=== PATIENT | male | born 1945 | race Caucasian/White ===

== ENCOUNTER 2018-02-17 02:41 | Outpatient (RCR) | payer MEDICARE, SELFPAY ==
[2018-02-17] MEDS: Normal Saline Flush 10 ML SYR IVP (12:57)
[2018-02-18] MEDS: Normal Saline Flush 10 ML SYR IVP (12:37)
[2018-02-18 13:07] LABS: INR 3.5 (1.0-3.5); Prothrombin Time 32.8 sec (9.3-10.8)
[2018-02-19] MEDS: Normal Saline Flush 10 ML SYR IVP (12:54)
[2018-02-20] MEDS: Normal Saline Flush 10 ML SYR IVP (13:05)
[2018-02-21] MEDS: Normal Saline Flush 10 ML SYR IVP (13:00)
[2018-02-21 13:10] LABS: Abs Immature Grans 0.07 k/cumm (0.0-0.09); Absolute Basophil Count 0.08 k/cumm (0.0-0.2); Absolute Eosinophil Count 0.96 k/cumm (0.0-0.7); Absolute Monocyte Count 0.81 k/cumm (0.11-0.7); Basophils % 0.6; Eosinophils % 7.1; HCT 36.9 % (40.0-50.0); Immature Grans % 0.5; Mean Corp. HGB Concentration 32.5 g/dL (32.0-36.0); Mean Corpuscular Hemoglobin 30.8 pg (27.0-33.0); Mean Corpuscular Volume 94.9 fL (80-95); Mean Platelet Volume 9.2 fL (8.0-11.0); Neutrophils % 54.8; Platelet Count 410 x1000/uL (130-400); RBC 3.89 m/cumm (4.50-6.00); RBC Distribution Width 15.6 % (11.8-14.1); White Blood Cell Count 13.56 k/cumm (4.4-10.8)
[2018-02-21 13:13] LABS: Absolute Neutrophil Count 7.43 k/cumm (1.2-6.7)
[2018-02-21 13:20] LABS: AST 26 U/L (15-37); BUN 18 mg/dL (7-18); Chloride 101 mmol/L (98-107); Potassium 3.8 mmol/L (3.5-5.1); Sodium 138 mmol/L (136-145)
[2018-02-21 13:37] LABS: ALT 43 U/L (12-78); Alkaline Phosphatase 120 U/L (46-116); Anion Gap 6.1 mmol/L (3-11); Bilirubin, Total 0.4 mg/dL (0.2-1.0); CO2 30.9 mmol/L (21.0-32.0); CREATININE 0.93 mg/dL (0.70-1.30); Calcium 8.2 mg/dL (8.5-10.1); Glucose 122 mg/dL (70-100); Total Protein 7.6 g/dL (6.4-8.2)
[2018-02-22] MEDS: Normal Saline Flush 10 ML SYR IVP (13:28)
[2018-02-22 13:44] VITALS: BP 123/72; PULSE 57; RESP 20; TEMP 36.7; O2SAT 94
[2018-02-22 13:48] LABS: INR 2.6 (1.0-3.5); Prothrombin Time 24.8 sec (9.3-10.8)
[2018-02-23] MEDS: Normal Saline Flush 10 ML SYR IVP (12:44)
[2018-02-24] MEDS: Normal Saline Flush 10 ML SYR IVP (12:43)
[2018-02-25] MEDS: Normal Saline Flush 10 ML SYR IVP (13:26)
[2018-02-26] MEDS: Normal Saline Flush 10 ML SYR IVP (12:50)
[2018-02-27] MEDS: Normal Saline Flush 10 ML SYR IVP (13:06)
[2018-02-28] MEDS: Normal Saline Flush 10 ML SYR IVP (12:45)
[2018-02-28 13:10] LABS: ALT 35 U/L (12-78); AST 22 U/L (15-37); Albumin 3.1 g/dL (3.4-5.0); Alkaline Phosphatase 132 U/L (46-116); BUN 26 mg/dL (7-18); Bilirubin, Total 0.3 mg/dL (0.2-1.0); CREATININE 1.02 mg/dL (0.70-1.30); Calcium 8.4 mg/dL (8.5-10.1); Chloride 99 mmol/L (98-107); Glucose 268 mg/dL (70-100); Potassium 3.9 mmol/L (3.5-5.1); Sodium 134 mmol/L (136-145)
[2018-02-28 13:15] LABS: Abs Immature Grans 0.03 k/cumm (0.0-0.09); Absolute Basophil Count 0.04 k/cumm (0.0-0.2); Absolute Eosinophil Count 0.05 k/cumm (0.0-0.7); Absolute Lymphocyte Count 1.62 k/cumm (1.2-3.4); Basophils % 0.3; Eosinophils % 0.4; HCT 39.4 % (40.0-50.0); HGB 12.6 g/dL (13.5-17.5); Immature Grans % 0.3; Lymphocytes % 13.7; Mean Corpuscular Hemoglobin 30.4 pg (27.0-33.0); Mean Corpuscular Volume 95.2 fL (80-95); Mean Platelet Volume 9.6 fL (8.0-11.0); Monocytes % 2.5; Neutrophils % 82.8; Platelet Count 359 x1000/uL (130-400); RBC 4.14 m/cumm (4.50-6.00); RBC Distribution Width 16.3 % (11.8-14.1); White Blood Cell Count 11.83 k/cumm (4.4-10.8)
== END 2018-03-04 ==
LOC: INF 02-18 03:40
PROVIDERS: Internal Medicine Infectious Disease; Nurse Practitioner Family; PCP Student in an Organized Health Care Education/Training Program; Visit Provider Student in an Organized Health Care Education/Training Program
DX: R78.81 Bacteremia (principal); B95.5 Unspecified streptococcus as the cause of diseases classified elsewhere; Z79.01 Long term (current) use of anticoagulants; Z45.2 Encounter for adjustment and management of vascular access device
CPT/HCPCS: 36592 ×4; 96365 ×11; 80053; 99211; 85025; 85610

== ENCOUNTER 2018-03-18 00:37 | Outpatient (RCR) | payer MEDICARE, SELFPAY ==
[2018-03-18 07:09] VITALS: BP 124/69; PULSE 75; RESP 16; TEMP 36.6; O2SAT 95
[2018-03-18] MEDS: Acetaminophen 325 MG TAB 650 MG PO (07:24)
[2018-03-18] MEDS: diphenhydrAMINE 25 MG CAP PO (07:24)
[2018-03-18] MEDS: Normal Saline Flush 10 ML SYR IVP (07:45)
[2018-03-18 07:50] VITALS: BP 121/69; PULSE 59; RESP 18; TEMP 36.6
[2018-03-18 08:05] VITALS: BP 131/71; PULSE 58; RESP 18; TEMP 36.6
[2018-03-18 08:20] VITALS: BP 130/70; PULSE 60; RESP 18; TEMP 36.5
[2018-03-18 09:54] VITALS: BP 125/80; PULSE 60; RESP 18; TEMP 36.6; O2SAT 97
== END 2018-04-03 23:59 | disposition home or self-care (01) ==
LOC: INF 00:37
PROVIDERS: PCP Student in an Organized Health Care Education/Training Program; Visit Provider Student in an Organized Health Care Education/Training Program
DX: M06.9 Rheumatoid arthritis, unspecified (principal)
CPT/HCPCS: 96365; 96366; J1745

== ENCOUNTER 2018-04-12 01:33 | Outpatient (RCR) | payer MEDICARE, SELFPAY ==
[2018-04-12] MEDS: Acetaminophen 325 MG TAB 650 MG PO (07:06)
[2018-04-12] MEDS: diphenhydrAMINE 25 MG CAP PO (07:08)
[2018-04-12 07:22] VITALS: BP 117/65; PULSE 81; RESP 18; TEMP 36.6; O2SAT 98
[2018-04-12 08:00] VITALS: BP 131/69; PULSE 76; RESP 18; TEMP 36.6; O2SAT 97
[2018-04-12 08:15] VITALS: BP 122/48; PULSE 54; RESP 17; TEMP 36.6; O2SAT 96
[2018-04-12 08:30] VITALS: BP 127/63; PULSE 66; RESP 17; TEMP 36.6; O2SAT 95
[2018-04-12 08:45] VITALS: BP 118/72; PULSE 71; RESP 18; TEMP 36.5; O2SAT 96
[2018-04-12 09:21] VITALS: BP 121/78; PULSE 74; RESP 17; TEMP 36.6; O2SAT 96
== END 2018-05-04 23:59 | disposition home or self-care (01) ==
LOC: INF 01:33
PROVIDERS: PCP Student in an Organized Health Care Education/Training Program; Visit Provider Nurse Practitioner Family
DX: M06.9 Rheumatoid arthritis, unspecified (principal)
CPT/HCPCS: 96365; 96366; J1745

== ENCOUNTER 2018-05-10 01:46 | Outpatient (RCR) | payer MEDICARE, SELFPAY ==
[2018-05-10] MEDS: diphenhydrAMINE 25 MG CAP PO (07:24)
[2018-05-10] MEDS: Acetaminophen 325 MG TAB 650 MG PO (07:25)
[2018-05-10] MEDS: Normal Saline Flush 10 ML SYR IVP (07:30)
[2018-05-10 07:45] VITALS: BP 126/64; PULSE 73; RESP 18; TEMP 36.6; O2SAT 94
[2018-05-10 08:00] VITALS: BP 124/64; PULSE 78; RESP 18; TEMP 36.6; O2SAT 98
[2018-05-10 08:15] VITALS: BP 125/65; PULSE 68; RESP 18; TEMP 36.8; O2SAT 98
[2018-05-10 08:30] VITALS: BP 110/65; PULSE 70; RESP 18; TEMP 36.5; O2SAT 97
[2018-05-10 08:45] VITALS: BP 109/57; PULSE 66; RESP 18; TEMP 36.5; O2SAT 97
== END 2018-06-03 23:59 | disposition home or self-care (01) ==
LOC: INF 01:46
PROVIDERS: PCP Student in an Organized Health Care Education/Training Program; Visit Provider Student in an Organized Health Care Education/Training Program
DX: M06.9 Rheumatoid arthritis, unspecified (principal)
CPT/HCPCS: 96365; 96366; J1745

== ENCOUNTER 2018-06-07 00:58 | Outpatient (RCR) | payer MEDICARE, SELFPAY ==
[2018-06-07] MEDS: Normal Saline Flush 10 ML SYR IVP (07:21)
[2018-06-07] MEDS: diphenhydrAMINE 25 MG CAP PO (07:21)
[2018-06-07 07:47] VITALS: BP 119/68; PULSE 75; RESP 18; TEMP 36.8; O2SAT 95
[2018-06-07 07:55] VITALS: BP 111/66; PULSE 68; RESP 18; TEMP 36.6; O2SAT 93
[2018-06-07 08:10] VITALS: BP 117/71; PULSE 72; RESP 18; TEMP 36.7; O2SAT 93
[2018-06-07 08:25] VITALS: BP 119/58; PULSE 70; RESP 18; TEMP 36.6; O2SAT 100
[2018-06-07 08:40] VITALS: BP 119/55; PULSE 75; RESP 18; TEMP 36.5; O2SAT 100
[2018-06-07 09:10] VITALS: BP 114/64; PULSE 67; RESP 18; TEMP 36.5; O2SAT 98
== END 2018-07-04 23:59 | disposition home or self-care (01) ==
LOC: INF 00:58
PROVIDERS: PCP Student in an Organized Health Care Education/Training Program; Visit Provider Student in an Organized Health Care Education/Training Program
DX: M05.9 Rheumatoid arthritis with rheumatoid factor, unspecified (principal)
CPT/HCPCS: 96365; 96366; J1745

== ENCOUNTER 2018-07-15 00:32 | Outpatient (RCR) | payer MEDICARE, SELFPAY ==
[2018-07-15] MEDS: diphenhydrAMINE 25 MG CAP PO (07:32)
[2018-07-15 07:34] VITALS: BP 110/87; PULSE 62; RESP 18; TEMP 36.2; O2SAT 93
[2018-07-15 08:05] VITALS: BP 105/53; PULSE 69; RESP 18; TEMP 36.4; O2SAT 95
[2018-07-15 08:20] VITALS: BP 119/62; PULSE 61; RESP 18; TEMP 36.3; O2SAT 98
[2018-07-15 08:35] VITALS: BP 93/72; PULSE 72; RESP 18; TEMP 36.5; O2SAT 98
[2018-07-15 09:10] VITALS: BP 115/55; PULSE 67; RESP 18; TEMP 36.3; O2SAT 98
== END 2018-08-04 23:59 | disposition home or self-care (01) ==
LOC: INF 00:32
PROVIDERS: PCP Student in an Organized Health Care Education/Training Program; Visit Provider Student in an Organized Health Care Education/Training Program
DX: M05.9 Rheumatoid arthritis with rheumatoid factor, unspecified (principal)
CPT/HCPCS: 96365; 96366; J1745

== ENCOUNTER 2018-07-27 09:18 | Outpatient (CLI) | payer MEDICARE, SELFPAY ==
--- NOTE | 2018-07-27 09:15 | DI.RAD_ITS ---
SYMPTOM/DIAGNOSIS: SOB, COUGH, ? PNEUMONIA PA AND LATERAL CHEST: There are patchy regions of bibasilar infiltration, the findings most pronounced in the left lower lobe. There is no pleural effusion. The heart is not enlarged. The hilar structures, mediastinum and tracheal air column are well maintained. Incidental note is made of severe bilateral shoulder DJD. IMPRESSION: Findings consistent with an acute pneumonitis.
== END 2018-07-27 09:38 ==
PROVIDERS: PCP Student in an Organized Health Care Education/Training Program; Visit Provider Student in an Organized Health Care Education/Training Program
DX: R06.02 Shortness of breath (principal); R05 Cough; J18.9 Pneumonia, unspecified organism
CPT/HCPCS: 71046

== ENCOUNTER 2018-08-10 01:49 | Outpatient (RCR) | payer MEDICARE, SELFPAY ==
[2018-08-10] MEDS: Acetaminophen 325 MG TAB 650 MG PO (07:00)
[2018-08-10] MEDS: diphenhydrAMINE 25 MG CAP PO (07:00)
[2018-08-10 07:28] VITALS: BP 117/65; PULSE 83; RESP 18; TEMP 36.7; O2SAT 96
[2018-08-10 08:15] VITALS: BP 154/67; PULSE 63; RESP 18; TEMP 36.3; O2SAT 97
[2018-08-10 08:40] VITALS: BP 136/65; PULSE 77; RESP 18; TEMP 36.5; O2SAT 95
[2018-08-10 08:53] VITALS: BP 135/60; PULSE 77; RESP 18; TEMP 36.6; O2SAT 98
[2018-08-10 09:15] VITALS: BP 130/73; PULSE 70; RESP 18; TEMP 36.6; O2SAT 95
[2018-08-10 09:29] VITALS: BP 131/74; PULSE 80; RESP 18; TEMP 36.3; O2SAT 95
== END 2018-09-01 23:59 | disposition home or self-care (01) ==
LOC: INF 01:49
PROVIDERS: PCP Student in an Organized Health Care Education/Training Program; Visit Provider Student in an Organized Health Care Education/Training Program
DX: M05.9 Rheumatoid arthritis with rheumatoid factor, unspecified (principal)
CPT/HCPCS: 96365; 96366; J1745

== ENCOUNTER 2018-09-07 02:05 | Outpatient (RCR) | payer MEDICARE, SELFPAY ==
[2018-09-07] VITALS (7 sets, daily range): BP systolic 98–133; BP diastolic 45–65; PULSE 63–70; RESP 18; TEMP 36.2–36.5; O2SAT 93–98
[2018-09-07] MEDS: diphenhydrAMINE 25 MG CAP PO (07:04)
[2018-09-07] MEDS: Acetaminophen 325 MG TAB 650 MG PO (07:05)
== END 2018-10-02 23:59 | disposition home or self-care (01) ==
LOC: INF 02:05
PROVIDERS: PCP Student in an Organized Health Care Education/Training Program; Visit Provider Student in an Organized Health Care Education/Training Program
DX: M05.9 Rheumatoid arthritis with rheumatoid factor, unspecified (principal)
CPT/HCPCS: 96365; 96366; J1745

== ENCOUNTER 2018-09-15 13:30 | Outpatient (CLI) | payer MEDICARE, SELFPAY ==
[2018-09-15 14:19] LABS: HCT 41.9 % (40.0-50.0); HGB 14.1 g/dL (13.5-17.5); Mean Corp. HGB Concentration 33.7 g/dL (32.0-36.0); Mean Corpuscular Hemoglobin 31.9 pg (27.0-33.0); Mean Corpuscular Volume 94.8 fL (80-95); Mean Platelet Volume 9.4 fL (8.0-11.0); Platelet Count 248 x1000/uL (130-400); RBC 4.42 m/cumm (4.50-6.00); RBC Distribution Width 15.6 % (11.8-14.1)
[2018-09-15 14:55] LABS: Magnesium 1.6 mg/dL (1.8-2.4)
[2018-09-15 15:00] LABS: ALT 46 U/L (12-78); AST 31 U/L (15-37); Albumin 3.5 g/dL (3.4-5.0); Alkaline Phosphatase 99 U/L (46-116); Anion Gap 13.1 mmol/L (3-11); BUN 16 mg/dL (7-18); Bilirubin, Total 0.6 mg/dL (0.2-1.0); CO2 23.9 mmol/L (21.0-32.0); CREATININE 1.14 mg/dL (0.70-1.30); Calcium 8.5 mg/dL (8.5-10.1); Chloride 97 mmol/L (98-107); Glucose 194 mg/dL (70-100); Potassium 3.9 mmol/L (3.5-5.1); Sodium 134 mmol/L (136-145); Total Protein 7.6 g/dL (6.4-8.2)
== END 2018-09-15 13:50 ==
PROVIDERS: PCP Student in an Organized Health Care Education/Training Program; Visit Provider Student in an Organized Health Care Education/Training Program
DX: E11.65 Type 2 diabetes mellitus with hyperglycemia (principal); I10 Essential (primary) hypertension; I27.20 Pulmonary hypertension, unspecified; R60.9 Edema, unspecified; R25.2 Cramp and spasm; I48.91 Unspecified atrial fibrillation; Z79.01 Long term (current) use of anticoagulants; Z86.2 Personal history of diseases of the blood and blood-forming organs and certain disorders involving the immune mechanism
CPT/HCPCS: 36415; 80053; 85027; 83735

== ENCOUNTER 2018-10-07 02:49 | Outpatient (RCR) | payer MEDICARE, SELFPAY ==
[2018-10-07 11:31] VITALS: BP 129/66; PULSE 74; RESP 18; TEMP 36.5; O2SAT 95
[2018-10-07] MEDS: Acetaminophen 325 MG TAB 650 MG PO (11:35)
[2018-10-07] MEDS: diphenhydrAMINE 25 MG CAP PO (11:35)
[2018-10-07 12:12] VITALS: BP 126/67; PULSE 71; RESP 18; TEMP 36.7; O2SAT 95
[2018-10-07 12:35] VITALS: BP 118/61; PULSE 74; RESP 18; TEMP 36.5; O2SAT 95
[2018-10-07 12:50] VITALS: BP 130/65; PULSE 68; RESP 18; TEMP 36.5; O2SAT 97
[2018-10-07 14:13] VITALS: BP 113/57; PULSE 79; RESP 20; TEMP 37.1; O2SAT 95
[2018-10-07] MEDS: Normal Saline Flush 10 ML SYR IVP (14:18)
== END 2018-11-01 23:59 | disposition home or self-care (01) ==
LOC: INF 02:49
PROVIDERS: PCP Student in an Organized Health Care Education/Training Program; Visit Provider Internal Medicine
DX: M05.9 Rheumatoid arthritis with rheumatoid factor, unspecified (principal)
CPT/HCPCS: 96365; 96366; J1745

== ENCOUNTER 2018-10-09 16:23 | Emergency (ER) | payer MEDICARE, SELFPAY ==
[2018-10-09 16:25] VITALS: BP 115/98; PULSE 70; RESP 16; TEMP 35.9; O2SAT 98
--- NOTE | 2018-10-09 16:45 | W.ED.GENAD ---
Discharge Plan Disposition Patient Disposition: HOME Condition: Improving Discharge Details Chief Complaint: Vascular Clinical Impression: Leg wound, left Primary Care Provider: Ana Alatorre ED Provider: Dima Mitchell Home Meds and New Rx's Prescriptions: Continued furosemide [Lasix] 40 mg tablet 40 mg PO BID Qty: 180 RF: 3 levalbuterol tartrate [Xopenex HFA] 45 mcg/actuation HFA aerosol inhaler 2 puff Inhalation Q4H PRN Qty: 1 RF: 6 warfarin 2 mg tablet 2 mg PO DIRECTED RF: 0 prednisone 10 mg tablet 10 mg PO DAILY Qty: 100 RF: 0 oxycodone-acetaminophen 5-325 mg tablet 1 tab PO Q4H MDD 5 PRN (Reason: pain) Qty: 140 RF: 0 oxycodone-acetaminophen 5-325 mg tablet 1 tab PO Q6H MDD 6 PRN (Reason: pain) Qty: 140 RF: 0 oxycodone-acetaminophen 5-325 mg tablet 1 tab PO Q4H MDD 6 PRN (Reason: pain) Qty: 140 RF: 0 morphine 15 mg tablet extended release 15 mg PO Q12H MDD 2 Qty: 56 RF: 0 Remicade 100 MG recon soln 800 mg IV q5w RF: 0 Narcan 4 MG spray,non-aerosol 4 mg NS PRN PRNQty: 1 RF: 0 Oxygen EACH RF: 0 lisinopril 10 MG tablet 10 mg PO DAILY Qty: 90 RF: 3 atorvastatin 80 MG tablet 80 mg PO DAILY Qty: 90 RF: 3 nitroglycerin [Nitrostat] 0.4 mg tablet, sublingual 0.4 mg Sublingual PRN Qty: 25 RF: 6 metoprolol succinate 100 mg tablet extended release 24 hr 100 mg PO DAILY Qty: 90 RF: 3 methylprednisolone [Medrol] 4 mg tablet 4 mg PO DAILY Qty: 90 RF: 1 metformin 500 mg tablet 500 mg PO BID Qty: 180 RF: 3 pramipexole 0.125 mg tablet 0.125 mg PO HS Qty: 30 RF: 3 omeprazole 20 mg capsule,delayed release(DR/EC) 20 mg PO DAILY Qty: 30 RF: 3 aspirin [Aspir-81] 81 mg tablet,delayed release (DR/EC) 81 mg PO DAILY Qty: 100 RF: 3 Discharge Instructions Additional Instructions: Continue all your regular medications. I will order home health for a wound check in our care management team will contact you this week. Leave the Mepilex border in place for a minimum of 5 days/until seen by wound check nurse. Return if you develop a fever or any other acute concerns. Medical Decision Making 73-year-old male with multiple chronic medical comorbidities, anticoagulated, with a history of pulmonary hypertension and persistent chronic lower extremity edema. He walked into a toolbox and abraded his left anterior smart yesterday. He was worried that this could be a blood clot and therefore presented to the emergency department today. He has no posterior leg pain, no leg pain whatsoever today. He does have chronic lower extremity edema that is unchanged. Patient also has a small healing ulceration of the right lower extremity. The left lower extremity wound was cleansed and dressed with Mepilex. Mepilex was also placed to the right lower extremity. With patient's diabetes and chronic lower extremity edema he will have poor wound healing. He has required in-home health in the past for wound healing. I therefore will ask care management to arrange for home health visits for wound check. HPI General Mode of arrival: ambulatory. Date/Time Provider Initiated Documentation: 10/09/18 16:29. Limitations to Documentation: no limitations. Information obtained by: patient and family. History of Present Illness 73 year old M presents to the emergency department with the chief complaint of Left anterior tibia wound yesterday, described as moderate, Quality is described as dull, and is localized to the left and lower extremity. Patient reports no radiation. and it has been now resolved. No relieving factors improve symptom(s), No exacerbating factors reported . Patient notes no other symptoms.. Patient did receive the following treatments prior to arrival, other (Topical antibiotic treatment and wound dressed) Related Data Home Medications Medication Instructions Recorded Confirmed Remicade 800 mg IV q5w vial 09/07/16 08/15/18 Narcan 4 mg NS PRN PRN #1 unit 12/17/16 09/14/18 Oxygen 09/23/17 10/07/18 lisinopril 10 mg PO DAILY #90 tab-cap 10/22/17 09/14/18 atorvastatin 80 mg PO DAILY #90 tab-cap 01/12/18 09/14/18 warfarin 2 mg tablet 2 mg PO DIRECTED tab 03/07/18 10/07/18 nitroglycerin 0.4 mg sublingual 0.4 mg SUBLINGUAL PRN #25 tab 03/23/18 09/14/18 tablet metoprolol succinate ER 100 mg 100 mg PO DAILY #90 tab 05/13/18 09/14/18 tablet,extended release 24 hr metformin 500 mg tablet 500 mg PO BID #180 tab-cap 07/18/18 09/14/18 methylprednisolone 4 mg tablet 4 mg PO DAILY #90 tab 07/18/18 09/14/18 furosemide 40 mg tablet 40 mg PO BID #180 tab 07/25/18 09/14/18 pramipexole 0.125 mg tablet 0.125 mg PO HS #30 tab-cap 08/17/18 10/07/18 aspirin 81 mg tablet,delayed 81 mg PO DAILY #100 tab 09/12/18 09/14/18 release omeprazole 20 mg capsule,delayed 20 mg PO DAILY #30 tab-cap 09/12/18 10/07/18 release morphine ER 15 mg tablet,extended 15 mg PO Q12H #56 tab MDD 2 09/14/18 09/14/18 release oxycodone-acetaminophen 5 mg-325 1 tab PO Q4H PRN #140 tab MDD 5 09/14/18 10/07/18 mg tablet oxycodone-acetaminophen 5 mg-325 1 tab PO Q4H PRN #140 tab MDD 6 09/14/18 10/07/18 mg tablet oxycodone-acetaminophen 5 mg-325 1 tab PO Q6H PRN #140 tab MDD 6 09/14/18 10/07/18 mg tablet prednisone 10 mg tablet 10 mg PO DAILY #100 tab 09/14/18 10/07/18 levalbuterol HFA 45 mcg/actuation 2 puff INHALATION Q4H PRN #1 10/07/18 10/07/18 aerosol inhaler inhaler Previous Rx's Medication Instructions Recorded lisinopril 10 mg PO DAILY #90 tab-cap 10/22/17 atorvastatin 80 mg PO DAILY #90 tab-cap 01/12/18 nitroglycerin 0.4 mg sublingual 0.4 mg SUBLINGUAL PRN #25 tab 03/23/18 tablet metoprolol succinate ER 100 mg 100 mg PO DAILY #90 tab 05/13/18 tablet,extended release 24 hr metformin 500 mg tablet 500 mg PO BID #180 tab-cap 07/18/18 methylprednisolone 4 mg tablet 4 mg PO DAILY #90 tab 07/18/18 furosemide 40 mg tablet 40 mg PO BID #180 tab 07/25/18 pramipexole 0.125 mg tablet 0.125 mg PO HS #30 tab-cap 08/17/18 aspirin 81 mg tablet,delayed 81 mg PO DAILY #100 tab 09/12/18 release omeprazole 20 mg capsule,delayed 20 mg PO DAILY #30 tab-cap 09/12/18 release morphine ER 15 mg tablet,extended 15 mg PO Q12H #56 tab MDD 2 09/14/18 release oxycodone-acetaminophen 5 mg-325 1 tab PO Q4H PRN #140 tab MDD 5 09/14/18 mg tablet oxycodone-acetaminophen 5 mg-325 1 tab PO Q4H PRN #140 tab MDD 6 09/14/18 mg tablet oxycodone-acetaminophen 5 mg-325 1 tab PO Q6H PRN #140 tab MDD 6 09/14/18 mg tablet prednisone 10 mg tablet 10 mg PO DAILY #100 tab 09/14/18 levalbuterol HFA 45 mcg/actuation 2 puff INHALATION Q4H PRN #1 10/07/18 aerosol inhaler inhaler Allergies Allergy/AdvReac Type Severity Reaction Status Date / Time adalimumab Allergy Severe unknown Verified 10/09/18 16:36 Penicillins Allergy Severe Anaphylaxsi Verified 10/09/18 16:36 s General Stated Complaint: Vascular LINDSEY: 3 Review of Systems Review of Systems No fever, no pain, no swelling that is new, no shortness of breath. 6 systems reviewed and otherwise negative [facility] Surgical History Bronchoscopy (11/20/10) Extraction of cataract (08/21/10) Internal fixation (08/03/10) PFT'S: SEPTEMBER 2017 PTCA (01/27/94) echo right heart catheterization,oximetry (01/07/18) Family History Mother Personal history of malignant neoplasm Father Heart disease Brother Heart disease Lung cancer Social History Smoking/Tobacco Use Status: Former Tobacco Use Tobacco: How many years used: 30 Alcohol Intake: former Details: quit ETOH 1993 Drug use: Never Substance use type: does not use Household members: friend(s) Number of Children: 3 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 Pleasant, well groomed, interactive. HEAD: Normocephalic, atraumatic ENT: Mucous membranes moist, oropharynx unremarkable, External ear exam unremarkable EYES: PERRL, EOMI EXT: Full ROM, no edema, no rash. Left mid anterior tibia with 2 cm area of blood blister/skin avulsion. Right anterior distal tibia with healing 1 x 2 cm wound with granulation tissue Neuro: Grossly normal neurologic exam, conversant, interactive. Psych: Speech fluent, thoughts congruent, affect normal Course Vital Signs Temperature 35.9 C L 10/09/18 16:25 Pulse 70 10/09/18 16:25 Respiratory Rate 16 10/09/18 16:25 Blood Pressure 115/98 H 10/09/18 16:25 Pulse Oximetry 98 10/09/18 16:25 Temperature 35.9 C L 10/09/18 16:25 Temperature Source Skin 10/09/18 16:25 Pulse 70 10/09/18 16:25 Respiratory Rate 16 10/09/18 16:25 Blood Pressure 115/98 H 10/09/18 16:25 Blood Pressure Position Supine 10/09/18 16:25 Pulse Oximetry 98 10/09/18 16:25 Oxygen Delivery Method Nasal Cannula 10/09/18 16:25 Oxygen Flow Rate 2 10/09/18 16:25 Pain Level 0 10/09/18 16:25
--- NOTE | 2018-10-10 10:39 | PDOC.ERCMPRO ---
Care Management Progress Note 10/10-Dr. Mitchell requested assistance with a Home Health Referral for wound care lower extremities. Referral faxed to Home Health this am. This CM also called home health and spoke with
== END 2018-10-09 17:12 | disposition home or self-care (01) ==
LOC: ER 17:02
PROVIDERS: Emergency Provider Emergency Medicine; PCP Student in an Organized Health Care Education/Training Program
DX: S81.802A Unspecified open wound, left lower leg, initial encounter (principal); E11.9 Type 2 diabetes mellitus without complications; I10 Essential (primary) hypertension; R60.9 Edema, unspecified; I48.91 Unspecified atrial fibrillation; Z79.01 Long term (current) use of anticoagulants
CPT/HCPCS: 99282

== ENCOUNTER 2018-11-30 01:47 | Outpatient (RCR) | payer MEDICARE, SELFPAY ==
[2018-11-02] MEDS: diphenhydrAMINE 25 MG CAP PO (07:06)
[2018-11-02] MEDS: Normal Saline Flush 10 ML SYR IVP (07:07)
[2018-11-02 07:48] VITALS: BP 121/79; PULSE 72; RESP 20; TEMP 36.4; O2SAT 94
[2018-11-02 08:05] VITALS: BP 119/71; PULSE 71; RESP 22; TEMP 36.6; O2SAT 96
[2018-11-02 08:35] VITALS: BP 105/66; PULSE 70; RESP 20; TEMP 36.5; O2SAT 95
[2018-11-02 09:00] VITALS: BP 110/76; PULSE 75; RESP 20; TEMP 36.5; O2SAT 95
[2018-11-02 09:25] VITALS: BP 120/60; PULSE 62; TEMP 36.4; O2SAT 95
[2018-11-30] MEDS: diphenhydrAMINE 25 MG CAP PO (07:05)
[2018-11-30] MEDS: Acetaminophen 325 MG TAB 650 MG PO (07:05)
[2018-11-30 07:36] VITALS: BP 116/65; PULSE 66; RESP 20; TEMP 36.1; O2SAT 94
[2018-11-30 07:47] VITALS: BP 104/67; PULSE 76; TEMP 35.7; O2SAT 95
[2018-11-30 08:04] VITALS: BP 120/64; PULSE 61; TEMP 35.9; O2SAT 97
[2018-11-30 08:26] VITALS: BP 120/69; PULSE 71; O2SAT 94
[2018-11-30 08:59] VITALS: BP 103/69; PULSE 53; O2SAT 97
== END 2018-12-02 23:59 | disposition home or self-care (01) ==
LOC: INF 01:47
PROVIDERS: PCP Student in an Organized Health Care Education/Training Program; Visit Provider Internal Medicine
DX: M05.9 Rheumatoid arthritis with rheumatoid factor, unspecified (principal)
CPT/HCPCS: 96365; 96366; J1745

== ENCOUNTER 2018-12-20 08:14 | Outpatient (CLI) | payer MEDICARE, SELFPAY ==
[2018-12-20 10:16] LABS: Anion Gap 15.9 mmol/L (3-11); BUN 17 mg/dL (7-18); CO2 23.1 mmol/L (21.0-32.0); CREATININE 1.08 mg/dL (0.70-1.30); Calcium 8.9 mg/dL (8.5-10.1); Chloride 101 mmol/L (98-107); Glucose 195 mg/dL (70-100); Magnesium 1.7 mg/dL (1.8-2.4); Potassium 3.8 mmol/L (3.5-5.1); Sodium 140 mmol/L (136-145)
== END 2018-12-20 08:34 ==
PROVIDERS: PCP Student in an Organized Health Care Education/Training Program; Visit Provider Student in an Organized Health Care Education/Training Program
DX: R60.9 Edema, unspecified (principal); Z86.39 Personal history of other endocrine, nutritional and metabolic disease
CPT/HCPCS: 36415; 80048; 83735

== ENCOUNTER 2018-12-28 01:14 | Outpatient (RCR) | payer MEDICARE, SELFPAY ==
[2018-12-28] MEDS: diphenhydrAMINE 25 MG CAP PO (08:07)
[2018-12-28] MEDS: Acetaminophen 325 MG TAB 650 MG PO (08:07)
[2018-12-28] MEDS: Normal Saline Flush 10 ML SYR IVP (08:07)
[2018-12-28 08:12] VITALS: BP 122/78; PULSE 62; RESP 18; TEMP 36.3; O2SAT 93
[2018-12-28 09:15] VITALS: BP 113/68; PULSE 56; RESP 18; TEMP 36.7; O2SAT 97
[2018-12-28 09:33] VITALS: BP 126/80; PULSE 64; RESP 18; TEMP 36.6; O2SAT 99
[2018-12-28 09:54] VITALS: BP 120/75; PULSE 82; RESP 18; TEMP 36.5; O2SAT 99
[2018-12-28 10:11] VITALS: BP 123/75; PULSE 62; RESP 18; TEMP 36.5; O2SAT 99
[2018-12-28 10:30] VITALS: BP 109/75; PULSE 74; RESP 18; TEMP 36.5; O2SAT 98
== END 2019-01-01 23:59 | disposition home or self-care (01) ==
LOC: INF 01:14
PROVIDERS: PCP Student in an Organized Health Care Education/Training Program; Visit Provider Internal Medicine
DX: M05.9 Rheumatoid arthritis with rheumatoid factor, unspecified (principal)
CPT/HCPCS: 96365; 96366; J1745

== ENCOUNTER 2019-01-24 01:33 | Outpatient (RCR) | payer MEDICARE, SELFPAY ==
[2019-01-24 07:33] VITALS: BP 119/84; PULSE 53; RESP 18; TEMP 36.6; O2SAT 98
[2019-01-24] MEDS: Acetaminophen 325 MG TAB 650 MG PO (07:33)
[2019-01-24] MEDS: diphenhydrAMINE 25 MG CAP PO (07:33)
[2019-01-24] MEDS: Normal Saline Flush 10 ML SYR IVP (07:34)
[2019-01-24 08:07] VITALS: BP 122/60; PULSE 70; RESP 18; TEMP 36.6; O2SAT 98
[2019-01-24 08:20] VITALS: BP 117/79; PULSE 77; RESP 18; TEMP 36.6; O2SAT 98
[2019-01-24 08:39] VITALS: BP 116/65; PULSE 75; RESP 18; TEMP 36; O2SAT 98
[2019-01-24 09:00] VITALS: BP 117/79; PULSE 67; RESP 18; TEMP 36.3; O2SAT 98
[2019-01-24 10:49] LABS: INR 2.9 (0.9-1.1); Prothrombin Time 29.1 sec (9.3-11.0)
== END 2019-02-01 23:59 | disposition home or self-care (01) ==
LOC: INF 01:33
PROVIDERS: PCP Student in an Organized Health Care Education/Training Program; Visit Provider Internal Medicine
DX: M05.9 Rheumatoid arthritis with rheumatoid factor, unspecified (principal); Z79.01 Long term (current) use of anticoagulants
CPT/HCPCS: 36415; 96365; 96366; 85610; J1745

== ENCOUNTER 2019-02-21 01:57 | Outpatient (RCR) | payer MEDICARE, SELFPAY ==
[2019-02-21 07:01] VITALS: BP 108/64; PULSE 78; RESP 18; TEMP 36.3; O2SAT 98
[2019-02-21] MEDS: diphenhydrAMINE 25 MG CAP PO (07:34)
[2019-02-21] MEDS: Acetaminophen 325 MG TAB 650 MG PO (07:34)
[2019-02-21] MEDS: Normal Saline Flush 10 ML SYR IVP (08:11)
[2019-02-21 08:23] VITALS: BP 148/81; PULSE 68; RESP 18; TEMP 36.5; O2SAT 96
[2019-02-21 08:41] VITALS: BP 96/46; PULSE 68; RESP 18; TEMP 36.3; O2SAT 98
[2019-02-21 09:05] VITALS: BP 110/68; PULSE 69; RESP 18; TEMP 36.5; O2SAT 98
[2019-02-21 09:20] VITALS: BP 112/60; PULSE 65; RESP 18; TEMP 36.6; O2SAT 98
[2019-02-21 11:11] LABS: INR 2.9 (0.9-1.1); Prothrombin Time 29.3 sec (9.3-11.0)
== END 2019-03-04 23:59 | disposition home or self-care (01) ==
LOC: INF 01:57
PROVIDERS: PCP Student in an Organized Health Care Education/Training Program; Visit Provider Internal Medicine
DX: M05.9 Rheumatoid arthritis with rheumatoid factor, unspecified (principal); I48.91 Unspecified atrial fibrillation; Z79.01 Long term (current) use of anticoagulants
CPT/HCPCS: 36415; 96365; 96366; 85610; J1745

== ENCOUNTER 2019-03-02 19:02 | Outpatient (REF) | payer MEDICARE, SELFPAY ==
[2019-03-06 11:56] LABS: Amphetamine Negative ng/mL (Cutoff: 25); Amphetamines Interpretation Negative.; MDA (Ecstasy Metabolite) Negative ng/mL (Cutoff: 25); MDMA (Ecstasy) Negative ng/mL (Cutoff: 25); Methamphetamine Negative ng/mL (Cutoff: 25); Phentermine Negative ng/mL (Cutoff: 25); Pseudoephedrine/Ephedrine Negative ng/mL (Cutoff: 25)
[2019-03-08 10:57] LABS: Codeine Negative ng/mL (Cutoff: 25); Dihydrocodeine Negative ng/mL (Cutoff: 25); Hydrocodone Negative ng/mL (Cutoff: 25); Hydromorphone 176 ng/mL (Cutoff: 25); Naloxone Negative ng/mL (Cutoff: 25); Norhydrocodone Negative ng/mL (Cutoff: 25); Noroxycodone 2370 ng/mL (Cutoff: 25); Noroxymorphone 293 ng/mL (Cutoff: 25); Opiates Interpretation Positive.
== END 2019-03-02 19:22 ==
LOC: LBN 19:02
PROVIDERS: PCP Student in an Organized Health Care Education/Training Program; Visit Provider Student in an Organized Health Care Education/Training Program
DX: G89.29 Other chronic pain (principal)
CPT/HCPCS: 80324; 80361

== ENCOUNTER 2019-03-24 07:00 | Outpatient (RCR) | payer MEDICARE, SELFPAY ==
[2019-03-24] VITALS (8 sets, daily range): BP systolic 108–133; BP diastolic 57–76; PULSE 60–82; RESP 18–19; TEMP 36.4–36.7; O2SAT 98–99
[2019-03-24] MEDS: Acetaminophen 325 MG TAB 650 MG PO (08:36)
[2019-03-24] MEDS: diphenhydrAMINE 25 MG CAP PO (08:36)
[2019-03-24] MEDS: Normal Saline Flush 10 ML SYR IVP (09:10)
[2019-03-24 11:31] LABS: Prothrombin Time 19.4 sec (9.3-11.0)
== END 2019-04-03 23:59 | disposition home or self-care (01) ==
LOC: INF 07:00
PROVIDERS: PCP Student in an Organized Health Care Education/Training Program; Visit Provider Nurse Practitioner Family
DX: M05.9 Rheumatoid arthritis with rheumatoid factor, unspecified (principal)
CPT/HCPCS: 36415; 96365; 96366; 85610; J1745

== ENCOUNTER 2019-05-11 03:24 | Outpatient (RCR) | payer MEDICARE, SELFPAY ==
[2019-05-11] VITALS (7 sets, daily range): BP systolic 126–154; BP diastolic 61–101; PULSE 58–75; RESP 18–20; TEMP 36.7–37.1; O2SAT 96–100
[2019-05-11] MEDS: Acetaminophen 325 MG TAB 650 MG PO (08:00)
[2019-05-11] MEDS: diphenhydrAMINE 25 MG CAP PO (08:00)
[2019-05-11 08:48] LABS: INR 3.1 (0.9-1.1); Prothrombin Time 30.3 sec (9.3-11.0)
== END 2019-06-03 23:59 | disposition home or self-care (01) ==
LOC: INF 03:24
PROVIDERS: PCP Student in an Organized Health Care Education/Training Program; Visit Provider Internal Medicine
DX: M05.9 Rheumatoid arthritis with rheumatoid factor, unspecified (principal); I48.91 Unspecified atrial fibrillation; Z79.01 Long term (current) use of anticoagulants
CPT/HCPCS: 36415; 96365; 96366; 85610; J1745

== ENCOUNTER 2019-06-19 06:54 | Outpatient (RCR) | payer MEDICARE, SELFPAY ==
[2019-06-19] VITALS (7 sets, daily range): BP systolic 101–147; BP diastolic 62–85; PULSE 66–81; RESP 18–20; TEMP 36–36.6; O2SAT 96–98
[2019-06-19] MEDS: Acetaminophen 325 MG TAB 650 MG PO (08:27)
[2019-06-19] MEDS: Normal Saline Flush 10 ML SYR IVP ×2 (08:27→09:18)
[2019-06-19 08:48] LABS: INR 2.6 (0.9-1.1); Prothrombin Time 25.7 sec (9.3-11.0)
== END 2019-07-04 23:59 | disposition home or self-care (01) ==
LOC: INF 06:54
PROVIDERS: Nurse Practitioner; PCP Student in an Organized Health Care Education/Training Program; Visit Provider Internal Medicine
DX: M05.9 Rheumatoid arthritis with rheumatoid factor, unspecified (principal)
CPT/HCPCS: 36415; 96365; 96366; 85610; J1745

== ENCOUNTER 2019-08-30 01:56 | Outpatient (RCR) | payer MEDICARE, SELFPAY ==
[2019-07-26] VITALS (8 sets, daily range): BP systolic 128–160; BP diastolic 46–73; PULSE 57–78; RESP 18–20; TEMP 36–36.8; O2SAT 97–100
[2019-07-26] MEDS: diphenhydrAMINE 25 MG CAP PO (07:44)
[2019-07-26] MEDS: Acetaminophen 325 MG TAB 650 MG PO (07:44)
[2019-07-26] MEDS: Normal Saline Flush 10 ML SYR IVP (11:16)
[2019-07-26 11:53] LABS: Prothrombin Time 19.5 sec (9.3-11.0)
[2019-08-30 08:39] VITALS: BP 165/77; PULSE 79; RESP 19; TEMP 36.3; O2SAT 96
== END 2019-08-30 23:59 | disposition home or self-care (01) ==
LOC: INF 01:56
PROVIDERS: PCP Student in an Organized Health Care Education/Training Program; Visit Provider Internal Medicine
DX: M05.9 Rheumatoid arthritis with rheumatoid factor, unspecified (principal); I48.91 Unspecified atrial fibrillation; Z79.01 Long term (current) use of anticoagulants
CPT/HCPCS: 36415; 96365; 96366; 96413; 96415; 85610; J1745

== ENCOUNTER 2019-08-30 07:15 | Outpatient (RCR) | payer MEDICARE, SELFPAY ==
[2019-08-30] VITALS (7 sets, daily range): BP systolic 133–165; BP diastolic 71–84; PULSE 63–91; RESP 18–20; TEMP 36.3–36.7; O2SAT 96–100
[2019-08-30] MEDS: Acetaminophen 325 MG TAB 650 MG PO (08:53)
[2019-08-30] MEDS: diphenhydrAMINE 25 MG CAP PO (08:53)
[2019-08-30] MEDS: Normal Saline Flush 10 ML SYR 20 ML IVP (09:32)
== END 2019-09-02 23:59 | disposition home or self-care (01) ==
LOC: INF 07:15
PROVIDERS: PCP Student in an Organized Health Care Education/Training Program; Visit Provider Internal Medicine
DX: M05.9 Rheumatoid arthritis with rheumatoid factor, unspecified (principal)
CPT/HCPCS: 96365; 96366; 96413; 96415; J1745

== ENCOUNTER 2019-09-27 01:52 | Outpatient (RCR) | payer MEDICARE, SELFPAY ==
[2019-09-27] VITALS (8 sets, daily range): BP systolic 126–155; BP diastolic 70–84; PULSE 67–85; RESP 19–20; TEMP 36.4–36.9; O2SAT 93–100
[2019-09-27] MEDS: Acetaminophen 325 MG TAB 650 MG PO (09:00)
[2019-09-27] MEDS: diphenhydrAMINE 25 MG CAP PO (09:00)
[2019-09-27] MEDS: Normal Saline Flush 10 ML SYR IVP ×2 (09:01→09:41)
[2019-09-27 12:21] LABS: Abs Immature Grans 0.02 k/cumm (0.0-0.09); Absolute Basophil Count 0.03 k/cumm (0.0-0.2); Absolute Eosinophil Count 0.31 k/cumm (0.0-0.7); Absolute Lymphocyte Count 1.61 k/cumm (1.2-3.4); Basophils % 0.3; Eosinophils % 2.9; HGB 11.8 g/dL (13.5-17.5); Immature Grans % 0.2 %; Lymphocytes % 14.9; Mean Corp. HGB Concentration 32.8 g/dL (32.0-36.0); Mean Corpuscular Hemoglobin 31.7 pg (27.0-33.0); Mean Corpuscular Volume 96.8 fL (80-95); Mean Platelet Volume 9.9 fL (8.0-11.0); Monocytes % 4.2; Neutrophils % 77.5; Platelet Count 203 x1000/uL (130-400); RBC 3.72 m/cumm (4.50-6.00); RBC Distribution Width 15.1 % (11.8-14.1); White Blood Cell Count 10.83 k/cumm (4.4-10.8)
[2019-09-27 12:22] LABS: Absolute Monocyte Count 0.45 k/cumm (0.11-0.7); Absolute Neutrophil Count 8.39 k/cumm (1.2-6.7)
[2019-09-27 12:46] LABS: INR 2.7 (0.9-1.1); Prothrombin Time 26.9 sec (9.3-11.0)
[2019-09-27 12:57] LABS: ALT 37 U/L (16-63); AST 25 U/L (15-37); Alkaline Phosphatase 73 U/L (46-116); Anion Gap 7.5 mmol/L (3-11); BUN 18 mg/dL (7-18); Bilirubin, Total 0.6 mg/dL (0.2-1.0); CO2 27.5 mmol/L (21.0-32.0); CREATININE 1.15 mg/dL (0.70-1.30); Calcium 8.3 mg/dL (8.5-10.1); Chloride 101 mmol/L (98-107); Glucose 236 mg/dL (74-106); NT-proBNP 678 pg/mL (<300); Sodium 136 mmol/L (136-145); Total Protein 6.9 g/dL (6.4-8.2)
== END 2019-10-03 23:59 | disposition home or self-care (01) ==
LOC: INF 01:52
PROVIDERS: Internal Medicine Interventional Cardiology; PCP Student in an Organized Health Care Education/Training Program; Visit Provider Internal Medicine
DX: M05.9 Rheumatoid arthritis with rheumatoid factor, unspecified (principal); I48.91 Unspecified atrial fibrillation; Z79.01 Long term (current) use of anticoagulants; Z51.81 Encounter for therapeutic drug level monitoring
CPT/HCPCS: 36415; 80053; 96365; 96366; 96413; 96415; 83880; 85025; 85610; J1745

== ENCOUNTER 2019-10-25 01:17 | Outpatient (RCR) | payer MEDICARE, SELFPAY | END 2019-11-02 23:59 | disposition home or self-care (01) | LOC: INF 01:17 | PROVIDERS: PCP Student in an Organized Health Care Education/Training Program; Visit Provider Internal Medicine | DX: R69 Illness, unspecified (principal) ==

== ENCOUNTER 2019-10-29 23:47 | Inpatient (IN) | payer MEDICARE, SELFPAY ==
--- NOTE | 2019-10-29 23:45 | DI.CT_ITS ---
EXAM: CT CHEST PE ABD PELVIS W CLINICAL HISTORY: shortness of breath TECHNIQUE: COMPARISON: CHEST WITHOUT CONTRAST from 11/19/2014 CHEST WITHOUT CONTRAST from 11/19/2014 FINDINGS: CT examination of the chest, abdomen, and pelvis was performed with bolus infusion of 100 cc of Omnip aque 350. There is significant motion artifact. There is no gross pulmonary embolic disease. Aorti c valve replacement noted. No aortic dissection or aneurysm. No pericardial effusion. Mild promine nce of mediastinal lymph nodes noted, right paratracheal node measures about 20 millimeters in diamet er. No pleural effusion seen. There are patchy and streaky areas of increased radiodensity, the most pro minent in the left lower lobe likely to represent pneumonia. Findings are consistent with multifocal pneumonia. No gross CHF. No free intraperitoneal air or free intraperitoneal fluid. Liver and spleen are grossly unremarkable , motion artifact limits evaluation. No gross pancreatic abnormality. No biliary dilatation. Gallb ladder poorly seen. No abdominal or pelvic adenopathy. Unremarkable appearance of adrenals and kidn eys, no evidence of urinary tract calcification or obstruction. Normal diameter of abdominal aorta. Atheromatous calcification noted at renal artery origins bilater ally, significant stenosis right renal artery not excluded but this is suboptimally visualized. Appendix appears normal, no evidence of diverticulitis or bowel obstruction. Fat containing umbilical hernia and inguinal hernias noted.. IMPRESSION: Probable multifocal pneumonia, most prominent involving left lower lobe. No evidence CHF or pulmonar y embolic disease. No evidence of acute intra-abdominal process.
--- NOTE | 2019-10-29 23:45 | W.ED.GENAD ---
Discharge Plan Disposition Patient Disposition: [facility] INPATIENT Condition: Stable Discharge Details Chief Complaint: SOB Clinical Impression: Pneumonia, Shortness of breath, Abdominal pain Primary Care Provider: Ana Alatorre ED Provider: Geovany Garcia Home Meds and New Rx's Prescriptions: No Action (DME) POrtable Oxygen Compressor Qty: 1 RF: 0 morphine 15 mg tablet extended release 15 mg PO Q12H MDD 2 Qty: 56 RF: 0 omeprazole 20 mg capsule,delayed release(DR/EC) 20 mg PO BID Qty: 60 RF: 3 warfarin 2 mg tablet 2 mg PO DIRECTED Qty: 90 RF: 2 clonazepam 1 mg tablet 0.5 mg PO QHS MDD 1 Qty: 14 RF: 2 oxycodone-acetaminophen 5-325 mg tablet 1 tab PO Q4H MDD 6 PRN (Reason: pain) Qty: 140 RF: 0 oxycodone-acetaminophen 5-325 mg tablet 1 tab PO Q6H MDD 6 PRN (Reason: pain) Qty: 140 RF: 0 oxycodone-acetaminophen 5-325 mg tablet 1 tab PO Q4H MDD 5 PRN (Reason: pain) Qty: 140 RF: 0 morphine 15 mg tablet extended release 15 mg PO Q12H MDD 30 mg Qty: 56 RF: 0 fluticasone propion-salmeterol [Advair Diskus] 250-50 mcg/dose blister with device 1 inh IH BID RF: 0 ProAir RespiClick 90 mcg/actuation aerosol powdr breath activated 2 inh IH Q6H PRN (Reason: shortness of breath or wheezing) Qty: 1 RF: 1 prednisone 5 mg tablet 5 mg PO DAILY MDD 10 Qty: 90 RF: 1 metformin 500 mg tablet 1,000 mg PO BID Qty: 270 RF: 3 Oxygen EACH RF: 0 atorvastatin 80 mg tablet 80 mg PO DAILY Qty: 90 RF: 3 lisinopril 10 mg tablet 10 mg PO DAILY Qty: 90 RF: 3 Remicade 100 mg recon soln 800 mg IV q5w RF: 0 metoprolol succinate 100 mg tablet extended release 24 hr 100 mg PO DAILY Qty: 90 RF: 3 Narcan 4 mg/actuation spray,non-aerosol 4 mg NS PRN PRN (Reason: opioid overdose) Qty: 1 RF: 0 nitroglycerin [Nitrostat] 0.4 mg tablet, sublingual 0.4 mg Sublingual PRN Qty: 25 RF: 6 Spiriva Respimat 1.25 mcg/actuation mist 2 puff IH DAILY RF: 0 Incruse Ellipta 62.5 mcg/actuation blister with device 1 inh IH DAILY RF: 0 pramipexole 0.125 mg tablet 0.125 mg PO HS Qty: 90 RF: 3 aspirin [Aspir-81] 81 mg tablet,delayed release (DR/EC) 81 mg PO DAILY Qty: 100 RF: 3 Daily Vitamin Formula-Iron 18-400 mg-mcg tablet 1 tab PO DAILY Qty: 90 RF: 0 furosemide 20 mg tablet 20 mg PO BID Qty: 180 RF: 3 Medical Decision Making 72-year-old gentleman with type 2 diabetes mellitus,hypertension, afib, copd on home o2 comes in with cc of worsening shortness of breath over the past 2 months. Denies any chest pain or pressure, has had a cough the last few days and earlier had some generalized abdominal discomfort and has mild left sided abdominal tenderness withotu guarding or rebound. He called ems who noted on his home o2 he was in the mid 80's gave him a duoneb and on arrival is only able to speak in 4-5 word sentences. He had a temp of 100.0 with EMS and he is unsure if he had a fever at home. He has wheezing in apices bilaterally with diminished breath sounsd at the bases. Will tx as copd exacerbation with steroids and beta agonists. Will obtain CTA to eval for PE vs pna and will also evaluate for covid19 and influenza. labs show wbc of 17, lactate of 2.0, CTA shows multilobar pna. He is feeling improved still with some mild tachypnea. Given his age and multiple comorbities will admit Medical Records Medical records reviewed: Yes I reviewed the patient's medical records. Imaging Data Radiologic Study: Attestation: I personally reviewed and interpreted this imaging study as follows: Imaging: CT Scan My impression: pneumonia Radiologist's impression: vrad report reviewed Lab Data Lab results reviewed: Yes I reviewed the patient's lab results. ECG Data Attestation: I personally reviewed and interpreted this ECG (s) as follows: Prior ECG tracings: not available for review Interpretation: afib, rate of 116, qtc 461, left bundle branch block HPI General Mode of arrival: EMS. Date/Time Provider Initiated Documentation: 10/29/19 23:48. Limitations to Documentation: no limitations. Information obtained by: patient. History of Present Illness 74 year old M presents to the emergency department with the chief complaint of shortness of breath, described as moderate, Patient started experiencing this month(s) (2) No relieving factors improve symptom(s), No exacerbating factors reported . Patient did receive the following treatments prior to arrival, none Related Data Home Medications Medication Instructions Recorded Confirmed Oxygen 09/23/17 10/26/19 POrtable Oxygen Compressor #1 ea 12/02/18 10/26/19 atorvastatin 80 mg tablet 80 mg PO DAILY #90 tab-cap 01/09/19 10/30/19 lisinopril 10 mg tablet 10 mg PO DAILY #90 tab-cap 01/09/19 10/30/19 morphine 15 mg tablet,extended 15 mg PO Q12H #56 tab MDD 2 03/02/19 10/30/19 release omeprazole 20 mg capsule,delayed 20 mg PO BID #60 tab-cap 03/05/19 10/30/19 release infliximab 100 mg intravenous 800 mg IV q5w vial 04/05/19 10/30/19 solution albuterol sulfate 90 mcg/actuation 2 inh IH Q6H PRN #1 each 04/06/19 10/30/19 breath activated powder inhaler prednisone 5 mg tablet 5 mg PO DAILY #90 tab MDD 10 04/06/19 10/30/19 fluticasone 250 mcg-salmeterol 50 1 inh IH BID 05/10/19 10/30/19 mcg/dose blistr powdr for inhalation metoprolol succinate 100 mg 100 mg PO DAILY #90 tab 05/16/19 10/30/19 tablet,extended release 24 hr naloxone 4 mg/actuation nasal spray 4 mg NS PRN PRN #1 unit 05/23/19 10/30/19 nitroglycerin 0.4 mg sublingual 0.4 mg SUBLINGUAL PRN #25 tab 07/10/19 10/30/19 tablet tiotropium bromide 1.25 2 puff IH DAILY 07/14/19 10/30/19 mcg/actuation mist for inhalation pramipexole 0.125 mg tablet 0.125 mg PO HS #90 tab-cap 08/02/19 10/30/19 umeclidinium 62.5 mcg/actuation 1 inh IH DAILY 08/02/19 10/30/19 blister powder for inhalation warfarin 2 mg tablet 2 mg PO DIRECTED #90 tab 08/16/19 10/30/19 aspirin 81 mg tablet,delayed 81 mg PO DAILY #100 tab 09/18/19 10/30/19 release clonazepam 1 mg tablet 0.5 mg PO QHS #14 tab MDD 1 10/11/19 10/30/19 morphine 15 mg tablet,extended 15 mg PO Q12H #56 tab MDD 30 mg 10/11/19 10/30/19 release oxycodone-acetaminophen 5 mg-325 1 tab PO Q4H PRN #140 tab MDD 5 10/11/19 10/30/19 mg tablet oxycodone-acetaminophen 5 mg-325 1 tab PO Q4H PRN #140 tab MDD 6 10/11/19 10/30/19 mg tablet oxycodone-acetaminophen 5 mg-325 1 tab PO Q6H PRN #140 tab MDD 6 10/11/19 10/30/19 mg tablet furosemide 20 mg tablet 20 mg PO BID #180 tab 10/17/19 10/30/19 multivitamin-ferrous 1 tab PO DAILY #90 tab 10/17/19 10/30/19 fumarate-folic acid 18 mg-400 mcg tablet metformin 500 mg tablet 1,000 mg PO BID #270 tab-cap 10/25/19 10/30/19 Previous Rx's Medication Instructions Recorded POrtable Oxygen Compressor #1 ea 12/02/18 atorvastatin 80 mg tablet 80 mg PO DAILY #90 tab-cap 01/09/19 lisinopril 10 mg tablet 10 mg PO DAILY #90 tab-cap 01/09/19 morphine 15 mg tablet,extended 15 mg PO Q12H #56 tab MDD 2 03/02/19 release omeprazole 20 mg capsule,delayed 20 mg PO BID #60 tab-cap 03/05/19 release albuterol sulfate 90 mcg/actuation 2 inh IH Q6H PRN #1 each 04/06/19 breath activated powder inhaler prednisone 5 mg tablet 5 mg PO DAILY #90 tab MDD 10 04/06/19 metoprolol succinate 100 mg 100 mg PO DAILY #90 tab 05/16/19 tablet,extended release 24 hr naloxone 4 mg/actuation nasal spray 4 mg NS PRN PRN #1 unit 05/23/19 nitroglycerin 0.4 mg sublingual 0.4 mg SUBLINGUAL PRN #25 tab 07/10/19 tablet pramipexole 0.125 mg tablet 0.125 mg PO HS #90 tab-cap 08/02/19 warfarin 2 mg tablet 2 mg PO DIRECTED #90 tab 08/16/19 aspirin 81 mg tablet,delayed 81 mg PO DAILY #100 tab 09/18/19 release clonazepam 1 mg tablet 0.5 mg PO QHS #14 tab MDD 1 10/11/19 morphine 15 mg tablet,extended 15 mg PO Q12H #56 tab MDD 30 mg 10/11/19 release oxycodone-acetaminophen 5 mg-325 1 tab PO Q4H PRN #140 tab MDD 5 10/11/19 mg tablet oxycodone-acetaminophen 5 mg-325 1 tab PO Q4H PRN #140 tab MDD 6 10/11/19 mg tablet oxycodone-acetaminophen 5 mg-325 1 tab PO Q6H PRN #140 tab MDD 6 10/11/19 mg tablet furosemide 20 mg tablet 20 mg PO BID #180 tab 10/17/19 multivitamin-ferrous 1 tab PO DAILY #90 tab 10/17/19 fumarate-folic acid 18 mg-400 mcg tablet metformin 500 mg tablet 1,000 mg PO BID #270 tab-cap 10/25/19 Allergies Allergy/AdvReac Type Severity Reaction Status Date / Time adalimumab Allergy Severe unknown Verified 10/30/19 01:21 Penicillins Allergy Severe Anaphylaxsi Verified 10/30/19 01:21 s General LINDSEY: 3 Review of Systems All systems reviewed & are unremarkable except as noted in HPI and below Constitutional Constitutional: Denies chills, Denies fever(s) and Denies weakness Cardiovascular Cardiovascular: Denies chest pain Gastrointestinal Gastrointestinal: Denies abdominal pain, Denies nausea and Denies vomiting Musculoskeletal Musculoskeletal: Denies joint swelling Neurologic Neurologic: Denies weakness Psychiatric Psychiatric: Denies depression [facility] Social History Smoking/Tobacco Use Status: Former Tobacco Use Tobacco: How many years used: 30 Alcohol Intake: former Details: quit ETOH 1993 Drug use: Never Substance use type: does not use Household members: friend(s) Number of Children: 3 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,[employer]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[employer] What is your relationship status?: Panel score (0-1 are the most socially isolated patients): 0 What type of physical activity do you participate in: walking Seatbelt use: always Working smoke detector in home: Yes Fire extinguisher in home: Yes Do you feel safe at home: Yes Do you feel safe in your relationship?: Yes Victim of physical abuse: No Victim of emotional abuse: No Victim of sexual abuse: No Exam Const General: no acute distress Orientation: alert HENMT Head: normal to inspection Ears: external ears normal General nose exam: external nose normal Mouth: moist mucous membranes Eyes General: appearance normal, both eyes and all related structures Neck Neck: normal visual inspection Resp Effort & Inspection: audible wheezes and tachypneic Cardio Rate: regular rate Skin General skin exam: no rashes or lesions noted Neuro General: patient alert and patient oriented x3 Extrem General: normal to inspection Psych Mental Status: mental status grossly normal
[2019-10-29 23:55] VITALS: BP 142/72; PULSE 120; RESP 32; TEMP 37.4; O2SAT 100
[2019-10-30] VITALS (12 sets, daily range): BP systolic 108–135; BP diastolic 61–77; PULSE 80–106; RESP 17–32; TEMP 35.8–37.4; O2SAT 94–100
[2019-10-30 00:27] LABS: BE (Venous) 3.5 mmol/L (-3-3); HCO3 (Venous) 28 mmol/L (22-28); O2 Sat (Venous) 84 % (70-80); TCO2 (Venous) 26 mmol/L (22-29); pCO2 (Venous) 44 mm/Hg (34-47); pH (Venous) 7.41 (7.35-7.45); pO2 (Venous) 51 mm/Hg (28-44)
[2019-10-30 00:29] LABS: Abs Immature Grans 0.05 k/cumm (0.0-0.09); Absolute Basophil Count 0.02 k/cumm (0.0-0.2); Absolute Eosinophil Count 0.07 k/cumm (0.0-0.7); Absolute Monocyte Count 1.11 k/cumm (0.11-0.7); Basophils % 0.1; Eosinophils % 0.4; HCT 37.3 % (40.0-50.0); HGB 12.3 g/dL (13.5-17.5); Immature Grans % 0.3 %; Lymphocytes % 6.2; Mean Corpuscular Hemoglobin 31.7 pg (27.0-33.0); Mean Corpuscular Volume 96.1 fL (80-95); Mean Platelet Volume 9.8 fL (8.0-11.0); Monocytes % 6.5; Neutrophils % 86.5; Platelet Count 209 x1000/uL (130-400); RBC 3.88 m/cumm (4.50-6.00); RBC Distribution Width 15.1 % (11.8-14.1); White Blood Cell Count 17.01 k/cumm (4.4-10.8)
[2019-10-30 00:30] LABS: Absolute Lymphocyte Count 1.05 k/cumm (1.2-3.4); Absolute Neutrophil Count 14.71 k/cumm (1.2-6.7)
[2019-10-30 00:44] LABS: INR 2.7 (0.9-1.1); PTT Activated 26.3 sec (21.0-31.4); Prothrombin Time 26.9 sec (9.3-11.0)
[2019-10-30 00:45] LABS: ALT 40 U/L (16-63); AST 23 U/L (15-37); Albumin 3.3 g/dL (3.4-5.0); Alkaline Phosphatase 91 U/L (46-116); Anion Gap 8.5 mmol/L (3-11); BUN 18 mg/dL (7-18); Bilirubin, Total 0.8 mg/dL (0.2-1.0); CO2 27.5 mmol/L (21.0-32.0); CREATININE 1.12 mg/dL (0.70-1.30); Calcium 8.7 mg/dL (8.5-10.1); Chloride 97 mmol/L (98-107); Glucose 322 mg/dL (74-106); Magnesium 1.7 mg/dL (1.8-2.4); Potassium 4.8 mmol/L (3.5-5.1); Sodium 133 mmol/L (136-145); Total Protein 7.7 g/dL (6.4-8.2); Troponin I < 0.05 ng/Ml (<0.06)
[2019-10-30] MEDS: methylPREDNISolone SUCC 125 MG VIAL IVP (01:25)
[2019-10-30] MEDS: levoFLOXacin 750 MG/150 ML BAG 100 MG IVPB (01:37)
--- NOTE | 2019-10-30 01:49 | DI.VRAD_ITS ---
PROCEDURE INFORMATION: Exam: CT Angiography Chest With Contrast Exam date and time: 10/29/2019 12:37 AM Age: 74 years old Clinical indication: Shortness of breath; Prior surgery; Surgery date: 6+ months; Surgery type: Cardiac cath, aortic valve replacment; Patient HX: SOB and abdominal pain TECHNIQUE: Imaging protocol: Computed tomographic angiography of the chest with intravenous contrast. Radiation optimization: All CT scans at this facility use at least one of these dose optimization techniques: automated exposure control; mA and/or kV adjustment per patient size (includes targeted exams where dose is matched to clinical indication); or iterative reconstruction. Contrast material: OMNIPAQUE 350; Contrast volume: 100 ml; Contrast route: IV; COMPARISON: CT CHEST ABD PELVIS WITH CONTRAST 10/01/2013 2:54 PM FINDINGS: Pulmonary arteries: There is no evidence of pulmonary embolus in the large central and medium-sized pulmonary arteries. The smaller peripheral branches are suboptimally visualized due to motion artifact and the presence of consolidation. Aorta: There is no thoracic aortic aneurysm or dissection. A transcatheter aortic valve replacement is seen in expected position. There are mild scattered atherosclerotic plaques throughout the thoracic aorta. Lungs: The lung parenchyma shows multiple diffuse areas of consolidation in the lower lobes and upper lobes. Pleural space: There is no pleural effusion or pneumothorax. Heart: The heart is borderline enlarged. There is no pericardial effusion. Lymph nodes: There are no enlarged mediastinal lymph nodes or masses. There are prominent ronn that may be secondary to lymphadenopathy or prominent vessels. Bones/joints: The spine demonstrates mild degenerative changes at multiple levels. Soft tissues: Unremarkable. IMPRESSION: 1. Multilobar pneumonia. The differential diagnosis is pulmonary edema and ARDS. 2. Probable bilateral lymphadenopathy, reactive versus neoplastic. Clinical and radiographic follow-up is recommended. 3. The examination is suboptimal for evaluation of pulmonary emboli but no large central pulmonary emboli are identified. 4. Status post transcatheter aortic valve replacement. PROCEDURE INFORMATION: Exam: CT Abdomen And Pelvis With Contrast Exam date and time: 10/29/2019 12:37 AM Age: 74 years old Clinical indication: Shortness of breath; Prior surgery; Surgery date: 6+ months; Surgery type: Cardiac cath, aortic valve replacment; Patient HX: SOB and abdominal pain TECHNIQUE: Imaging protocol: Computed tomography of the abdomen and pelvis with intravenous contrast. Radiation optimization: All CT scans at this facility use at least one of these dose optimization techniques: automated exposure control; mA and/or kV adjustment per patient size (includes targeted exams where dose is matched to clinical indication); or iterative reconstruction. Contrast material: OMNIPAQUE 350; Contrast volume: 100 ml; Contrast route: IV; COMPARISON: CT CHEST ABD PELVIS WITH CONTRAST 10/01/2013 2:54 PM FINDINGS: Liver: Normal. No mass. Gallbladder and bile ducts: Normal. No calcified stones. No ductal dilation. Pancreas: See Stomach and bowel finding. Spleen: Normal. No splenomegaly. Adrenals: Normal. No mass. Kidneys and ureters: Unremarkable. No hydronephrosis, no renal calculi. Stomach and bowel: There is mild fecal stasis throughout the colon and fecal impaction in the rectosigmoid. There is fatty degeneration of the pancreas. There is no evidence of small bowel or colonic obstruction. Appendix: No evidence of appendicitis. Intraperitoneal space: Unremarkable. No free air. No significant fluid collection. Vasculature: There is mild atherosclerotic calcification of the abdominal aorta without aneurysm. Lymph nodes: Unremarkable. No enlarged lymph nodes. Bladder: Unremarkable as visualized. Reproductive: The prostate measures 3 cm in transverse dimension. Bones/joints: The spine demonstrates severe degenerative changes at multiple levels. There is multilevel degenerative disc disease and spondylosis of the lumbar spine. Soft tissues: There are small bilateral nonobstructing inguinal hernias. There is a small to moderate fat-containing umbilical hernia. IMPRESSION: 1. Mild atherosclerotic calcification of the abdominal aorta without aneurysm. 2. Mild colonic fecal stasis with fecal impaction in the rectosigmoid. 3. Multilevel severe degenerative disc disease and spondylosis of the lumbar spine. 4. Other incidental findings as above. Dictated and Authenticated by: Kwesi Adan MD. Ordering:TANA Armenta MD
[2019-10-30 01:54] LABS: LDH 354 U/L (85-227)
[2019-10-30 02:11] LABS: Procalcitonin 0.1 ng/mL
[2019-10-30 02:25] LABS: Ferritin 182 ng/mL (26-388)
--- NOTE | 2019-10-30 02:36 | HPE_ITS ---
Date of service: 10/30/19 Time of Service: 02:37 Assessment and Plan Assessment and plan (1) Pneumonia: Start date: 10/29/19 Status: Acute Assessment and plan: This is a 72-year-old gentleman with a history of chronic respiratory symptoms for 2 months worsening over the last several days with an episode of hemoptysis and worsening dyspnea with this cough. He is sweaty but having no chills or fever. He has no exposure to COVID-19 or risk of exposure by his behavior. He does have rheumatoid arthritis and rheumatoid lung with fibrosis by history. He is currently on inhalers. He was treated recently with amoxicillin for weeks and after evaluation in the ED with CT scan showing bilateral multi lobar pneumonia, he was started on Levaquin IV. Because he is chronically on prednisone he was also put on stress steroids with intravenous hydrocortisone 100 mg 3 times a day. We will continue his handheld respiratory treatments. He also is on CPAP at this will be continued. He has a DNR/DNI. His cardiovascular status appears to be stable status post TAVR for aortic stenosis and having chronic atrial fibrillation on Coumadin which is therapeutic. He will continue his Lasix orally 40 mg twice a day with recently increased. This is for his chronic CHF. Qualifiers: Laterality: bilateral Lung location: unspecified part of lung Pneumonia type: due to unspecified organism Qualified Code(s): J18.9 - Pneumonia, unspecified organism (2) Rheumatoid lung: Status: Chronic Assessment and plan: This problem may be making it difficult to interpret his imaging with chronic changes. Acute. He is already on diuretics for CHF and the CT differential was CHF versus ARDS with the patient not appearing to be in that severe of distress and these imaging changes most likely chronic. Consider follow-up echocardiogram and will follow-up chest imaging as indicated. (3) Type 2 diabetes mellitus with hyperglycemia: Status: Chronic Assessment and plan: Patient will be placed on short acting insulin coverage for his meals and bedtime. This may be exacerbated by being on steroids. Qualifiers: Diabetes mellitus continuous churn buttermaker insulin use: with halfway use Qualified Code(s): E11.65 - Type 2 diabetes mellitus with hyperglycemia; Z79.4 - intermediate designer (current) use of insulin (4) Rheumatoid arthritis: Status: Chronic Assessment and plan: Patient usually is on Remicade this can be held while he is ill. Steroids are being given IV. Qualifiers: Rheumatoid arthritis location: multiple sites Rheumatoid factor presence: with rheumatoid factor Qualified Code(s): M05.79 - Rheumatoid arthritis with rheumatoid factor of multiple sites without organ or systems involvement (5) Atrial fibrillation with controlled ventricular response: Status: Chronic Assessment and plan: Chronic atrial fibrillation with controlled rate presently not exacerbated with first troponin negative and no need to trend troponins presently. He is a DNR/DNI. (6) COPD (chronic obstructive pulmonary disease): Status: Chronic Assessment and plan: Continue O2 supplementation as needed, CPAP at night for his sleep apnea and steroid treatment for stress steroids with rheumatoid arthritis should cover any bronchospasm acutely. He is on Levaquin for his pneumonia which will also treat bronchitis. He will continue his usual handheld inhalers. Qualifiers: COPD type: COPD with acute lower respiratory infection Qualified Code(s): J44.0 - Chronic obstructive pulmonary disease with (acute) lower respi ratory infection History of Present Illness History of Present Illness Chief Complaint: Cough with dyspnea and abdominal pa in Narrative: This is a 74-year-old gentleman who has had a 2-month history of increasing shortness of breath but over the last several days has had a cough with some hemoptysis once and with generalized abdominal discomfort and left abdominal discomfort by exam in the ED though the patient denies abdominal pain as a problem to me during my interview and exam. He did respond to treatment for respiratory symptoms and after evaluation was found to have bilateral lobar pneumonia but also has a history of pulmonary fibrosis associated with rheumatoid disease. He is on chronic inhaler therapy. He screened negative for flu A/B and COVID-19 screen is pending. He had no evidence of PE. The CT report of the chest did state question of CHF or ARDS but the patient was oxygenating well and appears more comfortable. He does have a history of right- sided CHF with PA pressures being near 60 in the past and is status post TAVR for severe aortic stenosis with preserved left ventricular ejection fraction with concentric hypertrophy by last echocardiogram report. The patient's initial troponin was negative and he does receive Lasix twice a day as an outpat ient. He also has a history of chronic atrial fibrillation chronically on Coumadin with a therapeutic INR. Patient is a DNR/DNI and appears comfortable with treatment rendered therefore will be admitted to [facility] [place] on telemetry. Review of Systems Narrative: 13 point review of systems otherwise unrevealing or stable. The patient chronically has peripheral edema with skin changes over his ankles which are tender. His cough with hemoptysis was new and has not persisted. He has had sweats but no fever or chills. He has had no exposure to COVID-19 staying in his apartment except for going out in his car with a mask and not going inside buildings. 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 FORMERLY [facility], 1928–1983 Medical History Anemia (Chronic) Hx low Hgb, but today's lab review was unexpected. Probable anemia of chronic disease .. Non-meat diet, [ ] iron suppl (concern for constipation)? [ ] stool guaic Aortic stenosis, moderate (Inactive 07/03/16) [facility] ECHO EF 65%; Mod , valve area 1.33 (grad 23/mean14) (06/2016) [facility] eval 09/2017 shows worsening disease .. may need cardiac surgery. Depressive disorder (Chronic 07/14/11) Surgical History Bronchoscopy (11/20/10) with BAL echo ([facility] pulmonolgy note 09/21/17.) Compared to the study from 06/18/16 the severity of aortic stenosis has increased and there is pulmonary hy pertension. seeing cardio again in 2 wks. Extraction of cataract (08/21/10) R eye,with IOL, Dr Gary History of cardiac cath (Chronic) 03/21/19 [facility] Right heart cath-mild Pulm HTN mean PA pressure 25 and PA systolic pressure 50 normal wedge pressure 6. Right dominant circulation with mild disease in all vessels, focal anyeursm RCA 5mm Internal fixation (08/03/10) R distal femoral fx, Dr Banda, [facility] PFT'S: SEPTEMBER 2017 [facility] pulm note 09/21/17. O2 sat on RA 97% After 250 ft on RA 88% needing 2l O2. PTCA (01/27/94) rescue PTCA RCA for persistent CP with Inf NE; [facility] right heart catheterization,oximetry [place]07/18[place] [facility] [place] findings: Severe pulmonary hypertension mildly elevated pulmonary capillary wedge pressure Status post transcatheter aortic valve replacement (Acute) [facility] 03/29/19 Family History Mother , Lung Cancer at age 74. Personal history of malignant neoplasm at 74 of lung CA Father , CHF at age 86. 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[employer] What is your relationship status?: Panel score (0-1 are the most socially isolated patients): 0 What type of physical activity do you participate in: walking Seatbelt use: always Working smoke detector in home: Yes Fire extinguisher in home: Yes Do you feel safe at home: Yes Do you feel safe in your relationship?: Yes Victim of physical abuse: No Victim of emotional abuse: No Victim of sexual abuse: No Meds Home Medications and Allergies Home Medications Medication Instructions Recorded Confirmed Type Oxygen 09/23/17 10/26/19 History POrtable Oxygen Compressor #1 ea 12/02/18 10/26/19 Rx atorvastatin 80 mg tablet 80 mg PO DAILY #90 tab-cap 01/09/19 10/30/19 Rx lisinopril 10 mg tablet 10 mg PO DAILY #90 tab-cap 01/09/19 10/30/19 Rx morphine 15 mg tablet,extended 15 mg PO Q12H #56 tab MDD 2 03/02/19 10/30/19 Rx release omeprazole 20 mg capsule,delayed 20 mg PO BID #60 tab-cap 03/05/19 10/30/19 Rx release infliximab 100 mg intravenous 800 mg IV q5w vial 04/05/19 10/30/19 History solution albuterol sulfate 90 mcg/actuation 2 inh IH Q6H PRN #1 each 04/06/19 10/30/19 Rx breath activated powder inhaler prednisone 5 mg tablet 5 mg PO DAILY #90 tab MDD 10 04/06/19 10/30/19 Rx fluticasone 250 mcg-salmeterol 50 1 inh IH BID 05/10/19 10/30/19 History mcg/dose blistr powdr for inhalation metoprolol succinate 100 mg 100 mg PO DAILY #90 tab 05/16/19 10/30/19 Rx tablet,extended release 24 hr naloxone 4 mg/actuation nasal spray 4 mg NS PRN PRN #1 unit 05/23/19 10/30/19 Rx nitroglycerin 0.4 mg sublingual 0.4 mg SUBLINGUAL PRN #25 tab 07/10/19 10/30/19 Rx tablet tiotropium bromide 1.25 2 puff IH DAILY 07/14/19 10/30/19 History mcg/actuation mist for inhalation pramipexole 0.125 mg tablet 0.125 mg PO HS #90 tab-cap 08/02/19 10/30/19 Rx umeclidinium 62.5 mcg/actuation 1 inh IH DAILY 08/02/19 10/30/19 History blister powder for inhalation warfarin 2 mg tablet 2 mg PO DIRECTED #90 tab 08/16/19 10/30/19 Rx aspirin 81 mg tablet,delayed 81 mg PO DAILY #100 tab 09/18/19 10/30/19 Rx release clonazepam 1 mg tablet 0.5 mg PO QHS #14 tab MDD 1 10/11/19 10/30/19 Rx morphine 15 mg tablet,extended 15 mg PO Q12H #56 tab MDD 30 mg 10/11/19 10/30/19 Rx release oxycodone-acetaminophen 5 mg-325 1 tab PO Q4H PRN #140 tab MDD 5 10/11/19 10/30/19 Rx mg tablet oxycodone-acetaminophen 5 mg-325 1 tab PO Q4H PRN #140 tab MDD 6 10/11/19 10/30/19 Rx mg tablet oxycodone-acetaminophen 5 mg-325 1 tab PO Q6H PRN #140 tab MDD 6 10/11/19 10/30/19 Rx mg tablet furosemide 20 mg tablet 20 mg PO BID #180 tab 10/17/19 10/30/19 Rx multivitamin-ferrous 1 tab PO DAILY #90 tab 10/17/19 10/30/19 Rx fumarate-folic acid 18 mg-400 mcg tablet metformin 500 mg tablet 1,000 mg PO BID #270 tab-cap 10/25/19 10/30/19 Rx Allergies Allergy/AdvReac Type Severity Reaction Status Date / Time adalimumab Allergy Severe unknown Verified 10/30/19 01:21 Penicillins Allergy Severe Anaphylaxsi Verified 10/30/19 01:21 s Exam Narrative Exam Narrative: General: Patient appears appropriate for age, morbidly obese specially over the trunk and appears deconditioned. He is alert and oriented x3. He is in moderate distress from his respiratory symptoms. He has pressured speech and a flattened affect. HEENT: Normocephalic with eyes revealing pupils equal and reactive to light symmetrically, extraocular movement intact and sclera anicteric. Oropharynx with dry oral mucosa and no erythema. His forehead is sweaty. Neck: Supple without JVD. Lungs: Bronchovesicular breath sounds diffusely with sparse diffuse inspiratory crackles without focalizing and slight increased expiratory phase with slight expiratory wheeze. Fair aeration. Decreased aeration at the bases but no dullness to percussion. Back: Stooped posture with no CVA tenderness. Heart: Irregular regular rhythm with normal rate and no appreciable murmur. He is status post TAVR for aortic stenosis. Abdomen: Obese, soft and no focalizing tenderness or guarding. No rebound. No palpable hepatosplenomegaly. Bowel sounds positive in all quadrants. Genitalia/rectal: Exam deferred. Extremities: 3+ pitting edema lower extremities and 4+ pitting edema over the feet with hyperpigmentation and shiny atrophic skin with loss of hair over both legs circumferentially. The legs are tender to palpation. Peripheral pulses are palpated though decreased and capillary refill is fair. There are no open ulcers over the legs. There is no cyanosis or clubbing. Joints have decreased range of motion but no effusions. Skin: Skin changes over the legs as mentioned otherwise warm and moist with patient sweating over his forehead as mentioned. Neuro: Cranial nerves II through XII grossly intact, no focalizing motor deficit s. Psych: Depressed mood, anxious with pressured speech. Remote and recent memory intact. Results Imaging Imaging Studies: Exam: CT Angiography Chest With Contrast Exam date and time: 10/29/2019 12:37 AM Age: 74 years old Clinical indication: Shortness of breath; Prior surgery; Surgery date: 6+ months; Surgery type: Cardiac cath, aortic valve replacment; Patient HX: SOB and abdominal pain TECHNIQUE: Imaging protocol: Computed tomographic angiography of the chest with intravenous contrast. Radiation optimization: All CT scans at this facility use at least one of these dose optimization techniques: automated exposure control; mA and/or kV adjustment per patient size (includes targeted exams where dose is matched to clinical indication); or iterative reconstruction. Contrast material: OMNIPAQUE 350; Contrast volume: 100 ml; Contrast route: IV; COMPARISON: CT CHEST ABD PELVIS WITH CONTRAST 10/01/2013 2:54 PM FINDINGS: Pulmonary arteries: There is no evidence of pulmonary embolus in the large central and medium-sized pulmonary arteries. The smaller peripheral branches are suboptimally visualized due to motion artifact and the presence of consolidation. Aorta: There is no thoracic aortic aneurysm or dissection. A transcatheter aortic valve replacement is seen in expected position. There are mild scattered atherosclerotic plaques throughout the thoracic aorta. Lungs: The lung parenchyma shows multiple diffuse areas of consolidation in the lower lobes and upper lobes. Pleural space: There is no pleural effusion or pneumothorax. Heart: The heart is borderline enlarged. There is no pericardial effusion. Lymph nodes: There are no enlarged mediastinal lymph nodes or masses. There are prominent ronn that may be secondary to lymphadenopathy or prominent vessels. Bones/joints: The spine demonstrates mild degenerative changes at multiple levels. Soft tissues: Unremarkable. IMPRESSION: 1. Multilobar pneumonia. The differential diagnosis is pulmonary edema and ARDS. 2. Probable bilateral lymphadenopathy, reactive versus neoplastic. Clinical and radiographic follow-up is recommended. 3. The examination is suboptimal for evaluation of pulmonary emboli but no large central pulmonary emboli are identified. 4. Status post transcatheter aortic valve replacement. PROCEDURE INFORMATION: Exam: CT Abdomen And Pelvis With Contrast Exam date and time: 10/29/2019 12:37 AM Age: 74 years old Clinical indication: Shortness of breath; Prior surgery; Surgery date: 6+ months; Surgery type: Cardiac cath, aortic valve replacment; Patient HX: SOB and abdominal pain TECHNIQUE: Imaging protocol: Computed tomography of the abdomen and pelvis with intravenous contrast. Radiation optimization: All CT scans at this facility use at least one of these dose optimization techniques: automated exposure control; mA and/or kV adjustment per patient size (includes targeted exams where dose is matched to clinical indication); or iterative reconstruction. Contrast material: OMNIPAQUE 350; Contrast volume: 100 ml; Contrast route: IV; COMPARISON: CT CHEST ABD PELVIS WITH CONTRAST 10/01/2013 2:54 PM FINDINGS: Liver: Normal. No mass. Gallbladder and bile ducts: Normal. No calcified stones. No ductal dilation. Pancreas: See Stomach and bowel finding. Spleen: Normal. No splenomegaly. Adrenals: Normal. No mass. Kidneys and ureters: Unremarkable. No hydronephrosis, no renal calculi. Stomach and bowel: There is mild fecal stasis throughout the colon and fecal impaction in the rectosigmoid. There is fatty degeneration of the pancreas. There is no evidence of small bowel or colonic obstruction. Appendix: No evidence of appendicitis. Intraperitoneal space: Unremarkable. No free air. No significant fluid collection. Vasculature: There is mild atherosclerotic calcification of the abdominal aorta without aneurysm. Lymph nodes: Unremarkable. No enlarged lymph nodes. Bladder: Unremarkable as visualized. Reproductive: The prostate measures 3 cm in transverse dimension. Bones/joints: The spine demonstrates severe degenerative changes at multiple levels. There is multilevel degenerative disc disease and spondylosis of the lumbar spine. Soft tissues: There are small bilateral nonobstructing inguinal hernias. There is a small to moderate fat-containing umbilical hernia. IMPRESSION: 1. Mild atherosclerotic calcification of the abdominal aorta without aneurysm. 2. Mild colonic fecal stasis with fecal impaction in the rectosigmoid. 3. Multilevel severe degenerative disc disease and spondylosis of the lumbar spine. 4. Other incidental findings as above. Dictated and Authenticated by: Kwesi Adan MD. Labs Result diagrams: 10/30/19 00:20 10/30/19 00:20 Labs: Laboratory Results - last 24 hr 10/30/19 10/30/19 10/30/19 00:20 00:20 00:20 WBC 17.01 H RBC 3.88 L Hgb 12.3 L Hct 37.3 L MCV 96.1 H MCH 31.7 MCHC 33.0 RDW 15.1 H Plt Count 209 MPV 9.8 Immature Gran % 0.3 Neutrophils % 86.5 Lymphocytes % 6.2 Monocytes % 6.5 Eosinophils % 0.4 Basophils % 0.1 Absolute Neutrophils 14.71 H Absolute Lymphocytes 1.05 L Absolute Monocytes 1.11 H Absolute Eosinophils 0.07 Absolute Basophils 0.02 PT 26.9 H INR 2.7 H APTT 26.3 VBG pH VBG pCO2 VBG pO2 VBG HCO3 VBG Total CO2 VBG O2 Saturation VBG Base Excess Sodium 133 L Potassium 4.8 Chloride 97 L Carbon Dioxide 27.5 Anion Gap 8.5 BUN 18 Creatinine 1.12 Estimated GFR/1.73 m2 >= 60.00 Glucose 322 H Lactate Calcium 8.7 Magnesium 1.7 L Ferritin Total Bilirubin 0.8 AST 23 ALT 40 Alkaline Phosphatase 91 Lactate Dehydrogenase Troponin I < 0.05 C-Reactive Protein Total Protein 7.7 Albumin 3.3 L Procalcitonin 10/30/19 10/30/19 10/30/19 00:20 01:30 01:30 WBC RBC Hgb Hct MCV MCH MCHC RDW Plt Count MPV Immature Gran % Neutrophils % Lymphocytes % Monocytes % Eosinophils % Basophils % Absolute Neutrophils Absolute Lymphocytes Absolute Monocytes Absolute Eosinophils Absolute Basophils PT INR APTT VBG pH 7.41 VBG pCO2 44 VBG pO2 51 H VBG HCO3 28 VBG Total CO2 26 VBG O2 Saturation 84 H VBG Base Excess 3.5 H Sodium Potassium Chloride Carbon Dioxide Anion Gap BUN Creatinine Estimated GFR/1.73 m2 Glucose Lactate 2.0 H Calcium Magnesium Ferritin 182 Total Bilirubin AST ALT Alkaline Phosphatase Lactate Dehydrogenase 354 H Troponin I C-Reactive Protein 2.40 H Total Protein Albumin Procalcitonin 0.1 Last Vital Signs Temp 37.4 C 10/29/19 23:55 Pulse 106 H 10/30/19 00:15 Resp 32 H 10/30/19 01:22 BP 135/68 10/30/19 00:15 Pulse Ox 100 10/30/19 00:15 COVID-19 Screening Traveled to [place] from one of the affected countries or regions?: NO Recent travel in the [place] within the last 14 days?: No Recent out of the country travel within the last 14 days?: No Exposure or possible exposure to illness during travel?: No Had IN PERSON contact w/suspected or confirmed C-19 person: No Have you had the following symptoms in the past few days?: No Symptoms noted since travel?: Lower Respiratory
[2019-10-30] MEDS: clonazePAM 0.5 MG TAB PO (03:11)
[2019-10-30 04:45] LABS: Troponin I 0.05 ng/Ml (<0.06)
[2019-10-30 06:52] LABS: HCT 36.1 % (40.0-50.0); HGB 11.7 g/dL (13.5-17.5); Mean Corp. HGB Concentration 32.4 g/dL (32.0-36.0); Mean Corpuscular Volume 95.8 fL (80-95); Platelet Count 193 x1000/uL (130-400); RBC 3.77 m/cumm (4.50-6.00); RBC Distribution Width 15.3 % (11.8-14.1); White Blood Cell Count 16.67 k/cumm (4.4-10.8)
[2019-10-30 07:07] LABS: ALT 36 U/L (16-63); AST 19 U/L (15-37); Albumin 3.1 g/dL (3.4-5.0); Alkaline Phosphatase 76 U/L (46-116); Anion Gap 9.2 mmol/L (3-11); BUN 17 mg/dL (7-18); Bilirubin, Total 0.8 mg/dL (0.2-1.0); CO2 25.8 mmol/L (21.0-32.0); CREATININE 1.13 mg/dL (0.70-1.30); Calcium 8.8 mg/dL (8.5-10.1); Chloride 98 mmol/L (98-107); Glucose 350 mg/dL (74-106); Prothrombin Time 29.5 sec (9.3-11.0); Sodium 133 mmol/L (136-145); Total Protein 7.4 g/dL (6.4-8.2)
[2019-10-30 07:16] LABS: TSH (W/Ref FT4) 0.45 uIU/mL (0.36-3.74)
[2019-10-30] MEDS: Lisinopril 10 MG TAB PO (08:15)
[2019-10-30] MEDS: Insulin Aspart 300 UNITS/3 ML PEN SC ×4 (08:15→22:18)
[2019-10-30] MEDS: Multivitamin w/Minerals TAB 1 TAB PO (08:15)
[2019-10-30] MEDS: Aspirin E.C. 81 MG TABEC PO (08:15)
[2019-10-30] MEDS: Metoprolol CR 100 MG TABCR PO (08:15)
[2019-10-30] MEDS: Omeprazole 20 MG CAPCR PO ×2 (08:15→20:12)
[2019-10-30] MEDS: Furosemide 20 MG TAB 40 MG PO ×2 (08:15→16:06)
[2019-10-30] MEDS: MAGNESIUM SULFATE 2 GM/50 ML BAG IVPB (08:37)
--- NOTE | 2019-10-30 08:38 | INITIAL_ITS ---
- If Service Date Differs Date of service: 10/30/19 Time of Service: 08:38 Care Management Initial Assess REASON FOR HOSPITALIZATION:: Pneumonia PAST MEDICAL HISTORY/PAST SURGICAL HISTORY:: Medical History: Anemia (Chronic). Hx low Hgb, but today's lab review was unexpected. Probable anemia of chronic disease .. Non-meat diet, [ ] iron suppl (concern for constipation)? [ ] stool guaic. Aortic stenosis, moderate (Inactive 07/03/16). [facility] ECHO EF 65%; Mod , valve area 1.33 (grad 23/mean14) (06/2016). [facility] eval 09/2017 shows worsening disease .. may need cardiac surgery. Depressive disorder (Chronic 07/14/11). Surgical History : Bronchoscopy (11/20/10). with BAL. echo. ([facility] pulmonolgy note 09/21/17.) Compared to the study from 06/18/16 the severity of aortic stenosis has increased and there is pulmonary hypertension. seeing cardio again in 2 wks. Extraction of cataract (08/21/10). R eye,with IOL, Dr Gary. History of cardiac cath (Chronic). 03/21/19 [facility] [place] Right heart cath-mild Pulm HTN mean PA pressure 25 and PA systolic pressure 50 normal wedge pressure 6. Right dominant circulation with mild disease in all vessels, focal anyeursm RCA 5mm. Internal fixation (08/03/10). R distal femoral fx, Dr Banda, [facility]. PFT'S: SEPTEMBER 2017. [facility] pulm note 09/21/17. O2 sat on RA 97%. After 250 ft on RA 88% needing 2l O2. PTCA (01/27/94). rescue PTCA RCA for persistent CP with Inf VT; [facility]. right heart catheterization,oximetry (01/07/18). [facility] [place].Corey Griffin MD. findings: Severe pulmonary hypertension. mildly elevated pulmonary capillary wedge pressure. Status post transcatheter aortic valve replacement (Acute). [facility] 03/29/19 PREVIOUS FUNCTIONAL STATUS/SOCIAL/FAMILY SUPPORTS:: Elio lives with his girlfriend Trevor in an apartment in [place]. 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 Elio is fairly indeppendent at baseline however he does use oxygen at 4L. He receives nursing at this time. CURRENT FUNCTIONAL STATUS:: Unable to interview Elio in person at this time as he is a PUI. CM did call him on his phone and was able to obtain additional information regarding home situation and services. Elio has been seeing his PCP Ana Alatorre weekly via telehealth for increasing respiratory issues and weight gain secondary to an increase in prednisone. Elio maintains that he has been isolating himself at home and has not seen anyone except his girlfriend Trevor who lives with him and his home health nurse. ADVANCE DIRECTIVES:: None on file Has patient been provided with information about the portal?: No Did the patient sign up for the portal?: No (no computer) CODE STATUS:: DNR/DNI INSURANCE COVERAGE / FINANCIAL ISSUES:: Medicare. Financial Assist 100 CURRENT HOME/COMMUNITY SERVICES/EQUIPMENT:: Home health nursing. Home oxygen PRIMARY CARE PHYSICIAN:: Ana Alatorre POTENTIAL DISCHARGE NEEDS:: Follow up with PCP and discharge plan of care PATIENT/FAMILY EDUCATION NEEDS:: Discharge plan, limitations, follow up plan, Ask Me Three TRANSPORTATION:: via private vehicle with family PLAN:: Elio will likely be discharged home with a resumption of home health services. 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 CM will continue to support Elio, his family and discharge planning needs.
[2019-10-30] MEDS: Hydrocortisone SOD SUC. 100 MG VIAL IVP ×2 (10:35→16:07)
[2019-10-30] MEDS: oxyCODONE 5 mg/Acetaminophen 325 mg TAB 1 TAB PO ×3 (10:45→22:13)
[2019-10-30] MEDS: Budesonide/Formoterol 160/4.5 6 GM 60 PUFF INH IH ×2 (10:46→22:13)
[2019-10-30] MEDS: Normal Saline Flush 10 ML SYR IVP (16:09)
--- NOTE | 2019-10-30 16:23 | W.PALLCONSUL ---
Date of service: 10/30/19 Time of Service: 12:23 History of Present Illness Narrative: History of Present Illness History of Present Illness Chief Complaint: Cough with dyspnea and abdominal pain Narrative: This is a 74-year-old gentleman who has had a 2-month history of increasing shortness of breath but over the last several days has had a cough with some hemoptysis once and with generalized abdominal discomfort and left abdominal discomfort by exam in the ED though the patient denies abdominal pain as a problem to me during my interview and exam. He did respond to treatment for respiratory symptoms and after evaluation was found to have bilateral lobar pneumonia but also has a history of pulmonary fibrosis associated with rheumatoid disease. He is on chronic inhaler therapy. He screened negative for flu A/B and COVID-19 screen is pending. He had no evidence of PE. The CT report of the chest did state question of CHF or ARDS but the patient was oxygenating well and appears more comfortable. He does have a history of right-sided CHF with PA pressures being near 60 in the past and is status post TAVR for severe aortic stenosis with preserved left ventricular ejection fraction with concentric hypertrophy by last echocardiogram report. The patient's initial troponin was negative and he does receive Lasix twice a day as an outpatient. He also has a history of chronic atrial fibrillation chronically on Coumadin with a therapeutic INR. Patient is a DNR/DNI and appears comfortable with treatment rendered therefore will be admitted to [facility] on telemetry. I was asked to see Elio who is a 74-year-old man with rheumatoid lung and pulmonary fibrosis. On top of this is his pneumonia as well as recent hemoptysis. When I saw him he stated that he was doing much better. He then talked nonstop about his life. 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 He was also seen is the joker at the race [place]. He gave candy out to the kids. He talked about how these kids years later came up to him and thanked him. He is living with a girlfriend who is from another country. He states that she takes very good care of him. He has 2 sons one who he remains in contact with and another that he has not seen in 3 years. Consults Consult date: 10/30/19 Requesting physician: Estella Portillo Assessment and Plan Assessment and plan (1) Pneumonia: Status: Acute Qualifiers: Laterality: bilateral Lung location: unspecified part of lung Pneumonia type: due to unspecified organism Qualified Code(s): J18.9 - Pneumonia, unspecified organism (2) Depressive disorder: Status: Chronic (3) Rheumatoid lung: Status: Chronic (4) Pulmonary HTN: Status: Acute (5) Diabetes mellitus: Status: Acute (6) Palliative care patient: Status: Acute Assessment and plan: Today Elio and I chatted for quite some time. He is quite the effervescent man. He sounds like he has had an exciting life and is very colorful. We did get some paperwork done including CO LST for which he says he does not want CPR or a feeding tube but he is fine with other care. He also completed a DPOAE form citing Francis as his primary person should he not be able to answer for himself. I do think that he is a good candidate for palliative care and would benefit from an ongoing relationship talking about quality of life and end-of-life issues. He agrees to see me again in the future. I will see him either when he is still in the hospital or after he has left. I have spent more than 50% of time in counseling with this patient. I reviewed the present COVID 19 protocol with the patient. This document was created by [employer] software. Content was screened for misspellings, grammatical mistakes, etc. I apologize for any problems, but please contact me for further clarification if needed. (7) DNR no code (do not resuscitate): Status: Acute (8) Acute exacerbation of idiopathic pulmonary fibrosis: Status: Acute (9) Discharge planning issues: Status: Acute Review of Systems Narrative: He states that he is feeling much better. His breathing is easier. He has not had a fever. He is short of breath at baseline but feels better today. He is not having any abdominal pain. He is not having any additional complaints [facility] Medical History Anemia (Chronic) Hx low Hgb, but today's lab review was unexpected. Probable anemia of chronic disease .. Non-meat diet, [ ] iron suppl (concern for constipation)? [ ] stool guaic Aortic stenosis, moderate (Inactive 07/03/16) [facility] ECHO EF 65%; Mod , valve area 1.33 (grad 23/mean14) (06/2016) [facility] eval 09/2017 shows worsening disease .. may need cardiac surgery. Depressive disorder (Chronic 07/14/11) Surgical History Bronchoscopy (11/20/10) with BAL echo ([facility] pulmonolgy note 09/21/17.) Compared to the study from 06/18/16 the severity of aortic stenosis has increased and there is pulmonary hypertension. seeing cardio again in 2 wks. Extraction of cataract (08/21/10) R eye,with IOL, Dr Gary History of cardiac cath (Chronic) 03/21/[place] [facility] [place] cath-mild Pulm HTN mean PA pressure 25 and PA systolic pressure 50 normal wedge pressure 6. Right dominant circulation with mild disease in all vessels, focal anyeursm RCA 5mm Internal fixation (08/03/10) R distal femoral fx, Dr Banda, [facility] PFT'S: SEPTEMBER 2017 [facility] pulm note 09/21/17. O2 sat on RA 97% After 250 ft on RA 88% needing 2l O2. PTCA (01/27/94) rescue PTCA RCA for persistent CP with Inf MO; [facility] right heart catheterization,oximetry (01/07/18) [facility] [place].Corey Griffin MD findings: Severe pulmonary hypertension mildly elevated pulmonary capillary wedge pressure Status post transcatheter aortic valve replacement (Acute) [facility] 03/29/19 Family History Mother , Lung Cancer at age 74. Personal history of malignant neoplasm at 74 of lung CA Father , CHF at age 86. 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 There is food and his gown. Although I asked him to turn off the TV he would only muted. He spent much of his time looking at the TV during our conversation. He was able to talk in complete sentences and in fact he could talk in complete paragraphs between breaths. His heart was regular. Aeration throughout his lungs. There were crackles. Abdomen is obese nontender. He does not appear depressed and in fact he enjoys talking with people and telling them his life story Results Last Vital Signs Temp 97.0 F L 10/30/19 10:30 Pulse 84 10/30/19 10:30 Resp 20 10/30/19 10:30 BP 108/62 10/30/19 10:30 Pulse Ox 95 10/30/19 10:56 Labs Result diagrams: 11/01/19 06:34 11/01/19 06:34 Labs: Laboratory Results - last 24 hr 10/30/19 10/30/19 10/30/19 00:20 00:20 00:20 WBC 17.01 H RBC 3.88 L Hgb 12.3 L Hct 37.3 L MCV 96.1 H MCH 31.7 MCHC 33.0 RDW 15.1 H Plt Count 209 MPV 9.8 Immature Gran % 0.3 Neutrophils % 86.5 Lymphocytes % 6.2 Monocytes % 6.5 Eosinophils % 0.4 Basophils % 0.1 Absolute Neutrophils 14.71 H Absolute Lymphocytes 1.05 L Absolute Monocytes 1.11 H Absolute Eosinophils 0.07 Absolute Basophils 0.02 PT 26.9 H INR 2.7 H APTT 26.3 VBG pH VBG pCO2 VBG pO2 VBG HCO3 VBG Total CO2 VBG O2 Saturation VBG Base Excess Sodium 133 L Potassium 4.8 Chloride 97 L Carbon Dioxide 27.5 Anion Gap 8.5 BUN 18 Creatinine 1.12 Estimated GFR/1.73 m2 >= 60.00 Glucose 322 H Lactate Calcium 8.7 Magnesium 1.7 L Ferritin Total Bilirubin 0.8 AST 23 ALT 40 Alkaline Phosphatase 91 Lactate Dehydrogenase Troponin I < 0.05 C-Reactive Protein Total Protein 7.7 Albumin 3.3 L Procalcitonin TSH 10/30/19 10/30/19 10/30/19 00:20 01:30 01:30 WBC RBC Hgb Hct MCV MCH MCHC RDW Plt Count MPV Immature Gran % Neutrophils % Lymphocytes % Monocytes % Eosinophils % Basophils % Absolute Neutrophils Absolute Lymphocytes Absolute Monocytes Absolute Eosinophils Absolute Basophils PT INR APTT VBG pH 7.41 VBG pCO2 44 VBG pO2 51 H VBG HCO3 28 VBG Total CO2 26 VBG O2 Saturation 84 H VBG Base Excess 3.5 H Sodium Potassium Chloride Carbon Dioxide Anion Gap BUN Creatinine Estimated GFR/1.73 m2 Glucose Lactate 2.0 H Calcium Magnesium Ferritin 182 Total Bilirubin AST ALT Alkaline Phosphatase Lactate Dehydrogenase 354 H Troponin I C-Reactive Protein 2.40 H Total Protein Albumin Procalcitonin 0.1 TSH 10/30/19 10/30/19 10/30/19 04:27 06:21 06:21 WBC RBC Hgb Hct MCV MCH MCHC RDW Plt Count MPV Immature Gran % Neutrophils % Lymphocytes % Monocytes % Eosinophils % Basophils % Absolute Neutrophils Absolute Lymphocytes Absolute Monocytes Absolute Eosinophils Absolute Basophils PT INR APTT VBG pH VBG pCO2 VBG pO2 VBG HCO3 VBG Total CO2 VBG O2 Saturation VBG Base Excess Sodium 133 L Potassium 5.0 Chloride 98 Carbon Dioxide 25.8 Anion Gap 9.2 BUN 17 Creatinine 1.13 Estimated GFR/1.73 m2 >= 60.00 Glucose 350 H Lactate Calcium 8.8 Magnesium Ferritin Total Bilirubin 0.8 AST 19 ALT 36 Alkaline Phosphatase 76 Lactate Dehydrogenase Troponin I 0.05 C-Reactive Protein Total Protein 7.4 Albumin 3.1 L Procalcitonin TSH 0.45 10/30/19 10/30/19 06:21 06:21 WBC 16.67 H RBC 3.77 L Hgb 11.7 L Hct 36.1 L MCV 95.8 H MCH 31.0 MCHC 32.4 RDW 15.3 H Plt Count 193 MPV 10.0 Immature Gran % Neutrophils % Lymphocytes % Monocytes % Eosinophils % Basophils % Absolute Neutrophils Absolute Lymphocytes Absolute Monocytes Absolute Eosinophils Absolute Basophils PT 29.5 H INR 3.0 H APTT VBG pH VBG pCO2 VBG pO2 VBG HCO3 VBG Total CO2 VBG O2 Saturation VBG Base Excess Sodium Potassium Chloride Carbon Dioxide Anion Gap BUN Creatinine Estimated GFR/1.73 m2 Glucose Lactate Calcium Magnesium Ferritin Total Bilirubin AST ALT Alkaline Phosphatase Lactate Dehydrogenase Troponin I C-Reactive Protein Total Protein Albumin Procalcitonin TSH
--- NOTE | 2019-10-30 17:39 | RESPIRATORY ---
Pt reports he normally wears 4L of oxygen all the time but currently he's using 5-6L of O2. Pt stated to climb upstairs to third floor of house, he uses 5L O2. Pt states he walks very little, from bedroom to kitchen and he uses 4L O2. He reports that the DME for oxygen is [facility] and he has a O2 concentrator that he bought himself.
--- NOTE | 2019-10-30 17:56 | W.PM.PROGNOT ---
Date of Service Date of service: 10/30/19 Time of Service: 17:56 Subjective Subjective Interval history since last seen: Patient reports scant hemoptysis today, but it has been going on for a while and he notices it more after exertion, such as walking up his 30 stairs. He states that he now has been using 4L of O2 at home. He is on 5L currently. States he is feeling better. States his LLE got much more swollen about a month ago. He had not had a venous doppler yet; one is ordered. Last INR 3.0. There is a palliative care consult ordered to discuss goals of care. The patient states he is not sure what his prognosis is. He does not remember if [facility] [place] [place] pulmonology told him. I will touch base with his in home nanny at [facility] [place] [place] tomorrow. His COVID-19 testing is still pending. Objective Objective Clinical Data: Abnormal lab results 10/30/19 10/30/19 10/30/19 Range/Units 00:20 00:20 00:20 WBC 17.01 H (4.4-10.8) k/cumm RBC 3.88 L (4.50-6.00) m/cumm Hgb 12.3 L (13.5-17.5) g/dL Hct 37.3 L (40.0-50.0) % MCV 96.1 H (80-95) fL RDW 15.1 H (11.8-14.1) % Absolute Neutrophils 14.71 H (1.2-6.7) k/cumm Absolute Lymphocytes 1.05 L (1.2-3.4) k/cumm Absolute Monocytes 1.11 H (0.11-0.7) k/cumm PT 26.9 H (9.3-11.0) sec INR 2.7 H (0.9-1.1) VBG pO2 (28-44) mm/Hg VBG O2 Saturation (70-80) % VBG Base Excess (-3-3) mmol/L Sodium 133 L (136-145) mmol/L Chloride 97 L (98-107) mmol/L Glucose 322 H (74-106) mg/dL Lactate (0.6-1.4) mmol/L Magnesium 1.7 L (1.8-2.4) mg/dL Lactate Dehydrogenase (85-227) U/L C-Reactive Protein (0.0-0.3) mg/dL Albumin 3.3 L (3.4-5.0) g/dL 10/30/19 10/30/19 10/30/19 Range/Units 00:20 01:30 01:30 WBC (4.4-10.8) k/cumm RBC (4.50-6.00) m/cumm Hgb (13.5-17.5) g/dL Hct (40.0-50.0) % MCV (80-95) fL RDW (11.8-14.1) % Absolute Neutrophils (1.2-6.7) k/cumm Absolute Lymphocytes (1.2-3.4) k/cumm Absolute Monocytes (0.11-0.7) k/cumm PT (9.3-11.0) sec INR (0.9-1.1) VBG pO2 51 H (28-44) mm/Hg VBG O2 Saturation 84 H (70-80) % VBG Base Excess 3.5 H (-3-3) mmol/L Sodium (136-145) mmol/L Chloride (98-107) mmol/L Glucose (74-106) mg/dL Lactate 2.0 H (0.6-1.4) mmol/L Magnesium (1.8-2.4) mg/dL Lactate Dehydrogenase 354 H (85-227) U/L C-Reactive Protein 2.40 H (0.0-0.3) mg/dL Albumin (3.4-5.0) g/dL 10/30/19 10/30/19 10/30/19 Range/Units 06:21 06:21 06:21 WBC 16.67 H (4.4-10.8) k/cumm RBC 3.77 L (4.50-6.00) m/cumm Hgb 11.7 L (13.5-17.5) g/dL Hct 36.1 L (40.0-50.0) % MCV 95.8 H (80-95) fL RDW 15.3 H (11.8-14.1) % Absolute Neutrophils (1.2-6.7) k/cumm Absolute Lymphocytes (1.2-3.4) k/cumm Absolute Monocytes (0.11-0.7) k/cumm PT 29.5 H (9.3-11.0) sec INR 3.0 H (0.9-1.1) VBG pO2 (28-44) mm/Hg VBG O2 Saturation (70-80) % VBG Base Excess (-3-3) mmol/L Sodium 133 L (136-145) mmol/L Chloride (98-107) mmol/L Glucose 350 H (74-106) mg/dL Lactate (0.6-1.4) mmol/L Magnesium (1.8-2.4) mg/dL Lactate Dehydrogenase (85-227) U/L C-Reactive Protein (0.0-0.3) mg/dL Albumin 3.1 L (3.4-5.0) g/dL Vital Signs Temperature 36.1 C L 10/30/19 10:30 Temperature Source Temporal Artery Scan 10/30/19 10:30 Pulse 84 10/30/19 10:30 Pulse Rhythm Regular 10/30/19 03:49 Respiratory Rate 10/30/19 10:30 Respiratory Effort 10/30/19 17:48 Respiratory Depth Normal 10/30/19 17:48 Respiratory Pattern Normal 10/30/19 17:48 Blood Pressure 108/62 10/30/19 10:30 Blood Pressure Position Sitting 10/29/19 23:55 Pulse Oximetry 95 10/30/19 17:25 Oxygen Delivery Method Nasal Cannula 10/30/19 17:25 Oxygen Flow Rate 5 10/30/19 17:35 Pain Level 7 10/30/19 16:32 Comment 10/30/19 10:30 Intake & Output 10/29/19 10/30/19 10/30/19 23:59 11:59 23:59 Intake Total 440 / 980 540 / 980 Output Total 425 / 1175 750 / 1175 Balance 15 195 -210 / -195 Weight 119.748 kg 120.5 kg Intake: Oral 440 / 980 540 / 980 Output: Urine 425 / 1175 750 / 1175 Other: Urine Color Yellow Yellow Urine Appearance Clear Clear Urine Odor None None Voiding Methods Urinal Laboratory Results WBC 16.67 k/cumm (4.4-10.8) H 10/30/19 06:21 RBC 3.77 m/cumm (4.50-6.00) L 10/30/19 06:21 Hgb 11.7 g/dL (13.5-17.5) L 10/30/19 06:21 Hct 36.1 % (40.0-50.0) L 10/30/19 06:21 MCV 95.8 fL (80-95) H 10/30/19 06:21 MCH 31.0 pg (27.0-33.0) 10/30/19 06: MCHC 32.4 g/dL (32.0-36.0) 10/30/19 06:21 RDW 15.3 % (11.8-14.1) H 10/30/19 06:21 Plt Count 193 x1000/uL (130-400) 10/30/19 06:21 MPV 10.0 fL (8.0-11.0) 10/30/19 06:21 Immature Gran % 0.3 % 10/30/19 00:20 Neutrophils % 86.5 10/30/19 00:20 Lymphocytes % 6.2 10/30/19 00:20 Monocytes % 6.5 10/30/19 00:20 Eosinophils % 0.4 10/30/19 00:20 Basophils % 0.1 10/30/19 00:20 Absolute Neutrophils 14.71 k/cumm (1.2-6.7) H 10/30/19 00:20 Absolute Lymphocytes 1.05 k/cumm (1.2-3.4) L 10/30/19 00:20 Absolute Monocytes 1.11 k/cumm (0.11-0.7) H 10/30/19 00:20 Absolute Eosinophils 0.07 k/cumm (0.0-0.7) 10/30/19 00:20 Absolute Basophils 0.02 k/cumm (0.0-0.2) 10/30/19 00:20 PT 29.5 sec (9.3-11.0) H 10/30/19 06:21 INR 3.0 (0.9-1.1) H 10/30/19 06:21 APTT 26.3 sec (21.0-31.4) 10/30/19 00:20 VBG pH 7.41 (7.35-7.45) 10/30/19 00:20 VBG pCO2 44 mm/Hg (34-47) 10/30/19 00:20 VBG pO2 51 mm/Hg (28-44) H 10/30/19 00:20 VBG HCO3 28 mmol/L (22-28) 10/30/19 00:20 VBG Total CO2 26 mmol/L (22-29) 10/30/19 00:20 VBG O2 Saturation 84 % (70-80) H 10/30/19 00:20 VBG Base Excess 3.5 mmol/L (-3-3) H 10/30/19 00:20 Sodium 133 mmol/L (136-145) L 10/30/19 06:21 Potassium 5.0 mmol/L (3.5-5.1) 10/30/19 06:21 Chloride 98 mmol/L (98-107) 10/30/19 06:21 Carbon Dioxide 25.8 mmol/L (21.0-32.0) 10/30/19 06:21 Anion Gap 9.2 mmol/L (3-11) 10/30/19 06:21 BUN 17 mg/dL (7-18) 10/30/19 06:21 Creatinine 1.13 mg/dL (0.70-1.30) 10/30/19 06:21 Estimated GFR/1.73 m2 >= 60.00 (mL/min/1.73m2) 10/30/19 06:21 Glucose 350 mg/dL (74-106) H 10/30/19 06:21 Lactate 2.0 mmol/L (0.6-1.4) H 10/30/19 01:30 Calcium 8.8 mg/dL (8.5-10.1) 10/30/19 06:21 Magnesium 1.7 mg/dL (1.8-2.4) L 10/30/19 00:20 Ferritin 182 ng/mL (26-388) 10/30/19 01:30 Total Bilirubin 0.8 mg/dL (0.2-1.0) 10/30/19 06:21 AST 19 U/L (15-37) 10/30/19 06:21 ALT 36 U/L (16-63) 10/30/19 06:21 Alkaline Phosphatase 76 U/L (46-116) 10/30/19 06:21 Lactate Dehydrogenase 354 U/L (85-227) H 10/30/19 01:30 Troponin I 0.05 ng/Ml (<0.06) 10/30/19 04: C-Reactive Protein 2.40 mg/dL (0.0-0.3) H 10/30/19 01:30 Total Protein 7.4 g/dL (6.4-8.2) 10/30/19 06:21 Albumin 3.1 g/dL (3.4-5.0) L 10/30/19 06:21 Procalcitonin 0.1 ng/mL 10/30/19 01:30 TSH 0.45 uIU/mL (0.36-3.74) 10/30/19 06:21
[2019-10-30] MEDS: Atorvastatin 40 MG TAB 80 MG PO (20:12)
[2019-10-30] MEDS: Albuterol HFA 8 GM 60 PUFF INH IH (20:13)
[2019-10-30] MEDS: clonazePAM 1 MG TAB 0.5 MG PO (22:12)
[2019-10-30] MEDS: Pramipexole 0.25 MG TAB 0.125 MG PO (22:13)
[2019-10-31] VITALS (13 sets, daily range): BP systolic 120–154; BP diastolic 64–82; PULSE 72–91; RESP 2–24; TEMP 35.8–36.8; O2SAT 91–100
--- NOTE | 2019-10-31 | DI.US_ITS ---
EXAM: US EXTREMITY VENOUS BI CLINICAL HISTORY: Edema BLE's, suspected DVT TECHNIQUE: Ultrasound performed using standard protocol. COMPARISON: No exams were available for comparison FINDINGS: Duplex venous ultrasound was performed according to the usual protocol. The deep veins are freely com pressible throughout and there is normal flow augmentation with manual calf compression. 2D and Doppl er evaluation are unremarkable. IMPRESSION: No evidence of deep venous thrombosis of the right or left lower extremity
[2019-10-31] MEDS: levoFLOXacin 750 MG/150 ML BAG 100 MG IVPB (00:49)
[2019-10-31] MEDS: Hydrocortisone SOD SUC. 100 MG VIAL IVP (00:49)
[2019-10-31] MEDS: oxyCODONE 5 mg/Acetaminophen 325 mg TAB 1 TAB PO ×2 (07:17→21:32)
[2019-10-31 07:28] LABS: Lactate 3.3 mmol/L (0.6-1.4)
[2019-10-31 07:29] LABS: Eosinophils % 0.1; HCT 36.1 % (40.0-50.0); HGB 11.9 g/dL (13.5-17.5); Immature Grans % 0.3 %; Mean Corpuscular Hemoglobin 31.6 pg (27.0-33.0); Mean Platelet Volume 9.9 fL (8.0-11.0); Monocytes % 4.1; Neutrophils % 88.5; Platelet Count 198 x1000/uL (130-400); RBC 3.76 m/cumm (4.50-6.00); RBC Distribution Width 15.3 % (11.8-14.1); White Blood Cell Count 16.14 k/cumm (4.4-10.8)
[2019-10-31 07:30] LABS: Abs Immature Grans 0.05 k/cumm (0.0-0.09); Absolute Lymphocyte Count 1.13 k/cumm (1.2-3.4); Absolute Monocyte Count 0.66 k/cumm (0.11-0.7)
[2019-10-31 07:32] LABS: Absolute Eosinophil Count 0.02 k/cumm (0.0-0.7); Absolute Neutrophil Count 14.28 k/cumm (1.2-6.7)
[2019-10-31 07:41] LABS: BUN 23 mg/dL (7-18); CREATININE 1.21 mg/dL (0.70-1.30); Calcium 8.4 mg/dL (8.5-10.1); Chloride 99 mmol/L (98-107); Estimated GFR 58.62 (mL/min/1.73m2); Glucose 302 mg/dL (74-106); Magnesium 2.1 mg/dL (1.8-2.4); Potassium 4.1 mmol/L (3.5-5.1); Sodium 136 mmol/L (136-145)
[2019-10-31 07:49] LABS: INR 2.1 (0.9-1.1); Prothrombin Time 20.7 sec (9.3-11.0)
[2019-10-31] MEDS: Metoprolol CR 100 MG TABCR PO (09:06)
[2019-10-31] MEDS: Aspirin E.C. 81 MG TABEC PO (09:06)
[2019-10-31] MEDS: Multivitamin w/Minerals TAB 1 TAB PO (09:06)
[2019-10-31] MEDS: Furosemide 20 MG TAB 40 MG PO ×2 (09:07→16:04)
[2019-10-31] MEDS: Omeprazole 20 MG CAPCR PO ×2 (09:07→21:06)
[2019-10-31] MEDS: Lisinopril 10 MG TAB PO (09:07)
[2019-10-31] MEDS: Insulin Aspart 300 UNITS/3 ML PEN SC ×4 (09:08→21:08)
[2019-10-31] MEDS: Insulin Glargine 300 UNITS/3 ML PEN 10 UNITS SC (09:20)
[2019-10-31] MEDS: Hydrocortisone SOD SUC. 100 MG VIAL 50 MG IVP ×2 (09:21→16:05)
[2019-10-31] MEDS: Budesonide/Formoterol 160/4.5 6 GM 60 PUFF INH IH ×2 (09:23→21:13)
[2019-10-31] MEDS: Normal Saline Flush 10 ML SYR IVP ×3 (09:24→21:33)
[2019-10-31 09:32] LABS: COVID-19 RT-PCR UVMMC Result Negative (Negative)
--- NOTE | 2019-10-31 09:47 | PDOC.CMPRO ---
- If Service Date Differs Date of service: 10/31/19 Time of Service: 09:47 Care Management Progress Note S/O:Elio was sitting up in a chair when CM met with him. He was open and friendly and quite willing to converse. 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 He describes her as a beautiful woman who is well educated and speaks 4 languages. He shared that she is the best woman for him as she is a nurse and that she feels the same about him. Kristina is disabled because she is bipolar, so is unable to work at this time. Elio stated that they have been self-isolating, only leaving the house to go grocery shopping while wearing a mask. He shared that they live on the 3rd floor and no one comes to visit except his nurse. At this time Elio does not feel that he will need any additional services at discharge. A: Elio is a 74 year old man admitted on 10/30/19 with pneumonia P:Elio will likely be discharged home with a resumption of home health services. 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 CM will continue to support Elio, his family and discharge planning needs.
[2019-10-31] MEDS: Albuterol HFA 8 GM 60 PUFF INH IH (11:03)
[2019-10-31 12:25] LABS: Lactate 2.6 mmol/L (0.6-1.4)
[2019-10-31 12:36] LABS: Glucose 404 mg/dL (74-106)
--- NOTE | 2019-10-31 14:30 | PHA.REVIEW ---
Pharmacy Admission Review - Admission Clinical Review (Last Reviewed 10/30/19 @ 03:07 by Jarrett Foster) DNR no code (do not resuscitate) (Acute) Palliative care patient (Acute) Pneumonia (Acute) Shortness of breath (Acute) Pulmonary HTN (Acute) Diabetes mellitus (Acute 07/05/00) adalimumab Allergy (Severe, Verified 10/30/19 01:21) unknown Penicillins Allergy (Severe, Verified 10/30/19 01:21) Anaphylaxsis Height 5 ft 4 in Weight 120.5 kg - Renal Dosing Renal Dosing: BUN 23 mg/dL (7-18) H 10/31/19 07:15 Creatinine 1.21 mg/dL (0.70-1.30) 10/31/19 07:15 Medications needing adjustments: Reviewed (CRCL ~44ML/MIN) - Anticoagulation Anticoagulation: Hgb 11.9 g/dL (13.5-17.5) L 10/31/19 07:15 Hct 36.1 % (40.0-50.0) L 10/31/19 07:15 Plt Count 198 x1000/uL (130-400) 10/31/19 07:15 INR 2.1 (0.9-1.1) H D 10/31/19 07:15 Creatinine 1.21 mg/dL (0.70-1.30) 10/31/19 07:15 DVT Prohphylaxis: Reviewed Medications: Warfarin Therapeutic Anticoagulation: Reviewed Medications: Warfarin (INR 2.1) - Opiate Usage Evaluate Pain Scale/Pains Meds: Reviewed Scheduled Bowel Reg ordered if on Opiates?: No (PRN) - Relevant Labs Sodium 136 mmol/L (136-145) 10/31/19 07:15 Potassium 4.1 mmol/L (3.5-5.1) 10/31/19 07:15 Chloride 99 mmol/L (98-107) 10/31/19 07:15 Magnesium 2.1 mg/dL (1.8-2.4) 10/31/19 07:15 C-Reactive Protein 2.40 mg/dL (0.0-0.3) H 10/30/19 01:30 Electrolytes, C-Reactive P, ESR: Reviewed - DM Control DM Control: Glucose 404 mg/dL (74-106) H D 10/31/19 12:14 Finger Stick Blood Glucose 404 Finger Stick Blood Glucose 426 Finger Stick Blood Glucose 302 Finger Stick Blood Glucose 302 Finger Stick Blood Glucose 302 Insulin Dosing: Reviewed (insulin aspart SS and glargine ordered) - Heart Failure/SD Heart Failure/SD: Troponin I 0.05 ng/Ml (<0.06) 10/30/19 04:27 - BP Control BP Control: Blood Pressure 140/77 Blood Pressure 126/67 If elevated: N/A - Qtc Review If Elevated: Reviewed (461) - IV to PO Switch IV Medications: Reviewed (Iv steroids, IV levofloxacin) - Home Meds Relevent Home Meds Not ordered & why?: metformin(insulin as inpt)
--- NOTE | 2019-10-31 14:34 | HOME_ITS ---
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
--- NOTE | 2019-10-31 14:39 | W.INDIABCONS ---
Date of service: 10/31/19 Time of Service: 14:39 Diabetes Inpatient Consult DESCRIPTION/ASSESSMENT: 74 year old male admitted with PNA, SOB, Rheumatoid Lung and morbid obesity (BMI 45). Following Diabetic Diet with adequate intake since admission (>50%). Met with Elio today to discuss optimal diet for diabetes and weight management. Recent labs indicate elevated A1C (09/13/2019 9.2%) indicating poorly controlled diabetes in last 90 days, elevated serum blood sugars noted since admission often >300 mg/dl. Meds include insulin along with IV prednisone that are driving up the blood sugars. Elio reports his blood sugars at home tend to run below 200 mg/dl, unless on steriods due to lung disorder. He reports checking blood sugars 3 times daily. He reports doing most of his cooking at home and tends to avoid large amounts of simple sugars. Reviewed consistent carbohydrate counting and provided him with educational material from the Nutrition Care Manual. Reviewed how to adjust diet/insulin with hypo/hyper glycemia. Provided my contact information and encouraged him to follow up with outpatient diabetes counseling with [facility]. Not at risk for nutritional decline at this time, expect quick recovery and return home shortly. INTERVENTION: Diabetic Diet Diabetes Education PLAN: follow up pa th PCP after discharge to adjust insulin for optimal control follow up with outpatient CDE for diabetes counseling/fine tuning Time Spent in Nutritional Counseling and Treatment: 15 min spent face to face
--- NOTE | 2019-10-31 17:37 | W.PM.PROGNOT ---
Date of Service Date of service: 10/31/19 Time of Service: 17:37 Assessment and Plan Assessment and plan (1) Acute and chronic respiratory failure with hypoxia: Status: Acute Assessment and plan: Improving with treatment of pneumonia and CHF. Obtain echo. Continue abx, diuresis, nebs, steroids, weaning O2 as tolerated. Palliative care consulted. May benefit from trilogy - will discuss with patient. (2) Acute exacerbation of idiopathic pulmonary fibrosis: Status: Acute Assessment and plan: Due to PNA. As bellow (3) Pneumonia: Status: Acute Assessment and plan: present on admission. Improving clinically on levofloxacin. Continue abx, nebs, stress dose steroids. Qualifiers: Pneumonia type: due to unspecified organism Laterality: bilateral Lung location: unspecified part of lung Qualified Code(s): J18.9 - Pneumonia, unspecified organism (4) Aortic stenosis, severe: Status: Acute Assessment and plan: Obtain echo. 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 marine oil terminal insulin use: with superintendent marine oil terminal use Qualified Code(s): E11.65 - Type 2 diabetes mellitus with hyperglycemia; Z79.4 - medical terminologist (current) use of insulin (7) Obstructive sleep apnea syndrome: Status: Acute Assessment and plan: Continue CPAP at night (8) DVT prophylaxis: Status: Acute Assessment and plan: ON therapeutic coumadin (9) Discharge planning issues: Status: Acute Assessment and plan: DNR/DNI Palliative care on board - COLST form signed Subjective Subjective Interval history since last seen: Mr Delgadillo states his hemoptysis has stopped today and that his primary complaint is feeling anxious, for which he normally takes clonazepam at home prn. He denies dizziness, chest pain, but endorses chest tightness, denies n/v. Exam Narrative Exam Narrative: General: pleasant obese male, sitting in a recliner, talking on the phone in complete sentences when I came to see him, anxious, A&Ox3 HEENT: EOMI, MMM Heart: irregularly irregular rhythm, no m/r/g Lungs: Crackles at B bases Abdomen: soft, nontender, nondistended Extremities: BLE edema, chronic venous stasis Objective Objective Clinical Data: Abnormal lab results 10/31/19 10/31/19 10/31/19 Range/Units 07:15 07:15 07:15 WBC 16.14 H (4.4-10.8) k/cumm RBC 3.76 L (4.50-6.00) m/cumm Hgb 11.9 L (13.5-17.5) g/dL Hct 36.1 L (40.0-50.0) % MCV 96.0 H (80-95) fL RDW 15.3 H (11.8-14.1) % Absolute Neutrophils 14.28 H (1.2-6.7) k/cumm Absolute Lymphocytes 1.13 L (1.2-3.4) k/cumm PT (9.3-11.0) sec INR (0.9-1.1) BUN 23 H (7-18) mg/dL Glucose 302 H (74-106) mg/dL Lactate 3.3 H* (0.6-1.4) mmol/L Calcium 8.4 L (8.5-10.1) mg/dL 10/31/19 10/31/19 10/31/19 Range/Units 07:15 12:14 12:14 WBC (4.4-10.8) k/cumm RBC (4.50-6.00) m/cumm Hgb (13.5-17.5) g/dL Hct (40.0-50.0) % MCV (80-95) fL RDW (11.8-14.1) % Absolute Neutrophils (1.2-6.7) k/cumm Absolute Lymphocytes (1.2-3.4) k/cumm PT 20.7 H D (9.3-11.0) sec INR 2.1 H D (0.9-1.1) BUN (7-18) mg/dL Glucose 404 H D (74-106) mg/dL Lactate 2.6 H* (0.6-1.4) mmol/L Calcium (8.5-10.1) mg/dL Vital Signs Temperature 36.8 C 10/31/19 15:57 Temperature Source Tympanic 10/31/19 15:57 Pulse 74 10/31/19 15:57 Pulse Rhythm Irregular 10/31/19 16:34 Respiratory Rate 22 10/31/19 15:57 Respiratory Effort 10/31/19 16:34 Respiratory Depth Normal 10/31/19 16:34 Respiratory Pattern Normal 10/31/19 16:34 Blood Pressure 132/68 10/31/19 15:57 Blood Pressure Position Sitting 10/29/19 23:55 Pulse Oximetry 97 10/31/19 15:57 Oxygen Delivery Method Nasal Cannula 10/31/19 15:57 Oxygen Flow Rate 4 10/31/19 15:57 Pain Level 7 10/31/19 09:15 Comment 10/30/19 10:30 Intake & Output 10/30/19 10/31/19 10/31/19 23:59 11:59 23:59 Intake Total 540 / 980 270 / 270 Output Total 950 / 1375 800 / 1450 650 / 1450 Balance -410 / -395 -530 / -1180 -650 / -1180 Weight 120.5 kg Intake: IV 150 / 150 Oral 540 / 980 120 / 120 Output: Urine 950 / 1375 800 / 1450 650 / 1450 Other: Urine Color Yellow Straw Yellow Urine Appearance Clear Clear Clear Urine Odor None None Normal Voiding Methods Urinal Urinal Laboratory Results WBC 16.14 k/cumm (4.4-10.8) H 10/31/19 07:15 RBC 3.76 m/cumm (4.50-6.00) L 10/31/19 07:15 Hgb 11.9 g/dL (13.5-17.5) L 10/31/19 07:15 Hct 36.1 % (40.0-50.0) L 10/31/19 07:15 MCV 96.0 fL (80-95) H 10/31/19 07:15 MCH 31.6 pg (27.0-33.0) 10/31/19 07:15 MCHC 33.0 g/dL (32.0-36.0) 10/31/19 07:15 RDW 15.3 % (11.8-14.1) H 10/31/19 07:15 Plt Count 198 x1000/uL (130-400) 10/31/19 07:15 MPV 9.9 fL (8.0-11.0) 10/31/19 07:15 Immature Gran % 0.3 % 10/31/19 07:15 Neutrophils % 88.5 10/31/19 07:15 Lymphocytes % 7.0 10/31/19 07:15 Monocytes % 4.1 10/31/19 07:15 Eosinophils % 0.1 10/31/19 07:15 Basophils % 0.0 10/31/19 07:15 Absolute Neutrophils 14.28 k/cumm (1.2-6.7) H 10/31/19 07:15 Absolute Lymphocytes 1.13 k/cumm (1.2-3.4) L 10/31/19 07:15 Absolute Monocytes 0.66 k/cumm (0.11-0.7) 10/31/19 07:15 Absolute Eosinophils 0.02 k/cumm (0.0-0.7) 10/31/19 07:15 Absolute Basophils 0.00 k/cumm (0.0-0.2) 10/31/19 07:15 PT 20.7 sec (9.3-11.0) H D 10/31/19 07:15 INR 2.1 (0.9-1.1) H D 10/31/19 07:15 APTT 26.3 sec (21.0-31.4) 10/30/19 00:20 VBG pH 7.41 (7.35-7.45) 10/30/19 00:20 VBG pCO2 44 mm/Hg (34-47) 10/30/19 00:20 VBG pO2 51 mm/Hg (28-44) H 10/30/19 00:20 VBG HCO3 28 mmol/L (22-28) 10/30/19 00:20 VBG Total CO2 26 mmol/L (22-29) 10/30/19 00:20 VBG O2 Saturation 84 % (70-80) H 10/30/19 00:20 VBG Base Excess 3.5 mmol/L (-3-3) H 10/30/19 00:20 Sodium 136 mmol/L (136-145) 10/31/19 07:15 Potassium 4.1 mmol/L (3.5-5.1) 10/31/19 07:15 Chloride 99 mmol/L (98-107) 10/31/19 07:15 Carbon Dioxide 28.0 mmol/L (21.0-32.0) 10/31/19 07:15 Anion Gap 9.0 mmol/L (3-11) 10/31/19 07:15 BUN 23 mg/dL (7-18) H 10/31/19 07:15 Creatinine 1.21 mg/dL (0.70-1.30) 10/31/19 07:15 Estimated GFR/1.73 m2 58.62 (mL/min/1.73m2) 10/31/19 07:15 Glucose 404 mg/dL (74-106) H D 10/31/19 12:14 Lactate 2.6 mmol/L (0.6-1.4) H* 10/31/19 12:14 Calcium 8.4 mg/dL (8.5-10.1) L 10/31/19 07:15 Magnesium 2.1 mg/dL (1.8-2.4) 10/31/19 07:15 Ferritin 182 ng/mL (26-388) 10/30/19 01:30 Total Bilirubin 0.8 mg/dL (0.2-1.0) 10/30/19 06:21 AST 19 U/L (15-37) 10/30/19 06:21 ALT 36 U/L (16-63) 10/30/19 06:21 Alkaline Phosphatase 76 U/L (46-116) 10/30/19 06:21 Lactate Dehydrogenase 354 U/L (85-227) H 10/30/19 01:30 Troponin I 0.05 ng/Ml (<0.06) 10/30/19 04:27 C-Reactive Protein 2.40 mg/dL (0.0-0.3) H 10/30/19 01:30 Total Protein 7.4 g/dL (6.4-8.2) 10/30/19 06:21 Albumin 3.1 g/dL (3.4-5.0) L 10/30/19 06:21 Procalcitonin 0.1 ng/mL 10/30/19 01:30 TSH 0.45 uIU/mL (0.36-3.74) 10/30/19 06:21 COVID-19 PCR Negative (Negative) 10/30/19 02:00 Nasopharyn COVID-19 PCR Not Applicable 10/30/19 02:00 Ref Test Perform Site [facility] hospital lab 04/27/20 02:00 Venous doppler BLE's: No evidence of deep venous thrombosis of the right or left lower extremity
[2019-10-31] MEDS: clonazePAM 0.5 MG TAB PO (17:38)
[2019-10-31] MEDS: Albuterol/Ipratropium 3 ML UPD VIAL UPD (18:33)
[2019-10-31] MEDS: Pramipexole 0.25 MG TAB 0.125 MG PO (21:03)
[2019-10-31] MEDS: Atorvastatin 40 MG TAB 80 MG PO (21:04)
[2019-10-31] MEDS: clonazePAM 1 MG TAB 0.5 MG PO (21:04)
[2019-10-31] MEDS: guaiFENesin 600 MG TABCR PO (21:05)
[2019-11-01] VITALS (13 sets, daily range): BP systolic 118–168; BP diastolic 65–76; PULSE 85–96; RESP 1–22; TEMP 35.8–37; O2SAT 93–100
--- NOTE | 2019-11-01 | DI.RAD_ITS ---
EXAM: XR PORTABLE CHEST AP CLINICAL HISTORY: PNA with worsening inflammatory markers TECHNIQUE: COMPARISON: XR CHEST 2V PA LATERAL from 07/27/2018 CT CHEST PE ABD PELVIS W from 10/30/2019 FINDINGS: Portable AP chest at 10:30. Heart is enlarged. Aortic valve prosthesis again noted. There appear t o be increasing patchy radiodensities of the left lung particularly in the mid to lower lung field. Yesterday's CT did show findings consistent with multifocal pneumonia. IMPRESSION: Left-sided pneumonia, probably worsening since yesterday's CT examination.
--- NOTE | 2019-11-01 | DI.US_ITS ---
APPROVED REPORT EXAM: Comprehensive 2D, Doppler, and color-flow Echocardiogram Patient Location: In-Patient Room/Bed: [facility] [place] Flap Trimmer: Argelia Stiles RDCS (AE) Indications: CHF, Pulmonary HTN, AVR Other Information Study Quality: Fair. Technically limited study due to body habitus. Conclusion Left Ventricle : The left ventricle is normal size. Left ventricular systolic function is borderline. There is normal left ventricular wall thickness. Regional wall motion is grossly normal. Transmitral Doppler flow pattern suggests impaired LV relaxation. LVEF is 45%. Right Ventricle : Right ventricle is not well visualized. Right ventricular systolic function could n ot be assessed. The RVSP is 50-55 mmHg. Atria : Left atrium is mildly dilated. Right atrium is borderline dilated. Aortic Valve : Bioprosthetic aortic valve is present. No hemodynamically significant valvular aortic stenosis (mean gradient is 5.7 mmHg). No aortic regurgitation is present. Mitral Valve : There is mitral annular calcification. No evidence of mitral valve stenosis. Mild mitr al regurgitation. Tricuspid Valve : The tricuspid valve is normal in structure. There is no tricuspid valve stenosis. M ild to moderate tricuspid regurgitation. Great Vessels : IVC is normal in size and collapses >50% with inspiration. Otto at [facility] dated 05/01/2019: There is been a slight decrease in ejection fraction from 60% to 45%. Estimated pulmonary arterial pressures remain elevated but unchanged. Wall motion Left Ventricle The left ventricle is normal size. Left ventricular systolic function is borderline. There is normal left ventricular wall thickness. Regional wall motion is grossly normal. Transmitral Doppler flow pat tern suggests impaired LV relaxation. There is no ventricular septal defect visualized. LVEF is 45%. Right Ventricle Right ventricle is not well visualized. Right ventricular systolic function could not be assessed. Th e RVSP is 50-55 mmHg. Atria Left atrium is mildly dilated. Right atrium is borderline dilated. The interatrial septum is intact w ith no evidence for an atrial septal defect. Aortic Valve Bioprosthetic aortic valve is present. No hemodynamically significant valvular aortic stenosis (mean gradient is 5.7 mmHg). No aortic regurgitation is present. Mitral Valve There is mitral annular calcification. No evidence of mitral valve stenosis. Mild mitral regurgitatio n. Tricuspid Valve The tricuspid valve is normal in structure. There is no tricuspid valve stenosis. Mild to moderate tr icuspid regurgitation. Pulmonic Valve The pulmonary valve is normal in structure. There is no pulmonic valvular stenosis. There is no pulmo trace valvular regurgitation. Great Vessels The aortic root is normal in size. The ascending aorta is normal in size. Ascending aorta is not well visualized. IVC is normal in size and collapses >50% with inspiration. Pericardium There is no pericardial effusion. There is no pleural effusion. 2D Dimensions IVSD d PLAX 1.05 cm M: 0.6-1.2 LV Vol A2C d MOD 91.5 mL LVPW d PLAX 1.06 cm M: 0.6 - 1.2 LV Vol A4C d MOD 97.9 mL LVID d PLAX 4.35 cm M: 4.2 - 5.8 LA vol/ BSA A2C s A-L 45.5 mL/m2 LVDs 3.65 cm M: 2.5 - 4.0 LA vol/ BSA A4C s A-L 42.1 mL/m2 Ao Root d 2.47 cm M: 3.1 - 3.7 LA Vol/ BSA Biplane s A-L 46.3 mL/m2 Ao Asc Diam d 3.51 cm M: 2.6 - 3.4 LA Area A4C s MOD 26.86 cm2 LV EF Teichholz 33.0 % LA Area A2C s MOD 29.51 cm2 LVEF (Lyons's) 43.22 % M: 52 - 72 LV EF A4C MOD 45.2 % LV Volume 71.22 mL M: 62 - 150 LV EF A2C MOD 45.2 % LV Volume Index 32.37 mL/m2 M: 34 - 74 LV EF Biplane MOD 43.2 % LV Vol Biplane MOD 98.0 mL FS 15.50 % M-Mode TAPSE 1.89 cm (M/F) >1.7 LV Diastology MV E' lateral 0.055 (>0.1 m/s) MV E Vmax 1.37 (0.4-1.3 m/s) LV E/e LAT 24.95 (<14) MV E/E' lateral 24.98 Aortic Valve LVOT Area 2.81 cm2 AoV Area Vmax 1.29 cm2 LVOT Vmax 0.88 m/s AoV Area/ BSA (Vmax) 0.59 cm2/m2 LVOT Mean Stoney. 0.58 m/s ALETHA Mean Stoney. 1.56 cm2 LVOT Peak Grad 3.1 mmHg ALETHA Mean Stoney. Index 0.71 cm2/m2 LVOT Mean Grad 1.6 mmHg LVOT VTI 0.165 m LVOT Diam s 1.85 cm (M/F) 1.5-2.5 AoV Vmax 1.92 (0.5-1.3 m/s) Velocity Ratio 0.45 AoV Mean Stoney. 1.05 m/s AoV Peak Grad 14.8 mmHg LVOT SV 46.46 mL AoV Mean Grad 5.7 (<5 mmHg) AoV VTI 0.395 (0.18-0.25 m) AoV Area VTI 1.18 (2.5-4.5 cm2) AoV Area/ BSA (VTI) 0.53 cm/m2 Mitral Valve MV DT 166 (160-240 msec) MV PHT 48 msec MV Area PHT 4.58 cm2 Pulmonary Valve PV Vmax 1.20 (0.5-1.5 m/s) RVOT Peak Gr. 3.26 mmHg PV Peak Grad 5.7 mmHg RVOT Mean Gr. 1.45 mmHg PV Mean Grad 2.6 mmHg RVOT VTI 0.169 m PV VTI 0.171 m RVOT Vmax 0.90 m/s Tricuspid Valve TR Peak Grad 48.8 mmHg TR Vmax 3.50 m/s RA Pressure 3.00 mmHg RVSP (TR) 51.9 mmHg
[2019-11-01] MEDS: Hydrocortisone SOD SUC. 100 MG VIAL 50 MG IVP ×4 (00:08→23:54)
[2019-11-01] MEDS: Normal Saline Flush 10 ML SYR IVP ×4 (00:08→23:55)
[2019-11-01] MEDS: levoFLOXacin 750 MG/150 ML BAG 100 MG IVPB (00:10)
[2019-11-01] MEDS: Albuterol/Ipratropium 3 ML UPD VIAL UPD ×5 (00:22→23:55)
[2019-11-01 06:51] LABS: Abs Immature Grans 0.04 k/cumm (0.0-0.09); Absolute Eosinophil Count 0.03 k/cumm (0.0-0.7); Absolute Lymphocyte Count 1.48 k/cumm (1.2-3.4); Eosinophils % 0.2; HCT 35.9 % (40.0-50.0); HGB 11.9 g/dL (13.5-17.5); Immature Grans % 0.3 %; Lactate 3.4 mmol/L (0.6-1.4); Lymphocytes % 11.4; Mean Corp. HGB Concentration 33.1 g/dL (32.0-36.0); Mean Corpuscular Hemoglobin 31.6 pg (27.0-33.0); Mean Corpuscular Volume 95.5 fL (80-95); Mean Platelet Volume 9.5 fL (8.0-11.0); Monocytes % 4.6; Neutrophils % 83.5; Platelet Count 211 x1000/uL (130-400); RBC 3.76 m/cumm (4.50-6.00); RBC Distribution Width 15.1 % (11.8-14.1); White Blood Cell Count 12.97 k/cumm (4.4-10.8)
[2019-11-01 06:57] LABS: Absolute Neutrophil Count 10.83 k/cumm (1.2-6.7)
[2019-11-01 07:12] LABS: INR 1.6 (0.9-1.1); Prothrombin Time 16.1 sec (9.3-11.0)
[2019-11-01 07:13] LABS: Anion Gap 9.1 mmol/L (3-11); BUN 27 mg/dL (7-18); C-Reactive Protein 3.09 mg/dL (0.0-0.3); CO2 26.9 mmol/L (21.0-32.0); CREATININE 1.18 mg/dL (0.70-1.30); Calcium 8.4 mg/dL (8.5-10.1); Chloride 98 mmol/L (98-107); Glucose 300 mg/dL (74-106); Magnesium 2.2 mg/dL (1.8-2.4); Potassium 3.9 mmol/L (3.5-5.1); Sodium 134 mmol/L (136-145)
[2019-11-01] MEDS: Insulin Aspart 300 UNITS/3 ML PEN SC ×4 (08:02→21:51)
[2019-11-01] MEDS: Budesonide/Formoterol 160/4.5 6 GM 60 PUFF INH IH ×2 (08:40→21:56)
[2019-11-01 09:24] LABS: Procalcitonin 0.3 ng/mL
[2019-11-01] MEDS: Insulin Glargine 300 UNITS/3 ML PEN 10 UNITS SC ×2 (09:38→21:55)
[2019-11-01] MEDS: Aspirin E.C. 81 MG TABEC PO (09:40)
[2019-11-01] MEDS: Lisinopril 10 MG TAB PO (09:40)
[2019-11-01] MEDS: Omeprazole 20 MG CAPCR PO ×2 (09:40→21:51)
[2019-11-01] MEDS: guaiFENesin 600 MG TABCR PO ×2 (09:40→21:50)
[2019-11-01] MEDS: Metoprolol CR 100 MG TABCR PO (09:40)
[2019-11-01] MEDS: Multivitamin w/Minerals TAB 1 TAB PO (09:40)
[2019-11-01] MEDS: Furosemide 20 MG TAB 40 MG PO ×2 (09:40→15:32)
[2019-11-01] MEDS: oxyCODONE 5 mg/Acetaminophen 325 mg TAB 1 TAB PO (10:02)
[2019-11-01 10:45] LABS: Lactate 3.5 mmol/L (0.6-1.4)
[2019-11-01] MEDS: clonazePAM 0.5 MG TAB PO (13:52)
--- NOTE | 2019-11-01 14:05 | W.PM.PROGNOT ---
Date of Service Date of service: 11/01/19 Time of Service: 14:06 Assessment and Plan Assessment and plan (1) Acute and chronic respiratory failure with hypoxia: Status: Acute Assessment and plan: Appears to be near baseline, but PNA is worse. Abx are being changed to vancomycin and cefepime. Continue diuresis, nebs, steroids, weaning O2 as tolerated. Palliative care consulted. May benefit from trilogy on discharge. (2) Acute exacerbation of idiopathic pulmonary fibrosis: Status: Acute Assessment and plan: Due to PNA. As bellow (3) Pneumonia: Status: Acute Assessment and plan: present on admission. Worse by imaging, inflammatory markers, per patient report. Change abx to vanco/cefepime. Continue stress dose steroids at current dose. Qualifiers: Pneumonia type: due to unspecified organism Laterality: bilateral Lung location: unspecified part of lung Qualified Code(s): J18.9 - Pneumonia, unspecified organism (4) Aortic stenosis, severe: Status: Acute Assessment and plan: s/p bioprosthetic valve. Await echo. Cautious diuresis (5) Pulmonary HTN: Status: Acute Assessment and plan: As above (6) Type 2 diabetes mellitus with hyperglycemia: Status: Chronic Assessment and plan: Increase long acting insulin Qualifiers: Diabetes mellitus continuous churn buttermaker insulin use: with detention use Qualified Code(s): E11.65 - Type 2 diabetes mellitus with hyperglycemia; Z79.4 - terminal gauger supervisor (current) use of insulin (7) Obstructive sleep apnea syndrome: Status: Acute Assessment and plan: Continue CPAP at night (8) DVT prophylaxis: Status: Acute Assessment and plan: On therapeutic coumadin (9) Discharge planning issues: Status: Acute Assessment and plan: DNR/DNI Palliative care on board - COLST form signed Subjective Subjective Interval history since last seen: Patient seen in the hallway as he was being wheeled away to his echo. He did report feeling worse and coughed while I was in his presence. He stated his cough stopped being productive and he knew that robitussin would make him feel better. Exam was hard to accomplish as he was being taken away in a wheelchair right away. Exam Narrative Exam Narrative: General: pleasant obese male, A&Ox3, does look worse in the brief time that I got a chance to see him, slightly tachypneic HEENT: EOMI, MMM Heart: not auscultated today Lungs: not auscultated today, tachypenic Abdomen: soft, nontender, nondistended Extremities: BLE edema, chronic venous stasis Objective Objective Clinical Data: Abnormal lab results 11/01/19 11/01/19 11/01/19 Range/Units 06:34 06:34 06:34 WBC (4.4-10.8) k/cumm RBC (4.50-6.00) m/cumm Hgb (13.5-17.5) g/dL Hct (40.0-50.0) % MCV (80-95) fL RDW (11.8-14.1) % Absolute Neutrophils (1.2-6.7) k/cumm PT 16.1 H (9.3-11.0) sec INR 1.6 H (0.9-1.1) Sodium 134 L (136-145) mmol/L BUN 27 H (7-18) mg/dL Glucose 300 H D (74-106) mg/dL Lactate 3.4 H* (0.6-1.4) mmol/L Calcium 8.4 L (8.5-10.1) mg/dL C-Reactive Protein 3.09 H (0.0-0.3) mg/dL 11/01/19 11/01/19 Range/Units 06:34 10:35 WBC 12.97 H (4.4-10.8) k/cumm RBC 3.76 L (4.50-6.00) m/cumm Hgb 11.9 L (13.5-17.5) g/dL Hct 35.9 L (40.0-50.0) % MCV 95.5 H (80-95) fL RDW 15.1 H (11.8-14.1) % Absolute Neutrophils 10.83 H (1.2-6.7) k/cumm PT (9.3-11.0) sec INR (0.9-1.1) Sodium (136-145) mmol/L BUN (7-18) mg/dL Glucose (74-106) mg/dL Lactate 3.5 H* (0.6-1.4) mmol/L Calcium (8.5-10.1) mg/dL C-Reactive Protein (0.0-0.3) mg/dL Vital Signs Temperature 37.0 C 11/01/19 11:39 Temperature Source Temporal Artery Scan 11/01/19 11:39 Pulse 85 11/01/19 12:26 Pulse Rhythm Regular 11/01/19 11:26 Respiratory Rate 20 11/01/19 12:26 Respiratory Effort 11/01/19 11:26 Respiratory Depth Shallow 11/01/19 11:26 Respiratory Pattern Normal 11/01/19 11:26 Blood Pressure 145/75 H 11/01/19 11:39 Blood Pressure Position Sitting 10/29/19 23:55 Pulse Oximetry 97 11/01/19 12:26 Oxygen Delivery Method Nasal Cannula 11/01/19 12:17 Oxygen Flow Rate 5 11/01/19 12:17 Pain Level 0 11/01/19 11:39 Comment 10/30/19 10:30 Intake & Output 10/31/19 11/01/19 11/01/19 23:59 11:59 23:59 Intake Total 660 / 930 440 / 440 Output Total 1350 / 2150 785 / 945 160 / 945 Balance -690 / -1220 -345 / -505 -160 / -505 Weight 120.5 kg 117.7 kg Intake: Oral 660 / 780 440 / 440 Output: Urine 1350 / 2150 785 / 945 160 / 945 Other: Urine Color Yellow Dark Gaby Light Gaby Urine Appearance Clear Clear Clear Urine Odor Normal None Voiding Methods Urinal Urinal Urinal Laboratory Results WBC 12.97 k/cumm (4.4-10.8) H 11/01/19 06:34 RBC 3.76 m/cumm (4.50-6.00) L 11/01/19 06:34 Hgb 11.9 g/dL (13.5-17.5) L 11/01/19 06:34 Hct 35.9 % (40.0-50.0) L 11/01/19 06:34 MCV 95.5 fL (80-95) H 11/01/19 06:34 MCH 31.6 pg (27.0-33.0) 11/01/19 06:34 MCHC 33.1 g/dL (32.0-36.0) 11/01/19 06:34 RDW 15.1 % (11.8-14.1) H 11/01/19 06:34 Plt Count 211 x1000/uL (130-400) 11/01/19 06:34 MPV 9.5 fL (8.0-11.0) 11/01/19 06:34 Immature Gran % 0.3 % 11/01/19 06:34 Neutrophils % 83.5 11/01/19 06:34 Lymphocytes % 11.4 11/01/19 06:34 Monocytes % 4.6 11/01/19 06:34 Eosinophils % 0.2 11/01/19 06:34 Basophils % 0.0 11/01/19 06:34 Absolute Neutrophils 10.83 k/cumm (1.2-6.7) H 11/01/19 06:34 Absolute Lymphocytes 1.48 k/cumm (1.2-3.4) 11/01/19 06:34 Absolute Monocytes 0.60 k/cumm (0.11-0.7) 11/01/19 06:34 Absolute Eosinophils 0.03 k/cumm (0.0-0.7) 11/01/19 06:34 Absolute Basophils 0.00 k/cumm (0.0-0.2) 11/01/19 06:34 PT 16.1 sec (9.3-11.0) H 11/01/19 06:34 INR 1.6 (0.9-1.1) H 11/01/19 06:34 APTT 26.3 sec (21.0-31.4) 10/30/19 00:20 VBG pH 7.41 (7.35-7.45) 10/30/19 00:20 VBG pCO2 44 mm/Hg (34-47) 10/30/19 00:20 VBG pO2 51 mm/Hg (28-44) H 10/30/19 00:20 VBG HCO3 28 mmol/L (22-28) 10/30/19 00:20 VBG Total CO2 26 mmol/L (22-29) 10/30/19 00:20 VBG O2 Saturation 84 % (70-80) H 10/30/19 00:20 VBG Base Excess 3.5 mmol/L (-3-3) H 10/30/19 00:20 Sodium 134 mmol/L (136-145) L 11/01/19 06:34 Potassium 3.9 mmol/L (3.5-5.1) 11/01/19 06:34 Chloride 98 mmol/L (98-107) 11/01/19 06:34 Carbon Dioxide 26.9 mmol/L (21.0-32.0) 11/01/19 06:34 Anion Gap 9.1 mmol/L (3-11) 11/01/19 06:34 BUN 27 mg/dL (7-18) H 11/01/19 06:34 Creatinine 1.18 mg/dL (0.70-1.30) 11/01/19 06:34 Estimated GFR/1.73 m2 >= 60.00 (mL/min/1.73m2) 11/01/19 06:34 Glucose 300 mg/dL (74-106) H D 11/01/19 06:34 Lactate 3.5 mmol/L (0.6-1.4) H* 11/01/19 10:35 Calcium 8.4 mg/dL (8.5-10.1) L 11/01/19 06:34 Magnesium 2.2 mg/dL (1.8-2.4) 11/01/19 06:34 Ferritin 182 ng/mL (26-388) 10/30/19 01:30 Total Bilirubin 0.8 mg/dL (0.2-1.0) 10/30/19 06:21 AST 19 U/L (15-37) 10/30/19 06:21 ALT 36 U/L (16-63) 10/30/19 06:21 Alkaline Phosphatase 76 U/L (46-116) 10/30/19 06:21 Lactate Dehydrogenase 354 U/L (85-227) H 10/30/19 01:30 Troponin I 0.05 ng/Ml (<0.06) 10/30/19 04:27 C-Reactive Protein 3.09 mg/dL (0.0-0.3) H 11/01/19 06:34 Total Protein 7.4 g/dL (6.4-8.2) 10/30/19 06:21 Albumin 3.1 g/dL (3.4-5.0) L 10/30/19 06:21 Procalcitonin 0.3 ng/mL 11/01/19 06:34 TSH 0.45 uIU/mL (0.36-3.74) 10/30/19 06:21 COVID-19 PCR Negative (Negative) 10/30/19 02:00 Nasopharyn COVID-19 PCR Not Applicable 10/30/19 02:00 Ref Test Perform Site [facility] lab 10/30/19 02:00
[2019-11-01] MEDS: guaiFENesin 200 MG/10 ML CUP PO (15:33)
--- NOTE | 2019-11-01 17:14 | PDOC.CMPRO ---
- If Service Date Differs Date of service: 11/01/19 Time of Service: 17:14 Care Management Progress Note S/O: Elio was sitting up in his chair when CM met with him. Elio discussed his previous employment and hobbies, explaining his need to keep busy. 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 Elio stated that he lives on the third floor, which is difficult for him. He reported that he has HH RN currently. CM stated that we will refer him for HH PT, per provider, but their availability for PT services is very limited. CM discussed his potential need for Trilogy with Lola from RT, who reported that he would benefit from it, but would first require a bedside PFT. RT stated that they would update the provider. Elio stated that once he is discharged home, he plans to stay in as much as possible. CM will continue to follow. A: Elio is a 74 year old man admitted on 10/30/19 with pneumonia P:Elio will likely be discharged home with a resumption of home health services. CM will coordinate referral to HH for PT. He will need a new certification for HH services. Elio may also require a Trilogy machine prior to discharge, coordinated by RT. 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 CM will continue to support Elio, his family and discharge planning needs.
[2019-11-01] MEDS: Hyaluronidase 150 UNITS VIAL IJ (17:40)
[2019-11-01 18:36] LABS: NT-proBNP 1366 pg/mL (<300)
[2019-11-01] MEDS: Pramipexole 0.25 MG TAB 0.125 MG PO (21:49)
[2019-11-01] MEDS: clonazePAM 1 MG TAB 0.5 MG PO (21:49)
[2019-11-01] MEDS: Atorvastatin 40 MG TAB 80 MG PO (21:50)
[2019-11-01] MEDS: CEFEPIME 2 GM in Normal Saline 100 ML IVPB (22:22)
[2019-11-02] VITALS (12 sets, daily range): BP systolic 105–162; BP diastolic 65–84; PULSE 69–114; RESP 2–22; TEMP 35.8–36.9; O2SAT 95–99
[2019-11-02] MEDS: Normal Saline Flush 10 ML SYR IVP ×3 (05:11→20:35)
[2019-11-02] MEDS: CEFEPIME 2 GM in Normal Saline 100 ML IVPB ×3 (05:11→22:40)
[2019-11-02] MEDS: oxyCODONE 5 mg/Acetaminophen 325 mg TAB 1 TAB PO ×2 (06:11→20:56)
[2019-11-02] MEDS: guaiFENesin 200 MG/10 ML CUP PO ×4 (06:12→23:36)
[2019-11-02] MEDS: Albuterol/Ipratropium 3 ML UPD VIAL UPD ×4 (06:23→23:25)
[2019-11-02 06:48] LABS: Lactate 1.6 mmol/L (0.6-1.4)
[2019-11-02 06:53] LABS: Abs Immature Grans 0.06 k/cumm (0.0-0.09); Absolute Eosinophil Count 0.03 k/cumm (0.0-0.7); Absolute Lymphocyte Count 1.31 k/cumm (1.2-3.4); Absolute Monocyte Count 0.52 k/cumm (0.11-0.7); Absolute Neutrophil Count 8.42 k/cumm (1.2-6.7); Eosinophils % 0.3; HCT 35.8 % (40.0-50.0); HGB 11.9 g/dL (13.5-17.5); Immature Grans % 0.6 %; Lymphocytes % 12.7; Mean Corp. HGB Concentration 33.2 g/dL (32.0-36.0); Mean Corpuscular Hemoglobin 31.5 pg (27.0-33.0); Mean Corpuscular Volume 94.7 fL (80-95); Mean Platelet Volume 9.6 fL (8.0-11.0); Neutrophils % 81.4; Platelet Count 223 x1000/uL (130-400); RBC 3.78 m/cumm (4.50-6.00); RBC Distribution Width 15.2 % (11.8-14.1); White Blood Cell Count 10.34 k/cumm (4.4-10.8)
[2019-11-02 07:04] LABS: INR 1.5 (0.9-1.1); Prothrombin Time 14.9 sec (9.3-11.0)
[2019-11-02 07:07] LABS: BUN 26 mg/dL (7-18); C-Reactive Protein 1.85 mg/dL (0.0-0.3); CREATININE 1.07 mg/dL (0.70-1.30); Calcium 8.6 mg/dL (8.5-10.1); Chloride 100 mmol/L (98-107); Glucose 323 mg/dL (74-106); Magnesium 2.5 mg/dL (1.8-2.4); Potassium 4.1 mmol/L (3.5-5.1); Sodium 135 mmol/L (136-145)
[2019-11-02] MEDS: Budesonide/Formoterol 160/4.5 6 GM 60 PUFF INH IH ×2 (07:49→20:31)
[2019-11-02] MEDS: guaiFENesin 600 MG TABCR PO ×2 (07:59→20:35)
[2019-11-02] MEDS: Omeprazole 20 MG CAPCR PO ×2 (07:59→20:33)
[2019-11-02] MEDS: Multivitamin w/Minerals TAB 1 TAB PO (07:59)
[2019-11-02] MEDS: Lisinopril 10 MG TAB PO (07:59)
[2019-11-02] MEDS: Aspirin E.C. 81 MG TABEC PO (07:59)
[2019-11-02] MEDS: Hydrocortisone SOD SUC. 100 MG VIAL 50 MG IVP (07:59)
[2019-11-02] MEDS: Furosemide 20 MG TAB 40 MG PO ×2 (07:59→15:19)
[2019-11-02] MEDS: Metoprolol CR 100 MG TABCR PO (07:59)
[2019-11-02] MEDS: Insulin Aspart 300 UNITS/3 ML PEN SC ×4 (08:00→21:41)
[2019-11-02] MEDS: Insulin Glargine 300 UNITS/3 ML PEN 10 UNITS SC (08:01)
[2019-11-02] MEDS: Insulin Glargine 300 UNITS/3 ML PEN SC (10:54)
[2019-11-02] MEDS: Insulin Aspart 300 UNITS/3 ML PEN 10 UNITS SC ×2 (12:03→17:35)
[2019-11-02] MEDS: Hydrocortisone SOD SUC. 100 MG VIAL 25 MG IVP ×2 (13:35→21:40)
--- NOTE | 2019-11-02 14:50 | W.PM.PROGNOT ---
Date of Service Date of service: 11/02/19 Time of Service: 15:01 Assessment and Plan Assessment and plan (1) Acute and chronic respiratory failure with hypoxia: Status: Acute Assessment and plan: At baseline. Continue vancomycin and cefepime. Continue diuresis, nebs, steroids, weaning O2 as tolerated. May benefit from trilogy on discharge. (2) Pneumonia: Status: Acute Assessment and plan: present on admission. Seems to be improving since abx were changed to vanco/cefepime. Taper stress dose steroids. Qualifiers: Pneumonia type: due to unspecified organism Laterality: bilateral Lung location: unspecified part of lung Qualified Code(s): J18.9 - Pneumonia, unspecified organism (3) Acute exacerbation of idiopathic pulmonary fibrosis: Status: Acute Assessment and plan: Due to PNA. As below (4) Aortic stenosis, severe: Status: Acute Assessment and plan: s/p bioprosthetic valve. Functioning well on echo Cautious diuresis (5) Pulmonary HTN: Status: Acute Assessment and plan: As above (6) Type 2 diabetes mellitus with hyperglycemia: Status: Chronic Assessment and plan: Decreasing stress dose steroids today Qualifiers: Diabetes mellitus direct chill casting operator insulin use: with direct chill casting operator use Qualified Code(s): E11.65 - Type 2 diabetes mellitus with hyperglycemia; Z79.4 - loss prevention consultant (current) use of insulin (7) Acute on chronic combined systolic and diastolic CHF (congestive heart failure): Status: Acute Assessment and plan: Diuresing well with PO lasix. Continue, monitoring I/O's and daily weights (8) Obstructive sleep apnea syndrome: Status: Acute Assessment and plan: Continue CPAP at night - would benefit from switching to trilogy, if interested (9) DVT prophylaxis: Status: Acute Assessment and plan: On therapeutic coumadin (10) Discharge planning issues: Status: Acute Assessment and plan: DNR/DNI Palliative care on board - COLST form signed Subjective Subjective Interval history since last seen: Feels better. Denies dizziness, chest pain, n/v. Breathing is better. Requests sudafed - takes 2 pills at home daily. Exam Narrative Exam Narrative: General: pleasant obese male, A&Ox3, looks much better today HEENT: EOMI, MMM Heart: irregularly irregular rhythm Lungs: crackles at B bases Abdomen: soft, nontender, nondistended Extremities: BLE edema - asymmetric, L>R, improved, chronic venous stasis Objective Objective Clinical Data: Abnormal lab results 11/01/19 11/02/19 11/02/19 Range/Units 06:34 06:35 06:35 RBC (4.50-6.00) m/cumm Hgb (13.5-17.5) g/dL Hct (40.0-50.0) % RDW (11.8-14.1) % Absolute Neutrophils (1.2-6.7) k/cumm PT (9.3-11.0) sec INR (0.9-1.1) Sodium 135 L (136-145) mmol/L BUN 26 H (7-18) mg/dL Glucose 323 H (74-106) mg/dL Lactate 1.6 H (0.6-1.4) mmol/L Magnesium 2.5 H (1.8-2.4) mg/dL C-Reactive Protein 1.85 H (0.0-0.3) mg/dL NT-Pro-B Natriuret Pep 1366 H (<300) pg/mL 11/02/19 11/02/19 Range/Units 06:35 06:35 RBC 3.78 L (4.50-6.00) m/cumm Hgb 11.9 L (13.5-17.5) g/dL Hct 35.8 L (40.0-50.0) % RDW 15.2 H (11.8-14.1) % Absolute Neutrophils 8.42 H (1.2-6.7) k/cumm PT 14.9 H (9.3-11.0) sec INR 1.5 H (0.9-1.1) Sodium (136-145) mmol/L BUN (7-18) mg/dL Glucose (74-106) mg/dL Lactate (0.6-1.4) mmol/L Magnesium (1.8-2.4) mg/dL C-Reactive Protein (0.0-0.3) mg/dL NT-Pro-B Natriuret Pep (<300) pg/mL Vital Signs Temperature 36.9 C 11/02/19 12:53 Temperature Source Tympanic 11/02/19 12:53 Pulse 90 11/02/19 12:53 Pulse Rhythm Regular 11/01/19 21:50 Respiratory Rate 19 11/02/19 12:53 Respiratory Effort 11/01/19 21:50 Respiratory Depth Normal 11/01/19 21:50 Respiratory Pattern Normal 11/01/19 21:50 Blood Pressure 145/65 H 11/02/19 12:53 Blood Pressure Position Sitting 10/29/19 23:55 Pulse Oximetry 99 11/02/19 12:53 Oxygen Delivery Method Room Air 11/02/19 12:53 Oxygen Flow Rate 0 11/02/19 12:53 Pain Level 10 11/02/19 12:53 Comment 10/30/19 10:30 Intake & Output 11/01/19 11/02/19 11/02/19 23:59 11:59 23:59 Intake Total 590 / 1030 370 / 610 240 / 610 Output Total 700 / 1485 650 / 650 Balance -110 / -455 -280 / -40 240 / -40 Weight 116.8 kg Intake: IV 350 / 350 130 / 130 Oral 240 / 680 240 / 480 240 / 480 Output: Urine 700 / 1485 650 / 650 Other: Urine Color Yellow Yellow Urine Appearance Clear Clear Urine Odor None Normal Voiding Methods Urinal Urinal Laboratory Results WBC 10.34 k/cumm (4.4-10.8) 11/02/19 06:35 RBC 3.78 m/cumm (4.50-6.00) L 11/02/19 06:35 Hgb 11.9 g/dL (13.5-17.5) L 11/02/19 06:35 Hct 35.8 % (40.0-50.0) L 11/02/19 06:35 MCV 94.7 fL (80-95) 11/02/19 06:35 MCH 31.5 pg (27.0-33.0) 11/02/19 06:35 MCHC 33.2 g/dL (32.0-36.0) 11/02/19 06:35 RDW 15.2 % (11.8-14.1) H 11/02/19 06:35 Plt Count 223 x1000/uL (130-400) 11/02/19 06:35 MPV 9.6 fL (8.0-11.0) 11/02/19 06:35 Immature Gran % 0.6 % 11/02/19 06:35 Neutrophils % 81.4 11/02/19 06:35 Lymphocytes % 12.7 11/02/19 06:35 Monocytes % 5.0 11/02/19 06:35 Eosinophils % 0.3 11/02/19 06:35 Basophils % 0.0 11/02/19 06:35 Absolute Neutrophils 8.42 k/cumm (1.2-6.7) H 11/02/19 06:35 Absolute Lymphocytes 1.31 k/cumm (1.2-3.4) 11/02/19 06:35 Absolute Monocytes 0.52 k/cumm (0.11-0.7) 11/02/19 06:35 Absolute Eosinophils 0.03 k/cumm (0.0-0.7) 11/02/19 06:35 Absolute Basophils 0.00 k/cumm (0.0-0.2) 11/02/19 06:35 PT 14.9 sec (9.3-11.0) H 11/02/19 06:35 INR 1.5 (0.9-1.1) H 11/02/19 06:35 APTT 26.3 sec (21.0-31.4) 10/30/19 00:20 VBG pH 7.41 (7.35-7.45) 10/30/19 00:20 VBG pCO2 44 mm/Hg (34-47) 10/30/19 00:20 VBG pO2 51 mm/Hg (28-44) H 10/30/19 00:20 VBG HCO3 28 mmol/L (22-28) 10/30/19 00:20 VBG Total CO2 26 mmol/L (22-29) 10/30/19 00:20 VBG O2 Saturation 84 % (70-80) H 10/30/19 00:20 VBG Base Excess 3.5 mmol/L (-3-3) H 10/30/19 00:20 Sodium 135 mmol/L (136-145) L 11/02/19 06:35 Potassium 4.1 mmol/L (3.5-5.1) 11/02/19 06:35 Chloride 100 mmol/L (98-107) 11/02/19 06:35 Carbon Dioxide 29.0 mmol/L (21.0-32.0) 11/02/19 06:35 Anion Gap 6.0 mmol/L (3-11) 11/02/19 06:35 BUN 26 mg/dL (7-18) H 11/02/19 06:35 Creatinine 1.07 mg/dL (0.70-1.30) 11/02/19 06:35 Estimated GFR/1.73 m2 >= 60.00 (mL/min/1.73m2) 11/02/19 06:35 Glucose 323 mg/dL (74-106) H 11/02/19 06:35 Lactate 1.6 mmol/L (0.6-1.4) H 11/02/19 06:35 Calcium 8.6 mg/dL (8.5-10.1) 11/02/19 06:35 Magnesium 2.5 mg/dL (1.8-2.4) H 11/02/19 06:35 Ferritin 182 ng/mL (26-388) 10/30/19 01:30 Total Bilirubin 0.8 mg/dL (0.2-1.0) 10/30/19 06:21 AST 19 U/L (15-37) 10/30/19 06:21 ALT 36 U/L (16-63) 10/30/19 06:21 Alkaline Phosphatase 76 U/L (46-116) 10/30/19 06:21 Lactate Dehydrogenase 354 U/L (85-227) H 10/30/19 01:30 Troponin I 0.05 ng/Ml (<0.06) 10/30/19 04:27 C-Reactive Protein 1.85 mg/dL (0.0-0.3) H 11/02/19 06:35 NT-Pro-B Natriuret Pep 1366 pg/mL (<300) H 11/01/19 06:34 Total Protein 7.4 g/dL (6.4-8.2) 10/30/19 06:21 Albumin 3.1 g/dL (3.4-5.0) L 10/30/19 06:21 Procalcitonin 0.3 ng/mL 11/01/19 06:34 TSH 0.45 uIU/mL (0.36-3.74) 10/30/19 06:21 COVID-19 PCR Negative (Negative) 10/30/19 02:00 Nasopharyn COVID-19 PCR Not Applicable 10/30/19 02:00 Ref Test Perform Site [facility] lab 10/30/19 02:00
--- NOTE | 2019-11-02 17:25 | CMPROGNOTE_ITS ---
- If Service Date Differs Date of service: 11/02/19 Time of Service: 17:25 Care Management Progress Note S/O: Elio was sitting up in his chair when CM met with him. He stated that he was still not feeling well today, and that he was not feeling ready for discharge today. Per provider, Elio's breathing is near baseline, although he may qualify for Trilogy upon discharge. Per report, his pneumonia is improving since his abx were changed. Elio stated that his sugar was better controlled today as well. CM will continue to follow. A: Elio is a 74 year old man admitted on 10/30/19 with pneumonia P:Elio will likely be discharged home with a resumption of home health services. CM will coordinate referral to for PT. He will need a new certification for services. Elio may also require a Trilogy machine prior to discharge, coordinated by RT. 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 CM will continue to support Elio, his family and discharge planning needs.
[2019-11-02] MEDS: Warfarin 5 MG TAB PO (20:34)
[2019-11-02] MEDS: Atorvastatin 40 MG TAB 80 MG PO (20:34)
[2019-11-02] MEDS: Insulin Glargine 300 UNITS/3 ML PEN 15 UNITS SC (20:37)
[2019-11-02] MEDS: Pramipexole 0.25 MG TAB 0.125 MG PO (21:39)
[2019-11-02] MEDS: Melatonin 3 MG TAB PO (21:39)
[2019-11-02] MEDS: clonazePAM 1 MG TAB 0.5 MG PO (21:40)
[2019-11-03] VITALS (10 sets, daily range): BP systolic 131–159; BP diastolic 75–95; PULSE 86–104; RESP 2–20; TEMP 36.3–36.6; O2SAT 93–100
[2019-11-03] MEDS: Hydrocortisone SOD SUC. 100 MG VIAL 25 MG IVP ×2 (06:47→17:46)
[2019-11-03] MEDS: Albuterol/Ipratropium 3 ML UPD VIAL UPD ×3 (06:47→17:21)
[2019-11-03] MEDS: CEFEPIME 2 GM in Normal Saline 100 ML IVPB ×3 (06:48→21:57)
[2019-11-03 06:53] LABS: Absolute Eosinophil Count 0.19 k/cumm (0.0-0.7); Absolute Lymphocyte Count 1.87 k/cumm (1.2-3.4); Absolute Monocyte Count 0.61 k/cumm (0.11-0.7); Absolute Neutrophil Count 7.15 k/cumm (1.2-6.7); Eosinophils % 1.9; HCT 34.9 % (40.0-50.0); HGB 11.6 g/dL (13.5-17.5); Lymphocytes % 18.9; Mean Corp. HGB Concentration 33.2 g/dL (32.0-36.0); Mean Corpuscular Hemoglobin 31.6 pg (27.0-33.0); Mean Corpuscular Volume 95.1 fL (80-95); Mean Platelet Volume 9.3 fL (8.0-11.0); Monocytes % 6.1; Neutrophils % 72.1; Platelet Count 206 x1000/uL (130-400); RBC 3.67 m/cumm (4.50-6.00); RBC Distribution Width 15.1 % (11.8-14.1); White Blood Cell Count 9.92 k/cumm (4.4-10.8)
[2019-11-03 07:04] LABS: Anion Gap 6.3 mmol/L (3-11); BUN 24 mg/dL (7-18); C-Reactive Protein 0.97 mg/dL (0.0-0.3); CO2 28.7 mmol/L (21.0-32.0); CREATININE 1.02 mg/dL (0.70-1.30); Calcium 8.4 mg/dL (8.5-10.1); Chloride 101 mmol/L (98-107); Glucose 293 mg/dL (74-106); Magnesium 2.3 mg/dL (1.8-2.4); Potassium 3.7 mmol/L (3.5-5.1); Sodium 136 mmol/L (136-145)
[2019-11-03 07:36] LABS: Prothrombin Time 21.2 sec (9.3-11.0)
[2019-11-03 07:38] LABS: INR 2.1 (0.9-1.1)
[2019-11-03] MEDS: Budesonide/Formoterol 160/4.5 6 GM 60 PUFF INH IH ×2 (08:06→20:20)
[2019-11-03] MEDS: guaiFENesin 600 MG TABCR PO ×2 (08:36→20:20)
[2019-11-03] MEDS: Lisinopril 10 MG TAB PO (08:36)
[2019-11-03] MEDS: Aspirin E.C. 81 MG TABEC PO (08:37)
[2019-11-03] MEDS: Furosemide 20 MG TAB 40 MG PO ×2 (08:37→15:26)
[2019-11-03] MEDS: Metoprolol CR 100 MG TABCR PO (08:37)
[2019-11-03] MEDS: Multivitamin w/Minerals TAB 1 TAB PO (08:37)
[2019-11-03] MEDS: Insulin Aspart 300 UNITS/3 ML PEN SC ×3 (08:38→17:15)
[2019-11-03] MEDS: Insulin Aspart 300 UNITS/3 ML PEN 15 UNITS SC ×3 (08:40→17:15)
[2019-11-03] MEDS: Insulin Glargine 300 UNITS/3 ML PEN 20 UNITS SC ×2 (08:41→20:21)
[2019-11-03] MEDS: Normal Saline Flush 10 ML SYR IVP ×2 (08:42→17:46)
[2019-11-03] MEDS: Omeprazole 20 MG CAPCR PO ×2 (08:45→20:20)
--- NOTE | 2019-11-03 09:01 | IN_ITS ---
Date of service: 11/03/19 Time of Service: 09:01 PT Notes Visit Reasons: MULTILOBAR PNEUMONIA, RT CHF, GENERALIZED ABD PAIN Physical Therapy Inpatient Initial Evaluation Date: 11/03/2019 Referring Doctor: Estella Portillo MD PT Orders: PT CONSULT: Limited ability Precautions: Fall. Standard. Activity as tolerated. On 4 L of oxygen per minute at rest, 5 L with ambulation via NC per RT. Patient Profile/Admitting Diagnosis: Patient is a 74-year-old male with past medical history significant for atrial fibrillation with controlled ventricular response, chronic obstructive pulmonary disease, type 2 diabetes mellitus, rheumatoid lung, and rheumatoid arthritis who presented to the ED via EMS on 10/29/2019 with chief complaints of worsening shortness of breath for the past 2 months, cough for the last few days, and mild left-sided abdominal tenderness. Patient tested negative for COVID19 as of 10/30/2019. patient is diagnosed with pneumonia with referral to skilled physical therapy in order to facilitate safe discharge planning and return to baseline mobility level. PMHX: Medical History Anemia (Chronic) Hx low Hgb, but today's lab review was unexpected. Probable anemia of chronic disease .. Non-meat diet, [ ] iron suppl (concern for constipation)? [ ] stool guaic Aortic stenosis, moderate (Inactive 07/03/16) [facility] ECHO EF 65%; Mod , valve area 1.33 (grad 23/mean14) (06/2016) [facility] eval 09/2017 shows worsening disease .. may need cardiac surgery. Depressive disorder (Chronic 07/14/11) Surgical History Bronchoscopy (11/20/10) with BAL echo ([facility] pulmonolgy note 09/21/17.) Compared to the study from 06/18/16 the severity of aortic stenosis has increased and there is pulmonary hypertension. seeing cardio again in 2 wks. Extraction of cataract (08/21/10) R eye,with IOL, Dr Gary History of cardiac cath (Chronic) 03/21/19 [facility] [place] heart cath-mild Pulm HTN mean PA pressure 25 and PA systolic pressure 50 normal wedge pressure 6. Right dominant circulation with mild disease in all vessels, focal anyeursm RCA 5mm Internal fixation (08/03/10) R distal femoral fx, Dr Banda, [facility] PFT'S: SEPTEMBER 2017 [facility] pulm note 09/21/17. O2 sat on RA 97% After 250 ft on RA 88% needing 2l O2. PTCA (01/27/94) rescue PTCA RCA for persistent CP with Inf SD; [facility] right heart catheterization,oximetry (01/07/18) [facility] [place].Corey Griffin MD findings: Severe pulmonary hypertension mildly elevated pulmonary capillary wedge pressure Status post transcatheter aortic valve replacement (Acute) [facility] 03/29/19 Social History/Home Situation: Patient lives with significant other on the third floor of an apartment building with 30 steps to enter and a rail on the left side going up. Significant other has been a very good support for patient for the past couple of years. Patient is independent without an assistive device inside the apartment but requires the use of a cane to negotiate steps as his heavy concentrator affects his balance. Significant other takes care of meals, laundry, grocery shopping, and transportation. Equipment Owned/DME: Motorized wheelchairs. Regular wheelchair. 4 wheeled walkers. Front wheeled walkers. Single-point cane. Portable oxygen concentrator. Subjective: Patient is very much hopeful to be able to go home today. He emphasizes that he has a very good support person at home that provides for all that he needs. He highlights that this person is a nurse and is very much well versed with monitoring patients medical condition. He voices that he can continue to better recover at home with his significant other. Objective: General Observation: Oxygen supplementation at 4 L/min via NC. IV access in left UE. Mild to moderate shortness of breath after ambulation activity and stair negotiation activity. Mental Status: Alert and oriented x4 Pain: None reported Vital Signs: Oxygen saturation ranged from 87% through 96% on 5 L of oxygen per minute throughout session. Heart rate ranged from 71 through 168 bpm throughout session. ROM: Right Upper Extremity: Shoulder Flexion allows up to 80 degrees. Shoulder abduction allows up to 80 degrees. Elbow flexion WFL. Wrist flexion WFL. Opening and closing of hand WFL. Left Upper Extremity: Shoulder Flexion allows up to 80 degrees. Shoulder abduction allows up to 80 degrees. Elbow flexion WFL. Wrist flexion WFL. Opening and closing of hand WFL. Right Lower Extremity: Hip flexion allows up to 20 degrees beyond 90 while seated on edge of chair. Hip abduction WFL. Knee flexion WFL. Knee extension -30 degrees. Ankle dorsiflexion about 5 degrees from neutral. Ankle plantarflexion WFL. Left Lower Extremity: Hip flexion allows up to 20 degrees beyond 90 while seated on edge of chair. Hip abduction WFL. Knee flexion WFL. Knee extension -30 degrees. Ankle dorsiflexion Ankle dorsiflexion about 5 degrees from neutral. Ankle plantarflexion WFL. Strength: Right Upper Extremity: Shoulder flexors 3-/5. Shoulder abductors 3-/5. Elbow flexors 4/5. Elbow extensors 4/5. Mold Making Supervisor strong. Left Upper Extremity: Shoulder flexors 3-/5. Shoulder abductors 3-/5. Elbow flexors 4/5. Elbow extensors 4/5. Mold Making Supervisor strong. Right Lower Extremity: Hip flexors 3-/5. Hip abductors 4-/5. Knee flexors 4-/5. Knee extensors 5/5. Ankle dorsiflexors 2--/5. Ankle plantarflexors 3-/5. Left Lower Extremity:Hip flexors 3-/5. Hip abductors 4-/5. Knee flexors 4-/5. Knee extensors 5/5. Ankle dorsiflexors 2--/5. Ankle plantarflexors 3-/5. Sensation: Intact as to pain and pressure on bilateral lower extremities. Bed Mobility/Transfers: Sit to stand SBA Stand to sit SBA Bed to chair SBA Chair to bed SBA Gait: Patient is able to tolerate level surface ambulation of 50 feet + 70 feet + 60 feet with 3 seated rests using front wheeled walker with oxygen saturation ranging from 89% through 94% on 5 L of oxygen per minute via NC. RT present during ambulation activity and stair negotiation. Step to gait pattern. Decreased edouard. Mild SOB noted. Balance: Static Sitting: Normal Dynamic Sitting: Normal Static Standing: Fair Dynamic Standing: Fair staff for 1244 Special Tests: Mobility Limitations Standardized Measure [facility] AM-PAC 6 clicks Basic Mobility Inpatient Short Form: Raw Score: 19 CMS Score: 42% deficit Informed Consent/Education: Patient instructed in purpose of PT consult and plan of care. Assessment: Decreased activity tolerance. Need for assistive device for all level surface and stair negotiation activities. Impaired balance. Difficulty with walking. Patient is a 74-year-old male with past medical history significant for atrial fibrillation with controlled ventricular response, chronic obstructive pulmonary disease, type 2 diabetes mellitus, rheumatoid lung, and rheumatoid arthritis who presented to the ED via EMS on 10/29/2019 with chief complaints of worsening shortness of breath for the past 2 months, cough for the last few days, and mild left-sided abdominal tenderness. Patient tested negative for COVID19 as of 10/30/2019. patient is diagnosed with pneumonia with referral to skilled physical therapy in order to facilitate safe discharge planning and return to baseline mobility level. Patient presents with clinical signs and symptoms consistent with current/admitting diagnoses that have resulted to mobility limitations, gait instability, generalized weakness, and impairment of motor control as demonstrated by the following impairment level findings: 1. Decreased strength to B shoulder and LE major muscle groups 2. Impaired sitting/standing balance 3. Impaired activity tolerance 4. Limitation of joint range of motion in the shoulders (chronic) Impairments are contributing to the following functional limitations: 1. Dependent bed mobility skills 2. Increased dependence with transfers 3. Inability to safely ambulate without assistive device and physical assistance 4. Increase completion time for mobility ADL performance 5. Increased fall risk 6. Inability to negotiate steps alone safely Patient is assessed as a [id number] moderate complexity based on the following: History: 74-year-old male with impairment level findings, functional imitations, and past medical history as listed above Examination: Demonstrable impairment in strength, balance, and range of motion with underlying impairments and functional limitations as documented above Presentation: Stable Decision Makin moderate complexity Goals: Goals X1 week 1. Supine-Sit independent 2. Sit-Supine independent 3. Sit-Stand independent 4. Stand-Sit independent 5. Bed-Chair independent 6. Chair-Bed independent 7. Independent gait on level surface with use of least restrictive device for at least 300 feet without report of pain nor dyspnea 8. Independent stair negotiation while holding onto bilateral rails for at least 10 steps without report of pain nor dyspnea 9. Independent with home exercise program 10. Good static and dynamic standing balance/tolerance Plan of Care/Treatment Plan: 1-2x/day, 7 days/week x 1 week. Initiate Physical Therapy intervention for strengthening, bed mobility, transfers, gait, stairs, balance training, use of assistive device. DISCHARGE RECOMMENDATIONS: Patient will benefit from home health PT services in order to progress mobility level using least restrictive assistive ambulatory device, assess home safety, identify additional equipment needs, and establish a functional maintenance program that will increase ability of patient to remain at home. TREATMENT CODE/TIME: 88760 x 13 minutes, 47901 x38 minutes beginning at 9:01 AM. Thank you very much for this referral. Shayy Montoya PT, DPT, CLT [facility] [place], [place]
[2019-11-03 09:34] LABS: Vancomycin, Trough 15.6 ug/mL (10.0-20.0)
--- NOTE | 2019-11-03 09:57 | W.NUTRFU ---
Date of service: 11/03/19 Time of Service: 09:57 Nutritional Follow up NOTE: Elio continues on Diabetic Diet with excellent intake (100% most meals), despite current insulin regime, blood sugars remain significantly elevated and have ranged from 400-293 mg/dl in last couple of days. No longer taking steriods that contributed to elevated BS. WBC have normalized but CRP continues to be elevated which may also be contributing to continued blood sugar elevation. Met with Elio who is frustrated that the medications that help him breath, elevate his blood sugars. Reviewed meals/foods that will minimize elevated blood sugars, aware that higher protein meals/foods, and non starchy vegetables should be included at all meals once discharges. At risk for complications associated with uncontrolled diabetes and obesity. Time Spent in Nutritional Counseling and Treatment: 10 min spent face to face
--- NOTE | 2019-11-03 10:06 | PDOC.CMPRO ---
- If Service Date Differs Date of service: 11/03/19 Time of Service: 10:06 Care Management Progress Note S/O: Elio was sitting up in a chair when CM met with him. He was pleasant and engaged readily in conversation with CM. Elio stated that he will be going home soon. When speaking to CM it sounded like he believed that would be today but the provider has since explained to him that he cannot leave until Wednesday when he has completed 5 days of IV antibiotics. Elio stated that he was feeling better and had done really well with PT this morning. This was confirmed with PT. Elio was able to walk around the unit to the PT office and climb a set of stairs. A: Elio is a 74 year old man admitted on 10/30/19 with pneumonia P:Elio will likely be discharged home with a resumption of home health services for nursing. CM will also coordinate a referral to for PT. He will need a new certification for HH services. Elio may also require a Trilogy machine prior to discharge, coordinated by RT. He will follow up with his PCP , bottom steep tender and discharge plan of care. CM will continue to support Elio, his family and discharge planning needs.
--- NOTE | 2019-11-03 13:52 | PGE_ITS ---
Date of Service Date of service: 11/03/19 Time of Service: 13:52 Assessment and Plan Assessment and plan (1) Acute and chronic respiratory failure with hypoxia: Status: Acute Assessment and plan: At baseline. Continue vancomycin and cefepime (day 3/5). Convert steroid to PO. Continue diuresis, nebs. Discussed with outpatient sports apparel internship Dr Bryant - the patient would benefit from NIV with AVAPS (such as triology). Communicating this to respiratory therapy. Will obtain PFTs and ABG. (2) Pneumonia: Status: Acute Assessment and plan: present on admission. Better on vancomycin/cefepime (day 3). Previously failed levofloxacin. Continue steroid taper - transition to PO. Qualifiers: Pneumonia type: due to unspecified organism Laterality: bilateral Lung location: unspecified part of lung Qualified Code(s): J18.9 - Pneumonia, unspecified organism (3) Acute exacerbation of idiopathic pulmonary fibrosis: Status: Acute Assessment and plan: Due to PNA. As below (4) Aortic stenosis, severe: Status: Acute Assessment and plan: s/p bioprosthetic valve. Functioning well on echo Continue PO lasix at current dose. (5) Pulmonary HTN: Status: Chronic Assessment and plan: As above (6) Type 2 diabetes mellitus with hyperglycemia: Status: Chronic Assessment and plan: Titrate basal bolus insulin as steroids are getting tapered. 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 Continue, monitoring I/O's and daily weights (8) Obstructive sleep apnea syndrome: Status: Acute Assessment and plan: Continue CPAP at night - obtaining PFTs, ABG, overnight oximetry to see if the patient qualifies for NIV/AVAPS. (9) DVT prophylaxis: Status: Acute Assessment and plan: On therapeutic coumadin (10) Discharge planning issues: Status: Acute Assessment and plan: DNR/DNI Palliative care on board - [facility] form signed Plan for discharge home on 11/05/2019 when finished 5 days of vanco/cefepime. Attempting to qualify patient for NIV/AVAPS Subjective Subjective Interval history since last seen: Mr Delgadillo feels better today. Denies dizziness, chest pain, nausea, vomiting. No longer coughing up blood. He feels so much better that he feels almost ready to go home. We agreed that he would go home on Wednesday after finishing 5 days of vancomycin/cefepime. Exam Narrative Exam Narrative: General: pleasant obese male, A&Ox3, looks even better HEENT: EOMI, MMM Heart: irregularly irregular rhythm Lungs: crackles at B bases - improved Abdomen: soft, nontender, nondistended Extremities: BLE edema - asymmetric, L>R, improving, chronic venous stasis Objective Objective Clinical Data: Abnormal lab results 11/03/19 11/03/19 11/03/19 Range/Units 06:40 06:40 06:40 RBC 3.67 L (4.50-6.00) m/cumm Hgb 11.6 L (13.5-17.5) g/dL Hct 34.9 L (40.0-50.0) % MCV 95.1 H (80-95) fL RDW 15.1 H (11.8-14.1) % Absolute Neutrophils 7.15 H (1.2-6.7) k/cumm PT 21.2 H D (9.3-11.0) sec INR 2.1 H D (0.9-1.1) BUN 24 H (7-18) mg/dL Glucose 293 H (74-106) mg/dL Calcium 8.4 L (8.5-10.1) mg/dL C-Reactive Protein 0.97 H (0.0-0.3) mg/dL Vital Signs Temperature 36.4 C L 11/03/19 11:37 Temperature Source Temporal Artery Scan 11/03/19 11:37 Pulse 90 11/03/19 12:32 Pulse Rhythm Regular 11/03/19 08:37 Respiratory Rate 20 11/03/19 12:32 Respiratory Effort Non-Labored 11/03/19 08:37 Respiratory Depth Normal 11/03/19 08:37 Respiratory Pattern Normal 11/03/19 08:37 Blood Pressure 131/75 11/03/19 11:37 Blood Pressure Position Sitting 10/29/19 23:55 Pulse Oximetry 99 11/03/19 12:32 Oxygen Delivery Method Nasal Cannula 11/03/19 12:16 Oxygen Flow Rate 4 11/03/19 12:16 Pain Level 10 11/03/19 11:37 Comment 10/30/19 10:30 Intake & Output 11/02/19 11/03/19 11/03/19 23:59 11:59 23:59 Intake Total 830 / 1450 350 / 350 Output Total 1300 / 1950 406 / 406 Balance -470 / -500 -56 / -56 Weight 118.1 kg Intake: IV 590 / 970 100 / 100 Oral 240 / 480 250 / 250 Output: Urine 1300 / 1950 406 / 406 Other: Urine Color Yellow Yellow Urine Appearance Clear Clear Urine Odor Normal Strong Comment total of 2 voids Voiding Methods Urinal Urinal Laboratory Results WBC 9.92 k/cumm (4.4-10.8) 11/03/19 06:40 RBC 3.67 m/cumm (4.50-6.00) L 11/03/19 06:40 Hgb 11.6 g/dL (13.5-17.5) L 11/03/19 06:40 Hct 34.9 % (40.0-50.0) L 11/03/19 06:40 MCV 95.1 fL (80-95) H 11/03/19 06:40 MCH 31.6 pg (27.0-33.0) 11/03/19 06:40 MCHC 33.2 g/dL (32.0-36.0) 11/03/19 06:40 RDW 15.1 % (11.8-14.1) H 11/03/19 06:40 Plt Count 206 x1000/uL (130-400) 11/03/19 06:40 MPV 9.3 fL (8.0-11.0) 11/03/19 06:40 Immature Gran % 1.0 % 11/03/19 06:40 Neutrophils % 72.1 11/03/19 06:40 Lymphocytes % 18.9 11/03/19 06:40 Monocytes % 6.1 11/03/19 06:40 Eosinophils % 1.9 11/03/19 06:40 Basophils % 0.0 11/03/19 06:40 Absolute Neutrophils 7.15 k/cumm (1.2-6.7) H 11/03/19 06:40 Absolute Lymphocytes 1.87 k/cumm (1.2-3.4) 11/03/19 06:40 Absolute Monocytes 0.61 k/cumm (0.11-0.7) 11/03/19 06:40 Absolute Eosinophils 0.19 k/cumm (0.0-0.7) 11/03/19 06:40 Absolute Basophils 0.00 k/cumm (0.0-0.2) 11/03/19 06:40 PT 21.2 sec (9.3-11.0) H D 11/03/19 06:40 INR 2.1 (0.9-1.1) H D 11/03/19 06:40 APTT 26.3 sec (21.0-31.4) 10/30/19 00:20 VBG pH 7.41 (7.35-7.45) 10/30/19 00:20 VBG pCO2 44 mm/Hg (34-47) 10/30/19 00:20 VBG pO2 51 mm/Hg (28-44) H 10/30/19 00:20 VBG HCO3 28 mmol/L (22-28) 10/30/19 00:20 VBG Total CO2 26 mmol/L (22-29) 10/30/19 00:20 VBG O2 Saturation 84 % (70-80) H 10/30/19 00:20 VBG Base Excess 3.5 mmol/L (-3-3) H 10/30/19 00:20 Sodium 136 mmol/L (136-145) 11/03/19 06:40 Potassium 3.7 mmol/L (3.5-5.1) 11/03/19 06:40 Chloride 101 mmol/L (98-107) 11/03/19 06:40 Carbon Dioxide 28.7 mmol/L (21.0-32.0) 11/03/19 06:40 Anion Gap 6.3 mmol/L (3-11) 11/03/19 06:40 BUN 24 mg/dL (7-18) H 11/03/19 06:40 Creatinine 1.02 mg/dL (0.70-1.30) 11/03/19 06:40 Estimated GFR/1.73 m2 >= 60.00 (mL/min/1.73m2) 11/03/19 06:40 Glucose 293 mg/dL (74-106) H 11/03/19 06:40 Lactate 1.6 mmol/L (0.6-1.4) H 11/02/19 06:35 Calcium 8.4 mg/dL (8.5-10.1) L 11/03/19 06:40 Magnesium 2.3 mg/dL (1.8-2.4) 11/03/19 06:40 Ferritin 182 ng/mL (26-388) 10/30/19 01:30 Total Bilirubin 0.8 mg/dL (0.2-1.0) 10/30/19 06:21 AST 19 U/L (15-37) 10/30/19 06:21 ALT 36 U/L (16-63) 10/30/19 06:21 Alkaline Phosphatase 76 U/L (46-116) 10/30/19 06:21 Lactate Dehydrogenase 354 U/L (85-227) H 10/30/19 01:30 Troponin I 0.05 ng/Ml (<0.06) 10/30/19 04:27 C-Reactive Protein 0.97 mg/dL (0.0-0.3) H 11/03/19 06:40 NT-Pro-B Natriuret Pep 1366 pg/mL (<300) H 11/01/19 06:34 Total Protein 7.4 g/dL (6.4-8.2) 10/30/19 06:21 Albumin 3.1 g/dL (3.4-5.0) L 10/30/19 06:21 Procalcitonin 0.3 ng/mL 11/01/19 06:34 TSH 0.45 uIU/mL (0.36-3.74) 10/30/19 06:21 Vancomycin Trough 15.6 ug/mL (10.0-20.0) 11/03/19 08:55 COVID-19 PCR Negative (Negative) 10/30/19 02:00 Nasopharyn COVID-19 PCR Not Applicable 10/30/19 02:00 Ref Test Perform Site [facility] lab 10/30/19 02:00
--- NOTE | 2019-11-03 14:15 | PTTR_ITS ---
Date of service: 11/03/19 Time of Service: 14:15 PT Notes Visit Reasons: MULTILOBAR PNEUMONIA, RT CHF, GENERALIZED ABD PAIN Inpatient Physical Therapy Treatment Note [facility] Date: 11/03/2019 Subjective: Patient reports that he is so tired from this morning's activity and has not had enough time to rest since then due to non-stop visits from hospital staff. He did agree to doing low intensity seated and standing level exercises. Objective: General Observation: Oxygen supplementation at 4 L/min via NC. IV access in left UE. Mild to moderate shortness of breath after ambulation activity and stair negotiation activity. Mental Status: Alert and oriented x4 Pain: None reported Vital Signs: Oxygen saturation ranged from 87% through 92% on 5 L of oxygen per minute throughout session. Heart rate ranged from 97 through 136 bpm throughout session. Bed Mobility/Transfers: Sit to stand SBA Stand to sit SBA THERA EX: Patient tolerated ankle dorsiflexion x10, plantarflexion x10, long arc quads x10, and standing hip flexion x10 as well as knee flexion x10 with moderate breathlessness with oxygen saturation going down to 87% on 5 L of oxygen per minute and heart rate 121 bpm requiring about 2 to 3 minutes before re-stabilizing to above 90% and heart rate to 98 bpm. Balance: Static Sitting: Normal Dynamic Sitting: Normal Static Standing: Fair Dynamic Standing: Fair Assessment: Decreased activity tolerance. Need for assistive device for all level surface and stair negotiation activities. Impaired balance. Difficulty with walking. Patient is a 74-year-old male with past medical history s ignificant for atrial fibrillation with controlled ventricular response, chronic obstructive pulmonary disease, type 2 diabetes mellitus, rheumatoid lung, and rheumatoid arthritis who presented to the ED via EMS on 10/29/2019 with chief complaints of worsening shortness of breath for the past 2 months, cough for the last few days, and mild left-sided abdominal tenderness. Patient tested negative for COVID19 as of 10/30/2019. patient is diagnosed with pneumonia with referral to skilled physical therapy in order to facilitate safe discharge planning and return to baseline mobility level. Plan of Care/Treatment Plan: 1-2x/day, 7 days/week x 1 week. Continue with Physical Therapy intervention for strengthening, bed mobility, transfers, gait, stairs, balance training, use of assistive device. DISCHARGE RECOMMENDATIONS: Patient will benefit from home health PT services in order to progress mobility level using least restrictive assistive ambulatory device, assess home safety, identify additional equipment needs, and establish a functional maintenance program that will increase ability of patient to remain at home. TREATMENT CODE/TIME: 45424 x 31 minutes beginning at 14:15 PM. Thank you very much for this referral. Shayy Montoya PT, DPT, CLT [facility] [place], [place]
[2019-11-03 15:14] LABS: BE 2.9 mmol/L (-3-3); HCO3 27 mmol/L (22-28); pCO2 41 mmHg (34-47); pH 7.43 (7.35-7.45); pO2 95 mmHg (83-108); sO2 97 % (94-98); tCO2 25 mmol/L (22-29)
[2019-11-03 15:16] LABS: Site Left Radial
[2019-11-03 15:17] LABS: FIO2L 4 L
[2019-11-03] MEDS: Atorvastatin 40 MG TAB 80 MG PO (20:17)
[2019-11-03] MEDS: Warfarin 5 MG TAB PO (20:20)
[2019-11-03] MEDS: Melatonin 3 MG TAB PO (21:57)
[2019-11-03] MEDS: Pramipexole 0.25 MG TAB 0.125 MG PO (21:57)
[2019-11-03] MEDS: clonazePAM 1 MG TAB 0.5 MG PO (21:58)
[2019-11-04] VITALS (11 sets, daily range): BP systolic 115–146; BP diastolic 55–88; PULSE 66–98; RESP 2–22; TEMP 36–37; O2SAT 95–100
[2019-11-04] MEDS: Albuterol/Ipratropium 3 ML UPD VIAL UPD ×5 (00:15→23:48)
[2019-11-04] MEDS: Normal Saline Flush 10 ML SYR IVP ×4 (00:16→21:47)
[2019-11-04] MEDS: CEFEPIME 2 GM in Normal Saline 100 ML IVPB ×3 (05:52→21:50)
[2019-11-04 06:54] LABS: Abs Immature Grans 0.24 k/cumm (0.0-0.09); Absolute Monocyte Count 0.87 k/cumm (0.11-0.7); Absolute Neutrophil Count 9.67 k/cumm (1.2-6.7); Basophils % 0.1; Eosinophils % 3.7; HCT 38.2 % (40.0-50.0); HGB 12.8 g/dL (13.5-17.5); Immature Grans % 1.6 %; Lymphocytes % 23.1; Mean Corp. HGB Concentration 33.5 g/dL (32.0-36.0); Mean Corpuscular Hemoglobin 31.8 pg (27.0-33.0); Mean Corpuscular Volume 94.8 fL (80-95); Mean Platelet Volume 9.2 fL (8.0-11.0); Monocytes % 5.9; Neutrophils % 65.6; Platelet Count 248 x1000/uL (130-400); RBC 4.03 m/cumm (4.50-6.00); RBC Distribution Width 15.4 % (11.8-14.1); White Blood Cell Count 14.74 k/cumm (4.4-10.8)
[2019-11-04 06:57] LABS: Absolute Basophil Count 0.01 k/cumm (0.0-0.2); Absolute Eosinophil Count 0.55 k/cumm (0.0-0.7)
[2019-11-04 07:04] LABS: INR 2.9 (0.9-1.1); Prothrombin Time 28.2 sec (9.3-11.0)
[2019-11-04 07:07] LABS: Anion Gap 8.7 mmol/L (3-11); BUN 23 mg/dL (7-18); C-Reactive Protein 0.64 mg/dL (0.0-0.3); CO2 28.3 mmol/L (21.0-32.0); CREATININE 1.07 mg/dL (0.70-1.30); Calcium 8.4 mg/dL (8.5-10.1); Chloride 102 mmol/L (98-107); Glucose 144 mg/dL (74-106); Magnesium 2.2 mg/dL (1.8-2.4); Potassium 3.7 mmol/L (3.5-5.1); Sodium 139 mmol/L (136-145)
[2019-11-04 07:39] LABS: Procalcitonin 0.1 ng/mL
[2019-11-04] MEDS: Budesonide/Formoterol 160/4.5 6 GM 60 PUFF INH IH ×2 (07:53→19:45)
--- NOTE | 2019-11-04 08:15 | PDOC.CMPRO ---
- If Service Date Differs Date of service: 11/04/19 Time of Service: 08:15 Care Management Progress Note S/O: Elio was sitting up in a chair when CM met with him. He remains in good spirits and was very talkative with CM. Elio stated that he is 80-90% better than when he came to the hospital and knows he will be ready to go home tomorrow. He continues to do well with ambulation with PT and was able to recovery his oxygen levels rapidly with a brief rest. Elio talked again about his girlfriend Kristina and the life together. 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 Elio was given pill containers and a pill splitter by CM which he stated he needs at home. Anticipate discharge within the next 24-48 hours. A: Elio is a 74 year old man admitted on 10/30/19 with pneumonia P:Elio will likely be discharged home with a resumption of home health services for nursing. CM will also coordinate a referral to for PT. He will need a new certification for HH services. Elio may also require a Trilogy machine prior to discharge, coordinated by RT. He will follow up with his PCP , inventory and pricing associate and discharge plan of care. CM will continue to support Elio, his family and discharge planning needs.
[2019-11-04] MEDS: Furosemide 20 MG TAB 40 MG PO ×2 (08:18→15:35)
[2019-11-04] MEDS: Omeprazole 20 MG CAPCR PO ×2 (08:18→19:46)
[2019-11-04] MEDS: Multivitamin w/Minerals TAB 1 TAB PO (08:18)
[2019-11-04] MEDS: guaiFENesin 600 MG TABCR PO ×2 (08:18→19:46)
[2019-11-04] MEDS: predniSONE 20 MG TAB PO (08:19)
[2019-11-04] MEDS: Lisinopril 10 MG TAB PO (08:19)
[2019-11-04] MEDS: Insulin Glargine 300 UNITS/3 ML PEN 20 UNITS SC ×2 (08:19→19:47)
[2019-11-04] MEDS: Aspirin E.C. 81 MG TABEC PO (08:19)
[2019-11-04] MEDS: Metoprolol CR 100 MG TABCR PO (08:19)
[2019-11-04] MEDS: Insulin Aspart 300 UNITS/3 ML PEN SC ×4 (08:20→21:45)
[2019-11-04] MEDS: Insulin Aspart 300 UNITS/3 ML PEN 15 UNITS SC ×3 (08:20→16:45)
[2019-11-04] MEDS: oxyCODONE 5 mg/Acetaminophen 325 mg TAB 1 TAB PO ×2 (08:30→21:44)
[2019-11-04] MEDS: guaiFENesin 200 MG/10 ML CUP PO ×2 (08:31→13:18)
--- NOTE | 2019-11-04 09:23 | PGE_ITS ---
Date of Service Date of service: 11/04/19 Time of Service: 09:23 Assessment and Plan Assessment and plan (1) Pneumonia: Status: Acute Assessment and plan: CAP for which the patietn failed Levaquin. Multifocal w/ predominance in LLL per CT on admission. Follow up CXR on demonstrated worsening pneumonia in lef base. However since he was changed from Levaquin (10/29- 10/31) and started on Vancomycin and Cefepime (both begun on 10/31) he has clinically improved w/ no fever, normalization of his procalcitonin (0.3 down to 0.1) and reduction in his CRP (3.09 down to 0.64) and resolution of his leukocytosis. He should continue Vancomycin and Cefepime for total of 5 days which would conclude on Wednesday. I will repeat his CXR tomorrow to see if there is resolution of his pneumonia. Qualifiers: Pneumonia type: due to unspecified organism Laterality: bilateral Lung location: unspecified part of lung Qualified Code(s): J18.9 - Pneumonia, unspecified organism (2) Acute and chronic respiratory failure with hypoxia: Status: Acute Assessment and plan: At baseline. Continue vancomycin and cefepime (day 4/5). cont. oral steroids Continue diuresis, nebs. Per RT, he qualifies for Trilogy unit and this will be provided by [facility] on discharge. I have dc his PFT order (3) Aortic stenosis, severe: Status: Acute Assessment and plan: s/p bioprosthetic valve. Functioning well on echo Continue PO lasix at current dose. (4) Pulmonary HTN: Status: Chronic Assessment and plan: As above (5) Type 2 diabetes mellitus with hyperglycemia: Status: Chronic Assessment and plan: glucose down to 150 this a.m. and was 119 last night. He is currently on basal/bolus insulin w/ Lantus 20 units bid and Novolog 15 units ac along w/ moderated dose sliding scale Qualifiers: Diabetes mellitus manager intermediate insulin use: with manager intermediate use Qualified Code(s): E11.65 - Type 2 diabetes mellitus with hyperglycemia; Z79.4 - group home (current) use of insulin (6) Acute on chronic combined systolic and diastolic CHF (congestive heart failure): Status: Acute Assessment and plan: Diuresing well with PO lasix. Continue, monitoring I/O's and daily weights (7) Obstructive sleep apnea syndrome: Status: Acute Assessment and plan: cont. CPAP while inpatient and RT will set him up for Trilogy upon discharge (8) DVT prophylaxis: Status: Acute Assessment and plan: On therapeutic coumadin, INR a bit high therefore I have reduced his dose to 3 mg nightly. cont. to follow daily INR. dc his aPTT labs (9) Discharge planning issues: Status: Acute Assessment and plan: DNR/DNI Palliative care on board - [facility] form signed Plan for discharge home on 11/06/2019 when finished 5 days of vanco/cefepime. qualified for NIV/AVAPS Subjective Subjective Interval history since last seen: Overall the patient states he is feeling markedly better. He denies any dyspnea or fevers. Cough is now becoming productive of purulent sputum after using Robitussin and Sudafed. Today will be completion of day #3 of Cefepime and Vancomycin for HCAP. He is asking to go home tomorrow. I explained to him that we need to be sure that his pneumonia is clearing before he is discharged. He has remained afebrile and his procalcitonin level is down to 0.1. I will repeat his CXR to look for improvement in his pneumonia. As for his DM, his glucose is down to 150 mg/dL this a.m. He is on Novolog 15 units w/ each meal and Lantus 20 units BID along w/ moderate dose sliding scale Novolog for coverage of elevated glucose. His prednisone is now down to 20 mg daily. For his AF, his warfin dose was recently increased to 5 mg nightly but his INR is climbing to 2.9 from 2.1 yesterday but he had been subtherapeutic on admission. His home dose is 2 mg nightly. I have reduced his dose to 3 mg nightly. I will repeat his INR daily and adjust accordingly. Per Dr. Portillo's discussion w/ the patient's funeral planner, Dr. Bryant at [facility] [place], the patient would benefit from a Trilogy unit to replace his home CPAP. Per RT the patient has 33 hypoxic event overnight despite use of his home CPAP. Exam Narrative Exam Narrative: Obese male sitting up in the chair wearing a nasal cannula@ 5 LPM w/ SPO2 of 100%. He normally wears 4 LPM NC at home but also uses CPAP at night for his KYLE. Lungs w/ bibasilar rales; diffuse bilateral exp. wheezes Cor: irrregularly irregular but at controlled rate; no murmur Abdomen: obese, soft w/ active bowel sounds; periumbilical hernia Legs/feet: bilateral 2+ edema w/ chronic stasis dermatitis w/ purplish discoloration Objective Objective Clinical Data: Abnormal lab results 11/04/19 11/04/19 Range/Units 06:35 06:35 PT 28.2 H D (9.3-11.0) sec INR 2.9 H D (0.9-1.1) BUN 23 H (7-18) mg/dL Glucose 144 H D (74-106) mg/dL Calcium 8.4 L (8.5-10.1) mg/dL C-Reactive Protein 0.64 H (0.0-0.3) mg/dL Vital Signs Temperature 36.3 C L 11/04/19 07:25 Temperature Source Temporal Artery Scan 11/04/19 07:25 Pulse 69 11/04/19 07:25 Pulse Rhythm Regular 11/03/19 20:00 Respiratory Rate 18 11/04/19 07:25 Respiratory Effort Non-Labored 11/03/19 20:00 Respiratory Depth Normal 11/03/19 20:00 Respiratory Pattern Normal 11/03/19 20:00 Blood Pressure 133/88 11/04/19 07:25 Blood Pressure Position Sitting 10/29/19 23:55 Pulse Oximetry 100 11/04/19 07:57 Oxygen Delivery Method Nasal Cannula 11/04/19 07:57 Oxygen Flow Rate 5 11/04/19 08:36 Pain Level 10 11/04/19 08:30 Comment 10/30/19 10:30 Intake & Output 11/03/19 11/03/19 11/04/19 11:59 23:59 11:59 Intake Total 350 / 800 450 / 800 Output Total 406 / 1306 900 / 1306 700 / 700 Balance -56 / -506 -450 / -506 -700 / -700 Weight 118.1 kg 119.5 kg Intake: IV 100 / 550 450 / 550 Oral 250 / 250 Output: Urine 406 / 1306 900 / 1306 700 / 700 Other: Urine Color Yellow Yellow Yellow Urine Appearance Clear Clear Clear Urine Odor Strong Strong Voiding Methods Urinal Urinal Urinal Laboratory Results WBC 9.92 k/cumm (4.4-10.8) 11/03/19 06:40 RBC 3.67 m/cumm (4.50-6.00) L 11/03/19 06:40 Hgb 11.6 g/dL (13.5-17.5) L 11/03/19 06:40 Hct 34.9 % (40.0-50.0) L 11/03/19 06:40 MCV 95.1 fL (80-95) H 11/03/19 06:40 MCH 31.6 pg (27.0-33.0) 11/03/19 06:40 MCHC 33.2 g/dL (32.0-36.0) 11/03/19 06:40 RDW 15.1 % (11.8-14.1) H 11/03/19 06:40 Plt Count 206 x1000/uL (130-400) 11/03/19 06:40 MPV 9.3 fL (8.0-11.0) 11/03/19 06:40 Immature Gran % 1.0 % 11/03/19 06:40 Neutrophils % 72.1 11/03/19 06:40 Lymphocytes % 18.9 11/03/19 06:40 Monocytes % 6.1 11/03/19 06:40 Eosinophils % 1.9 11/03/19 06:40 Basophils % 0.0 11/03/19 06:40 Absolute Neutrophils 7.15 k/cumm (1.2-6.7) H 11/03/19 06:40 Absolute Lymphocytes 1.87 k/cumm (1.2-3.4) 11/03/19 06:40 Absolute Monocytes 0.61 k/cumm (0.11-0.7) 11/03/19 06:40 Absolute Eosinophils 0.19 k/cumm (0.0-0.7) 11/03/19 06:40 Absolute Basophils 0.00 k/cumm (0.0-0.2) 11/03/19 06:40 PT 28.2 sec (9.3-11.0) H D 11/04/19 06:35 INR 2.9 (0.9-1.1) H D 11/04/19 06:35 APTT 26.3 sec (21.0-31.4) 10/30/19 00:20 ABG Sample Site Left radial 11/03/19 15:05 ABG pH 7.43 (7.35-7.45) 11/03/19 15:05 ABG pCO2 41 mmHg (34-47) 11/03/19 15:05 ABG pO2 95 mmHg (83-108) 11/03/19 15:05 ABG HCO3 27 mmol/L (22-28) 11/03/19 15:05 ABG Total CO2 25 mmol/L (22-29) 11/03/19 15:05 ABG O2 Saturation 97 % (94-98) 11/03/19 15:05 ABG Base Excess 2.9 mmol/L (-3-3) 11/03/19 15:05 VBG pH 7.41 (7.35-7.45) 10/30/19 00:20 VBG pCO2 44 mm/Hg (34-47) 10/30/19 00:20 VBG pO2 51 mm/Hg (28-44) H 10/30/19 00:20 VBG HCO3 28 mmol/L (22-28) 10/30/19 00:20 VBG Total CO2 26 mmol/L (22-29) 10/30/19 00:20 VBG O2 Saturation 84 % (70-80) H 10/30/19 00:20 VBG Base Excess 3.5 mmol/L (-3-3) H 10/30/19 00:20 Oxygen Liter Flow 4 L 11/03/19 15:05 Sodium 139 mmol/L (136-145) 11/04/19 06:35 Potassium 3.7 mmol/L (3.5-5.1) 11/04/19 06:35 Chloride 102 mmol/L (98-107) 11/04/19 06:35 Carbon Dioxide 28.3 mmol/L (21.0-32.0) 11/04/19 06:35 Anion Gap 8.7 mmol/L (3-11) 11/04/19 06:35 BUN 23 mg/dL (7-18) H 11/04/19 06:35 Creatinine 1.07 mg/dL (0.70-1.30) 11/04/19 06:35 Estimated GFR/1.73 m2 >= 60.00 (mL/min/1.73m2) 11/04/19 06:35 Glucose 144 mg/dL (74-106) H D 11/04/19 06:35 Lactate 1.6 mmol/L (0.6-1.4) H 11/02/19 06:35 Calcium 8.4 mg/dL (8.5-10.1) L 11/04/19 06:35 Magnesium 2.2 mg/dL (1.8-2.4) 11/04/19 06:35 Ferritin 182 ng/mL (26-388) 10/30/19 01:30 Total Bilirubin 0.8 mg/dL (0.2-1.0) 10/30/19 06:21 AST 19 U/L (15-37) 10/30/19 06:21 ALT 36 U/L (16-63) 10/30/19 06:21 Alkaline Phosphatase 76 U/L (46-116) 10/30/19 06:21 Lactate Dehydrogenase 354 U/L (85-227) H 10/30/19 01:30 Troponin I 0.05 ng/Ml (<0.06) 10/30/19 04:27 C-Reactive Protein 0.64 mg/dL (0.0-0.3) H 11/04/19 06:35 NT-Pro-B Natriuret Pep 1366 pg/mL (<300) H 11/01/19 06:34 Total Protein 7.4 g/dL (6.4-8.2) 10/30/19 06:21 Albumin 3.1 g/dL (3.4-5.0) L 10/30/19 06:21 Procalcitonin 0.1 ng/mL 11/04/19 06:35 TSH 0.45 uIU/mL (0.36-3.74) 10/30/19 06:21 Vancomycin Trough 15.6 ug/mL (10.0-20.0) 11/03/19 08:55 COVID-19 PCR Negative (Negative) 10/30/19 02:00 Nasopharyn COVID-19 PCR Not Applicable 10/30/19 02:00 Ref Test Perform Site [facility] lab 10/30/19 02:00
--- NOTE | 2019-11-04 14:41 | PTTR_ITS ---
Date of service: 11/04/19 PT Notes Visit Reasons: MULTILOBAR PNEUMONIA, RT CHF, GENERALIZED ABD PAIN Inpatient Physical Therapy Treatment Note [facility] Date: 11/04/2019 Subjective: Elio started off by saying that he continues to feel tired. He voiced several issues about his sticky floor, about how he plans to go home tomorrow no matter what, and how he should have enough battery on his personal oxygen concentrator for his trip back home. Prefers doing functional activities rather than exercises as he states that he is already strong. In the afternoon, he again reports being tired at the outset but is willing to try out the stairs as planned earlier as he is hopes to go home tomorrow. He continues to emphasize that he has a very supportive significant other who will be helping him out as as much as possible when he returns home. Objective: General Observation: Oxygen supplementation at 4 L/min via NC. IV access in left UE. In the morning, patient appeared mildly irritated about ongoing issues he has but toned done significantly once a conversation about avocarrot races was brought up. Mental Status: Alert and oriented x4 Pain: None reported Vital Signs: in the morning, oxygen saturation ranged from 90% through 99% on 4 L of oxygen per minute throughout session. Heart rate ranged from 91 through 144 bpm throughout session. Bed Mobility/Transfers: Sit to stand from recliner chair with supervision with the use of BUE for support, minimal verbal cues needed for hand placement Stand to sit back onto recliner chair with supervision with the use of BUE for support, minimal verbal cues needed for hand placement GAIT: Session 1??Elio tolerated level surface ambulation of 75 feet x 4 with 4 seated rests using front wheeled walker and with full weight bearing on 4 L of oxygen per minute with SBA and wheelchair follow of this. Oxygen saturation ranged from 90 to 99% throughout PT session without complaints of chest pain, weakness, nor headache. Re increased. HR ranged from 91 bpm to 144 bpm. Session 2--Elio tolerated up and down twelve 4-inch steps and eight 6-inch steps while holding onto B rails with step-to gait pattern on 4 L of oxygen/min with lowest level at 87% after each trip and re-saturation back to 95-96% after 2-3 minutes. Balance: Static Sitting: Normal Dynamic Sitting: Normal Static Standing: Fair Dynamic Standing: Fair Assessment: Elio demonstrates improved activity tolerance in terms of level surface ambulation with less oxygen supplementation of 4 L/min (5 L yesterday). Restabilization to WNL for oxgen saturation and heart rate is much improved compared to yesterday. Minimal breathlessness observed toward each end of ambulation activity. Plan: Continue with PT POC as initially established. DISCHARGE RECOMMENDATIONS: Patient will benefit from home health PT services in order to progress mobility level using least restrictive assistive ambulatory device, assess home safety, identify additional equipment needs, and establish a functional maintenance program that will increase ability of patient to remain at home. TREATMENT CODE/TIME: Session 1??57995 x 55 minutes beginning at 10:37 AM. Session 2??[id number] x 53 minutes beginning at 14:41 PM. Thank you very much for this referral. Shayy Montoya PT, DPT, CLT [facility] [place], [place]
[2019-11-04] MEDS: Atorvastatin 40 MG TAB 80 MG PO (19:46)
[2019-11-04] MEDS: Melatonin 3 MG TAB PO (21:40)
[2019-11-04] MEDS: Pramipexole 0.25 MG TAB 0.125 MG PO (21:40)
[2019-11-04] MEDS: clonazePAM 1 MG TAB 0.5 MG PO (21:46)
[2019-11-05 00:18] VITALS: RESP 8
[2019-11-05] MEDS: Normal Saline Flush 10 ML SYR IVP (03:24)
[2019-11-05] MEDS: CEFEPIME 2 GM in Normal Saline 100 ML IVPB ×2 (05:10→14:02)
[2019-11-05] MEDS: Albuterol/Ipratropium 3 ML UPD VIAL UPD ×2 (05:11→11:20)
[2019-11-05 05:41] VITALS: RESP 2
[2019-11-05 07:10] VITALS: BP 160/99; PULSE 54; RESP 18; TEMP 36.5; O2SAT 99
[2019-11-05 07:17] LABS: INR 3.1 (0.9-1.1); Prothrombin Time 30.1 sec (9.3-11.0)
[2019-11-05 07:18] LABS: Anion Gap 6.2 mmol/L (3-11); BUN 25 mg/dL (7-18); C-Reactive Protein 0.71 mg/dL (0.0-0.3); CO2 28.8 mmol/L (21.0-32.0); CREATININE 0.91 mg/dL (0.70-1.30); Calcium 8.1 mg/dL (8.5-10.1); Chloride 102 mmol/L (98-107); Glucose 115 mg/dL (74-106); Potassium 3.3 mmol/L (3.5-5.1); Sodium 137 mmol/L (136-145)
--- NOTE | 2019-11-05 07:30 | DI.RAD_ITS ---
EXAM: XR CHEST 2V PA LATERAL CLINICAL HISTORY: follow up pneumonia TECHNIQUE: 2D digital imaging was performed. COMPARISON: XR CHEST 2V PA LATERAL from 07/27/2018 XR PORTABLE CHEST AP from 11/01/2019 FINDINGS: The exam is limited by poor penetration. The lungs are not well inflated. The cardiac silhouette is enlarged. Aortic prosthesis is noted. There are bilateral patchy infiltrates. No effusions are se en. IMPRESSION: Question of mild interval worsening bilateral infiltrates.
[2019-11-05] MEDS: Budesonide/Formoterol 160/4.5 6 GM 60 PUFF INH IH (07:38)
--- NOTE | 2019-11-05 07:39 | DI.VRAD_ITS ---
PROCEDURE INFORMATION: Exam: XR Chest, 2 Views Exam date and time: 11/05/2019 7:16 AM Age: 74 years old Clinical indication: Other: Follow up, pneumonia TECHNIQUE: Imaging protocol: XR of the chest Views: 2 views. COMPARISON: 1. CR XR PORTABLE CHEST AP 11/01/2019 10:26 AM 2. COMPARISON MORE: CT CHEST PE ABD PELVIS W 10/30/2019 12:37:58 AM FINDINGS: Lungs: Hypoinflation. Bilateral patchy hazy opacifications. Bronchovascular crowding. Parahilar and interstitial opacities. Persistent left lung opacification. Pleural space: No pleural effusion. No pneumothorax. Heart/Mediastinum: Aortic valve prosthesis. Obscured but likely unchanged enlarged cardiac silhouette. Vasculature: Calcified tortuous aorta. Bones/joints: Degenerative changes of the shoulders. IMPRESSION: Persistent left lower lung opacity in addition to bilateral patchy hazy opacities and interstitial prominence in combination with hypoventilatory changes. Dictated and Authenticated by: Arcadio Villatoro MD. Ordering[facility] Yas Nunez MD
[2019-11-05] MEDS: guaiFENesin 600 MG TABCR PO (07:41)
[2019-11-05] MEDS: Metoprolol CR 100 MG TABCR PO (07:41)
[2019-11-05] MEDS: Omeprazole 20 MG CAPCR PO (07:41)
[2019-11-05] MEDS: predniSONE 20 MG TAB PO (07:41)
[2019-11-05] MEDS: Aspirin E.C. 81 MG TABEC PO (07:41)
[2019-11-05] MEDS: Multivitamin w/Minerals TAB 1 TAB PO (07:41)
[2019-11-05] MEDS: Furosemide 20 MG TAB 40 MG PO (07:41)
[2019-11-05] MEDS: Lisinopril 10 MG TAB PO ×2 (07:41→10:45)
[2019-11-05] MEDS: Insulin Glargine 300 UNITS/3 ML PEN 20 UNITS SC (08:10)
[2019-11-05] MEDS: Insulin Aspart 300 UNITS/3 ML PEN 15 UNITS SC ×2 (08:10→11:59)
[2019-11-05] MEDS: Potassium Chloride 20 MEQ TABCR 40 MEQ PO (10:46)
[2019-11-05] MEDS: Magnesium Gluconate 500 MG TAB PO (10:46)
[2019-11-05] MEDS: oxyCODONE 5 mg/Acetaminophen 325 mg TAB 1 TAB PO (10:50)
[2019-11-05 11:20] VITALS: PULSE 90; RESP 1; O2SAT 93
[2019-11-05 11:22] VITALS: RESP 1
[2019-11-05] MEDS: Insulin Aspart 300 UNITS/3 ML PEN SC (12:02)
--- NOTE | 2019-11-05 12:22 | W.PM.PROGNOT ---
Date of Service Date of service: 11/05/19 Time of Service: 12:22 Assessment and Plan Assessment and plan (1) Pneumonia: Status: Acute Assessment and plan: Community-acquired pneumonia in a complicated respiratory patient has underlying mixed obstructive lung disease and interstitial lung disease from rheumatoid arthritis with significant diffusion defects along with chronic obstructive sleep apnea for which he wears a CPAP mask. Patient failed Levaquin therapy on admission and was switched to cefepime and vancomycin with progressive improvement in his oxygenation as well as improvement in his dyspnea and resolution of his inflammatory blood markers. Patient has completed 4 full days of cefepime and vancomycin. Patient will be discharged on 5 more days of doxycycline and cefuroxime with follow-up chest x-ray as an outpatient. Per respiratory therapy is ABG was not sufficient to qualify for trilogy unit. Patient can follow-up with his PCP or his cannery tender engineer as an outpatient to get follow-up PFTs in order to see if he will qualify for trilogy unit. Qualifiers: Laterality: bilateral Lung location: unspecified part of lung Pneumonia type: due to unspecified organism Qualified Code(s): J18.9 - Pneumonia, unspecified organism (2) Acute and chronic respiratory failure with hypoxia: Status: Acute Assessment and plan: Continue with 5 more days of oral antibiotics as noted above. Continue current dose of prednisone 20 mg daily which is his baseline dose. Continue home oxygen at 3 L/min per nasal cannula at rest and 4 L/min per nasal cannula with activity. Continue use of home CPAP with follow-up with his cannery tender engineer to arrange for qualification for trilogy unit. (3) Aortic stenosis, severe: Status: Chronic Assessment and plan: s/p bioprosthetic valve. Functioning well on echo Continue PO lasix at current dose. Continue rate control of his atrial fibrillation/atrial flutter with Toprol-XL. Continue Warfarin for anticoagulation However I will have him reduce the dose to 1 mg nightly for tonight and then have visiting nurse recheck his INR tomorrow. He says his usual dose of warfarin is 2 mg nightly. His INR was elevated today at 3.1. 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 Continue oral diuretics for combined heart failure with reduced ejection fraction along with diastolic heart failure and pulmonary hypertension. Recommend follow-up with pulmonary to be evaluated for noninvasive ventilation with an average volume assured pressure support device. (5) Type 2 diabetes mellitus with hyperglycemia: Status: Chronic Assessment and plan: Blood sugar control was markedly improved with use of insulin. However he has not been chronically on insulin but was taken metformin 500 mg p.o. twice daily. This will need to be addressed by his PCP upon discharge. Consideration should be given for GLP-1 receptor agonist. Qualifiers: Diabetes mellitus long-term insulin use: with long-term use Qualified Code(s): E11.65 - Type 2 diabetes mellitus with hyperglycemia; Z79.4 - terminal supervisor (current) use of insulin (6) Acute on chronic combined systolic and diastolic CHF (congestive heart failure): Status: Acute Assessment and plan: I do believe that he demonstrates some acute on chronic exacerbation of systolic and diastolic congestive heart failure as evidenced by an elevated proBNP of 1366 which is above his baseline level of around 600. He is done well with the oral Lasix. He previously was on 20 mg twice a day and the dose was increased to 40 mg twice a day here in the hospital. Does not appear that he was ever on IV Lasix. However he is suffering from hypokalemia and will need supplemental potassium upon discharge. An echocardiogram was performed during this hospitalization and showed some slight change in his LV systolic function compared to his echocardiogram performed at [facility] on January 20, 2019. LVEF was 60% in 2019 and now is down to 45%. However he had no RWMA. He has impaired LV relaxation pattern. RV systolic function could not be interpreted on his current echo. However he has moderately severe PHTN w/ RVSP of 55 mm. I will keep him on the higher dose of lasix and I also increased his lisinopril from 10 mg to 20 mg daily. (7) Obstructive sleep apnea syndrome: Status: Chronic Assessment and plan: Continue CPAP at home. Arrange outpatient PFT and follow-up with his cannery tender engineer and/or his PCP for certification for trilogy unit. (8) DVT prophylaxis: Status: Resolved Assessment and plan: Remains on warfarin with supratherapeutic doses. I will reduce his dose to 1 mg nightly for tonight with a repeat pro time tomorrow (9) Discharge planning issues: Status: Acute Assessment and plan: DNR/DNI Palliative care on board - COL form signed Plan for discharge home on 11/06/2019 when finished 5 days of vanco/cefepime. qualified for NIV/AVAPS Subjective Subjective Interval history since last seen: Patient is feeling markedly better today. He states he ambulated all around the nursing desk and down the hallway without getting dyspneic. He chronically requires home oxygen at 3 to 4 L/min per nasal cannula. He is currently on 3 L/min per nasal cannula at rest and his O2 saturation is running 93 to 100%. He remains afebrile and denies any pain. He would like to return home today even though he realizes he has not completed full course of IV antibiotics for his pneumonia. With this afternoon's dose of cefepime he is only completed 12 doses which is only 4 days worth of antibiotics. He has completed 7 doses of vancomycin 1.25 g which was being given every 14 hours. Again this is only about 4 days worth of antibiotics. Although he is never spiked a fever during this hospitalization he had a high CRP on admission of 3.0 which is settled down to mild elevation of 0.6-0.7. He had an elevated procalcitonin of 0.3 which is resolved to 0.1. As initial leukocytosis of 17,000 normalized to 9900 as of Wednesday although it maxi to 14,000 yesterday possibly due to steroids. I rechecked his chest x-ray this morning and by my impression compared to his prior chest x-ray dated November 01, 2019 I think there is been some improvement although he has persistent left lower lobe lung opacity as well as interstitial prominence and bilateral patchy hazy opacities. I think this is some residual pneumonia superimposed on his interstitial lung disease. I strongly recommended that he stay 1 more day for another day of antibiotics to complete a full 5-day course of vancomycin and cefepime. Unfortunately he was told by the prior hospitalist that he could go home on Wednesday and he is set his mind that he is leaving today regardless of what I say. He is very anxious to get home to his who has bipolar disorder. I going to continue the antibiotics for a few more days. He will be discharged home on cefuroxime 500 mg twice a day along with doxycycline 100 mg twice a day for 5 more days. I will order a follow-up chest x-ray in a week. Exam Narrative Exam Narrative: Morbidly obese male sitting up in his recliner chair. No respiratory distress. He is able to speak to me in full paragraphs without dyspnea. Lungs revealed market improvement in his aeration. Upper lee are entirely clear. Both bases have market improvement in aeration with just some faint wheezes at the left lung base and some fine cellophane rales. Heart is irregularly irregular but controlled rate. Abdomen is obese soft and nontender. Lower extremities with chronic venous stasis purplish skin changes of the pretibial surfaces and 2+ edema. Objective Objective Clinical Data: Abnormal lab results 11/05/19 11/05/19 Range/Units 06:20 06:20 PT 30.1 H (9.3-11.0) sec INR 3.1 H (0.9-1.1) Potassium 3.3 L (3.5-5.1) mmol/L BUN 25 H (7-18) mg/dL Glucose 115 H (74-106) mg/dL Calcium 8.1 L (8.5-10.1) mg/dL C-Reactive Protein 0.71 H (0.0-0.3) mg/dL Vital Signs Temperature 36.5 C 11/05/19 07:10 Temperature Source Temporal Artery Scan 11/05/19 07:10 Pulse 90 11/05/19 11:20 Pulse Rhythm Regular 11/05/19 08:55 Respiratory Rate 18 11/05/19 07:10 Respiratory Effort Non-Labored 11/05/19 08:55 Respiratory Depth Normal 11/05/19 08:55 Respiratory Pattern Normal 11/05/19 08:55 Blood Pressure 160/99 H 11/05/19 07:10 Blood Pressure Position Sitting 10/29/19 23:55 Pulse Oximetry 93 L 11/05/19 11:20 Oxygen Delivery Method Nasal Cannula 11/05/19 11:20 Oxygen Flow Rate 3 11/05/19 11:20 Pain Level 8 11/05/19 10:50 Comment 11/04/19 23:40 Intake & Output 11/04/19 11/05/19 11/05/19 23:59 11:59 23:59 Intake Total 1160 / 1760 910 / 910 Output Total 1600 / 2550 495 / 495 Balance -440 / -790 415 / 415 Intake: IV 470 / 820 360 / 360 Oral 690 / 940 550 / 550 Output: Urine 1600 / 2550 495 / 495 Other: Urine Color Yellow Yellow Urine Appearance Clear Clear Urine Odor None None Stool Size Moderate Stool Characteristics Soft Brown Voiding Methods Urinal Urinal Laboratory Results WBC 14.74 k/cumm (4.4-10.8) H D 11/04/19 06:35 RBC 4.03 m/cumm (4.50-6.00) L 11/04/19 06:35 Hgb 12.8 g/dL (13.5-17.5) L 11/04/19 06:35 Hct 38.2 % (40.0-50.0) L 11/04/19 06:35 MCV 94.8 fL (80-95) 11/04/19 06:35 MCH 31.8 pg (27.0-33.0) 11/04/19 06:35 MCHC 33.5 g/dL (32.0-36.0) 11/04/19 06:35 RDW 15.4 % (11.8-14.1) H 11/04/19 06:35 Plt Count 248 x1000/uL (130-400) 11/04/19 06:35 MPV 9.2 fL (8.0-11.0) 11/04/19 06:35 Immature Gran % 1.6 % 11/04/19 06:35 Neutrophils % 65.6 11/04/19 06:35 Lymphocytes % 23.1 11/04/19 06:35 Monocytes % 5.9 11/04/19 06:35 Eosinophils % 3.7 11/04/19 06:35 Basophils % 0.1 11/04/19 06:35 Absolute Neutrophils 9.67 k/cumm (1.2-6.7) H 11/04/19 06:35 Absolute Lymphocytes 3.40 k/cumm (1.2-3.4) 11/04/19 06:35 Absolute Monocytes 0.87 k/cumm (0.11-0.7) H 11/04/19 06:35 Absolute Eosinophils 0.55 k/cumm (0.0-0.7) 11/04/19 06:35 Absolute Basophils 0.01 k/cumm (0.0-0.2) 11/04/19 06:35 PT 30.1 sec (9.3-11.0) H 11/05/19 06:20 INR 3.1 (0.9-1.1) H 11/05/19 06:20 APTT 26.3 sec (21.0-31.4) 10/30/19 00:20 ABG Sample Site Left radial 11/03/19 15:05 ABG pH 7.43 (7.35-7.45) 11/03/19 15:05 ABG pCO2 41 mmHg (34-47) 11/03/19 15:05 ABG pO2 95 mmHg (83-108) 11/03/19 15:05 ABG HCO3 27 mmol/L (22-28) 11/03/19 15:05 ABG Total CO2 25 mmol/L (22-29) 11/03/19 15:05 ABG O2 Saturation 97 % (94-98) 11/03/19 15:05 ABG Base Excess 2.9 mmol/L (-3-3) 11/03/19 15:05 VBG pH 7.41 (7.35-7.45) 10/30/19 00:20 VBG pCO2 44 mm/Hg (34-47) 10/30/19 00:20 VBG pO2 51 mm/Hg (28-44) H 10/30/19 00:20 VBG HCO3 28 mmol/L (22-28) 10/30/19 00:20 VBG Total CO2 26 mmol/L (22-29) 10/30/19 00:20 VBG O2 Saturation 84 % (70-80) H 10/30/19 00:20 VBG Base Excess 3.5 mmol/L (-3-3) H 10/30/19 00:20 Oxygen Liter Flow 4 L 11/03/19 15:05 Sodium 137 mmol/L (136-145) 11/05/19 06:20 Potassium 3.3 mmol/L (3.5-5.1) L 11/05/19 06:20 Chloride 102 mmol/L (98-107) 11/05/19 06:20 Carbon Dioxide 28.8 mmol/L (21.0-32.0) 11/05/19 06:20 Anion Gap 6.2 mmol/L (3-11) 11/05/19 06:20 BUN 25 mg/dL (7-18) H 11/05/19 06:20 Creatinine 0.91 mg/dL (0.70-1.30) 11/05/19 06:20 Estimated GFR/1.73 m2 >= 60.00 (mL/min/1.73m2) 11/05/19 06:20 Glucose 115 mg/dL (74-106) H 11/05/19 06:20 Lactate 1.6 mmol/L (0.6-1.4) H 11/02/19 06:35 Calcium 8.1 mg/dL (8.5-10.1) L 11/05/19 06:20 Magnesium 2.2 mg/dL (1.8-2.4) 11/04/19 06:35 Ferritin 182 ng/mL (26-388) 10/30/19 01:30 Total Bilirubin 0.8 mg/dL (0.2-1.0) 10/30/19 06:21 AST 19 U/L (15-37) 10/30/19 06:21 ALT 36 U/L (16-63) 10/30/19 06:21 Alkaline Phosphatase 76 U/L (46-116) 10/30/19 06:21 Lactate Dehydrogenase 354 U/L (85-227) H 10/30/19 01:30 Troponin I 0.05 ng/Ml (<0.06) 10/30/19 04:27 C-Reactive Protein 0.71 mg/dL (0.0-0.3) H 11/05/19 06:20 NT-Pro-B Natriuret Pep 1366 pg/mL (<300) H 11/01/19 06:34 Total Protein 7.4 g/dL (6.4-8.2) 10/30/19 06:21 Albumin 3.1 g/dL (3.4-5.0) L 10/30/19 06:21 Procalcitonin 0.1 ng/mL 11/04/19 06:35 TSH 0.45 uIU/mL (0.36-3.74) 10/30/19 06:21 Vancomycin Trough 15.6 ug/mL (10.0-20.0) 11/03/19 08:55 COVID-19 PCR Negative (Negative) 10/30/19 02:00 Nasopharyn COVID-19 PCR Not Applicable 10/30/19 02:00 Ref Test Perform Site [facility] hospital lab 10/30/19 02:00
--- NOTE | 2019-11-05 14:38 | PDOC.CMDIS ---
- If Service Date Differs Date of service: 11/05/19 Time of Service: 14:38 LACE Index Scoring Tool - Questions: Length of Stay (in days): 4 - 6 Acuity (Admit via E.D.?): Yes E.D. Visits: 1 - Answers: Total Score: 8 Risk of Readmission: Low Risk Care Management Discharge Reason for Hospitalization: Pneumonia Discharge Plan: Elio will be discharged home with a resumption of Home Health nursing. PT has recommended physical therapy as well, but Elio ids refusing that service. He will follow up with his PCP and discharge plan of care and transport with friends/relatives via private vehicle. Patient/Family Education Needs: Discharge plan, limitations, follow up plan, Ask Me Three.
--- NOTE | 2019-11-05 15:08 | W.PM.DS.N ---
Date of service: 11/05/19 Time of Service: 15:08 DS: Diagnosis Discharge Diagnosis (1) Pneumonia: Status: Acute Asessment and Plan: Improving. Patient was initially treated with Levaquin 750 mg IV daily from October 29, 2019 through November 01, 2019. Because he was not initially improving he was placed on cefepime 2 g IV every 8 hours and vancomycin 1250 mg IV every 14 hours beginning November 01, 2019. Plan was for him to receive 5 days worth of antibiotics. He began to clinically improve within 24 hours after the change of antibiotics with improvement of his hypoxemia as well as improvement of his inflammatory markers and his dyspnea. Patient declined to remain in the hospital for 1 last day to complete his fifth day of IV antibiotics and therefore he was discharged home on cefuroxime 500 mg p.o. twice daily for 5 more days along with doxycycline 100 mg p.o. twice daily. He will have a follow-up chest x-ray in 1 week to ensure resolution of his pneumonia. At the time of discharge his pneumonia had not resolved by radiologic findings. He still had persistent left lower lobe opacity and some additional patchy hazy opacities along with interstitial prominence probably due to his underlying interstitial lung disease. Patient insisted on being discharged but was agreeable to complete 5 more days of oral antibiotics and to get a follow-up chest x-ray. 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 His chronic congestive heart failure is both a combined heart failure with reduced ejection fraction as well as diastolic dysfunction. He has acute respiratory failure improved with treatment of his pneumonia and increasing his diuretics. He remains on the increased dose of furosemide 40 mg twice a day along with the increased dose of lisinopril 20 mg daily. He will get a follow-up chest x-ray (3) Aortic stenosis, severe: Status: Chronic Asessment and Plan: His aortic stenosis was not a problem during this admission. He previously had a TAVR but an echocardiogram was performed on November 01, 2019 which demonstrated his bioprosthetic aortic valve showed no hemodynamically significant valvular stenosis. Mean gradient was 5.7 mm. No aortic regurgitation was seen. Left ventricular size was normal and left ventricular systolic function was borderline reduced with an ejection fraction 45% with no regional wall motion abnormalities. He remains on warfarin for his atrial fibrillation. INR will need to be checked this week. (4) Pulmonary HTN: Status: Chronic Asessment and Plan: Kuna to be a mixed type II and type III pulmonary hypertension. Recommend follow-up outpatient pulmonary function test to see if he qualifies for trilogy device to treat his sleep apnea (5) Type 2 diabetes mellitus with hyperglycemia: Status: Chronic Asessment and Plan: Poorly controlled diabetes mellitus which is been exacerbated by his steroid use. Patient has been on metformin at thousand milligrams twice a day at home. He required basal bolus insulin while in the hospital. For further outpatient management per his PCP. (6) Acute on chronic combined systolic and diastolic CHF (congestive heart failure): Status: Resolved Asessment and Plan: Acute congestive heart failure improved with increase of his Lasix. His lisinopril was also uptitrated to 20 mg daily in addition to the increase of his Lasix to 40 mg twice a day. His echocardiogram showed that there have been some reduction in his left ventricular ejection fraction since January 2019. LVEF had been 60% and is now down to 45%. Repeat BMP has been ordered to follow up his renal function/electrolytes w/ the changes in his lisinopril and lasix. (7) Obstructive sleep apnea syndrome: Status: Chronic Asessment and Plan: Outpatient PFT has been ordered to help determine his qualification for Trilogy device. (8) DVT prophylaxis: Status: Resolved (9) Discharge planning issues: Status: Resolved Discharge Plan Disposition Patient Disposition: HOME W/HOME HEALTH SERVICE Condition: Stable Discharge Details Chief Complaint: SOB Clinical Impression: Pneumonia, Shortness of breath, Abdominal pain Reason For Visit: MULTILOBAR PNEUMONIA, RT CHF, GENERALIZED ABD PAIN Admit Date/Time: 10/30/19 02:44 Admit Provider: Jarrett Foster Attending Provider: Jarrett Foster Primary Care Provider: Ana Alatorre ED Provider: Geovany Garcia Hospital Course Hospital Course: 74-year-old morbidly obese male with history of chronic lung disease including combined obstructive airway disease and restrictive lung disease secondary to interstitial lung disease from his rheumatoid arthritis who also has a history of remote DC and moderately severe aortic stenosis now status post TAVR, chronic atrial fibrillation on warfarin therapy as well as obstructive sleep apnea for which he wears a CPAP device, moderately severe pulmonary hypertension mixed class II/class III who presented to the hospital on October 29, 2019 with a 2-month history of progressive shortness of breath now with a cough productive of hemoptysis and found to be hypoxemic with oxygen saturation in the mid 80% and to be tachypneic only able to speak in 4-5 word sentences and reportedly with a low-grade fever of 100.0 per EMS. Upon admission through the emergency department work-up showed that he appear to be toxic probably septic with elevated blood lactate of 2.0 which later peaked at 3.5. And a leukocytosis of 17,000 which after a couple of days of antibiotics normalized it 9900. CTA of his chest on admission demonstrated multi lobar pneumonia but no PE. Patient had blood cultures obtained on admission and he was started on Levaquin 750 mg IV daily. He was on this until November 01, 2019. When he should failed to show improvement in his respiratory status he was switched to cefepime 2 g every 8 hours and vancomycin 1.25 g IV every 14 hours. Only after he been on the cefepime and vancomycin for couple of days did he show significant improvement in his hypoxemia and his degree of dyspnea however he showed a marked decrease in his white count after the change in his antibiotics. I assumed his care on November 04, 2019 with the understanding that he would receive 5 days of parenteral antibiotics including vancomycin and cefepime. However as the patient's condition improved he became more anxious to return home and despite my urging that he stay for 1 more day to complete the fifth day of parenteral antibiotics he insisted on returning home. As he remained afebrile and his inflammatory markers did show market improvement in that his procalcitonin level had normalized and his CRP had nearly normalized I felt it was safe to discharge him home although I recommend that he continue for 5 more days of oral antibiotics with a follow-up chest x-ray next week. During his hospitalization his acute on chronic combined systolic and diastolic heart failure required an increase of his Lasix from 20 mg twice a day to 40 mg twice a day. This caused some problems with hypokalemia requiring oral supplementation. ABG and PFTs were ordered. PFTs were not performed but his ABG did not qualify him for the use of a trilogy device to treat his sleep apnea. His atrial fibrillation rate remained well controlled on Toprol-XL but his warfarin dose had to be titrated. During his hospitalization the INR went from being therapeutic to non-therapeutic dropping down to as low as 1.5 necessitating increase in his warfarin dose. He was briefly on warfarin 5 mg nightly for a couple of nights and that brought his INR up to 2.9 at which point I decreased his warfarin dose to 3 mg nightly. However on the day of discharge his INR was 3.1 and I have advised him to drop his nightly dose of warfarin to 1 mg and to get a follow-up INR tomorrow. Patient is discharged home in markedly improved condition although his long-term prognosis is precarious. During his hospitalization we obtained a consultation with palliative care medicine from Dr. Harriet Bond please see her note from October 30, 2019 for details. In summary she worked with him on completing a C.O.L.S.T. form. Patient indicated that he does not want CPR or any feeding tubes but otherwise would like full medical management. He did appointed Francis to be his DURABLE POWER OF HEAD BANQUET WAITRESS. It is recommended he continue with palliative care as an outpatient. It is also recommended a follow-up with his oracle technical architect Dr. Norris at [facility] for further treatment of his underlying KYLE and ILD. Patient should have a follow-up chest x-ray in a week and he should be set up for outpatient pulmonary function test to see if he qualifies for trilogy device. During this hospitalization he had significant nocturnal hypoxic spells which is oxygen saturation despite use of his CPAP dropped his oxygen saturation below 87%. Home Meds and New Rx's Prescriptions: New prednisone 20 mg Tablet 20 mg PO DAILY 7 Days Qty: 7 RF: 0 potassium chloride [Klor-Con M20] 20 mEq Tablet,Er Particles/Crystals 20 meq PO BID Qty: 60 RF: 0 lisinopril 10 mg Tablet 20 mg PO DAILY Qty: 60 RF: 0 nitroglycerin [Nitrostat] 0.4 mg Tablet, Sublingual 0.4 mg sublingual Q5 MIN PRN X3 PRNQty: 90 RF: 0 furosemide 20 mg Tablet 40 mg PO BID DIURETIC Qty: 60 RF: 0 magnesium gluconate 27 mg magnesium (500 mg) Tablet 500 mg PO DAILY 30 Days Qty: 555.555 RF: 0 cefuroxime axetil 500 mg tablet 500 mg PO BID Qty: 14 RF: 0 doxycycline hyclate 100 mg capsule 100 mg PO BID Qty: 14 RF: 0 Continued morphine 15 mg tablet extended release 15 mg PO Q12H MDD 2 Qty: 56 RF: 0 omeprazole 20 mg capsule,delayed release(DR/EC) 20 mg PO BID Qty: 60 RF: 3 clonazepam 1 mg tablet 0.5 mg PO QHS MDD 1 Qty: 14 RF: 2 oxycodone-acetaminophen 5-325 mg tablet 1 tab PO Q4H MDD 6 PRN (Reason: pain) Qty: 140 RF: 0 oxycodone-acetaminophen 5-325 mg tablet 1 tab PO Q6H MDD 6 PRN (Reason: pain) Qty: 140 RF: 0 morphine 15 mg tablet extended release 15 mg PO Q12H MDD 30 mg Qty: 56 RF: 0 fluticasone propion-salmeterol [Advair Diskus] 250-50 mcg/dose blister with device 1 inh IH BID RF: 0 ProAir RespiClick 90 mcg/actuation aerosol powdr breath activated 2 inh IH Q6H PRN (Reason: shortness of breath or wheezing) Qty: 1 RF: 1 metformin 500 mg tablet 1,000 mg PO BID Qty: 270 RF: 3 Oxygen EACH RF: 0 atorvastatin 80 mg tablet 80 mg PO DAILY Qty: 90 RF: 3 Remicade 100 mg recon soln 800 mg IV q5w RF: 0 metoprolol succinate 100 mg tablet extended release 24 hr 100 mg PO DAILY Qty: 90 RF: 3 Narcan 4 mg/actuation spray,non-aerosol 4 mg NS PRN PRN (Reason: opioid overdose) Qty: 1 RF: 0 Spiriva Respimat 1.25 mcg/actuation mist 2 puff IH DAILY RF: 0 Incruse Ellipta 62.5 mcg/actuation blister with device 1 inh IH DAILY RF: 0 pramipexole 0.125 mg tablet 0.125 mg PO HS Qty: 90 RF: 3 aspirin [Aspir-81] 81 mg tablet,delayed release (DR/EC) 81 mg PO DAILY Qty: 100 RF: 3 Daily Vitamin Formula-Iron 18-400 mg-mcg tablet 1 tab PO DAILY Qty: 90 RF: 0 Changed warfarin 2 mg tablet 1 mg PO HS Qty: 90 RF: 2 Discontinued oxycodone-acetaminophen 5-325 mg tablet 1 tab PO Q4H MDD 5 PRN (Reason: pain) Qty: 140 RF: 0 prednisone 5 mg tablet 5 mg PO DAILY MDD 10 Qty: 90 RF: 1 lisinopril 10 mg tablet 10 mg PO DAILY Qty: 90 RF: 3 nitroglycerin [Nitrostat] 0.4 mg tablet, sublingual 0.4 mg Sublingual PRN Qty: 25 RF: 6 furosemide 20 mg tablet 20 mg PO BID Qty: 180 RF: 3 No Action (DME) POrtable Oxygen Compressor Qty: 1 RF: 0 Discharge Instructions Instructions: Heart Failure (DC), Bacterial Pneumonia (DC) Additional Instructions: get follow up protime/INR done by your visiting nurse tomorrow so Dr. Munroe can adjust your coumadin dose. Get follow up BMP labs done by visiting nurse next week to monitor kidney function and potassium levels as your lasix dose has been adjusted. Get follow up CXR in 1 weeks to follow up your pneumonia. Call Respiratory care at [facility] to follow up w/ a pulmonary function test next week to see if you will qualify for a Trilogy BIPAP machine for your sleep apnea. Stand Alone Forms: Nursing Discharge Form Referrals: Ana Alatorre DO [Primary Care Provider] - (Please call Wednesday to make a follow up appoint. ) Activity:: Activity as Tolerated Equipment/Supplies:: No Equipment Needed Diet:: Carb Counting Discharge Orders Discharge Orders: Discharge Order (Routine); Ordered 11/05/19 Ordered By: Enrique Sorenson Other Ambulatory Orders: Basic Metabolic Panel (Routine) Timeframe: 3 Days Facility: [facility] - Location: Laboratory Ordered By: Enrique Sorenson XR chest 2V PA & lateral (Routine) Timeframe: 1 Week Facility: [facility] - Location: DIAGNOSTIC IMAGING Ordered By: Enrique Sorenson Prothrombin Time (Routine) Timeframe: 1 Day Facility: [facility] - Location: Laboratory Outpatient Ordered By: Enrique Sorenson PFT ([place]/[facility]) (Outpt) (ONCE) Timeframe: 20191112 Location: None Selected Ordered By: Enrique Sorenson Discharge Data Discharge Date/Time-TO BE ENTERED AT DEPARTURE: 11/05/19 16:15 DS: Summary Status at Discharge Functional status at discharge: uses cane/walker Overall status at discharge: patient is progressing back to baseline Mental Status: mental status grossly normal Speech and Movement: speech and movement normal Mood: congruent mood Affect: normal affect Time Spent with Patient providing and/or coordinating discharge services: Greater than 30 minutes Specific discharge activities: reviewing and reconciling home/hospital medication changes, sending new Rx, educating patient about his medication changes; coordination w/ CM and RT; speaking w/ his outpatient pharmacist about his medication changes and new Rx Exam Narrative Exam Narrative: Morbidly obese male sitting up in his recliner chair. No respiratory distress. He is able to speak to me in full paragraphs without dyspnea. Lungs revealed market improvement in his aeration. Upper lee are entirely clear. Both bases have market improvement in aeration with just some faint wheezes at the left lung base and some fine cellophane rales. Heart is irregularly irregular but controlled rate. Abdomen is obese soft and nontender. Lower extremities with chronic venous stasis purplish skin changes of the pretibial surfaces and 2+ edema. Psych Mental Status: mental status grossly normal Speech and Movement: speech and movement normal Mood: congruent mood Affect: normal affect DS: Data Vitals/I&O Vitals and I&O: Vital Signs Temperature 36.5 C 11/05/19 07:10 Temperature Source Temporal Artery Scan 11/05/19 07:10 Pulse 90 11/05/19 11:20 Pulse Rhythm Regular 11/05/19 08:55 Respiratory Rate 18 11/05/19 07:10 Respiratory Effort Non-Labored 11/05/19 08:55 Respiratory Depth Normal 11/05/19 08:55 Respiratory Pattern Normal 11/05/19 08:55 Blood Pressure 160/99 H 11/05/19 07:10 Blood Pressure Position Sitting 10/29/19 23:55 Pulse Oximetry 93 L 11/05/19 11:20 Oxygen Delivery Method Nasal Cannula 11/05/19 11:20 Oxygen Flow Rate 3 11/05/19 11:20 Pain Level 8 11/05/19 10:50 Comment 11/04/19 23:40 Intake & Output 11/04/19 11/05/19 11/05/19 23:59 11:59 23:59 Intake Total 1160 / 1760 910 / 1150 240 / 1150 Output Total 1600 / 2550 495 / 620 125 / 620 Balance -440 / -790 415 / 530 115 / 530 Intake: IV 470 / 820 360 / 360 Oral 690 / 940 550 / 790 240 / 790 Output: Urine 1600 / 2550 495 / 620 125 / 620 Other: Urine Color Yellow Yellow Yellow Urine Appearance Clear Clear Clear Urine Odor None None None Stool Size Moderate Stool Characteristics Soft Brown Voiding Methods Urinal Urinal Urinal Data Completed and Pending Labs on day of discharge: Labs from last 24 hours 11/05/19 11/05/19 06:20 06:20 PT 30.1 H INR 3.1 H Sodium 137 Potassium 3.3 L Chloride 102 Carbon Dioxide 28.8 Anion Gap 6.2 BUN 25 H Creatinine 0.91 Estimated GFR/1.73 m2 >= 60.00 Glucose 115 H Calcium 8.1 L C-Reactive Protein 0.71 H PFSH Medical History (Updated 11/05/19 @ 17:03 by Enrique Sorenson) Anemia (Chronic) Hx low Hgb, but today's lab review was unexpected. Probable anemia of chronic disease .. Non-meat diet, [ ] iron suppl (concern for constipation)? [ ] stool guaic Aortic stenosis, moderate (Chronic 07/03/16) [facility] [place] ECHO EF 65%; Mod , valve area 1.33 (grad 23/mean14) (06/2016) [facility] eval 09/2017 shows worsening disease .. may need cardiac surgery. Depressive disorder (Chronic 07/14/11) Surgical History (Updated 11/05/19 @ 13:52 by Enrique Sorenson) Bronchoscopy (11/20/10) with BAL echo ([facility] pulmonolgy note 09/21/17.) Compared to the study from 06/18/16 the severity of aortic stenosis has increased and there is pulmonary hypertension. seeing cardio again in 2 wks. Extraction of cataract (08/21/10) R eye,with IOL, Dr Gary History of cardiac cath (Resolved) [place]/19 [facility] [place]-mild Pulm HTN mean PA pressure 25 and PA systolic pressure 50 normal wedge pressure 6. Right dominant circulation with mild disease in all vessels, focal anyeursm RCA 5mm Internal fixation (08/03/10) R distal femoral fx, Dr Banda, [facility] PFT'S: SEPTEMBER 2017 [facility] pulm note 09/21/17. O2 sat on RA 97% After 250 ft on RA 88% needing 2l O2. PTCA (01/27/94) rescue PTCA RCA for persistent CP with Inf DC; [facility] right heart catheterization,oximetry (01/07/18[place] [facility] [place] findings: Severe pulmonary hypertension mildly elevated pulmonary capillary wedge pressure Status post transcatheter aortic valve replacement (Acute) [facility] 03/29/19 Family History Mother , Lung Cancer at age 74. Personal history of malignant neoplasm at 74 of lung CA Father , CHF at age 86. 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
--- NOTE | 2019-11-05 15:51 | PDOC.HHF2F_ITS ---
Home Health Certification Home Health Certification: 1. Encounter Date and Reason I certify that SACHA JESUS was seen by Enrique Sorenson on 11/05/19 and that I had a [id number] encounter with this patient that meets the physician face to face encounter requirements. 2. Clinical Findings Supporting Skilled Need and Homebound Status I certify that home health services are medically necessary, include either intermittent senior care and/or physical/speech therapy, and that this stephanie ent is homebound in that absences from the home require considerable and taxing effort and are infrequent or of short duration, or are attributable to the need to receive medical care. [X] (a) Attached documentation from encounter provides clinical findings supporting skilled need and homebound status (including what assistance patient requires to leave the home). The encounter with the patient was in whole, or in part, for the following medical condition, which is the primary reason for home health care: MULTILOBAR PNEUMONIA, RT CHF, GENERALIZED ABD PAIN Correction: For medication management and monitoring of cardiopulmonary status, and wound care of chronic leg wounds Physical Therapy: Speech Therapy: Homebound: Secondary to impaired cardiopulmonary status due to chronic congestive heart failure and interstitial lung disease impairing his ability to ambulate outside his home without severe hypoxemia 3. Certification and Authentication I certify that I composed the above information based on my clinical judgement relating to this patient's medical condition and, if applicable, clinical findings communicated to me by the NPP or inpatient physician who performed the Home Health Referral. All further orders will be obtained through ___Dr. Ana Alatorre (Community Based Physician - PCP)
--- NOTE | 2019-11-06 14:53 | INDS_ITS ---
Date of service: 11/06/19 PT Notes Visit Reasons: MULTILOBAR PNEUMONIA, RT CHF, GENERALIZED ABD PAIN Physical Therapy Inpatient Discharge Summary Date: 11/06/2019 Dates of service: 11/03/2019 through 11/05/2019 Referring Doctor: Estella Portillo MD PT Orders: PT CONSULT: Limited ability Precautions: Fall. Standard. Activity as tolerated. On 4 L of oxygen per minute via NC. Patient Profile/Admitting Diagnosis: Patient is a 74-year-old male with past medical history significant for atrial fibrillation with controlled ventricular response, chronic obstructive pulmonary disease, type 2 diabetes mellitus, rheumatoid lung, and rheumatoid arthritis who presented to the ED via EMS on 10/29/2019 with chief complaints of worsening shortness of breath for the past 2 months, cough for the last few days, and mild left-sided abdominal tenderness. Patient tested negative for COVID19 as of 10/30/2019. Patient is diagnosed with pneumonia with referral to skilled physical therapy in order to facilitate safe discharge planning and return to baseline mobility level. Subjective: Patient states that significant other will pick him up from the hospital today upon discharge. He denies headache, chest pain, and dizziness. He remains mild to moderately breathless after 70 feet of level surface ambulation and stair negotiation. Objective: General Observation: Oxygen supplementation on 4 L/min via NC. Mild to moderate shortness of breath after ambulation activity and stair negotiation activity. Mental Status: Alert and oriented x4 Pain: None reported ROM: Right Upper Extremity: Shoulder Flexion allows up to 80 degrees. Shoulder abduction allows up to 80 degrees. Elbow flexion WFL. Wrist flexion WFL. Opening and closing of hand WFL. Left Upper Extremity: Shoulder Flexion allows up to 80 degrees. Shoulder abduction allows up to 80 degrees. Elbow flexion WFL. Wrist flexion WFL. Opening and closing of hand WFL. Right Lower Extremity: Hip flexion allows up to 20 degrees beyond 90 while seated on edge of chair. Hip abduction WFL. Knee flexion WFL. Knee extension -30 degrees. Ankle dorsiflexion about 5 degrees from neutral. Ankle plantarflexion WFL. Left Lower Extremity: Hip flexion allows up to 20 degrees beyond 90 while seated on edge of chair. Hip abduction WFL. Knee flexion WFL. Knee extension -30 degrees. Ankle dorsiflexion Ankle dorsiflexion about 5 degrees from neutral. Ankle plantarflexion WFL. Strength: Right Upper Extremity: Shoulder flexors 3-/5. Shoulder abductors 3-/5. Elbow f lexors 4/5. Elbow extensors 4/5. It Integration Architect strong. Left Upper Extremity: Shoulder flexors 3-/5. Shoulder abductors 3-/5. Elbow flexors 4/5. Elbow extensors 4/5. It Integration Architect strong. Right Lower Extremity: Hip flexors 3-/5. Hip abductors 4-/5. Knee flexors 4-/5. Knee extensors 5/5. Ankle dorsiflexors 2--/5. Ankle plantarflexors 3-/5. Left Lower Extremity:Hip flexors 3-/5. Hip abductors 4-/5. Knee flexors 4-/5. Knee extensors 5/5. Ankle dorsiflexors 2--/5. Ankle plantarflexors 3-/5. Sensation: Intact as to pain and pressure on bilateral lower extremities. Bed Mobility/Transfers: Sit to stand supervision using front wheeled walker on 4 L of oxygen per minute Stand to sit supervision using front wheeled walker on 4 L of oxygen per minute Bed to chair supervision using front wheeled walker on 4 L of oxygen per minute Chair to bed supervision using front wheeled walker on 4 L of oxygen per minute GAIT: Patient is able to tolerate level surface ambulation of up to 75 feet before requiring to sit down due to oxygen desaturation episode even with 5 L of oxygen per minute via NC. He requires about 2 to 3 minutes to re-saturated back to 90% each time. Step to gait pattern. Mild to moderate SOB noted. STAIRS: Patient also tolerated twelve 4-inch steps and eight 6-inch steps while holding onto lateral rails with step to gait pattern with only standby assist by PT Moderate breathlessness noted necessitating seated rest with oxygen saturation dropping down to 90% but then re-saturated back to 94% on 4 L after 3 minutes or so. Balance: Static Sitting: Normal Dynamic Sitting: Normal Static Standing: Fair Dynamic Standing: Fair Assessment: Elio demonstrates improved activity tolerance in terms of level surface ambulation with less oxygen supplementation of 4 L/min. Re-stabilization to WNL for oxgen saturation and heart rate is much improved compared to day of admission. Minimal breathlessness observed toward each end of ambulation and stair negotiation activities. He continues to need an assistive device for all level surface ambulation and requires holding onto rails for stair negotiation activities. Patient continue to present with clinical signs and symptoms consistent with current/admitting diagnoses that have resulted to mobility limitations, gait instability, generalized weakness, and impairment of motor control as demonstrated by the following impairment level findings: 1. Decreased strength to B shoulder and LE major muscle groups 2. Impaired standing balance 3. Impaired activity tolerance 4. Limitation of joint range of motion in the shoulders (chronic) Impairments continue to contribute to the following functional limitations: 1. Dependent bed mobility skills 2. Increased dependence with transfers 3. Inability to safely ambulate without assistive device and physical assistance 4. Increase completion time for mobility ADL performance 5. Increased fall risk 6. Inability to negotiate steps alone safely Goals: Goals X1 week 1. Supine-Sit independent NOT MET 2. Sit-Supine independent NOT MET 3. Sit-Stand independent NOT MET 4. Stand-Sit independent NOT MET 5. Bed-Chair independent NOT MET 6. Chair-Bed independent NOT MET 7. Independent gait on level surface with use of least restrictive device for at least 300 feet without report of pain nor dyspnea NOT MET 8. Independent stair negotiation while holding onto bilateral rails for at least 10 steps without report of pain nor dyspnea NOT MET 9. Independent with home exercise program NOT MET 10. Good static and dynamic standing balance/tolerance NOT MET DISCHARGE RECOMMENDATIONS: Patient will benefit from home health PT services in order to progress mobility level using least restrictive assistive ambulatory device, assess home safety, identify additional equipment needs, and establish a functional maintenance program that will increase ability of patient to remain at home. TREATMENT CODE/TIME: 23233 x 29 minutes beginning at 8:45 AM. Thank you very much for this referral. Shayy Montoya PT, DPT, CLT [facility] [place], [place]
== END 2019-11-05 16:15 | disposition home health service (06) | DRG 193 ==
LOC: ER 10-30 02:47 → MS 10-30 03:29
PROVIDERS: Internal Medicine; Nurse Practitioner Family; Admitting Provider Family Medicine; Emergency Provider Emergency Medicine; PCP Student in an Organized Health Care Education/Training Program; Visit Provider Internal Medicine
DX: J18.1 Lobar pneumonia, unspecified organism (principal); J96.21 Acute and chronic respiratory failure with hypoxia; I50.43 Acute on chronic combined systolic (congestive) and diastolic (congestive) heart failure; I48.20 Chronic atrial fibrillation, unspecified; Z68.42 Body mass index [BMI] 45.0-49.9, adult; M05.10 Rheumatoid lung disease with rheumatoid arthritis of unspecified site; J84.112 Idiopathic pulmonary fibrosis; E87.6 Hypokalemia; J44.9 Chronic obstructive pulmonary disease, unspecified; G47.33 Obstructive sleep apnea (adult) (pediatric); G47.34 Idiopathic sleep related nonobstructive alveolar hypoventilation; I27.22 Pulmonary hypertension due to left heart disease; I27.23 Pulmonary hypertension due to lung diseases and hypoxia; Z95.3 Presence of xenogenic heart valve; E11.65 Type 2 diabetes mellitus with hyperglycemia; I08.1 Rheumatic disorders of both mitral and tricuspid valves; Z79.84 Long term (current) use of oral hypoglycemic drugs; Z79.01 Long term (current) use of anticoagulants; Z99.89 Dependence on other enabling machines and devices; Z71.89 Other specified counseling; Z79.52 Long term (current) use of systemic steroids; Z79.899 Other long term (current) drug therapy; Z11.59 Encounter for screening for other viral diseases; Z66 Do not resuscitate; Z71.3 Dietary counseling and surveillance; E66.01 Morbid (severe) obesity due to excess calories
CPT/HCPCS: 36415; 71275; 74177; 80048; 80053; 82805; 82947; 84145; 85027; 87040; 87449; 93005; 93306; 94640; 96365; 96366; 96375; 97530; 99223; 99232; 99233; 99239; 99254; 99285; NC; U0003; 36600; 71045; 71046; 80202; 82728; 83605; 83615; 83735; 83880; 84443; 84484; 85025; 85610; 85730; 86140; 93010; 93970; J1720; J1956; J2930; J3370; J3470; J3490; J7512; J7620

== ENCOUNTER 2019-11-08 13:07 | Outpatient (REF) | payer MEDICARE, SELFPAY ==
[2019-11-08 14:42] LABS: Anion Gap 10.1 mmol/L (3-11); BUN 19 mg/dL (7-18); CO2 27.9 mmol/L (21.0-32.0); CREATININE 1.07 mg/dL (0.70-1.30); Chloride 98 mmol/L (98-107); Glucose 231 mg/dL (74-106); Potassium 4.5 mmol/L (3.5-5.1); Sodium 136 mmol/L (136-145)
[2019-11-08 15:07] LABS: INR 2.6 (0.9-1.1); Prothrombin Time 25.7 sec (9.3-11.0)
== END 2019-11-08 13:27 ==
LOC: LBN 13:07
PROVIDERS: PCP Student in an Organized Health Care Education/Training Program; Visit Provider Student in an Organized Health Care Education/Training Program
DX: I50.43 Acute on chronic combined systolic (congestive) and diastolic (congestive) heart failure (principal); Z79.01 Long term (current) use of anticoagulants; E11.622 Type 2 diabetes mellitus with other skin ulcer; J18.9 Pneumonia, unspecified organism
CPT/HCPCS: 80048; 85610

== ENCOUNTER 2019-11-13 01:40 | Outpatient (CLI) | payer MEDICARE, SELFPAY ==
--- NOTE | 2019-11-13 07:15 | DI.RAD_ITS ---
EXAM: XR CHEST 2V PA LATERAL CLINICAL HISTORY: follow up pneumonia TECHNIQUE: COMPARISON: CR CHEST 2 VIEWS PA,LAT from 08/15/2015 CR XR CHEST 2V PA LATERAL from 07/27/2018 CR XR PORTABLE CHEST AP from 11/01/2019 CR,XR XR CHEST 2V PA LATERAL from 11/05/2019 FINDINGS: Heart is enlarged. There appear to be chronic changes of COPD and pulmonary scarring. Comparison wi th prior chest film of 08/15/2015 shows diffuse increased prominence of markings since that time. Co mparison with more recent chest films of October 31 and November 04 show probable interval improvement in comparison with examination of November 04 in suspected multifocal pneumonia. No new consolidation. No pleural effusion. Aortic valve graft again noted. IMPRESSION: Interval improvement in presumed multifocal pneumonia since most recent film of November 04. Persistent chronic intrapulmonary changes noted. Cardiomegaly noted.
== END 2019-11-13 02:00 ==
PROVIDERS: PCP Student in an Organized Health Care Education/Training Program; Visit Provider Internal Medicine
DX: J18.9 Pneumonia, unspecified organism (principal); I51.7 Cardiomegaly; J44.9 Chronic obstructive pulmonary disease, unspecified
CPT/HCPCS: 71046

== ENCOUNTER 2019-11-29 02:20 | Outpatient (RCR) | payer MEDICARE, SELFPAY ==
[2019-11-29] VITALS (8 sets, daily range): BP systolic 107–153; BP diastolic 63–88; PULSE 78–88; RESP 18–19; TEMP 36–36.4; O2SAT 4–100
[2019-11-29] MEDS: diphenhydrAMINE 25 MG CAP PO (11:08)
[2019-11-29] MEDS: Acetaminophen 325 MG TAB 650 MG PO (11:11)
[2019-11-29] MEDS: Normal Saline Flush 10 ML SYR IVP (11:27)
== END 2019-12-03 23:59 | disposition home or self-care (01) ==
LOC: INF 02:20
PROVIDERS: PCP Student in an Organized Health Care Education/Training Program; Visit Provider Internal Medicine
DX: M06.9 Rheumatoid arthritis, unspecified (principal)
CPT/HCPCS: 96365; 96366; 96413; 96415; J1745

== ENCOUNTER 2019-12-18 12:40 | Outpatient (REF) | payer MEDICARE, SELFPAY ==
[2019-12-18 13:19] LABS: Abs Immature Grans 0.08 k/cumm (0.0-0.09); Absolute Basophil Count 0.03 k/cumm (0.0-0.2); Absolute Monocyte Count 0.64 k/cumm (0.11-0.7); Absolute Neutrophil Count 11.61 k/cumm (1.2-6.7); Basophils % 0.2; Eosinophils % 1.4; HGB 13.5 g/dL (13.5-17.5); Immature Grans % 0.6 %; Lymphocytes % 10.3; Mean Corp. HGB Concentration 32.9 g/dL (32.0-36.0); Mean Corpuscular Hemoglobin 31.5 pg (27.0-33.0); Mean Corpuscular Volume 95.8 fL (80-95); Mean Platelet Volume 10.1 fL (8.0-11.0); Monocytes % 4.6; Neutrophils % 82.9; Platelet Count 200 x1000/uL (130-400); RBC 4.28 m/cumm (4.50-6.00); RBC Distribution Width 14.6 % (11.8-14.1); White Blood Cell Count 14.01 k/cumm (4.4-10.8)
[2019-12-18 13:20] LABS: Absolute Lymphocyte Count 1.44 k/cumm (1.2-3.4)
[2019-12-18 13:27] LABS: Anion Gap 13.8 mmol/L (3-11); BUN 23 mg/dL (7-18); CO2 25.2 mmol/L (21.0-32.0); CREATININE 1.23 mg/dL (0.70-1.30); Calcium 8.8 mg/dL (8.5-10.1); Chloride 97 mmol/L (98-107); Estimated GFR 57.52 (mL/min/1.73m2); Glucose 220 mg/dL (74-106); Sodium 136 mmol/L (136-145)
== END 2019-12-18 13:00 ==
LOC: LBN 12:40
PROVIDERS: PCP Student in an Organized Health Care Education/Training Program; Visit Provider Student in an Organized Health Care Education/Training Program
DX: E11.65 Type 2 diabetes mellitus with hyperglycemia (principal); J18.9 Pneumonia, unspecified organism; J44.0 Chronic obstructive pulmonary disease with (acute) lower respiratory infection
CPT/HCPCS: 80048; 85025

== ENCOUNTER 2020-01-09 01:17 | Outpatient (RCR) | payer MEDICARE, SELFPAY ==
[2020-01-09] VITALS (7 sets, daily range): BP systolic 144–163; BP diastolic 67–90; PULSE 73–90; RESP 18–20; TEMP 35.8–36.2; O2SAT 95–100
[2020-01-09] MEDS: Normal Saline Flush 10 ML SYR IVP ×2 (09:08→10:07)
== END 2020-02-02 23:59 | disposition home or self-care (01) ==
LOC: INF 01:17
PROVIDERS: PCP Student in an Organized Health Care Education/Training Program; Visit Provider Internal Medicine
DX: M06.9 Rheumatoid arthritis, unspecified (principal)
CPT/HCPCS: 96365; 96366; J1745

== ENCOUNTER 2020-02-13 01:42 | Outpatient (RCR) | payer MEDICARE, SELFPAY ==
[2020-02-13] VITALS (7 sets, daily range): BP systolic 139–190; BP diastolic 50–90; PULSE 72–95; RESP 18–22; TEMP 35.7–36.2; O2SAT 94–98
[2020-02-13 09:32] LABS: HCT 38.5 % (40.0-50.0); HGB 12.5 g/dL (13.5-17.5); MCH 32.2 pg (27.0-33.0); MCHC 32.5 % (32.0-36.0); MCV 99.2 fL (80-95); MPV 10.1 fL (8.0-11.0); Platelet Count 207 10^3/uL (130-400); RBC 3.88 10^6/uL (4.36-5.78); RDW 14.8 % (11.8-14.1); RDW-SD 53.7 fL; WBC 11.95 10^3/uL (4.4-10.8)
[2020-02-13] MEDS: diphenhydrAMINE 25 MG CAP PO (09:33)
[2020-02-13] MEDS: Normal Saline Flush 10 ML SYR IVP (09:33)
[2020-02-13 09:41] LABS: Anion Gap 10.3 mmol/L (3-11); BUN 20 mg/dL (7-18); CO2 25.7 mmol/L (21.0-32.0); CREATININE 1.06 mg/dL (0.70-1.30); Calcium 8.6 mg/dL (8.5-10.1); Chloride 100 mmol/L (98-107); Glucose 175 mg/dL (74-106); Magnesium 1.9 mg/dL (1.8-2.4); Potassium 4.5 mmol/L (3.5-5.1); Sodium 136 mmol/L (136-145)
[2020-02-13 09:46] LABS: INR 2.4 (0.9-1.1)
[2020-02-13 09:48] LABS: Hemoglobin A1C 8.2 % (3.8-5.6)
== END 2020-03-04 23:59 | disposition home or self-care (01) ==
LOC: INF 01:42
PROVIDERS: PCP Student in an Organized Health Care Education/Training Program; Visit Provider Internal Medicine
DX: M06.9 Rheumatoid arthritis, unspecified (principal); J44.9 Chronic obstructive pulmonary disease, unspecified; Z79.899 Other long term (current) drug therapy; I48.91 Unspecified atrial fibrillation; T50.2X5A Adverse effect of carbonic-anhydrase inhibitors, benzothiadiazides and other diuretics, initial encounter; E87.8 Other disorders of electrolyte and fluid balance, not elsewhere classified; E11.9 Type 2 diabetes mellitus without complications; Z79.52 Long term (current) use of systemic steroids; Z99.81 Dependence on supplemental oxygen
CPT/HCPCS: 36415; 80048; 85027; 96365; 96366; 83036; 83735; 85610; J1745

== ENCOUNTER 2020-03-02 18:46 | Inpatient (IN) | payer MEDICARE, SELFPAY ==
[2020-03-02] VITALS (49 sets, daily range): BP systolic 99–142; BP diastolic 56–93; PULSE 75–134; RESP 11–33; TEMP 36.6; O2SAT 82–99
--- NOTE | 2020-03-02 18:45 | DI.RAD_ITS ---
EXAM: XR PORTABLE CHEST AP CLINICAL HISTORY: sob, cough TECHNIQUE: 2D digital imaging was performed. COMPARISON: CR XR PORTABLE CHEST AP from 11/01/2019 FINDINGS: MEDIASTINUM: Normal. HEART: Aortic valve replacement. No cardiomegaly. PULMONARY VASCULATURE: Normal. LUNGS: Patchy opacities in the lung bases left greater than right. Very low lung volumes are present . PLEURAL SPACE: No pleural effusion or pneumothorax. BONE:Marked degenerative changes in the shoulders bilaterally. OTHER FINDINGS:Normal. IMPRESSION: Bilateral patchy opacities which may represent atelectasis, aspiration or pneumonia. Very low lung volumes. DATA REPOSITORY: RADIATION DOSE DELIVERED:
--- NOTE | 2020-03-02 18:45 | RT.EKG_ITS ---
APPROVED REPORT Exam: Resting ECG Patient Location: E HR:107 bpm ECG Measurements Heart Rate 107 AXIS ME [id number] P [id number] QRSd 135 QRS 27 QT 341 T 194 QTc 455 Conclusion Atrial fibrillation...V-rate 79-126, irreg A-activity Left bundle branch block...QRSd>120, broad/notched R
--- NOTE | 2020-03-02 19:35 | ED.GENADUL_ITS ---
Discharge Plan Disposition Patient Disposition: [facility] INPATIENT Condition: Serious Discharge Details Chief Complaint: SOB Clinical Impression: Pneumonia, Atrial fibrillation, COPD (chronic obstructive pulmonary disease) Admit Date/Time: 03/02/20 22:18 Admit Provider: Arcadio Laguerre Attending Provider: Arcadio Laguerre Primary Care Provider: Ana Alatorre ED Provider: Tio Dai Discharge Data Discharge Date/Time-TO BE ENTERED AT DEPARTURE: 03/02/20 23:58 Medical Decision Making <Vladimir Tovar MD - Last Filed: 03/03/20 16:00> 1954??74-year-old male with multiple medical problems including history of CHF, COPD, coronary artery disease, atrial fibrillation, pulmonary hypertension, recent pneumonia on antibiotics, here generally not feeling well with shortness of breath. Patient hypoxic off CPAP. CPAP was applied by EMS and oxygen saturation improved. He was transitioned here to BiPAP and notes she is feeling better. Patient has multiple medical problems. I am worried about persistent, worsening pneumonia. Consider COVID-19. Patient PUI for respiratory illness. Will obtain chest x-ray. ECG reviewed interpreted by me: Please see report, atrial fibrillation with rapid ventricular response 107, left bundle branch block, appropriately discconcordant. Consider acute CHF exacerbation. Will check troponin and BNP. Consider COPD exacerbation. Plan to treat with albuterol and Solu-Medrol. Continue BiPAP. RT evaluating. --Labs reviewed: Lactic acidosis noted. Significant leukocytosis noted. BNP not significantly elevated. Troponin negative. 21:00 --care signed out to Dr. Dai with plan to follow-up on chest x-ray, labs including VBG and PT/INR. Reassess patient for disposition. Patient receiving 500 mL fluid bolus given elevated lactate. Additional IVF may be necessary if he tolerates this. Gentamicin and Levaquin IV have been ordered for pneumonia. Of note patient has anaphylactic reaction to penicillin listed in medical record. <Tio Dai MD - Last Filed: 03/03/20 01:23> Patient had presented with increasing shortness of breath. Initially seen by Dr. Vladimir Tovar, please see his note. Patient remained stable in the ED. His chest x-ray appears similar to x-ray from this spring when he was thought to have multi lobar pneumonia. He is therapeutic on his Coumadin and unlikely has PE. Despite his lactic acidosis on initial presentation his VBG done about 90 minutes later shows a normal pH at 7.4. PCO2 was 44. Case is discussed with hospitalist. Patient is DNR DNI. However, given his illness and need for rescue BiPAP will put in ICU at least overnight. Lab Data Lab results reviewed: Yes I reviewed the patient's lab results. HPI <Vladimir Tovar MD - Last Filed: 03/03/20 16:00> General Mode of arrival: ambulatory . Date/Time Provider Initiated Documentation: 03/02/20 18:46 . Limitations to Documentation: no limitations . Information obtained by: patient . HPI Narrative: 74-year-old male with multiple medical problems including history of aortic stenosis, congestive heart failure, pulmonary hypertension, obstructive sleep apnea, diabetes, atrial fibrillation, coronary artery disease, multiple other medical problems, recently diagnosed with pneumonia and being treated with doxycycline, here with chief complaint of generally not feeling well. Symptoms are moderate. Worsening today. No modifiers. Patient notes that he has felt short of breath. He has had continued cough despite 5 days of antibiotics. No fever. But has had some diaphoresis. No chest pain. No worsening leg swelling. Chronic leg pain. Related Data Home Medications Medication Instructions Recorded Confirmed Oxygen 09/23/17 02/24/20 POrtable Oxygen Compressor #1 ea 12/02/18 02/24/20 omeprazole 20 mg capsule,delayed 20 mg PO BID #60 tab-cap 03/05/19 02/24/20 release infliximab 100 mg intravenous 800 mg IV q5w vial 04/05/19 02/24/20 solution albuterol sulfate 90 mcg/actuation 2 inh IH Q6H PRN #1 each 04/06/19 02/24/20 breath activated powder inhaler fluticasone 250 mcg-salmeterol 50 1 inh IH BID 05/10/19 02/24/20 mcg/dose blistr powdr for inhalation naloxone 4 mg/actuation nasal spray 4 mg NS PRN PRN #1 unit 05/23/19 02/24/20 pramipexole 0.125 mg tablet 0.125 mg PO HS #90 tab-cap 08/02/19 03/02/20 umeclidinium 62.5 mcg/actuation 1 inh IH DAILY 08/02/19 02/24/20 blister powder for inhalation aspirin 81 mg tablet,delayed 81 mg PO DAILY #100 tab 03/16/20 08/29/20 release multivitamin-ferrous 1 tab PO DAILY #90 tab 10/17/19 02/24/20 fumarate-folic acid 18 mg-400 mcg tablet furosemide 40 mg PO BID DIURETIC #60 tab NS 11/05/19 02/24/20 nitroglycerin [Nitrostat] 0.4 mg SUBLINGUAL Q5 MIN PRN X3 11/05/19 02/24/20 PRN #90 tab potassium chloride [Klor-Con M20] 20 meq PO BID #60 tab 11/05/19 02/24/20 warfarin 1 mg PO HS #90 tab 11/05/19 03/02/20 prednisone 10 mg tablet 20 mg PO DAILY 60 Days #180 tab 11/08/19 03/02/20 pen needle, diabetic 31 gauge x #90 each 11/23/19 02/24/2009/17 lancets 28 gauge #100 each 12/08/19 02/24/20 blood sugar diagnostic #400 each 12/29/19 02/24/20 clonazepam 1 mg tablet 0.5 mg PO BID #28 tab MDD 1 01/03/20 03/02/20 spironolactone 25 mg tablet 25 mg PO DAILY #90 tab 01/04/20 02/24/20 morphine 15 mg tablet,extended 15 mg PO Q12H #56 tab MDD 30 01/05/20 03/02/20 release morphine 15 mg tablet,extended 15 mg PO Q12H #56 tab MDD 30 mg 01/05/20 02/24/20 release morphine 15 mg tablet,extended 15 mg PO Q12H #56 tab MDD 30mg 01/05/20 02/24/20 release magnesium oxide 400 mg PO DAILY #90 tab-cap 01/06/20 03/02/20 atorvastatin 80 mg tablet 80 mg PO DAILY #90 tab-cap 01/09/20 03/02/20 oxycodone-acetaminophen 5 mg-325 1 tab PO Q4H PRN #140 tab MDD 6 01/10/20 03/02/20 mg tablet insulin degludec 100 unit/mL (3 15 unit SC DAILY #60 ml MDD 50 02/15/20 02/24/20 mL) subcutaneous pen metformin 500 mg tablet 1,000 mg PO BID #360 tab-cap 02/15/20 03/02/20 lisinopril 10 mg tablet 5 mg PO DAILY #90 tab 02/16/20 03/02/20 metoprolol succinate 100 mg 100 mg PO DAILY #90 tab 02/19/20 03/02/20 tablet,extended release 24 hr Previous Rx's Medication Instructions Recorded POrtable Oxygen Compressor #1 ea 12/02/18 omeprazole 20 mg capsule,delayed 20 mg PO BID #60 tab-cap 03/05/19 release albuterol sulfate 90 mcg/actuation 2 inh IH Q6H PRN #1 each 04/06/19 breath activated powder inhaler naloxone 4 mg/actuation nasal spray 4 mg NS PRN PRN #1 unit 05/23/19 pramipexole 0.125 mg tablet 0.125 mg PO HS #90 tab-cap 08/02/19 aspirin 81 mg tablet,delayed 81 mg PO DAILY #100 tab 09/18/19 release multivitamin-ferrous 1 tab PO DAILY #90 tab 10/17/19 fumarate-folic acid 18 mg-400 mcg tablet furosemide 40 mg PO BID DIURETIC #60 tab NS 11/05/19 nitroglycerin [Nitrostat] 0.4 mg SUBLINGUAL Q5 MIN PRN X3 11/05/19 PRN #90 tab potassium chloride [Klor-Con M20] 20 meq PO BID #60 tab 11/05/19 warfarin 1 mg PO HS #90 tab 11/05/19 prednisone 10 mg tablet 20 mg PO DAILY 60 Days #180 tab 11/08/19 pen needle, diabetic 31 gauge x #90 each 11/23/1909/17 lancets 28 gauge #100 each 12/08/19 blood sugar diagnostic #400 each 12/29/19 clonazepam 1 mg tablet 0.5 mg PO BID #28 tab MDD 1 01/03/20 spironolactone 25 mg tablet 25 mg PO DAILY #90 tab 01/04/20 morphine 15 mg tablet,extended 15 mg PO Q12H #56 tab MDD 30 01/05/20 release morphine 15 mg tablet,extended 15 mg PO Q12H #56 tab MDD 30 mg 01/05/20 release morphine 15 mg tablet,extended 15 mg PO Q12H #56 tab MDD 30mg 01/05/20 release magnesium oxide 400 mg PO DAILY #90 tab-cap 01/06/20 atorvastatin 80 mg tablet 80 mg PO DAILY #90 tab-cap 01/09/20 oxycodone-acetaminophen 5 mg-325 1 tab PO Q4H PRN #140 tab MDD 6 01/10/20 mg tablet insulin degludec 100 unit/mL (3 15 unit SC DAILY #60 ml MDD 50 02/15/20 mL) subcutaneous pen metformin 500 mg tablet 1,000 mg PO BID #360 tab-cap 02/15/20 lisinopril 10 mg tablet 5 mg PO DAILY #90 tab 02/16/20 metoprolol succinate 100 mg 100 mg PO DAILY #90 tab 02/19/20 tablet,extended release 24 hr Allergies Allergy/AdvReac Type Severity Reaction Status Date / Time adalimumab Allergy Severe unknown Verified 03/02/20 22:45 Penicillins Allergy Severe Anaphylaxsi Verified 03/02/20 22:45 s General Stated Complaint: SOB LINDSEY: 2 Review of Systems <Vladimir Tovar MD - Last Filed: 03/03/20 16:00> All systems reviewed & are unremarkable except as noted in HPI and below Constitutional Constitutional: Reports as per HPI Cardiovascular Cardiovascular: Denies chest pain Respiratory Respiratory: Reports as per HPI PFSH <Vladimir Tovar MD - Last Filed: 03/03/20 16:00> Medical History Anemia (Chronic) Hx low Hgb, but today's lab review was unexpected. Probable anemia of chronic disease .. Non-meat diet, [ ] iron suppl (concern for constipation)? [ ] stool guaic Aortic stenosis, moderate (Chronic 07/03/16) [facility] ECHO EF 65%; Mod , valve area 1.33 (grad 23/mean14) (06/2016) [facility] eval 09/2017 shows worsening disease .. may need cardiac surgery. Depressive disorder (Chronic 07/14/11) Surgical History Bronchoscopy (11/20/10) with BAL echo ([facility] pulmonolgy note 09/21/17.) Compared to the study from 06/18/16 the severity of aortic stenosis has increased and there is pulmonary hypertension. seeing cardio again in 2 wks. Extraction of cataract (08/21/10) R eye,with IOL, Dr Gary History of cardiac cath (Resolved) [place] [facility] [place] cath-mild Pulm HTN mean PA pressure 25 and PA systolic pressure 50 normal wedge pressure 6. Right dominant circulation with mild disease in all vessels, focal anyeursm RCA 5mm Internal fixation (08/03/10) R distal femoral fx, Dr Banda, [facility] PFT'S: SEPTEMBER 2017 [facility] pulm note 09/21/17. O2 sat on RA 97% After 250 ft on RA 88% needing 2l O2. PTCA (01/27/94) rescue PTCA RCA for persistent CP with Inf [place]; [facility] right heart catheterization,oximetry (01/07/18) [facility] [place].Corey Griffin MD findings: Severe pulmonary hypertension mildly elevated pulmonary capillary wedge pressure Status post transcatheter aortic valve replacement (Acute) [facility] 03/29/19 Family History Mother , Lung Cancer at age 74. Personal history of malignant neoplasm at 74 of lung CA Father , CHF at age 86. 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 Retired. 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 Exam <Vladimir Tovar MD - Last Filed: 03/03/20 16:00> Const General: well developed and other (On BiPAP) Orientation: alert and awake HENMT Mouth: moist mucous membranes Eyes Conjunctivae: normal conjunctivae Sclera: normal sclerae Neck Neck: trachea midline and supple Resp Effort & Inspection: respiratory distress and tachypneic Auscultation: diminished lung sounds on the left, rales and rhonchi Cardio Rate: tachycardic Rhythm: regular rhythm Heart Sounds: S1 normal and S2 normal GI Palpation: soft, not firm, no guarding, no masses, not rigid and nontender Skin General skin exam: no rashes or lesions noted Neuro General: patient alert, patient awake, patient oriented x3 and tone normal Extrem General: calf tenderness bilaterally (Patient notes chronic) and edema Laterality: bilateral Psych Appearance: grossly normal Mental Status: mental status grossly normal Speech and Movement: speech and movement normal Course <Vladimir Tovar MD - Last Filed: 03/03/20 16:00> Vital Signs Vital signs: Vital Signs Temperature 36.6 C 03/02/20 18:54 Pulse 108 H 03/02/20 18:54 Respiratory Rate 12 03/02/20 18:54 Blood Pressure 130/56 L 03/02/20 18:54 Pulse Oximetry 95 03/02/20 18:54 Temperature 36.6 C 03/02/20 18:54 Temperature Source Temporal Artery Scan 03/02/20 18:54 Pulse 108 H 03/02/20 18:54 Respiratory Rate 12 03/02/20 18:54 Respiratory Effort Non-Labored 03/02/20 19:06 Blood Pressure 130/56 L 03/02/20 18:54 Pulse Oximetry 95 03/02/20 18:54 Oxygen Delivery Method Bi-pap 03/02/20 18:54 Lab/Test Results Lab/Test Results: 03/02/20 18:47 Blood Blood Culture - Pending 03/02/20 18:47 Blood Blood Culture - Pending Critical Care Time <Vladimir Tovar MD - Last Filed: 03/03/20 16:00> Critical Care Time Critical Care Time: Yes Total Critical Care Time: 45 Attestation: I spent greater than 45 minutes addressing this patient's immediate life threats. Please see MDM section of note. This time was spent engaged in work directly related to the patient's care, exclusive of separate procedures, and failure to initiate these interventions would have likely resulted in clinically significant or life threatening deterioration in the patient's condition. Sign Out <Vladimir Tovar MD - Last Filed: 03/03/20 16:00> Sign Out Data: Sign Out Comment: Care signed out to Dr. Dai. Please see my documentation regarding initial ED presentation and course. Plan at signout is to follow-up on chest x-ray, VBG, PT/INR, and other pending labs. Consider need for CTA. Gentamicin and Levaquin have been ordered to treat presumed worsening pneumonia. Last updated by Vladimir Tovar MD at 03/02/20 21:11
[2020-03-02 20:07] LABS: Lactate 4.8 mmol/L (0.6-1.4)
[2020-03-02 20:24] LABS: Abs Immature Grans 0.16 10^3/uL (0.0-0.06); Absolute Eosinophil Count 0.24 10^3/uL (0.0-0.7); Absolute Lymphocyte Count 1.41 10^3/uL (1.2-3.4); Absolute Neutrophil Count 16.87 10^3/uL (1.2-6.7); Basophils % 0.4; Eosinophils % 1.2; HCT 38.4 % (40.0-50.0); HGB 12.8 g/dL (13.5-17.5); Immature Grans % 0.8; Lymphocytes % 7.1; MCH 32.4 pg (27.0-33.0); MCHC 33.3 % (32.0-36.0); MCV 97.2 fL (80-95); MPV 10.2 fL (8.0-11.0); Monocytes % 5.5; Nucleated RBC 0 %; Platelet Count 165 10^3/uL (130-400); RBC 3.95 10^6/uL (4.36-5.78); RDW 14.5 % (11.8-14.1); RDW-SD 52.2 fL; WBC 19.85 10^3/uL (4.4-10.8)
[2020-03-02 20:39] LABS: Absolute Basophil Count 0.08 10^3/uL (0.0-0.2); Absolute Monocyte Count 1.09 10^3/uL (0.1-0.8)
[2020-03-02 20:43] LABS: ALT 39 U/L (16-63); AST 29 U/L (15-37); Albumin 3.4 g/dL (3.4-5.0); Alkaline Phosphatase 70 U/L (46-116); Anion Gap 12.9 mmol/L (3-11); BUN 25 mg/dL (7-18); Bilirubin, Total 0.6 mg/dL (0.2-1.0); CO2 26.1 mmol/L (21.0-32.0); CREATININE 1.35 mg/dL (0.70-1.30); Calcium 8.9 mg/dL (8.5-10.1); Chloride 95 mmol/L (98-107); Estimated GFR 51.66 (mL/min/1.73m2); Glucose 263 mg/dL (74-106); NT-proBNP 571 pg/mL (<300); Potassium 4.3 mmol/L (3.5-5.1); Sodium 134 mmol/L (136-145); Total Protein 7.1 g/dL (6.4-8.2)
[2020-03-02 20:48] LABS: Troponin I < 0.05 ng/mL (<0.06)
[2020-03-02] MEDS: methylPREDNISolone SUCC 125 MG VIAL IVP (20:55)
[2020-03-02] MEDS: Normal Saline 500 ML IV (21:10)
--- NOTE | 2020-03-02 21:20 | DI.VRAD_ITS ---
PROCEDURE INFORMATION: Exam: XR Chest, 1 View Exam date and time: 03/02/2020 21:04 Age: 74 years old Clinical indication: Cough and shortness of breath; Patient HX: SOB, cough TECHNIQUE: Imaging protocol: XR of the chest Views: 1 view. COMPARISON: CR XR CHEST 2V PA LATERAL 11/13/2019 10:44 FINDINGS: Lungs: Very low lung volumes with persistent patchy opacities left greater than right lung base. Pleural space: No significant pleural effusion. No pneumothorax. Heart/Mediastinum: Prosthetic aortic valve in the expected position. Atherosclerosis. Bones/joints: Marked degenerative changes in the shoulders right greater than left. No displaced fracture. IMPRESSION: Very low lung volumes with persistent patchy opacities left greater than right lung base. Atelectasis, aspiration or pneumonia could have this appearance. Dictated and Authenticated by: Sari Olivas MD. Ordering:EDITH Gilbert MD
[2020-03-02 21:23] LABS: INR 2.2 (0.9-1.1); Prothrombin Time 21.9 sec (9.3-11.0)
[2020-03-02] MEDS: levoFLOXacin 750 MG/150 ML BAG 100 MG IVPB (22:03)
[2020-03-02 22:32] LABS: BE (Venous) 3 mmol/L (-2-3); HCO3 (Venous) 28 mmol/L (23-28); O2 Sat (Venous) 87 %; TCO2 (Venous) 25 mmol/L (24-29); pCO2 (Venous) 44 mmHg (41-51); pO2 (Venous) 55 mmHg
--- NOTE | 2020-03-02 23:21 | NUR.NOTE ---
Nursing Note: Clonazepam 1 mg PO May use patients own [id number]. VVO Dr. Dai to Myrna Lisa RN
--- NOTE | 2020-03-02 23:26 | NUR.NOTE ---
Nursing Note: Patient wants to go home states he is claustrophobic let him know he was going to the ICU so would be able to see out and girlfriend could come visit. Was given his PM Clonazepam. Admitting doctor in to see patient.
--- NOTE | 2020-03-02 23:51 | W.PM.HP.N ---
Date of service: 03/02/20 Time of Service: 23:51 Assessment and Plan Assessment and plan (1) Pneumonia: Status: Acute Assessment and plan: Patient has been diagnosed with a multifocal pneumonia, given his history is imaging is difficult to interpret. I do think it prudent to cover broad-spectrum given his abnormal lungs, and would include Pseudomonas. Looking back in his last admission, he tolerated cefepime despite his allergy and improved on this as well as vancomycin. Given his history and going to change his antibiotics to this regimen. Sputum and blood cultures have been ordered. Episode shaking chills does raise concern for bacteremia, and his elevated white blood cell count and lactate suggest possible early sepsis. I do not appreciate wheezing, but given his chronic steroid use and risk for adrenal insufficiency, I will treat him with hydrocortisone. Qualifiers: Pneumonia type: due to unspecified organism Laterality: bilateral Lung location: unspecified part of lung Qualified Code(s): J18.9 - Pneumonia, unspecified organism (2) Acute and chronic respiratory failure with hypoxia: Status: Resolved Assessment and plan: As above apparent pneumonia on top of his chronic pulmonary fibrotic disease, COPD, and obstructive sleep apnea. He has been evaluated by respiratory and is on BiPAP and tolerated it well. He will be made to the ICU for close respiratory monitoring. (3) Acute on chronic combined systolic and diastolic CHF (congestive heart failure): Status: Resolved Assessment and plan: His BNP and chest x-ray and clinical picture do not suggest active CHF. Continue to monitor. (4) Anemia: Status: Chronic Assessment and plan: Mild, not different than baseline. Presumed anemia of chronic disease. (5) Type 2 diabetes mellitus with hyperglycemia: Status: Chronic Assessment and plan: On long-acting insulin and metformin as an outpatient. Hemoglobin A1c was 8.2 on February 12. We will continue long-acting insulin and moderate dose sliding scale. May need increased dose of basal insulin with steroid use. Qualifiers: Diabetes mellitus fpc insulin use: with terminal system operator use Qualified Code(s): E11.65 - Type 2 diabetes mellitus with hyperglycemia; Z79.4 - terminologist (current) use of insulin (6) Essential hypertension: Status: Chronic Assessment and plan: We will continue outpatient blood pressure medication as long as his blood pressure remained stable. (7) Claustrophobia: Status: Chronic Assessment and plan: Is requested his [place] as needed, and I will write for this. (8) Rheumatoid arthritis: Status: Chronic Assessment and plan: No active disease. He is getting Remicade infusions every 6 weeks. He is also on chronic steroids. Qualifiers: Rheumatoid arthritis location: multiple sites Rheumatoid factor presence: with rheumatoid factor Qualified Code(s): M05.79 - Rheumatoid arthritis with rheumatoid factor of multiple sites without organ or systems involvement (9) Atrial fibrillation: Status: Chronic Assessment and plan: And chronic A. fib. Pulses to get a little high when he exerts himself, but he is not taking all his medications today. We will continue to monitor. His INR is therapeutic and will continue his outpatient warfarin dosing and he does not need additional DVT prophylaxis.. (10) COPD (chronic obstructive pulmonary disease): Status: Chronic Assessment and plan: As above, treating with steroids given risk of adrenal insufficiency. Continue outpatient inhalers. Qualifiers: COPD type: COPD with acute lower respiratory infection Qualified Code(s): J44.0 - Chronic obstructive pulmonary disease with (acute) lower respiratory infection (11) Chronic pain: Status: Chronic Assessment and plan: Continue outpatient opioid regimen. Qualifiers: Chronic pain type: chronic pain syndrome Qualified Code(s): G89.4 - Chronic pain syndrome (12) Palliative care patient: Status: Acute Assessment and plan: We will do continuity consult with palliative care. Did confirm he is DNR/DNI. History of Present Illness History of Present Illness Chief Complaint: Shaking chills Narrative: 74-year-old man with history of chronic respiratory failure secondary to COPD, rheumatic lung disease with pulmonary fibrosis, and CHF, as well as atrial fibrillation on warfarin, rheumatoid arthritis on chronic steroids, and aortic stenosis status post TAVR who was brought to the emergency room after an episode of shaking chills that occurred around 4 PM today. States he felt about his baseline until this afternoon, though he does state he has had an intermittent cough and sputum production over the past several days it is not much different than his baseline. He felt a cold sweat and shaking, associated with some lightheadedness and general malaise. This sensation lasted until around 10 PM after initiation of therapy in the emergency room. He did not have any associated chest pain or palpitations. He not feel a fever. Is not had any upper respiratory symptoms like runny nose, sore throat, or nasal congestion. Has not had a loss of taste or smell. He has not noted weight gain or clear increase in peripheral edema. Has not had any recent travel or known exposure. He had a telehealth visit with his primary care physician over when he complained of increased fatigue with exertion. Decided to take his urine doxycycline for possible COPD exacerbation. This does not seem to help. Patient has been prescribed a trilogy home later, but has not been able to tolerate it and has not been using it. He does use oxygen at home. It was admitted to [facility] from October 29 to November 05, 2019 for respiratory failure and pneumonia. Initially treated at that point with levofloxacin, but failed to show improvement until he was switched to vancomycin and cefepime. Review of Systems All systems reviewed & are unremarkable except as noted in HPI and below Musculoskeletal Musculoskeletal: Denies arthralgias and Denies joint swelling Comments: Does have chronic lower leg pain Integumentary/Breasts Comments: Only skin lesions or bruises on arms, with 2 open ulcerations from local trauma on the left arm and left smart. [facility] Medical History Anemia (Chronic) Hx low Hgb, but today's lab review was unexpected. Probable anemia of chronic disease .. Non-meat diet, [ ] iron suppl (concern for constipation)? [ ] stool guaic Aortic stenosis, moderate (Chronic 07/03/16) [facility] ECHO EF 65%; Mod , valve area 1.33 (grad 23/mean14) (06/2016) [facility] eval 09/2017 shows worsening disease .. may need cardiac surgery. Depressive disorder (Chronic 07/14/11) Surgical History Bronchoscopy (11/20/10) with BAL echo ([facility] pulmonolgy note 09/21/17.) Compared to the study from 06/18/16 the severity of aortic stenosis has increased and there is pulmonary hypertension. seeing cardio again in 2 wks. Extraction of cataract (08/21/10) R eye,with IOL, Dr Gary History of cardiac cath (Resolved) 03/21/19 [facility] Right heart cath-mild Pulm HTN mean PA pressure 25 and PA systolic pressure 50 normal wedge pressure 6. Right dominant circulation with mild disease in all vessels, focal anyeursm RCA 5mm Internal fixation (08/03/10) R distal femoral fx, Dr Banda, [facility] PFT'S: SEPTEMBER 2017 [facility] pulm note 09/21/17. O2 sat on RA 97% After 250 ft on RA 88% needing 2l O2. PTCA (01/27/94) rescue PTCA RCA for persistent CP with Inf ID; [facility] right heart catheterization,oximetry (01/07/18) [facility] [place].Corey Griffin MD findings: Severe pulmonary hypertension mildly elevated pulmonary capillary wedge pressure Status post transcatheter aortic valve replacement (Acute) [facility] 03/29/19 Family History Mother , Lung Cancer at age 74. Personal history of malignant neoplasm at 74 of lung CA Father , CHF at age 86. 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 Retired. 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 Meds Home Medications and Allergies Home Medications Medication Instructions Recorded Confirmed Type Oxygen 09/23/17 02/24/20 History POrtable Oxygen Compressor #1 ea 12/02/18 02/24/20 Rx omeprazole 20 mg capsule,delayed 20 mg PO BID #60 tab-cap 03/05/19 02/24/20 Rx release infliximab 100 mg intravenous 800 mg IV q5w vial 04/05/19 02/24/20 History solution albuterol sulfate 90 mcg/actuation 2 inh IH Q6H PRN #1 each 04/06/19 02/24/20 Rx breath activated powder inhaler fluticasone 250 mcg-salmeterol 50 1 inh IH BID 05/10/19 02/24/20 History mcg/dose blistr powdr for inhalation naloxone 4 mg/actuation nasal spray 4 mg NS PRN PRN #1 unit 05/23/19 02/24/20 Rx pramipexole 0.125 mg tablet 0.125 mg PO HS #90 tab-cap 08/02/19 03/02/20 Rx umeclidinium 62.5 mcg/actuation 1 inh IH DAILY 08/02/19 02/24/20 History blister powder for inhalation aspirin 81 mg tablet,delayed 81 mg PO DAILY #100 tab 09/18/19 03/02/20 Rx release multivitamin-ferrous 1 tab PO DAILY #90 tab 10/17/19 02/24/20 Rx fumarate-folic acid 18 mg-400 mcg tablet furosemide 40 mg PO BID DIURETIC #60 tab NS 11/05/19 02/24/20 Rx nitroglycerin [Nitrostat] 0.4 mg SUBLINGUAL Q5 MIN PRN X3 11/05/19 02/24/20 Rx PRN #90 tab potassium chloride [Klor-Con M20] 20 meq PO BID #60 tab 11/05/19 02/24/20 Rx warfarin 1 mg PO HS #90 tab 11/05/19 03/02/20 Rx prednisone 10 mg tablet 20 mg PO DAILY 60 Days #180 tab 11/08/19 03/02/20 Rx pen needle, diabetic 31 gauge x #90 each 11/23/19 02/24/20 Rx 3/16 lancets 28 gauge #100 each 12/08/19 02/24/20 Rx blood sugar diagnostic #400 each 12/29/19 02/24/20 Rx clonazepam 1 mg tablet 0.5 mg PO BID #28 tab MDD 1 01/03/20 03/02/20 Rx spironolactone 25 mg tablet 25 mg PO DAILY #90 tab 01/04/20 02/24/20 Rx morphine 15 mg tablet,extended 15 mg PO Q12H #56 tab MDD 30 01/05/20 03/02/20 Rx release morphine 15 mg tablet,extended 15 mg PO Q12H #56 tab MDD 30 mg 01/05/20 02/24/20 Rx release morphine 15 mg tablet,extended 15 mg PO Q12H #56 tab MDD 30mg 01/05/20 02/24/20 Rx release magnesium oxide 400 mg PO DAILY #90 tab-cap 01/06/20 03/02/20 Rx atorvastatin 80 mg tablet 80 mg PO DAILY #90 tab-cap 01/09/20 03/02/20 Rx oxycodone-acetaminophen 5 mg-325 1 tab PO Q4H PRN #140 tab MDD 6 01/10/20 03/02/20 Rx mg tablet insulin degludec 100 unit/mL (3 15 unit SC DAILY #60 ml MDD 50 02/15/20 02/24/20 Rx mL) subcutaneous pen metformin 500 mg tablet 1,000 mg PO BID #360 tab-cap 02/15/20 03/02/20 Rx lisinopril 10 mg tablet 5 mg PO DAILY #90 tab 02/16/20 03/02/20 Rx metoprolol succinate 100 mg 100 mg PO DAILY #90 tab 02/19/20 03/02/20 Rx tablet,extended release 24 hr Allergies Allergy/AdvReac Type Severity Reaction Status Date / Time adalimumab Allergy Severe unknown Verified 03/02/20 22:45 Penicillins Allergy Severe Anaphylaxsi Verified 03/02/20 22:45 s Exam Narrative Exam Narrative: General: Alert and oriented, lying in bed with CPAP placed. Able to sit up without assistance. Pleasant and coherent and history. Able to speak in full sentences while at rest. HEENT: Atraumatic. Conjunctive are clear with no icterus. Moist mucous membranes. No neck masses, neck is supple. I could not appreciate elevation in jugular venous distention, but exam is limited. Lungs: Dyspneic with any movement such as sitting up in bed. Bibasilar Rales, otherwise clear with no wheezing. Cardiovascular: Heart irregularly irregular rhythm. I did not appreciate a murmur. No gallops or rub. Abdomen: Active bowel sounds, soft, protuberant but not tender. Umbilical hernia noted. Extremities: 1+ edema to shins bilaterally. Hyperpigmented patch on bilateral shins. Feet are warm. Calves and legs are not tender to palpation. MSK: No joint redness or swelling or heat appreciable. Neurologic: Cranial nerves II through XII grossly intact. Moving all 4 extremities. Normal speech and coordination. No tremor. Skin: Small bruises on bilateral arms, hyperpigmentation in the shins as above. 2 shallow open ulcerations bandaged on left arm and smart. Psychiatric: Mood and affect normal Results EKG: Atrial fibrillation with left bundle branch block Chest x-ray: Low lung volumes with patchy opacities left greater than right lung base. Atelectasis, aspiration, or pneumonia. Labs Result diagrams: 03/02/20 20:10 03/02/20 20:10 Labs: Laboratory Results - last 24 hr 03/02/20 03/02/20 03/02/20 19:45 20:10 20:10 WBC 19.85 H RBC 3.95 L Hgb 12.8 L Hct 38.4 L MCV 97.2 H MCH 32.4 MCHC 33.3 RDW 14.5 H Plt Count 165 MPV 10.2 Immature Gran % 0.8 Neutrophils % 85.0 Lymphocytes % 7.1 Monocytes % 5.5 Eosinophils % 1.2 Basophils % 0.4 Nucleated RBC % 0 Absolute Neutrophils 16.87 H Absolute Lymphocytes 1.41 Absolute Monocytes 1.09 H Absolute Eosinophils 0.24 Absolute Basophils 0.08 PT INR VBG pH VBG pCO2 VBG pO2 VBG HCO3 VBG Total CO2 VBG O2 Saturation VBG Base Excess VBG Lactate 4.8 H* Sodium 134 L Potassium 4.3 Chloride 95 L Carbon Dioxide 26.1 Anion Gap 12.9 H BUN 25 H Creatinine 1.35 H Estimated GFR/1.73 m2 51.66 Glucose 263 H Calcium 8.9 Total Bilirubin 0.6 AST 29 ALT 39 Alkaline Phosphatase 70 Troponin I < 0.05 NT-Pro-B Natriuret Pep 571 H Total Protein 7.1 Albumin 3.4 03/02/20 03/02/20 20:55 21:18 WBC RBC Hgb Hct MCV MCH MCHC RDW Plt Count MPV Immature Gran % Neutrophils % Lymphocytes % Monocytes % Eosinophils % Basophils % Nucleated RBC % Absolute Neutrophils Absolute Lymphocytes Absolute Monocytes Absolute Eosinophils Absolute Basophils PT 21.9 H INR 2.2 H VBG pH 7.40 VBG pCO2 44 VBG pO2 55 VBG HCO3 28 VBG Total CO2 25 VBG O2 Saturation 87 VBG Base Excess 3 VBG Lactate Sodium Potassium Chloride Carbon Dioxide Anion Gap BUN Creatinine Estimated GFR/1.73 m2 Glucose Calcium Total Bilirubin AST ALT Alkaline Phosphatase Troponin I NT-Pro-B Natriuret Pep Total Protein Albumin Last Vital Signs Temp 36.6 C 03/02/20 18:54 Pulse 101 H 03/02/20 21:39 Resp 28 H 03/02/20 21:40 BP 130/74 03/02/20 21:39 Pulse Ox 98 03/02/20 21:40 COVID-19 Screening Have you,or household,traveled outside [place] in last 14 days?: No Had IN PERSON contact w/suspected or confirmed C-19 person: No
[2020-03-03] VITALS (30 sets, daily range): BP systolic 94–128; BP diastolic 48–84; PULSE 71–102; RESP 15–32; TEMP 35.9–36.8; O2SAT 94–100
[2020-03-03] MEDS: oxyCODONE 5 mg/Acetaminophen 325 mg TAB 1 TAB PO ×3 (01:29→14:51)
[2020-03-03] MEDS: CEFEPIME 2 GM in Normal Saline 100 ML IVPB ×3 (01:29→18:02)
[2020-03-03] MEDS: Normal Saline Flush 10 ML SYR IVP ×3 (01:41→18:04)
[2020-03-03] MEDS: VANCOMYCIN 1,250 MG in Normal Saline 250 ML 167 MG IVPB (03:29)
[2020-03-03 06:05] LABS: Abs Immature Grans 0.07 10^3/uL (0.0-0.06); Absolute Basophil Count 0.02 10^3/uL (0.0-0.2); Absolute Lymphocyte Count 0.91 10^3/uL (1.2-3.4); Basophils % 0.1; Eosinophils % 0.1; HCT 36.1 % (40.0-50.0); HGB 11.9 g/dL (13.5-17.5); Immature Grans % 0.4; Lymphocytes % 5.2; MCH 32.2 pg (27.0-33.0); MCV 97.6 fL (80-95); MPV 10.1 fL (8.0-11.0); Monocytes % 1.4; Neutrophils % 92.8; Nucleated RBC 0 %; Platelet Count 174 10^3/uL (130-400); RDW 14.5 % (11.8-14.1); RDW-SD 52.7 fL; WBC 17.51 10^3/uL (4.4-10.8)
[2020-03-03 06:07] LABS: Absolute Eosinophil Count 0.02 10^3/uL (0.0-0.7); Absolute Monocyte Count 0.25 10^3/uL (0.1-0.8); Absolute Neutrophil Count 16.25 10^3/uL (1.2-6.7)
[2020-03-03] MEDS: Hydrocortisone SOD SUC. 100 MG VIAL IVP ×2 (06:18→18:01)
[2020-03-03 06:20] LABS: Anion Gap 10.5 mmol/L (3-11); BUN 26 mg/dL (7-18); CO2 26.5 mmol/L (21.0-32.0); CREATININE 1.51 mg/dL (0.70-1.30); Calcium 8.3 mg/dL (8.5-10.1); Chloride 98 mmol/L (98-107); Glucose 284 mg/dL (74-106); INR 2.1 (0.9-1.1); Potassium 5.3 mmol/L (3.5-5.1); Sodium 135 mmol/L (136-145)
--- NOTE | 2020-03-03 08:07 | PDOC.CMIN ---
- If Service Date Differs Date of service: 03/03/20 Time of Service: 08:07 Care Management Initial Assess REASON FOR HOSPITALIZATION:: Pneumonia, COPD. PAST MEDICAL HISTORY/PAST SURGICAL HISTORY:: Medical History: Anemia - Hx low Hgb, but today's lab review was unexpected. Probable anemia of chronic disease .. Non-meat diet, [ ] iron suppl (concern for constipation)? [ ] stool guaic, Aortic stenosis, moderate - [facility] ECHO EF 65%; Mod , valve area 1.33 (grad 23/mean14) - [facility] eval 09/2017 shows worsening disease .. may need cardiac surgery., and Depressive disorder. Surgical History: Bronchoscopy with BAL, echo ([facility] pulmonolgy note 09/21/17.) Compared to the study from 06/18/16 the severity of aortic stenosis has increased and there is pulmonary hypertension. seeing cardio again in 2 wks., Extraction of cataract R eye,with IOL, Dr Gary, History of cardiac cath - 03/21/19 [facility] Right heart cath-mild Pulm HTN mean PA pressure 25 and PA systolic pressure 50 normal wedge pressure 6. Right dominant circulation with mild disease in all vessels, focal anyeursm RCA 5mm, Internal fixation R distal femoral fx, Dr Banda, [facility], PFT'S: SEPTEMBER 2017 - [facility] pulm note 09/21/17. O2 sat on RA 97% - After 250 ft on RA 88% needing 2l O2, PTCA - rescue PTCA RCA for persistent CP with Inf MS; [facility], right heart catheterization,oximetry - [facility] [place].Corey Griffin MD - findings: Severe pulmonary hypertension - mildly elevated pulmonary capillary wedge pressure, and Status post transcatheter aortic valve replacement - [facility] 03/29/19. PREVIOUS FUNCTIONAL STATUS/SOCIAL/FAMILY SUPPORTS:: Elio lives alone in [facility], as he is currently from his girlfriend, Debra. 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 Elio uses home oxygen at 4L, but is independent with his ADLs at baseline. CURRENT FUNCTIONAL STATUS:: CM is unable to meet with Elio in person today as he is a PUI for COVID-19. CM attempts to speak with him on the telephone but he hangs up on CM twice. CM will hopefully be able to meet with him tomorrow after the return of his COVID test. CM will continue to follow. ADVANCE DIRECTIVES:: COLST and AD on file, natasha Delgadillo is listed as healthcare agent. Has patient been provided with info about the portal/API?: No Did the patient sign up for the portal?: No CODE STATUS:: DNR/DNI INSURANCE COVERAGE / FINANCIAL ISSUES:: Medicare and financial asst 100. CURRENT HOME/COMMUNITY SERVICES/EQUIPMENT:: A review of his chart shows he is on 4L of O2 at home and he has a Trilogy ventilator but reports not using it as he cannot tolerate it. He also receives Remicade infusions every 6 weeks for treatment of rheumatoid arthritis. He formerly had HH nursing but unclear at this time if he is still getting HH services. PRIMARY CARE PHYSICIAN:: Ana Alatorre, POTENTIAL DISCHARGE NEEDS:: Follow up appointment with PCP and discharge plan of care. PATIENT/FAMILY EDUCATION NEEDS:: Discharge instructions, limitations and follow up plan of care, including Ask Me Three and self management. ANTICIPATED BARRIERS TO DISCHARGE:: None. TRANSPORTATION:: Via private vehicle with family vs [employer]. PLAN:: Anticipate Elio will be discharged home when medically cleared by provider. He will follow up with his PCP, foxing closer and discharge plan of care as directed. CM will continue to follow.
--- NOTE | 2020-03-03 08:40 | PGE_ITS ---
Date of Service Date of service: 03/03/20 Time of Service: 14:49 Assessment and Plan Assessment and plan (1) Pneumonia: Status: Acute Assessment and plan: Community acquired multifocal pneumonia, present on admission. PUI for COVID-19. Improving on current therapy. Continue vancomycin, cefepime, stress-dose steroids. Await COVID-19 results. Provide mucolytics and await sputum sample. Will also order acapella. Encourage trilogy use. Ok to transfer out of ICU. Qualifiers: Pneumonia type: due to unspecified organism Laterality: bilateral Lung location: unspecified part of lung Qualified Code(s): J18.9 - Pneumonia, unspecified organism (2) Acute and chronic respiratory failure with hypoxia: Status: Resolved Assessment and plan: Multifactorial, due to acute pneumonia in addition to chronic pulmonary fibrosis, COPD, and obstructive sleep apnea. Likely a component of OHS as well. Encourage trilogy use. (3) Acute on chronic combined systolic and diastolic CHF (congestive heart failure): Status: Resolved Assessment and plan: Crackles on physical exam likely represent pulmonary fibrosis. Monitor daily weights and I/O's. (4) Anemia: Status: Chronic Assessment and plan: Macrocytic. Will check iron studies, b12, folate, hemoccult (the patient is on coumadin). (5) Type 2 diabetes mellitus with hyperglycemia: Status: Chronic Assessment and plan: Increase tresiba to 20 units in am. Qualifiers: Diabetes mellitus prison insulin use: with terminal superintendent use Qualified Code(s): E11.65 - Type 2 diabetes mellitus with hyperglycemia; Z79.4 - terminal superintendent (current) use of insulin (6) Essential hypertension: Status: Chronic Assessment and plan: No change in therapy (7) Claustrophobia: Status: Chronic Assessment and plan: Continue prn and scheduled clonazepam. I have discussed the patient's claustrophobia with nursing re trying to get him a big jose eduardo room. (8) Rheumatoid arthritis: Status: Chronic Assessment and plan: Continue chronic steroids (with addition of stress dose steroids while acutely ill). On Remicade infusions every 6 weeks - hold during this admission. Qualifiers: Rheumatoid arthritis location: multiple sites Rheumatoid factor presence: with rheumatoid factor Qualified Code(s): M05.79 - Rheumatoid arthritis with rheumatoid factor of multiple sites without organ or systems involvement (9) Atrial fibrillation: Status: Chronic Assessment and plan: Rate controlled. Continue coumadin. No change in therapy. (10) COPD (chronic obstructive pulmonary disease): Status: Chronic Assessment and plan: Steroid and oxygen dependent. Not in acute exacerbation at this time. Continue outpatient inhalers. Qualifiers: COPD type: COPD with acute lower respiratory infection Qualified Code(s): J44.0 - Chronic obstructive pulmonary disease with (acute) lower respiratory infection (11) Chronic pain: Status: Chronic Assessment and plan: Continue outpatient opioids. Qualifiers: Chronic pain type: chronic pain syndrome Qualified Code(s): G89.4 - Chronic pain syndrome (12) Palliative care patient: Status: Acute Assessment and plan: Await palliative care consult. DNR/DNI. Transfer out of ICU. (13) Discharge planning issues: Status: Acute Assessment and plan: Anticipate discharge home in 48-72 hours Subjective Subjective Interval history since last seen: Patient interview was conducted over the phone after visualizing him through glass door in the ICU as he is a PUI for COVID-19 and is stable. He feels better - less short of breath and no cough today. He specifically states that he has had no sputum and requests robitussin to help bring it up. He denies chest pain, dizziness, and nausea. He is trialing trilogy now with new settings. He is not sure if it's working for him yet. He reports to me that it is leaking a lot. Prior to this, required 2L of O2 by NC. Spent 1 hour on BiPAP overnight (4-5L NC otherwise overnight). O2 sats 96-97% overnight on 4L. On 4L at home? Nursing reports that he did have slight crackles at B bases. Afebrile. SBPs in 100s, HR in 80s. COVID still pending. Exam Narrative Exam Narrative: As above - for physical exam, the patient was visualized through the glass door given his PUI status for COVID-19. General: Obese male who appears to be in no acute respiratory distress or to have any increase in his work of breath; wearing nasal pillows with his Trilogy machine HEENT: EOMI, MMM Heart: not auscultated due to above Lungs: nonlabored breathing on trilogy Abdomen: obese Extremities: BLEs not visualized Objective Objective Clinical Data: Abnormal lab results 0803/02/20 03/02/20 Range/Units 19:45 20:10 20:10 WBC 19.85 H (4.4-10.8) 10^3/uL RBC 3.95 L (4.36-5.78) 10^6/uL Hgb 12.8 L (13.5-17.5) g/dL Hct 38.4 L (40.0-50.0) % MCV 97.2 H (80-95) fL RDW 14.5 H (11.8-14.1) % Absolute Neutrophils 16.87 H (1.2-6.7) 10^3/uL Absolute Lymphocytes (1.2-3.4) 10^3/uL Absolute Monocytes 1.09 H (0.1-0.8) 10^3/uL PT (9.3-11.0) sec INR (0.9-1.1) VBG Lactate 4.8 H* (0.6-1.4) mmol/L Sodium 134 L (136-145) mmol/L Potassium (3.5-5.1) mmol/L Chloride 95 L (98-107) mmol/L Anion Gap 12.9 H (3-11) mmol/L BUN 25 H (7-18) mg/dL Creatinine 1.35 H (0.70-1.30) mg/dL Glucose 263 H (74-106) mg/dL Calcium (8.5-10.1) mg/dL NT-Pro-B Natriuret Pep 571 H (<300) pg/mL 03/02/20 03/03/20 03/03/20 Range/Units 20:55 05:35 05:35 WBC 17.51 H (4.4-10.8) 10^3/uL RBC 3.70 L (4.36-5.78) 10^6/uL Hgb 11.9 L (13.5-17.5) g/dL Hct 36.1 L (40.0-50.0) % MCV 97.6 H (80-95) fL RDW 14.5 H (11.8-14.1) % Absolute Neutrophils 16.25 H (1.2-6.7) 10^3/uL Absolute Lymphocytes 0.91 L (1.2-3.4) 10^3/uL Absolute Monocytes (0.1-0.8) 10^3/uL PT 21.9 H (9.3-11.0) sec INR 2.2 H (0.9-1.1) VBG Lactate (0.6-1.4) mmol/L Sodium 135 L (136-145) mmol/L Potassium 5.3 H (3.5-5.1) mmol/L Chloride (98-107) mmol/L Anion Gap (3-11) mmol/L BUN 26 H (7-18) mg/dL Creatinine 1.51 H (0.70-1.30) mg/dL Glucose 284 H (74-106) mg/dL Calcium 8.3 L (8.5-10.1) mg/dL NT-Pro-B Natriuret Pep (<300) pg/mL 03/03/20 Range/Units 05:35 WBC (4.4-10.8) 10^3/uL RBC (4.36-5.78) 10^6/uL Hgb (13.5-17.5) g/dL Hct (40.0-50.0) % MCV (80-95) fL RDW (11.8-14.1) % Absolute Neutrophils (1.2-6.7) 10^3/uL Absolute Lymphocytes (1.2-3.4) 10^3/uL Absolute Monocytes (0.1-0.8) 10^3/uL PT 21.0 H (9.3-11.0) sec INR 2.1 H (0.9-1.1) VBG Lactate (0.6-1.4) mmol/L Sodium (136-145) mmol/L Potassium (3.5-5.1) mmol/L Chloride (98-107) mmol/L Anion Gap (3-11) mmol/L BUN (7-18) mg/dL Creatinine (0.70-1.30) mg/dL Glucose (74-106) mg/dL Calcium (8.5-10.1) mg/dL NT-Pro-B Natriuret Pep (<300) pg/mL Vital Signs Temperature 36.8 C 03/03/20 03:30 Temperature Source Temporal Artery Scan 03/03/20 03:30 Pulse 80 03/03/20 04:01 Pulse 92 H 03/03/20 04:01 Respiratory Rate 22 03/03/20 04:01 Respiratory Effort Non-Labored 03/03/20 03:30 Respiratory Depth Normal 03/03/20 03:30 Respiratory Pattern Normal 03/03/20 03:30 Blood Pressure 102/62 03/03/20 04:01 Blood Pressure Mean 72 03/03/20 04:01 Blood Pressure Position Sitting 03/03/20 00:27 Pulse Oximetry 99 03/03/20 04:01 Oxygen Delivery Method Nasal Cannula 03/03/20 03:30 Oxygen Flow Rate 4 03/03/20 03:30 Fraction of Inspired Oxygen (FIO2) 30 03/02/20 20:25 Pain Level 5 03/03/20 03:30 Intake & Output 03/02/20 03/02/20 03/03/20 11:59 23:59 11:59 Intake Total 500 / 500 850 / 850 Output Total 250 / 250 Balance 500 / 500 600 / 600 Weight 117.934 kg 117.934 kg Intake: IV 500 / 500 610 / 610 Oral 240 / 240 Output: Urine 250 / 250 Other: Urine Color Light Gaby Urine Appearance Clear Urine Odor Normal Laboratory Results WBC 17.51 10^3/uL (4.4-10.8) H 03/03/20 05:35 RBC 3.70 10^6/uL (4.36-5.78) L 03/03/20 05:35 Hgb 11.9 g/dL (13.5-17.5) L 03/03/20 05:35 Hct 36.1 % (40.0-50.0) L 03/03/20 05:35 MCV 97.6 fL (80-95) H 03/03/20 05:35 MCH 32.2 pg (27.0-33.0) 03/03/20 05:35 MCHC 33.0 % (32.0-36.0) 03/03/20 05:35 RDW 14.5 % (11.8-14.1) H 03/03/20 05:35 Plt Count 174 10^3/uL (130-400) 03/03/20 05:35 MPV 10.1 fL (8.0-11.0) 03/03/20 05:35 Immature Gran % 0.4 03/03/20 05:35 Neutrophils % 92.8 03/03/20 05:35 Lymphocytes % 5.2 03/03/20 05:35 Monocytes % 1.4 03/03/20 05:35 Eosinophils % 0.1 03/03/20 05:35 Basophils % 0.1 03/03/20 05:35 Nucleated RBC % 0 % 03/03/20 05:35 Absolute Neutrophils 16.25 10^3/uL (1.2-6.7) H 03/03/20 05:35 Absolute Lymphocytes 0.91 10^3/uL (1.2-3.4) L 03/03/20 05:35 Absolute Monocytes 0.25 10^3/uL (0.1-0.8) 03/03/20 05:35 Absolute Eosinophils 0.02 10^3/uL (0.0-0.7) 03/03/20 05:35 Absolute Basophils 0.02 10^3/uL (0.0-0.2) 03/03/20 05:35 PT 21.0 sec (9.3-11.0) H 03/03/20 05:35 INR 2.1 (0.9-1.1) H 03/03/20 05:35 VBG pH 7.40 (7.31-7.41) 03/02/20 21:18 VBG pCO2 44 mmHg (41-51) 03/02/20 21:18 VBG pO2 55 mmHg 03/02/20 21:18 VBG HCO3 28 mmol/L (23-28) 03/02/20 21:18 VBG Total CO2 25 mmol/L (24-29) 03/02/20 21:18 VBG O2 Saturation 87 % 03/02/20 21:18 VBG Base Excess 3 mmol/L (-2-3) 03/02/20 21:18 VBG Lactate 4.8 mmol/L (0.6-1.4) H* 03/02/20 19:45 Sodium 135 mmol/L (136-145) L 03/03/20 05:35 Potassium 5.3 mmol/L (3.5-5.1) H 03/03/20 05:35 Chloride 98 mmol/L (98-107) 03/03/20 05:35 Carbon Dioxide 26.5 mmol/L (21.0-32.0) 03/03/20 05:35 Anion Gap 10.5 mmol/L (3-11) 03/03/20 05:35 BUN 26 mg/dL (7-18) H 03/03/20 05:35 Creatinine 1.51 mg/dL (0.70-1.30) H 03/03/20 05:35 Estimated GFR/1.73 m2 45.40 (mL/min/1.73m2) 03/03/20 05:35 Glucose 284 mg/dL (74-106) H 03/03/20 05:35 Calcium 8.3 mg/dL (8.5-10.1) L 03/03/20 05:35 Total Bilirubin 0.6 mg/dL (0.2-1.0) 03/02/20 20:10 AST 29 U/L (15-37) 03/02/20 20:10 ALT 39 U/L (16-63) 03/02/20 20:10 Alkaline Phosphatase 70 U/L (46-116) 03/02/20 20:10 Troponin I < 0.05 ng/mL (<0.06) 03/02/20 20:10 NT-Pro-B Natriuret Pep 571 pg/mL (<300) H 03/02/20 20:10 Total Protein 7.1 g/dL (6.4-8.2) 03/02/20 20:10 Albumin 3.4 g/dL (3.4-5.0) 03/02/20 20:10
[2020-03-03 08:42] LABS: Lactate 3.8 mmol/L (0.6-1.4)
[2020-03-03] MEDS: Metoprolol CR 100 MG TABCR PO (09:06)
[2020-03-03] MEDS: Magnesium Oxide 400 MG TAB PO (09:06)
[2020-03-03] MEDS: predniSONE 20 MG TAB PO (09:06)
[2020-03-03] MEDS: Aspirin E.C. 81 MG TABEC PO (09:06)
[2020-03-03] MEDS: clonazePAM 0.5 MG TAB PO ×2 (09:08→20:34)
[2020-03-03] MEDS: Insulin Aspart 300 UNITS/3 ML PEN SC ×5 (10:04→22:54)
[2020-03-03 10:48] LABS: Lactate 4.6 mmol/L (0.6-1.4)
[2020-03-03] MEDS: Budesonide/Formoterol 160/4.5 6 GM 60 PUFF INH IH ×2 (11:27→20:23)
[2020-03-03] MEDS: Insulin Degludec [Tresiba Flextouch U-100] SC (12:22)
[2020-03-03 14:29] LABS: Lactate 3.8 mmol/L (0.6-1.4)
[2020-03-03] MEDS: guaiFENesin 200 MG/10 ML CUP PO (14:51)
[2020-03-03] MEDS: VANCOMYCIN 1,000 MG in Normal Saline 250 ML 166.667 MG IVPB (20:20)
[2020-03-03] MEDS: Atorvastatin 40 MG TAB 80 MG PO (20:23)
[2020-03-03] MEDS: Warfarin 1 MG TAB PO (20:23)
[2020-03-03] MEDS: Omeprazole 20 MG CAPCR PO (20:23)
[2020-03-03] MEDS: guaiFENesin 600 MG TABCR PO (20:23)
[2020-03-03] MEDS: Pramipexole 0.25 MG TAB 0.125 MG PO (20:34)
[2020-03-04 00:07] VITALS: BP 124/75; PULSE 75; RESP 18; TEMP 35.7; O2SAT 100
[2020-03-04] MEDS: CEFEPIME 2 GM in Normal Saline 100 ML IVPB (02:15)
[2020-03-04 03:45] VITALS: BP 121/69; PULSE 71; RESP 17; TEMP 36.7; O2SAT 98
[2020-03-04 07:40] LABS: Abs Immature Grans 0.12 10^3/uL (0.0-0.06); Absolute Basophil Count 0.02 10^3/uL (0.0-0.2); Absolute Eosinophil Count 0.09 10^3/uL (0.0-0.7); Absolute Lymphocyte Count 1.65 10^3/uL (1.2-3.4); Absolute Monocyte Count 0.78 10^3/uL (0.1-0.8); Absolute Neutrophil Count 12.64 10^3/uL (1.2-6.7); Basophils % 0.1; Eosinophils % 0.6; HCT 36.6 % (40.0-50.0); HGB 11.9 g/dL (13.5-17.5); Immature Grans % 0.8; Lymphocytes % 10.8; MCH 32.2 pg (27.0-33.0); MCHC 32.5 % (32.0-36.0); MCV 98.9 fL (80-95); Monocytes % 5.1; Neutrophils % 82.6; Nucleated RBC 0 %; Platelet Count 176 10^3/uL (130-400); RDW 14.5 % (11.8-14.1); RDW-SD 53.4 fL
[2020-03-04 07:45] LABS: INR 2.1 (0.9-1.1); Prothrombin Time 20.9 sec (9.3-11.0)
[2020-03-04 07:58] VITALS: BP 128/81; PULSE 82; RESP 18; TEMP 36.1; O2SAT 100
[2020-03-04] MEDS: Insulin Aspart 300 UNITS/3 ML PEN SC ×2 (08:01→11:53)
[2020-03-04] MEDS: Omeprazole 20 MG CAPCR PO (08:02)
[2020-03-04] MEDS: Metoprolol CR 100 MG TABCR PO (08:02)
[2020-03-04] MEDS: Aspirin E.C. 81 MG TABEC PO (08:02)
[2020-03-04] MEDS: guaiFENesin 600 MG TABCR PO (08:02)
[2020-03-04] MEDS: Magnesium Oxide 400 MG TAB PO (08:05)
[2020-03-04] MEDS: predniSONE 20 MG TAB PO (08:05)
[2020-03-04] MEDS: Budesonide/Formoterol 160/4.5 6 GM 60 PUFF INH IH (08:13)
[2020-03-04 08:26] LABS: COVID-19 RT-PCR UVMMC Result Negative
[2020-03-04 08:26] LABS: Anion Gap 3.9 mmol/L (3-11); BUN 27 mg/dL (7-18); CO2 30.1 mmol/L (21.0-32.0); CREATININE 1.05 mg/dL (0.70-1.30); Calcium 8.5 mg/dL (8.5-10.1); Chloride 105 mmol/L (98-107); Ferritin 265 ng/mL (26-388); Glucose 216 mg/dL (74-106); Magnesium 2.1 mg/dL (1.8-2.4); Potassium 4.3 mmol/L (3.5-5.1); Sodium 139 mmol/L (136-145); Vitamin B12 322 pg/mL (193-986)
[2020-03-04 08:28] LABS: Folate > 20.0 ng/mL (8.6-20.0)
[2020-03-04 08:45] LABS: Iron 43 ug/dL (65-175); Total Iron Binding Capacity 195 ug/dL (250-450); Transferrin Sat 22 % (20-55)
[2020-03-04 11:10] VITALS: PULSE 118; PULSE 128; PULSE 82; PULSE 87; RESP 18; RESP 22; O2SAT 81; O2SAT 90; O2SAT 91; O2SAT 98
[2020-03-04 11:23] VITALS: BP 134/64; PULSE 90; RESP 20; TEMP 36.8; O2SAT 96
[2020-03-04] MEDS: Doxycycline Hyclate 100 MG CAP PO (11:35)
[2020-03-04] MEDS: predniSONE 20 MG TAB 40 MG PO (11:35)
[2020-03-04] MEDS: Cefuroxime 500 MG TAB PO (11:35)
--- NOTE | 2020-03-04 11:35 | IN_ITS ---
Date of service: 03/04/20 Time of Service: 11:25 PT Notes Visit Reasons: PNEUMONIA; COPD Physical Therapy Inpatient Initial Evaluation Date: 03/04/2020 Referring Doctor: Estella Portillo MD PT Orders: PT CONSULT: Limited ability Precautions: Fall. Standard. Activity as tolerated. On 4 L of oxygen per minute at rest. Patient Profile/Admitting Diagnosis: Patient is a 74-year-old male with past medical history significant for atrial fibrillation with controlled ventricular response, chronic obstructive pulmonary disease, type 2 diabetes mellitus, rheumatoid lung, and rheumatoid arthritis who presented to the ED via EMS on 03/02/2020 with chief complaints of worsening shortness of breath and feeling of being unwell. Patient tested negative for COVID19 as of 03/02/2020 as of 21:18 PM. 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 PMHX: Medical History Anemia (Chronic) Hx low Hgb, but today's lab review was unexpected. Probable anemia of chronic disease .. Non-meat diet, [ ] iron suppl (concern for constipation)? [ ] stool guaic Aortic stenosis, moderate (Chronic 07/03/16) [facility] ECHO EF 65%; Mod , valve area 1.33 (grad 23/mean14) (06/2016) [facility] eval 09/2017 shows worsening disease .. may need cardiac surgery. Depressive disorder (Chronic 07/14/11) Surgical History Bronchoscopy (11/20/10) with BAL echo ([facility] pulmonolgy note 09/21/17.) Compared to the study from 06/18/16 the severity of aortic stenosis has increased and there is pulmonary hypertension. seeing cardio again in 2 wks. Extraction of cataract (08/21/10) R eye,with IOL, Dr Gary History of cardiac cath (Resolved) 03/21/19 [facility] [place] heart cath-mild Pulm HTN mean PA pressure 25 and PA systolic pressure 50 normal wedge pressure 6. Right dominant circulation with mild disease in all vessels, focal anyeursm RCA 5mm Internal fixation (08/03/10) R distal femoral fx, Dr Banad, [facility] PFT'S: SEPTEMBER 2017 [facility] pulm note 09/21/17. O2 sat on RA 97% After 250 ft on RA 88% needing 2l O2. PTCA (01/27/94) rescue PTCA RCA for persistent CP with Inf RI; [facility] right heart catheterization,ox[place]07/18[place] [facility] [place] findings: Severe pulmonary hypertension mildly elevated pulmonary capillary wedge pressure Status post transcatheter aortic valve replacement (Acute) [facility] 03/29/19 Social History/Home Situation: Patient lives with significant other Debra on the third floor of an apartment building with 17 steps to enter and a rail on the left side going up. Significant other has been a very good support for patient for the past few years. Patient is independent without an assistive device inside the apartment but requires the use of a cane to negotiate steps as his heavy concentrator affects his balance. Significant other takes care of meals, laundry, grocery shopping, and transportation. They both have a system that has been effective with stair negotiation as Elio takes about half an hour to an hour to complete ascent/descent of stairs one way due to decreased activity tolerance-- and this has been like that for the past 10 years. They are on a wait list for a [facility] property that is handicap-accessible. Equipment Owned/DME: Motorized wheelchairs. Regular wheelchair. 4 wheeled walkers. Front wheeled walkers. Single-point cane. Portable oxygen concentrat or. Subjective: Elio is very hopeful that he can go home today. He emphasizes that he has a very good support person at home that provides for all that he needs. Debra has been a licensed EMPLOYMENT AGENCY MANAGER and has assisted Elio as much as she has been able. Objective: General Observation: Oxygen supplementation at 4 L/min via NC. IV access in right UE. Mild to moderate shortness of breath after ambulation activity and stair negotiation activity. Mental Status: Alert and oriented x4 Pain: None reported ROM: Right Upper Extremity: Shoulder Flexion allows up to 80 degrees. Shoulder abduction allows up to 80 degrees. Elbow flexion WFL. Wrist flexion WFL. Opening and closing of hand WFL. Left Upper Extremity: Shoulder Flexion allows up to 80 degrees. Shoulder abduction allows up to 80 degrees. Elbow flexion WFL. Wrist flexion WFL. Opening and closing of hand WFL. Right Lower Extremity: Hip flexion allows up to 20 degrees beyond 90 while seated on edge of chair. Hip abduction WFL. Knee flexion WFL. Knee extension -30 degrees. Ankle dorsiflexion about 5 degrees from neutral. Ankle plantarflexion WFL. Left Lower Extremity: Hip flexion allows up to 20 degrees beyond 90 while seated on edge of chair. Hip abduction WFL. Knee flexion WFL. Knee extension -30 degrees. Ankle dorsiflexion about 5 degrees from neutral. Ankle plantarflexion WFL. Strength: Right Upper Extremity: Shoulder flexors 3-/5. Shoulder abductors 3-/5. Elbow flexors 4/5. Elbow extensors 4/5. Recreation Instructor strong. Left Upper Extremity: Shoulder flexors 3-/5. Shoulder abductors 3-/5. Elbow flexors 4/5. Elbow extensors 4/5. Recreation Instructor strong. Right Lower Extremity: Hip flexors 3-/5. Hip abductors 4-/5. Knee flexors 4-/5. Knee extensors 5/5. Ankle dorsiflexors 2--/5. Ankle plantarflexors 3-/5. Left Lower Extremity:Hip flexors 3-/5. Hip abductors 4-/5. Knee flexors 4-/5. Knee extensors 5/5. Ankle dorsiflexors 2--/5. Ankle plantarflexors 3-/5. Sensation: Intact as to pain and pressure on bilateral lower extremities. Bed Mobility/Transfers: Sit to stand SBA Stand to sit SBA Bed to chair SBA Chair to bed SBA GAIT: Early this morning, patient needed 30?4 with respiratory therapist Doc and nurse Anderson using the front walker with mild to moderate breathlessness. STAIRS: Elio tolerated up-and-down twelve 4 inch steps while holding to a rail standby assist with step to gait pattern with mild to 100 worrying about 5 hilary blanca rest each trip for recovery. Static Sitting: Normal Dynamic Sitting: Normal Static Standing: Fair Dynamic Standing: Fair Special Tests: Mobility Limitations Standardized Measure [facility] 6 clicks Basic Mobility Inpatient Short Form: Raw Score: 21 CMS Score: 29% deficit Informed Consent/Education: Patient instructed in purpose of PT consult and plan of care. Assessment: Elio demonstrates decreased activity tolerance, need for an assistive device for all level surface and stair negotiation activities, difficulty with walking, impairment of balance and generalized weakness resolved from admitting diagnoses. Patient is a 74-year-old male with past medical history significant for atrial fibrillation with controlled ventricular response, chronic obstructive pulmonary disease, type 2 diabetes mellitus, rheumatoid lung, and rheumatoid arthritis who presented to the ED via EMS on 03/02/2020 with chief complaints of worsening shortness of breath and feeling of being unwell. Patient tested negative for COVID19 as of 03/02/2020 as of 21:18 PM. 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 Patient presents with clinical signs and symptoms consistent with current/admitting diagnoses that have resulted to mobility limitations, gait instability, generalized weakness, and impairment of motor control as demonstrated by the following impairment level findings: 1. Decreased strength to B shoulder and LE major muscle groups 2. Impaired activity tolerance 3. Limitation of joint range of motion in the shoulders (chronic) Impairments are contributing to the following functional limitations: 1. Inability to safely ambulate without assistive device and physical assistance 2. Increase completion time for mobility ADL performance 3. Increased fall risk 4. Inability to negotiate steps alone safely Patient is assessed as a [id number] moderate complexity based on the following: History: 74-year-old male with impairment level findings, functional imitations, and past medical history as listed above Examination: Demonstrable impairment in strength, balance, and range of motion with underlying impairments and functional limitations as documented above Presentation: Stable Decision Makin moderate complexity Goals: Goals X 1 more treatment session 1. Supine-Sit independent 2. Sit-Supine independent 3. Sit-Stand supervision 4. Stand-Sit supervision 5. Bed-Chair supervision 6. Chair-Bed supervision 7. supervision gait on level surface with use of least restrictive device for at least 300 feet without report of pain nor dyspnea 8. supervision stair negotiation while holding onto bilateral rails for at least 10 steps without report of pain nor dyspnea 9. supervisionwith home exercise program 10. Good static and dynamic standing balance/tolerance Plan of Care/Treatment Plan: Patient will be seen for 1 more treatment session order to increase independence with stair negotiation techniques. DISCHARGE RECOMMENDATIONS: Patient will benefit from home health PT services in order to progress mobility level using least restrictive assistive ambulatory device, assess home safety, identify additional equipment needs, and establish a functional maintenance program that will increase ability of patient to remain at home. TREATMENT CODE/TIME: [id number] x 25 minutes beginning at 11:35 AM. Thank you very much for this referral. Shayy Montoya PT, DPT, CLT [facility] [place], [place]
--- NOTE | 2020-03-04 14:12 | DM INPTCON_ITS ---
Date of service: 03/04/20 Time of Service: 14:13 Diabetes Inpatient Consult DESCRIPTION/ASSESSMENT: Elio was admitted with CHF, respiratory failure, PNA with hx of DM2. Currently a pallative care patient. Most recent A1C: 8.2% indicating relatively well controlled DM. Current meds include Novolog sliding scale insulin. BMI indicates class 3 obesity. Elio reports that he manages his DM2 with help from Terry Saleem, pharmacist and has been able to reduce his insulin intake, improve his A1C in last year. Home meds include 15 u NPH in am, 1000 mg metformin BID. Declines Diabetes Education from engineering writer today. Did not want any diet education/literature. Honored pt request. INTERVENTION: Diabetic Diet while in house. Attempted to provide diet and diabetes education however, Elio declined PLAN: will provide education as requested, continue diabetic diet, will monitor PO intake, labs, weight Time Spent in Nutritional Counseling and Treatment: 10 min spent face to face
--- NOTE | 2020-03-04 14:22 | W.PM.DS.N ---
Date of service: 03/04/20 Time of Service: 14:22 DS: Diagnosis Discharge Diagnosis (1) Pneumonia: Status: Acute Asessment and Plan: bilateral, multifocal, present on admission. (2) Acute exacerbation of chronic obstructive pulmonary disease (COPD): Status: Acute Asessment and Plan: covid-19 ruled out (3) Acute and chronic respiratory failure with hypoxia: Status: Resolved (4) Chronic combined systolic and diastolic CHF (congestive heart failure): Status: Chronic (5) Rheumatoid lung: Status: Chronic (6) Rheumatoid arthritis: Status: Chronic (7) Atrial fibrillation: Status: Chronic (8) Restrictive lung disease: Status: Chronic (9) Pulmonary HTN: Status: Chronic (10) Obstructive sleep apnea syndrome: Status: Chronic (11) Aortic stenosis, moderate: Status: Chronic (12) Poorly controlled type 2 diabetes mellitus: Status: Chronic (13) Stasis dermatitis of both legs: Status: Acute (14) Steroid-induced hyperglycemia: Status: Acute (15) Anemia: Status: Chronic (16) Essential hypertension: Status: Chronic (17) Claustrophobia: Status: Chronic (18) Ambulatory dysfunction: Status: Acute (19) B12 deficiency: Status: Acute (20) COVID-19 ruled out by laboratory testing: Status: Acute Discharge Plan Disposition Patient Disposition: HOME Condition: Improving Discharge Details Chief Complaint: SOB Clinical Impression: Pneumonia, Atrial fibrillation, COPD (chronic obstructive pulmonary disease) Reason For Visit: PNEUMONIA; COPD Admit Date/Time: 03/02/20 22:18 Admit Provider: Arcadio Laguerre Attending Provider: Arcadio Laguerre Primary Care Provider: Ana Alatorre ED Provider: Tio Dai [facility] Course Hospital Course: Mr Delgadillo is a 74 year old male with PMHx of chronic multifactorial hypoxic respiratory failure, on 4L of O2 at baseline, due to pulmonary fibrosis, interstitial lung disease of rheumatoid arthritis, pulmonary hypertension, steroid- dependent COPD, KYLE, OHS, and chronic combined CHF with EF of 45%, who was admitted to [facility] ICU under the hospitalist service on 03/02/2020 for acute on chronic hypoxic respiratory failure due community acquired pneumonia and acute exacerbation of COPD due to above. There was also He did require BiPAP initially with O2 sats of 82% on his baseline 4L of O2. He was treated with empiric vancomycin and cefepime given the fact that his prior pneumonias failed to respond to levofloxacin and there is a concern for pseudomonas. He was initiated on stress dose steroids and inhalers. Blood cultures were negative, and sputum culture could not be obtained. He ruled out for COVID-19. On hospital day 2, the patient was transferred out of ICU to medical surgical floor. On hospital day 3, the patient feels back to baseline, has been declining IV steroids, insulin coverage for his hyperglycemia, and would like to go home. He saturated 90% on 4L ambulating. He worked with PT and was felt to be at his baseline and safe for discharge. The patient is going home today with empiric oral antibiotics (he was discharged on doxycycline and cefuroxime on previous admission and improved, so this is why these antibiotics are chosen again). He is instructed to follow a steroid taper - the patient specifically states that he has a lot of prednisone at home and does not need a prescription, but he is being given instructions on how to take the taper. He has follow up appointment with Dr Munroe, his PCP, as well as psychiatry and pulmonology at [facility], which he is instructed to keep. He did work with our RT department on getting the right settings on his trilogy machine, but he is not enthusiastic about using it and is interested in getting a machine through [facility] pulmonology. The patient is medically stable for discharge home today. Dr Munroe was made aware of the patient going home. Discharge summary and care for patient on day of discharge took 45 minutes. Home Meds and New Rx's Prescriptions: New doxycycline hyclate 100 mg Capsule 100 mg PO Q12H Qty: 9 RF: 0 guaifenesin 100 mg/5 mL Liquid 200 mg PO Q6H PRN PRNQty: 0 RF: 0 cefuroxime axetil 500 mg Tablet 500 mg PO BID Qty: 9 RF: 0 cyanocobalamin (vitamin B-12) 1,000 mcg tablet 1,000 mcg PO DAILY Qty: 30 RF: 0 Continued (DME) POrtable Oxygen Compressor Qty: 1 RF: 0 omeprazole 20 mg capsule,delayed release(DR/EC) 20 mg PO BID Qty: 60 RF: 3 clonazepam 1 mg tablet 0.5 mg PO BID MDD 1 Qty: 28 RF: 2 spironolactone 25 mg tablet 25 mg PO DAILY Qty: 90 RF: 0 morphine 15 mg tablet extended release 15 mg PO Q12H MDD 30 Qty: 56 RF: 0 atorvastatin 80 mg tablet 80 mg PO DAILY Qty: 90 RF: 3 lisinopril 10 mg tablet 5 mg PO DAILY Qty: 90 RF: 3 fluticasone propion-salmeterol [Advair Diskus] 250-50 mcg/dose blister with device 1 inh IH BID RF: 0 ProAir RespiClick 90 mcg/actuation aerosol powdr breath activated 2 inh IH Q6H PRN (Reason: shortness of breath or wheezing) Qty: 1 RF: 1 (DME) Blood Glucose Test Strip See Rx Instructions .ROUTE .MEDSUPPLY Qty: 400 RF: 6 magnesium oxide 400 mg magnesium capsule 400 mg PO DAILY Qty: 90 RF: 3 oxycodone-acetaminophen 5-325 mg tablet 1 tab PO Q4H MDD 6 PRN (Reason: pain) Qty: 140 RF: 0 Oxygen EACH RF: 0 Remicade 100 mg recon soln 800 mg IV q5w RF: 0 Narcan 4 mg/actuation spray,non-aerosol 4 mg NS PRN PRN (Reason: opioid overdose) Qty: 1 RF: 0 Incruse Ellipta 62.5 mcg/actuation blister with device 1 inh IH DAILY RF: 0 pramipexole 0.125 mg tablet 0.125 mg PO HS Qty: 90 RF: 3 aspirin [Aspir-81] 81 mg tablet,delayed release (DR/EC) 81 mg PO DAILY Qty: 100 RF: 3 Daily Vitamin Formula-Iron 18-400 mg-mcg tablet 1 tab PO DAILY Qty: 90 RF: 0 (DME) pen needle, diabetic [BD Ultra-Fine Mini Pen Needle] 31 gauge x 3/16 needle See Rx Instructions .ROUTE .MEDSUPPLY Qty: 90 RF: 3 (DME) lancets [FreeStyle Lancets] 28 gauge misc See Rx Instructions .ROUTE .MEDSUPPLY Qty: 100 RF: 6 metformin 500 mg tablet 1,000 mg PO BID Qty: 360 RF: 3 Tresiba FlexTouch U-100 100 unit/mL (3 mL) insulin pen 15 unit SC DAILY MDD 50 Qty: 60 RF: 1 metoprolol succinate 100 mg tablet extended release 24 hr 100 mg PO DAILY Qty: 90 RF: 3 potassium chloride [Klor-Con M20] 20 mEq Tablet,Er Particles/Crystals 20 meq PO BID Qty: 60 RF: 0 Hold Instructions: K WNL today 11/08/19 vs d/c from hosp 11/04. nitroglycerin [Nitrostat] 0.4 mg Tablet, Sublingual 0.4 mg sublingual Q5 MIN PRN X3 PRNQty: 90 RF: 0 furosemide 20 mg Tablet 40 mg PO BID DIURETIC Qty: 60 RF: 0 warfarin 2 mg tablet 1 mg PO HS Qty: 90 RF: 2 Changed prednisone 10 mg tablet See Rx Instructions .ROUTE .COMPLEX 60 Days Qty: 180 RF: 3 Discharge Instructions Instructions: Cefuroxime (By mouth), Doxycycline (By mouth), Vitamin B-12 (Cyanocobalamin) (By mouth), Bacterial Pneumonia (DC), Vitamin B12 Deficiency (GEN) Additional Instructions: Take your steroid taper and antibiotics as prescribed. Return to the hospital if you feel worse, if you have any fever, bleeding, chest pain, or shortness of breath. Avoid the sun while on doxycycline. Follow up with your PCP and with [facility] pulmonology as scheduled. Referrals: Ana Alatorre DO [Primary Care Provider] - Activity:: Activity as Tolerated Equipment/Supplies:: 4L of O2 (his baseline) Diet:: carb consistent heart healthy Discharge Orders Discharge Orders: Discharge Order (Routine); Ordered 03/04/20 Ordered By: Estella Portillo DS: Summary Status at Discharge Functional status at discharge: independent ambulation Overall status at discharge: patient is progressing back to baseline Mental Status: mental status grossly normal Speech and Movement: speech and movement normal Mood: congruent mood Affect: normal affect Exam Narrative Exam Narrative: General: Obese male who appears to be in no acute respiratory distress, talks in full sentences with no visible respiratory distress, A&Ox3 HEENT: EOMI, MMM Heart: RRR, +CRESCENCIO Lungs: quiet crackles at B bases; mild rhonchi throughout Abdomen: obese, soft, nontender Extremities: the patient asked me not to touch his legs because they hurt; hyperpigmentation of chronic venous stasis dermatitis. Psych Mental Status: mental status grossly normal Speech and Movement: speech and movement normal Mood: congruent mood Affect: normal affect DS: Data Vitals/I&O Vitals and I&O: Vital Signs Temperature 36.8 C 03/04/20 11:23 Temperature Source Tympanic 03/04/20 11:23 Pulse 90 03/04/20 11:23 Pulse 83 03/03/20 15:00 Respiratory Rate 20 03/04/20 11:23 Respiratory Effort 03/04/20 03:45 Respiratory Depth Normal 03/04/20 03:45 Respiratory Pattern Normal 03/04/20 03:45 Blood Pressure 134/64 03/04/20 11:23 Blood Pressure Mean 69 03/03/20 14:01 Blood Pressure Position Supine 03/03/20 09:32 Pulse Oximetry 96 03/04/20 11:23 Oxygen Delivery Method Room Air 03/04/20 11:23 Oxygen Flow Rate 0 03/04/20 11:23 Fraction of Inspired Oxygen (FIO2) 30 03/02/20 20:25 Pain Level 0 03/04/20 11:23 Intake & Output 03/03/20 03/04/20 03/04/20 23:59 11:59 23:59 Intake Total 1240 / 2670 100 / 100 Output Total 625 / 875 2049 Balance 615 / 1795 -1950 / -1950 Weight 114.2 kg Intake: IV 600 / 1310 100 / 100 Oral 640 / 1360 Output: Urine 625 / 875 2049 Other: Urine Color Yellow Yellow Brown Urine Appearance Clear Clear Urine Odor Normal Normal Comment patient refused to be bladder scanned by this RN Voiding Methods Urinal Urinal Data Completed and Pending Completed studies during hospitalization [Text1]: CXR 03/02/2020: Bilateral patchy opacities which may represent atelectasis, aspiration or pneumonia. Very low lung volumes. Labs on day of discharge: Labs from last 24 hours 03/04/20 03/04/20 03/04/20 07:15 07:15 07:15 WBC 15.30 H RBC 3.70 L Hgb 11.9 L Hct 36.6 L MCV 98.9 H MCH 32.2 MCHC 32.5 RDW 14.5 H Plt Count 176 MPV 10.0 Immature Gran % 0.8 Neutrophils % 82.6 Lymphocytes % 10.8 Monocytes % 5.1 Eosinophils % 0.6 Basophils % 0.1 Nucleated RBC % 0 Absolute Neutrophils 12.64 H Absolute Lymphocytes 1.65 Absolute Monocytes 0.78 Absolute Eosinophils 0.09 Absolute Basophils 0.02 PT 20.9 H INR 2.1 H VBG Lactate Sodium Potassium Chloride Carbon Dioxide Anion Gap BUN Creatinine Estimated GFR/1.73 m2 Glucose Calcium Magnesium Iron 43 L TIBC 195 L Transferrin % Sat 22 Ferritin Vitamin B12 Folate COVID-19 PCR Nasopharyn COVID-19 PCR Ref Test Perform Site 03/04/20 03/04/20 03/03/20 07:15 05:35 14:10 WBC RBC Hgb Hct MCV MCH MCHC RDW Plt Count MPV Immature Gran % Neutrophils % Lymphocytes % Monocytes % Eosinophils % Basophils % Nucleated RBC % Absolute Neutrophils Absolute Lymphocytes Absolute Monocytes Absolute Eosinophils Absolute Basophils PT INR VBG Lactate 3.8 H* Sodium 139 Potassium 4.3 Chloride 105 Carbon Dioxide 30.1 Anion Gap 3.9 BUN 27 H Creatinine 1.05 Estimated GFR/1.73 m2 >= 60.00 Glucose 216 H Calcium 8.5 Magnesium 2.1 Iron TIBC Transferrin % Sat Ferritin 265 Vitamin B12 322 Cancelled Folate > 20.0 H Cancelled COVID-19 PCR Nasopharyn COVID-19 PCR Ref Test Perform Site 03/02/20 21:18 WBC RBC Hgb Hct MCV MCH MCHC RDW Plt Count MPV Immature Gran % Neutrophils % Lymphocytes % Monocytes % Eosinophils % Basophils % Nucleated RBC % Absolute Neutrophils Absolute Lymphocytes Absolute Monocytes Absolute Eosinophils Absolute Basophils PT INR VBG Lactate Sodium Potassium Chloride Carbon Dioxide Anion Gap BUN Creatinine Estimated GFR/1.73 m2 Glucose Calcium Magnesium Iron TIBC Transferrin % Sat Ferritin Vitamin B12 Folate COVID-19 PCR Negative Nasopharyn COVID-19 PCR Not Applicable Ref Test Perform Site [facility] Preliminary micro results at discharge 03/02/20 22:00 Blood Culture - Preliminary Blood NO GROWTH 24 HOURS 03/02/20 20:35 Blood Culture - Preliminary Blood NO GROWTH 24 HOURS PENDING SALE TO [facility] Medical History Anemia (Chronic) Hx low Hgb, but today's lab review was unexpected. Probable anemia of chronic disease .. Non-meat diet, [ ] iron suppl (concern for constipation)? [ ] stool guaic Aortic stenosis, moderate (Chronic 07/03/16) [facility] ECHO EF 65%; Mod , valve area 1.33 (grad 23/mean14) (06/2016) [facility] eval 09/2017 shows worsening disease .. may need cardiac surgery. Depressive disorder (Chronic 07/14/11) Surgical History Bronchoscopy (11/20/10) with BAL echo ([facility] pulmonolgy note 09/21/17.) Compared to the study from 06/18/16 the severity of aortic stenosis has increased and there is pulmonary hypertension. seeing cardio again in 2 wks. Extraction of cataract (08/21/10) R eye,with IOL, Dr Gary History of cardiac cath (Resolved) 03/21/19 [facility] Right heart cath-mild Pulm HTN mean PA pressure 25 and PA systolic pressure 50 normal wedge pressure 6. Right dominant circulation with mild disease in all vessels, focal anyeursm RCA 5mm Internal fixation (08/03/10) R distal femoral fx, Dr Banda, [facility] PFT'S: SEPTEMBER 2017 [facility] pulm note 09/21/17. O2 sat on RA 97% After 250 ft on RA 88% needing 2l O2. PTCA (01/27/94) rescue PTCA RCA for persistent CP with Inf DC; [facility] right heart catheterization,oximetry (01/07/18) [facility].Corey Griffin MD findings: Severe pulmonary hypertension mildly elevated pulmonary capillary wedge pressure Status post transcatheter aortic valve replacement (Acute) [facility] 03/29/19 Family History Mother , Lung Cancer at age 74. Personal history of malignant neoplasm at 74 of lung CA Father , CHF at age 86. 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 Retired. 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
--- NOTE | 2020-03-04 16:02 | PDOC.HHF2F_ITS ---
Home Health Certification Home Health Certification: 1. Encounter Date and Reason I certify that SACHA JESUS was seen by Estella Portillo on 03/04/20 and that I had a eatj-su-vcul encounter with this patient that meets the physician face to face encounter requirements. 2. Clinical Findings Supporting Skilled Need and Homebound Status I certify that home health services are medically necessary, include either intermittent shelter and/or physical/speech therapy, and that this patient is homebound in that absences from the home require considerable and taxing effort and are infrequent or of short duration, or are attributable to the need to receive medical care. [X] (a) Attached documentation from encounter provides clinical findings supporting skilled need and homebound status (including what assistance patient requires to leave the home). The encounter with the patient was in whole, or in part, for the following medical condition, which is the primary reason for home health care: PNEUMONIA; COPD Nursing Home: CHF, pulmonary fibrosis, DM, on oxygen (4L) - assess patient's medication compliance/teaching, vital sign monitoring Physical Therapy: eval and treat Homebound: unable to leave home without assistance 3. Certification and Authentication I certify that I composed the above information based on my clinical judgement relating to this patient's medical condition and, if applicable, clinical findings communicated to me by the NPP or inpatient physician who performed the Home Health Referral. All further orders will be obtained through __Dr Munroe (Community Based Physician - PCP)
--- NOTE | 2020-03-04 16:20 | PDOC.CMDIS ---
- If Service Date Differs Date of service: 03/04/20 Time of Service: 16:20 LACE Index Scoring Tool - Questions: Length of Stay (in days): 3 Acuity (Admit via E.D.?): Yes Comorbidities: Diabetes w/o Complication, Chronic Pulmonary Disease E.D. Visits: 2 - Answers: Total Score: 11 Risk of Readmission: High Risk Care Management Discharge Reason for Hospitalization: Pneumonia, COPD. Discharge Plan: Elio will return home with new orders for RN, PT. His girlfriend will drive him home via private vehicle. He will follow up with his PCP and discharge plan of care. He was happy to be going home. Patient/Family Education Needs: Review discharge instructions regarding activity levels and medications, discussion of self care needs including ask me three and goals of care. Services Needed at Discharge: Home Health Care Services ([facility])
--- NOTE | 2020-03-04 18:00 | INDS_ITS ---
Date of service: 03/04/20 Time of Service: 12:55 PT Notes Visit Reasons: PNEUMONIA; COPD Inpatient Physical Therapy Discharge Summary Dates: 03/04/2020 Dates of Service: 03/04/2020 only Referring Doctor: Estella Portillo MD PT Orders: PT CONSULT: Limited ability Precautions: Fall. Standard. Activity as tolerated. On 4 L of oxygen per minute at rest. Patient Profile/Admitting Diagnosis: Patient is a 74-year-old male with past medical history significant for atrial fibrillation with controlled ventricular response, chronic obstructive pulmonary disease, type 2 diabetes mellitus, rheumatoid lung, and rheumatoid arthritis who presented to the ED via EMS on 03/02/2020 with chief complaints of worsening shortness of breath and feeling of being unwell. Patient tested negative for COVID19 as of 03/02/2020 as of 21:18 PM. 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 PMHX: Medical History Anemia (Chronic) Hx low Hgb, but today's lab review was unexpected. Probable anemia of chronic disease .. Non-meat diet, [ ] iron suppl (concern for constipation)? [ ] stool guaic Aortic stenosis, moderate (Chronic [place]03/16[place] [facility] [place] 65%; Mod , valve area 1.33 (grad 23/mean14) (06/2016[place] [facility] [place] shows worsening disease .. may need cardiac surgery. Depressive disorder (Chronic 07/14/11) Surgical History Bronchoscopy (11/20/10) with BAL [place] [place] Compared to the study from 06/18/16 the severity of aortic stenosis has increased and there is pulmonary hypertension. seeing cardio again in 2 wks. Extraction of cataract (08/21/10) R eye,with IOL, Dr Gary History of cardiac cath (Resolved) [place] [facility] [place] cath-mild Pulm HTN mean PA pressure 25 and PA systolic pressure 50 normal wedge pressure 6. Right dominant circulation with mild disease in all vessels, focal anyeursm RCA 5mm Internal fixation (08/03/10) R distal femoral fx, Dr Banda, [facility] PFT'S: SEPTEMBER [place] [facility] [place]. O2 sat on RA 97% After 250 ft on RA 88% needing 2l O2. PTCA (01/27/94) rescue PTCA RCA for persistent CP with Inf AR[place] [facility] [place]ox[place]07/18[place] [facility] [place] findings: Severe pulmonary hypertension mildly elevated pulmonary capillary wedge pressure Status post transcatheter aortic valve replacement (Acute[place] [facility] [place] Social History/Home Situation: Patient lives with significant other Debra on the third floor of an apartment building with 17 steps to enter and a rail on the left side going up. Significant other has been a very good support for patient for the past few years. Patient is independent without an assistive device inside the apartment but requires the use of a cane to negotiate steps as his heavy concentrator affects his balance. Significant other takes care of meals, laundry, grocery shopping, and transportation. They both have a system that has been effective with stair negotiation as Elio takes about half an hour to an hour to complete ascent/descent of stairs one way due to decreased activity tolerance-- and this has been like that for the past 10 years. They are on a wait list for a [facility] property that is handicap-accessible. Equipment Owned/DME: Motorized wheelchairs. Regular wheelchair. 4 wheeled walkers. Front wheeled walkers. Single-point cane. Portable oxygen concent rator. Subjective: Elio is willing to perform what needs to be done in order to go home with significant other Debra this afternoon. Objective: General Observation: Oxygen supplementation at 4 L/min via NC. IV access in right UE. Mild to moderate shortness of breath after ambulation activity and stair negotiation activity. Mental Status: Alert and oriented x4 Pain: None reported ROM: Right Upper Extremity: Shoulder Flexion allows up to 80 degrees. Shoulder abduction allows up to 80 degrees. Elbow flexion WFL. Wrist flexion WFL. Opening and closing of hand WFL. Left Upper Extremity: Shoulder Flexion allows up to 80 degrees. Shoulder abduction allows up to 80 degrees. Elbow flexion WFL. Wrist flexion WFL. Opening and closing of hand WFL. Right Lower Extremity: Hip flexion allows up to 20 degrees beyond 90 while seated on edge of chair. Hip abduction WFL. Knee flexion WFL. Knee extension -30 degrees. Ankle dorsiflexion about 5 degrees from neutral. Ankle plantarflexion WFL. Left Lower Extremity: Hip flexion allows up to 20 degrees beyond 90 while seated on edge of chair. Hip abduction WFL. Knee flexion WFL. Knee extension -30 degrees. Ankle dorsiflexion about 5 degrees from neutral. Ankle plantarflexion WFL. Strength: Right Upper Extremity: Shoulder flexors 3-/5. Shoulder abductors 3-/5. Elbow flexors 4/5. Elbow extensors 4/5. Underwriting Service Representative strong. Left Upper Extremity: Shoulder flexors 3-/5. Shoulder abductors 3-/5. Elbow flexors 4/5. Elbow extensors 4/5. Underwriting Service Representative strong. Right Lower Extremity: Hip flexors 3-/5. Hip abductors 4-/5. Knee flexors 4-/5. Knee extensors 5/5. Ankle dorsiflexors 2-/5. Ankle plantarflexors 3-/5. Left Lower Extremity:Hip flexors 3-/5. Hip abductors 4-/5. Knee flexors 4-/5. Knee extensors 5/5. Ankle dorsiflexors 2--/5. Ankle plantarflexors 3-/5. Sensation: Intact as to pain and pressure on bilateral lower extremities. Bed Mobility/Transfers: Sit to stand supervision Stand to sit supervision Bed to chair supervision Chair to bed supervision STAIRS: Elio tolerated up-and-down twelve 4 inch steps while holding to a rail standby assist with step to gait pattern with mild to 100 worrying about 5 minutes rest each trip for recovery. Static Sitting: Normal Dynamic Sitting: Normal Static Standing: Fair Dynamic Standing: Fair Assessment: Patient is evaluation and 1 treatment session only today. Elio demonstrates decreased activity tolerance, need for an assistive device for all level surface and stair negotiation activities, difficulty with walking, impairment of balance and generalized weakness resolved from admitting diagnoses. Patient is a 74-year-old male with past medical history significant for atrial fibrillation with controlled ventricular response, chronic obstructive pulmonary disease, type 2 diabetes mellitus, rheumatoid lung, and rheumatoid arthritis who presented to the ED via EMS on 03/02/2020 with chief complaints of worsening shortness of breath and feeling of being unwell. Patient tested negative for COVID19 as of 03/02/2020 as of 21:18 PM. 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 He will contonue to benefit from skilled PT services to continue with goals indicated below. Goals: Goals X 1 more treatment session 1. Supine-Sit independent MET 2. Sit-Supine independent MET 3. Sit-Stand supervision MET 4. Stand-Sit supervision MET 5. Bed-Chair supervision MET 6. Chair-Bed supervision MET 7. supervision gait on level surface with use of least restrictive device for at least 300 feet without report of pain nor dyspnea NOT MET 8. supervision stair negotiation while holding onto bilateral rails for at least 10 steps without report of pain nor dyspnea NOT MET 9. supervisionwith home exercise program NOT MET 10. Good static and dynamic standing balance/tolerance NOT MET DISCHARGE RECOMMENDATIONS: Patient will benefit from home health PT services in order to progress mobility level using least restrictive assistive ambulatory device, assess home safety, identify additional equipment needs, and establish a functional maintenance program that will increase ability of patient to remain at home. TREATMENT CODE/TIME: 16144 x 30 minutes beginning at 12:55 PM. Thank you very much for this referral. Shayy Montoya PT, DPT, CLT [facility] [place], [place]
== END 2020-03-04 16:07 | disposition home health service (06) | DRG 193 ==
LOC: ER 21:55 → ICU 23:58 → MS 03-04 08:53 → ICU 03-04 09:00 → MS 03-04 09:00
PROVIDERS: Internal Medicine; Student in an Organized Health Care Education/Training Program; Admitting Provider Family Medicine; Emergency Provider Emergency Medicine; PCP Student in an Organized Health Care Education/Training Program; Visit Provider Family Medicine
DX: J18.9 Pneumonia, unspecified organism (principal); J96.21 Acute and chronic respiratory failure with hypoxia; J44.0 Chronic obstructive pulmonary disease with (acute) lower respiratory infection; E87.2 Acidosis; I50.42 Chronic combined systolic (congestive) and diastolic (congestive) heart failure; I48.20 Chronic atrial fibrillation, unspecified; J44.1 Chronic obstructive pulmonary disease with (acute) exacerbation; I25.10 Atherosclerotic heart disease of native coronary artery without angina pectoris; I27.20 Pulmonary hypertension, unspecified; Z79.4 Long term (current) use of insulin; Z79.01 Long term (current) use of anticoagulants; F32.9 Major depressive disorder, single episode, unspecified; I25.2 Old myocardial infarction; Z95.5 Presence of coronary angioplasty implant and graft; Z95.2 Presence of prosthetic heart valve; G47.33 Obstructive sleep apnea (adult) (pediatric); J84.10 Pulmonary fibrosis, unspecified; E11.65 Type 2 diabetes mellitus with hyperglycemia; I11.0 Hypertensive heart disease with heart failure; M05.79 Rheumatoid arthritis with rheumatoid factor of multiple sites without organ or systems involvement; F40.240 Claustrophobia; G89.4 Chronic pain syndrome; Z66 Do not resuscitate; Z79.52 Long term (current) use of systemic steroids; D53.9 Nutritional anemia, unspecified; I35.0 Nonrheumatic aortic (valve) stenosis; E53.8 Deficiency of other specified B group vitamins; Z11.59 Encounter for screening for other viral diseases
CPT/HCPCS: 36415; 80048; 80053; 82805; 87040; 93005; 94618; 94640; 96361; 96365; 96375; 97162; 97530; 99223; 99232; 99239; 99291; U0003; 71045; 82607; 82728; 82746; 83540; 83550; 83605; 83735; 83880; 84484; 85025; 85610; 93010; 94667; J1580; J1720; J1956; J2930; J3490; J7512

== ENCOUNTER 2020-03-20 02:24 | Outpatient (RCR) | payer MEDICARE, SELFPAY ==
[2020-03-20] VITALS (7 sets, daily range): BP systolic 127–149; BP diastolic 53–69; PULSE 82–136; RESP 19–22; TEMP 36–36.3; O2SAT 85–99
[2020-03-20] MEDS: Acetaminophen 325 MG TAB 650 MG PO (09:02)
[2020-03-20] MEDS: diphenhydrAMINE 25 MG CAP PO (09:03)
[2020-03-20] MEDS: Normal Saline Flush 10 ML SYR IVP (09:30)
== END 2020-04-03 23:59 | disposition home or self-care (01) ==
LOC: INF 02:24
PROVIDERS: PCP Student in an Organized Health Care Education/Training Program; Visit Provider Internal Medicine
DX: M06.9 Rheumatoid arthritis, unspecified (principal)
CPT/HCPCS: 96365; 96366; 96413; 96415; J1745

== ENCOUNTER 2020-03-22 08:27 | Inpatient (IN) | payer MEDICARE, SELFPAY ==
[2020-03-22] VITALS (27 sets, daily range): BP systolic 97–134; BP diastolic 48–86; PULSE 62–94; RESP 19–20; TEMP 36.6–38; O2SAT 87–100
--- NOTE | 2020-03-22 08:33 | W.ED.GENAD ---
Discharge Plan Disposition Patient Disposition: [facility] INPATIENT Condition: Stable Discharge Details Chief Complaint: Cellulitis Clinical Impression: Foot osteomyelitis, left Primary Care Provider: Ana Alatorre ED Provider: Dima Mitchell Home Meds and New Rx's Prescriptions: No Action (DME) POrtable Oxygen Compressor Qty: 1 RF: 0 omeprazole 20 mg capsule,delayed release(DR/EC) 20 mg PO BID Qty: 60 RF: 3 clonazepam 1 mg tablet 0.5 mg PO BID MDD 1 Qty: 28 RF: 2 spironolactone 25 mg tablet 25 mg PO DAILY Qty: 90 RF: 0 morphine 15 mg tablet extended release 15 mg PO Q12H MDD 30 Qty: 56 RF: 0 atorvastatin 80 mg tablet 80 mg PO DAILY Qty: 90 RF: 3 lisinopril 10 mg tablet 5 mg PO DAILY Qty: 90 RF: 3 Humulin N NPH Insulin KwikPen 100 unit/mL (3 mL) insulin pen 5 unit SC QAM PRN (Reason: steroid use) Qty: 6 RF: 1 Hold Instructions: Formulary/Insurance (DME) lancets [FreeStyle Lancets] 28 gauge misc See Rx Instructions .ROUTE .MEDSUPPLY Qty: 200 RF: 6 prednisone 10 mg tablet 10 mg PO DAILY Qty: 100 RF: 1 azithromycin 250 mg tablet See Rx Instructions PO .COMPLEX Qty: 6 RF: 0 fluticasone propion-salmeterol [Advair Diskus] 250-50 mcg/dose blister with device 1 inh IH BID RF: 0 ProAir RespiClick 90 mcg/actuation aerosol powdr breath activated 2 inh IH Q6H PRN (Reason: shortness of breath or wheezing) Qty: 1 RF: 1 (DME) Blood Glucose Test Strip See Rx Instructions .ROUTE .MEDSUPPLY Qty: 400 RF: 6 magnesium oxide 400 mg magnesium capsule 400 mg PO DAILY Qty: 90 RF: 3 oxycodone-acetaminophen 5-325 mg tablet 1 tab PO Q4H MDD 6 PRN (Reason: pain) Qty: 140 RF: 0 Jardiance 25 mg tablet 12.5 mg PO DAILY Qty: 30 RF: 0 Oxygen EACH RF: 0 Remicade 100 mg recon soln 800 mg IV q5w RF: 0 Narcan 4 mg/actuation spray,non-aerosol 4 mg NS PRN PRN (Reason: opioid overdose) Qty: 1 RF: 0 Incruse Ellipta 62.5 mcg/actuation blister with device 1 inh IH DAILY RF: 0 pramipexole 0.125 mg tablet 0.125 mg PO HS Qty: 90 RF: 3 aspirin [Aspir-81] 81 mg tablet,delayed release (DR/EC) 81 mg PO DAILY Qty: 100 RF: 3 Daily Vitamin Formula-Iron 18-400 mg-mcg tablet 1 tab PO DAILY Qty: 90 RF: 0 (DME) pen needle, diabetic [BD Ultra-Fine Mini Pen Needle] 31 gauge x 3/16 needle See Rx Instructions .ROUTE .MEDSUPPLY Qty: 90 RF: 3 metformin 500 mg tablet 1,000 mg PO BID Qty: 360 RF: 3 Tresiba FlexTouch U-100 100 unit/mL (3 mL) insulin pen 15 unit SC DAILY MDD 50 Qty: 60 RF: 1 metoprolol succinate 100 mg tablet extended release 24 hr 100 mg PO DAILY Qty: 90 RF: 3 Novolin N Flexpen 100 unit/mL (3 mL) insulin pen 25 unit subcut DAILY PRN (Reason: steroid use) Qty: 15 RF: 1 potassium chloride [Klor-Con M20] 20 mEq Tablet,Er Particles/Crystals 20 meq PO BID Qty: 60 RF: 0 Hold Instructions: K WNL today 11/08/19 vs d/c from hosp 11/04. nitroglycerin [Nitrostat] 0.4 mg Tablet, Sublingual 0.4 mg sublingual Q5 MIN PRN X3 PRNQty: 90 RF: 0 furosemide 20 mg Tablet 40 mg PO BID DIURETIC Qty: 60 RF: 0 warfarin 2 mg tablet 1 mg PO HS Qty: 90 RF: 2 guaifenesin 100 mg/5 mL Liquid 200 mg PO Q6H PRN PRNQty: 0 RF: 0 cyanocobalamin (vitamin B-12) 1,000 mcg tablet 1,000 mcg PO DAILY Qty: 30 RF: 0 prednisone 10 mg tablet See Rx Instructions .ROUTE .COMPLEX 60 Days Qty: 180 RF: 3 Medical Decision Making 74-year-old male diabetic, with a complex past medical history including oxygen and steroid-dependent COPD, pulmonary hypertension, CHF, rheumatoid arthritis on Remicade, Afib on warfarin. Currently taking prednisone 20 mg daily. He was recently admitted for pneumonia and treated with doxycycline and cefuroxime. Recent azithromycin for bronchitis. He said 2 days of worsening left dorsal foot pain with associated eschar type changes to the skin surrounding a weeping lesion that he has had for weeks. He has chronic lower extremity edema with venous stasis changes, chronic shortness of breath. He has chronic pain for which he takes both morphine and as needed Percocet. He was seen by Dr. Alatorre's office today with concern for developing black eschar referred to the ER. IV access established, blood and wound cultures obtained in addition to screening laboratories. Patient referred for x-ray to rule out bony changes. X-ray reveals bone density loss in the portions of the second through fourth metatarsal heads. He does have a chronic leukocytosis but today with a white count of 18 with left shift, ESR of 35, CRP of 3.1. Case discussed with Dr. Russell from general surgery. She will see the patient in consultation for possible debridement of the eschar. She asked that he have his warfarin held for today. Case discussed with hospitalist team, antibiotics initiated Lab Data Lab results reviewed: Yes I reviewed the patient's lab results. Labs: Laboratory Results - last 24 hr 03/22/20 03/22/20 03/22/20 09:08 09:08 09:08 WBC 18.82 H RBC 4.06 L Hgb 13.2 L Hct 39.9 L MCV 98.3 H MCH 32.5 MCHC 33.1 RDW 15.1 H Plt Count 213 MPV 9.4 Immature Gran % 0.6 Neutrophils % 90.7 Lymphocytes % 4.5 Monocytes % 3.0 Eosinophils % 1.0 Basophils % 0.2 Nucleated RBC % 0 Absolute Neutrophils 17.07 H Absolute Lymphocytes 0.85 L Absolute Monocytes 0.56 Absolute Eosinophils 0.19 Absolute Basophils 0.04 ESR 35 H PT 22.3 H INR 2.3 H APTT 30.5 Sodium 135 L Potassium 4.6 Chloride 97 L Carbon Dioxide 25.6 Anion Gap 12.4 H BUN 26 H Creatinine 1.29 Estimated GFR/1.73 m2 54.44 Glucose 183 H Calcium 8.9 Total Bilirubin 0.8 AST 27 ALT 40 Alkaline Phosphatase 70 C-Reactive Protein 3.17 H Total Protein 7.0 Albumin 3.2 L HPI General Mode of arrival: ambulatory. Date/Time Provider Initiated Documentation: 03/22/20 08:28. Limitations to Documentation: no limitations. Information obtained by: patient and old records reviewed. History of Present Illness 74 year old M presents to the emergency department with the chief complaint of Right diabetic foot infection, described as moderate and similar to prior episodes, Quality is described as dull and constant, and is localized to the right and lower extremity. Patient reports no radiation. Patient started experiencing this day(s) and it has been constant. No relieving factors improve symptom(s), No exacerbating factors reported . Patient did receive the following treatments prior to arrival, other (Azithromycin for bronchitis) Related Data Home Medications Medication Instructions Recorded Confirmed Oxygen 09/23/17 03/18/20 POrtable Oxygen Compressor #1 ea 12/02/18 03/18/20 omeprazole 20 mg capsule,delayed 20 mg PO BID #60 tab-cap 03/05/19 03/22/20 release infliximab 100 mg intravenous 800 mg IV q5w vial 04/05/19 03/22/20 solution albuterol sulfate 90 mcg/actuation 2 inh IH Q6H PRN #1 each 04/06/19 03/22/20 breath activated powder inhaler fluticasone 250 mcg-salmeterol 50 1 inh IH BID 05/10/19 03/22/20 mcg/dose blistr powdr for inhalation naloxone 4 mg/actuation nasal spray 4 mg NS PRN PRN #1 unit 05/23/19 03/22/20 pramipexole 0.125 mg tablet 0.125 mg PO HS #90 tab-cap 08/02/19 03/22/20 umeclidinium 62.5 mcg/actuation 1 inh IH DAILY 08/02/19 03/22/20 blister powder for inhalation aspirin 81 mg tablet,delayed 81 mg PO DAILY #100 tab 09/18/19 03/22/20 release multivitamin-ferrous 1 tab PO DAILY #90 tab 10/17/19 03/22/20 fumarate-folic acid 18 mg-400 mcg tablet furosemide 40 mg PO BID DIURETIC #60 tab NS 11/05/19 03/22/20 nitroglycerin [Nitrostat] 0.4 mg SUBLINGUAL Q5 MIN PRN X3 11/05/19 03/22/20 PRN #90 tab potassium chloride [Klor-Con M20] 20 meq PO BID #60 tab 11/05/19 03/22/20 warfarin 1 mg PO HS #90 tab 11/05/19 03/22/20 pen needle, diabetic 31 gauge x #90 each 11/23/19 03/18/2009/17 blood sugar diagnostic #400 each 12/29/19 03/18/20 clonazepam 1 mg tablet 0.5 mg PO BID #28 tab MDD 1 01/03/20 03/22/20 spironolactone 25 mg tablet 25 mg PO DAILY #90 tab 01/04/20 03/22/20 morphine 15 mg tablet,extended 15 mg PO Q12H #56 tab MDD 30 01/05/20 03/22/20 release magnesium oxide 400 mg PO DAILY #90 tab-cap 01/06/20 03/22/20 atorvastatin 80 mg tablet 80 mg PO DAILY #90 tab-cap 01/09/20 03/22/20 oxycodone-acetaminophen 5 mg-325 1 tab PO Q4H PRN #140 tab MDD 6 01/10/20 03/22/20 mg tablet insulin degludec 100 unit/mL (3 15 unit SC DAILY #60 ml MDD 50 02/15/20 03/22/20 mL) subcutaneous pen metformin 500 mg tablet 1,000 mg PO BID #360 tab-cap 02/15/20 03/22/20 lisinopril 10 mg tablet 5 mg PO DAILY #90 tab 02/16/20 03/22/20 metoprolol succinate 100 mg 100 mg PO DAILY #90 tab 02/19/20 03/22/20 tablet,extended release 24 hr cyanocobalamin (vitamin B-12) 1,000 mcg PO DAILY #30 tab 03/04/20 03/22/20 guaifenesin 200 mg PO Q6H PRN PRN #0 ml 03/04/20 03/22/20 prednisone See Rx Instructions .ROUTE 03/04/20 03/22/20 .COMPLEX 60 Days #180 tab empagliflozin 25 mg tablet 12.5 mg PO DAILY #30 tab 03/06/20 03/22/20 insulin NPH isoph U-100 human 100 5 unit SC QAM PRN #6 ml 03/13/20 03/22/20 unit/mL (3 mL) subcutaneous pen lancets 28 gauge #200 each 09/09/20 09/09/20 prednisone 10 mg tablet 10 mg PO DAILY #100 tab 03/13/20 03/22/20 azithromycin 250 mg tablet See Rx Instructions PO .COMPLEX #6 03/18/20 03/22/20 tab insulin NPH isoph U-100 human 100 25 unit SUBCUT DAILY PRN #15 ml 03/20/20 03/22/20 unit/mL (3 mL) subcutaneous pen Previous Rx's Medication Instructions Recorded POrtable Oxygen Compressor #1 ea 12/02/18 omeprazole 20 mg capsule,delayed 20 mg PO BID #60 tab-cap 03/05/19 release albuterol sulfate 90 mcg/actuation 2 inh IH Q6H PRN #1 each 04/06/19 breath activated powder inhaler naloxone 4 mg/actuation nasal spray 4 mg NS PRN PRN #1 unit 05/23/19 pramipexole 0.125 mg tablet 0.125 mg PO HS #90 tab-cap 08/02/19 aspirin 81 mg tablet,delayed 81 mg PO DAILY #100 tab 09/18/19 release multivitamin-ferrous 1 tab PO DAILY #90 tab 10/17/19 fumarate-folic acid 18 mg-400 mcg tablet furosemide 40 mg PO BID DIURETIC #60 tab NS 11/05/19 nitroglycerin [Nitrostat] 0.4 mg SUBLINGUAL Q5 MIN PRN X3 11/05/19 PRN #90 tab potassium chloride [Klor-Con M20] 20 meq PO BID #60 tab 11/05/19 warfarin 1 mg PO HS #90 tab 11/05/19 pen needle, diabetic 31 gauge x #90 each 11/23/1909/17 blood sugar diagnostic #400 each 12/29/19 clonazepam 1 mg tablet 0.5 mg PO BID #28 tab MDD 1 01/03/20 spironolactone 25 mg tablet 25 mg PO DAILY #90 tab 01/04/20 morphine 15 mg tablet,extended 15 mg PO Q12H #56 tab MDD 30 01/05/20 release magnesium oxide 400 mg PO DAILY #90 tab-cap 01/06/20 atorvastatin 80 mg tablet 80 mg PO DAILY #90 tab-cap 01/09/20 oxycodone-acetaminophen 5 mg-325 1 tab PO Q4H PRN #140 tab MDD 6 01/10/20 mg tablet insulin degludec 100 unit/mL (3 15 unit SC DAILY #60 ml MDD 50 02/15/20 mL) subcutaneous pen metformin 500 mg tablet 1,000 mg PO BID #360 tab-cap 02/15/20 lisinopril 10 mg tablet 5 mg PO DAILY #90 tab 02/16/20 metoprolol succinate 100 mg 100 mg PO DAILY #90 tab 02/19/20 tablet,extended release 24 hr cyanocobalamin (vitamin B-12) 1,000 mcg PO DAILY #30 tab 03/04/20 guaifenesin 200 mg PO Q6H PRN PRN #0 ml 03/04/20 prednisone See Rx Instructions .ROUTE 03/04/20 .COMPLEX 60 Days #180 tab empagliflozin 25 mg tablet 12.5 mg PO DAILY #30 tab 03/06/20 insulin NPH isoph U-100 human 100 5 unit SC QAM PRN #6 ml 03/13/20 unit/mL (3 mL) subcutaneous pen lancets 28 gauge #200 each 03/13/20 prednisone 10 mg tablet 10 mg PO DAILY #100 tab 03/13/20 azithromycin 250 mg tablet See Rx Instructions PO .COMPLEX #6 03/18/20 tab insulin NPH isoph U-100 human 100 25 unit SUBCUT DAILY PRN #15 ml 03/20/20 unit/mL (3 mL) subcutaneous pen Allergies Allergy/AdvReac Type Severity Reaction Status Date / Time adalimumab Allergy Severe unknown Verified 03/22/20 09:28 Penicillins Allergy Severe Anaphylaxsi Verified 03/22/20 09:28 s General LINDSEY: 2 Review of Systems Narrative: Chronic lower extremity edema, states it somewhat improved after letting the wound drain. Chronic shortness of breath that is unchanged. On Remicade and 20 mg prednisone daily. Increasing lower extremity pain over 2 days time and now with black skin changes. 8 systems reviewed and otherwise negative. [facility] Medical History (Updated 03/22/20 @ 08:58 by Ana Alatorre DO) Anemia Hx low Hgb, but today's lab review was unexpected. Probable anemia of chronic disease .. Non-meat diet, [ ] iron suppl (concern for constipation)? [ ] stool guaic Aortic stenosis, moderate (07/03/16) [facility] [place] ECHO EF 65%; Mod , valve area 1.33 (grad 23/mean14) (06/2016) [facility] eval 09/2017 shows worsening disease .. may need cardiac surgery. Depressive disorder (07/14/11) Wound of left foot Forefoot, x 2 weeks self-care; Worse/Painful/Necrosis, 03/22/20. [ ] ED [ ] Surg? [ ] [facility] Surgical History Bronchoscopy (11/20/10) with BAL echo ([facility] pulmonolgy note 09/21/17.) Compared to the study from 06/18/16 the severity of aortic stenosis has increased and there is pulmonary hypertension. seeing cardio again in 2 wks. Extraction of cataract (08/21/10) R eye,with IOL, Dr Gary History of cardiac cath 03/21/19 [facility] [place] heart cath-mild Pulm HTN mean PA pressure 25 and PA systolic pressure 50 normal wedge pressure 6. Right dominant circulation with mild disease in all vessels, focal anyeursm RCA 5mm Internal fixation (08/03/10) R distal femoral fx, Dr Banda, [facility] PFT'S: SEPTEMBER 2017 [facility] pulm note 09/21/17. O2 sat on RA 97% After 250 ft on RA 88% needing 2l O2. PTCA (01/27/94) rescue PTCA RCA for persistent CP with Inf CA; [facility] right heart catheterization,oximetry (01/07/18) [facility] [place]Corey Griffin MD findings: Severe pulmonary hypertension mildly elevated pulmonary capillary wedge pressure Status post transcatheter aortic valve replacement [facility] 03/29/19 Family History Mother , Lung Cancer at age 74. Personal history of malignant neoplasm at 74 of lung CA Father , CHF at age 86. 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 Retired. 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 Exam Narrative Exam Narrative: GEN: awake, alert, oriented 3. Pleasant, well groomed, interactive. HEAD: Normocephalic, atraumatic ENT: Mucous membranes moist, oropharynx unremarkable, External ear exam unremarkable EYES: PERRL, EOMI NECK: Full ROM, no VARGHESE, no menigismus CHEST/RESP: Distant, nontender, clear to auscultation anterior, diminished CARDIOVASCULAR very distant, RRR, no murmur, rub irina appreciated. 2+ Rad pulse bilateral ABDOMEN: Soft, nontender, no mass. +Bowel sounds EXT: Full ROM, bilateral chronic venous stasis changes and 3+ edema. The dorsum of the left foot has puffy edema, central area of skin breakdown with oozing serous fluid and surrounding black skin changes/eschar Neuro: Grossly normal neurologic exam, conversant, interactive. Psych: Speech fluent, thoughts congruent, affect normal Course Lab/Test Results Lab/Test Results: 03/22/20 08:28 Blood Blood Culture - Pending 03/22/20 08:28 Blood Blood Culture - Pending
--- NOTE | 2020-03-22 08:45 | DI.RAD_ITS ---
EXAM: XR FOOT LT COMPLETE CLINICAL HISTORY: dorsal pain, swelling TECHNIQUE: COMPARISON: No exams were available for comparison FINDINGS: Three views were obtained. There is marked soft tissue swelling the dorsum foot over the region of t he distal metatarsals. Note is made apparent loss of bone density of portions of the heads of the 2n d through 4th metatarsals, in the clinical setting of suspected osteomyelitis the findings are suspic ious for osteomyelitis of the heads the metatarsals. Apart from degenerative changes, no other signi ficant bony abnormality seen. IMPRESSION: Findings suspicious for osteomyelitis of the heads of the 2nd through 4th metatarsals. If clinically indicated additional evaluation with MRI may be considered. RADIATION DOSE DELIVERED: Total DLP
[2020-03-22] MEDS: Lactated Ringers 1,000 ML 125 ML IV ×3 (09:15→23:40)
[2020-03-22] MEDS: oxyCODONE 5 mg/Acetaminophen 325 mg TAB 1 TAB PO ×3 (09:16→23:38)
[2020-03-22 09:20] LABS: Abs Immature Grans 0.11 10^3/uL (0.0-0.06); Absolute Basophil Count 0.04 10^3/uL (0.0-0.2); Absolute Monocyte Count 0.56 10^3/uL (0.1-0.8); Basophils % 0.2; HCT 39.9 % (40.0-50.0); HGB 13.2 g/dL (13.5-17.5); Immature Grans % 0.6; Lymphocytes % 4.5; MCH 32.5 pg (27.0-33.0); MCHC 33.1 % (32.0-36.0); MCV 98.3 fL (80-95); MPV 9.4 fL (8.0-11.0); Neutrophils % 90.7; Nucleated RBC 0 %; Platelet Count 213 10^3/uL (130-400); RBC 4.06 10^6/uL (4.36-5.78); RDW 15.1 % (11.8-14.1); RDW-SD 53.9 fL; WBC 18.82 10^3/uL (4.4-10.8)
[2020-03-22 09:31] LABS: ALT 40 U/L (16-63); AST 27 U/L (15-37); Absolute Eosinophil Count 0.19 10^3/uL (0.0-0.7); Absolute Lymphocyte Count 0.85 10^3/uL (1.2-3.4); Absolute Neutrophil Count 17.07 10^3/uL (1.2-6.7); Albumin 3.2 g/dL (3.4-5.0); Alkaline Phosphatase 70 U/L (46-116); Anion Gap 12.4 mmol/L (3-11); BUN 26 mg/dL (7-18); Bilirubin, Total 0.8 mg/dL (0.2-1.0); C-Reactive Protein 3.17 mg/dL (0.0-0.3); CO2 25.6 mmol/L (21.0-32.0); CREATININE 1.29 mg/dL (0.70-1.30); Calcium 8.9 mg/dL (8.5-10.1); Chloride 97 mmol/L (98-107); Estimated GFR 54.44 (mL/min/1.73m2); Glucose 183 mg/dL (74-106); Potassium 4.6 mmol/L (3.5-5.1); Sodium 135 mmol/L (136-145)
[2020-03-22 09:33] LABS: INR 2.3 (0.9-1.1); PTT Activated 30.5 sec (21.0-31.4); Prothrombin Time 22.3 sec (9.3-11.0)
[2020-03-22 10:39] LABS: ESR 35 mm/hr (1-20)
--- NOTE | 2020-03-22 11:28 | W.PM.HP.N ---
Date of service: 03/22/20 Time of Service: 11:28 Assessment and Plan Assessment and plan (1) Wound of left foot: Status: Acute Assessment and plan: with infection and suspicion of osteo. MRI pending. surgery consulted. vancomycin day 1 follow labs including inflammatory markers weekly elevate coumadin on hold per surgery for anticipated surgical procedure (2) Atrial fibrillation with controlled ventricular response: Status: Chronic Assessment and plan: rate controlled. routine monitoring continue metoprolol coumadin on hold for anticipated surgical procedure (3) Poorly controlled type 2 diabetes mellitus: Status: Chronic Assessment and plan: anticipate hyperglycemia in setting of infection add A1C diabetic diet blood sugar checks ac/hs with sliding scale coverage as needed. hold metformin for now. continue basal insulin, adjust as needed (4) Chronic combined systolic and diastolic CHF (congestive heart failure): Status: Chronic Assessment and plan: with chronic lower extremity edema. seems stable. continue lisinopril, spironolactone, lasix and beta laxmi. (5) GERD (gastroesophageal reflux disease): Status: Chronic Assessment and plan: stable, continue PPI (6) Sleep apnea: Status: Chronic Assessment and plan: CPAP (7) Immunosuppressive disease: Status: Chronic Assessment and plan: monitor for signs of adrenal insufficiency. History of Present Illness History of Present Illness Chief Complaint: foot infection left Narrative: This is a 74-year-old male diabetic, with a complex past medical history including oxygen and steroid-dependent COPD, pulmonary hypertension, CHF, rheumatoid arthritis on Remicade, Afib on warfarin. Currently taking prednisone 20 mg daily. He was recently admitted for pneumonia and treated with doxycycline and cefuroxime. Recent azithromycin for bronchitis. He reports 2 days of worsening left dorsal foot pain with associated eschar type changes to the skin surrounding a weeping lesion that he has had for weeks. He has chronic lower extremity edema with venous stasis changes, chronic shortness of breath. He has chronic pain for which he takes both morphine and as needed Percocet. He was seen by Dr. Alatorre's office today with concern for developing black eschar referred to the ER. work up in the ED with xray suspicious for osteomyelitis, he will be started on vancomycin, MRI ordered. surgery was consulted and will follow. he will be admitted to hospitalist services. MRI pending Review of Systems All systems reviewed & are unremarkable except as noted in HPI and below COUNT INCLUDES [facility] Medical History (Updated 03/25/20 @ 15:47 by Liza Russell DO) Anemia Hx low Hgb, but today's lab review was unexpected. Probable anemia of chronic disease .. Non-meat diet, [ ] iron suppl (concern for constipation)? [ ] stool guaic Aortic stenosis, moderate (07/03/16) [facility] [place] ECHO EF 65%; Mod , valve area 1.33 (grad 23/mean14) (06/2016) [facility] eval 09/2017 shows worsening disease .. may need cardiac surgery. Depressive disorder (07/14/11) Diabetic foot ulcer associated with type 2 diabetes mellitus, with fat layer exposed Diabetic neuropathy associated with type 2 diabetes mellitus Infected wound Venous insufficiency of both lower extremities Venous stasis ulcer Wound of left foot Forefoot, x 2 weeks self-care; Worse/Painful/Necrosis, 03/22/20. [ ] ED [ ] Surg? [ ] [facility] Surgical History Bronchoscopy (11/20/10) with BAL echo ([facility] pulmonolgy note 09/21/17.) Compared to the study from 06/18/16 the severity of aortic stenosis has increased and there is pulmonary hypertension. seeing cardio again in 2 wks. Extraction of cataract (08/21/10) R eye,with IOL, Dr Gary History of cardiac cath 03/21/19 [facility] [place] Right heart cath-mild Pulm HTN mean PA pressure 25 and PA systolic pressure 50 normal wedge pressure 6. Right dominant circulation with mild disease in all vessels, focal anyeursm RCA 5mm Internal fixation (08/03/10) R distal femoral fx, Dr Banda, [facility] PFT'S: SEPTEMBER 2017 [facility] pulm note 09/21/17. O2 sat on RA 97% After 250 ft on RA 88% needing 2l O2. PTCA (01/27/94) rescue PTCA RCA for persistent CP with Inf IA; [facility] [place] heart [place]18[place] [facility] [place] findings: Severe pulmonary hypertension mildly elevated pulmonary capillary wedge pressure Status post transcatheter aortic valve replacement [facility] 03/29/19 Family History Mother , Lung Cancer at age 74. Personal history of malignant neoplasm at 74 of lung CA Father , CHF at age 86. 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 Retired. 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 Meds Home Medications and Allergies Home Medications Medication Instructions Recorded Confirmed Type Oxygen 09/23/17 03/24/20 History POrtable Oxygen Compressor #1 ea 12/02/18 03/24/20 Rx infliximab 100 mg intravenous 800 mg IV q5w vial 04/05/19 03/24/20 History solution albuterol sulfate 90 mcg/actuation 2 inh IH Q6H PRN #1 each 04/06/19 03/24/20 Rx breath activated powder inhaler fluticasone 250 mcg-salmeterol 50 1 inh IH BID 05/10/19 03/24/20 History mcg/dose blistr powdr for inhalation naloxone 4 mg/actuation nasal spray 4 mg NS PRN PRN #1 unit 05/23/19 03/24/20 Rx pramipexole 0.125 mg tablet 0.125 mg PO HS #90 tab-cap 08/02/19 03/24/20 Rx umeclidinium 62.5 mcg/actuation 1 inh IH DAILY 08/02/19 03/24/20 History blister powder for inhalation aspirin 81 mg tablet,delayed 81 mg PO DAILY #100 tab 09/18/19 03/24/20 Rx release multivitamin-ferrous 1 tab PO DAILY #90 tab 10/17/19 03/24/20 Rx fumarate-folic acid 18 mg-400 mcg tablet nitroglycerin [Nitrostat] 0.4 mg SUBLINGUAL Q5 MIN PRN X3 11/05/19 03/24/20 Rx PRN #90 tab potassium chloride [Klor-Con M20] 20 meq PO BID #60 tab 11/05/19 03/24/20 Rx warfarin 1 mg PO HS #90 tab 11/05/19 03/24/20 Rx pen needle, diabetic 31 gauge x #90 each 11/23/19 03/24/20 Rx / blood sugar diagnostic #400 each 12/29/19 03/24/20 Rx spironolactone 25 mg tablet 25 mg PO DAILY #90 tab 01/04/20 03/24/20 Rx morphine 15 mg tablet,extended 15 mg PO Q12H #56 tab MDD 30 01/05/20 03/24/20 Rx release magnesium oxide 400 mg PO DAILY #90 tab-cap 01/06/20 03/24/20 Rx atorvastatin 80 mg tablet 80 mg PO DAILY #90 tab-cap 01/09/20 03/24/20 Rx oxycodone-acetaminophen 5 mg-325 1 tab PO Q4H PRN #140 tab MDD 6 01/10/20 03/24/20 Rx mg tablet insulin degludec 100 unit/mL (3 15 unit SC DAILY #60 ml MDD 50 02/15/20 03/24/20 Rx mL) subcutaneous pen metformin 500 mg tablet 1,000 mg PO BID #360 tab-cap 02/15/20 03/24/20 Rx lisinopril 10 mg tablet 5 mg PO DAILY #90 tab 02/16/20 03/24/20 Rx metoprolol succinate 100 mg 100 mg PO DAILY #90 tab 02/19/20 03/24/20 Rx tablet,extended release 24 hr cyanocobalamin (vitamin B-12) 1,000 mcg PO DAILY #30 tab 03/04/20 03/24/20 Rx guaifenesin 200 mg PO Q6H PRN PRN #0 ml 03/04/20 03/24/20 Rx empagliflozin 25 mg tablet 12.5 mg PO DAILY #30 tab 03/06/20 03/24/20 Rx insulin NPH isoph U-100 human 100 5 unit SC QAM PRN #6 ml 03/13/20 03/24/20 Rx unit/mL (3 mL) subcutaneous pen lancets 28 gauge #200 each 03/13/20 03/24/20 Rx insulin NPH isoph U-100 human 100 25 unit SUBCUT DAILY PRN #15 ml 03/20/20 03/24/20 Rx unit/mL (3 mL) subcutaneous pen prednisone 20 mg PO DAILY 03/22/20 03/24/20 History clonazepam 0.5 mg PO HS 03/24/20 03/24/20 History furosemide 20 mg PO BID 03/24/20 03/24/20 History omeprazole 20 mg capsule,delayed 20 mg PO BID #60 tab-cap 03/24/20 Rx release Allergies Allergy/AdvReac Type Severity Reaction Status Date / Time adalimumab Allergy Severe unknown Verified 03/22/20 09:28 Penicillins Allergy Severe Anaphylaxsi Verified 03/22/20 09:28 s Exam Const General: cooperative, comfortable and ill appearing chronically Nutritional Appearance: obese Orientation: alert, awake and oriented x3 HENMT Head: normal to inspection, normocephalic and atraumatic Mouth: moist mucous membranes abnormal (slightly dry) Skin General skin exam: no rashes or lesions noted (chronic discoloration bilateral LE consistent with venous stasis), dry skin, ecchymosis (scattered areas), eschar (dorsal aspect of left foot) and other (thin skin consistent with chronic steroid use) Neuro General: patient alert, patient awake and patient oriented x3 Extrem General: normal to inspection, full ROM and pedal edema bilaterally pitting and 2+ Results Labs Result diagrams: 03/25/20 08:10 03/25/20 08:10 Labs: Laboratory Results - last 24 hr 03/22/20 03/22/20 03/22/20 09:08 09:08 09:08 WBC 18.82 H RBC 4.06 L Hgb 13.2 L Hct 39.9 L MCV 98.3 H MCH 32.5 MCHC 33.1 RDW 15.1 H Plt Count 213 MPV 9.4 Immature Gran % 0.6 Neutrophils % 90.7 Lymphocytes % 4.5 Monocytes % 3.0 Eosinophils % 1.0 Basophils % 0.2 Nucleated RBC % 0 Absolute Neutrophils 17.07 H Absolute Lymphocytes 0.85 L Absolute Monocytes 0.56 Absolute Eosinophils 0.19 Absolute Basophils 0.04 ESR 35 H PT 22.3 H INR 2.3 H APTT 30.5 Sodium 135 L Potassium 4.6 Chloride 97 L Carbon Dioxide 25.6 Anion Gap 12.4 H BUN 26 H Creatinine 1.29 Estimated GFR/1.73 m2 54.44 Glucose 183 H Calcium 8.9 Total Bilirubin 0.8 AST 27 ALT 40 Alkaline Phosphatase 70 C-Reactive Protein 3.17 H Total Protein 7.0 Albumin 3.2 L Last Vital Signs Temp 36.6 C 03/22/20 10:20 Pulse 82 03/22/20 11:00 Resp 20 03/22/20 10:20 BP 122/72 03/22/20 11:00 Pulse Ox 100 03/22/20 11:00 COVID-19 Screening Have you,or household,traveled outside [place] in last 14 days?: No Had IN PERSON contact w/suspected or confirmed C-19 person: No
[2020-03-22 12:08] LABS: Hemoglobin A1C 8.1 % (<5.7)
--- NOTE | 2020-03-22 13:27 | SCONE_ITS ---
Date of service: 03/22/20 Time of Service: 13:28 Assessment and Plan Assessment and plan (1) Infected wound: Status: Acute Assessment and plan: INR 2.4 today plan debridement in am under block. Pt is too poor candidate for GETA blood cultures done abx started MRI risk: bleeding/infected/scar/delayed healing/amputation/complications of anethesia (2) Wound of left foot: Status: Acute (3) Chronic combined systolic and diastolic CHF (congestive heart failure): Status: Chronic (4) Ambulatory dysfunction: Status: Acute (5) Steroid-induced hyperglycemia: Status: Acute (6) Acute exacerbation of chronic obstructive pulmonary disease (COPD): Status: Acute (7) Aortic stenosis, severe: Status: Chronic (8) Aortic stenosis, moderate: Status: Chronic (9) Acute on chronic combined systolic and diastolic CHF (congestive heart failure): Status: Resolved (10) Depressive disorder: Status: Chronic (11) Anemia: Status: Chronic (12) Rheumatoid lung: Status: Chronic (13) Venous insufficiency of both lower extremities: Status: Chronic (14) Type 2 diabetes mellitus with hyperglycemia: Status: Chronic Qualifiers: Diabetes mellitus alf insulin use: with director long term care use Qualified Code(s): E11.65 - Type 2 diabetes mellitus with hyperglycemia; Z79.4 - superintendent container terminal (current) use of insulin (15) Rheumatoid arthritis: Status: Chronic Qualifiers: Rheumatoid arthritis location: multiple sites Rheumatoid factor presence: with rheumatoid factor Qualified Code(s): M05.79 - Rheumatoid arthritis with rheumatoid factor of multiple sites without organ or systems involvement (16) Restrictive lung disease: Status: Chronic (17) Pure hypercholesterolemia: Status: Chronic (18) Pulmonary HTN: Status: Chronic (19) Primary osteoarthritis of both knees: Status: Chronic (20) Obstructive sleep apnea syndrome: Status: Chronic (21) Nocturnal hypoxia: Status: Chronic (22) group home (current) use of anticoagulants: Status: Chronic (23) Left-sided low back pain without sciatica: Status: Chronic (24) Gastroesophageal reflux disease with esophagitis: Status: Chronic (25) Chronic edema: Status: Chronic (26) Stasis dermatitis of both legs: Status: Acute (27) Hyperlipidemia: Status: Chronic (28) Sleep apnea: Status: Chronic (29) Poorly controlled type 2 diabetes mellitus: Status: Chronic (30) Bilateral leg edema: Status: Chronic History of Present Illness Narrative: pt is a long standing DM. Hx of CAD/smoker/htn/obese. Left LE ulcer on top of foot. alf coumadin for A fib. denies trauma. His blood sugars are always poorly controlled (A1c is 8). former smoker. ASCVD. he is also on director long term care steriods and humeria. Foot is red/swollen/very painful. There is a 2x2cm black eschar- most likely from trauma and hematoma. INR 2.4. Will hold coumadin tonight and debride in OR tomorrow. MRI showed no osteo. Abx started. risk: bleeding/scar/delayed healing Consults Consult date: 03/23/20 Requesting physician: Tahir Santiago Review of Systems All systems reviewed & are unremarkable except as noted in HPI and below PFSH Medical History Anemia Hx low Hgb, but today's lab review was unexpected. Probable anemia of chronic disease .. Non-meat diet, [ ] iron suppl (concern for constipation)? [ ] anselmo deshpande Aortic stenosis, moderate (07/03/16) [facility] [place] ECHO EF 65%; Mod , valve area 1.33 (grad 23/mean14) (06/2016) [facility] eval 09/2017 shows worsening disease .. may need cardiac surgery. Depressive disorder (07/14/11) Wound of left foot Forefoot, x 2 weeks self-care; Worse/Painful/Necrosis, 03/22/20. [ ] ED [ ] Surg? [ ] [facility] Surgical History Bronchoscopy (11/20/10) with BAL echo ([facility] pulmonolgy note 09/21/17.) Compared to the study from 06/18/16 the severity of aortic stenosis has increased and there is pulmonary hypertension. seeing cardio again in 2 wks. Extraction of cataract (08/21/10) R eye,with IOL, Dr Gary History of cardiac cath 03/21/19 [facility] [place] heart cath-mild Pulm HTN mean PA pressure 25 and PA systolic pressure 50 normal wedge pressure 6. Right dominant circulation with mild disease in all vessels, focal anyeursm RCA 5mm Internal fixation (08/03/10) R distal femoral fx, Dr Banda, [facility] PFT'S: SEPTEMBER 2017 [facility] pulm note 09/21/17. O2 sat on RA 97% After 250 ft on RA 88% needing 2l O2. PTCA (01/27/94) rescue PTCA RCA for persistent CP with Inf [place]; [facility] [place]07[place]18[place] [facility] [place] findings: Severe pulmonary hypertension mildly elevated pulmonary capillary wedge pressure Status post transcatheter aortic valve replacement [facility] 03/29/19 Family History Mother , Lung Cancer at age 74. Personal history of malignant neoplasm at 74 of lung CA Father , CHF at age 86. 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 Retired. 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 Exam Const General: cooperative, comfortable, well developed and cushingoid Orientation: alert, awake and oriented x3 Resp Effort & Inspection: normal respiratory effort and able to speak in complete sentences Auscultation: clear to auscultation bilaterally Cardio Rate: regular rate Rhythm: other GI Inspection: obesity Palpation: soft Other: none tender Extrem General: edema, muscle atrophy and pedal edema Other: edema/redness/swelling. chronic venous stasis dermatitis. +2 edema. motor 4/5. monophasic pulses by dopler only. + neuropathy enlargment and derangement of joints- all Results Last Vital Signs Temp 36.6 C 03/22/20 13:15 Pulse 79 03/22/20 13:15 Resp 20 03/22/20 13:15 BP 104/71 03/22/20 13:15 Pulse Ox 100 03/22/20 13:15 Labs Result diagrams: 03/23/20 08:15 03/23/20 08:15 Labs: Laboratory Results - last 24 hr 03/22/20 03/22/20 03/22/20 09:08 09:08 09:08 WBC 18.82 H RBC 4.06 L Hgb 13.2 L Hct 39.9 L MCV 98.3 H MCH 32.5 MCHC 33.1 RDW 15.1 H Plt Count 213 MPV 9.4 Immature Gran % 0.6 Neutrophils % 90.7 Lymphocytes % 4.5 Monocytes % 3.0 Eosinophils % 1.0 Basophils % 0.2 Nucleated RBC % 0 Absolute Neutrophils 17.07 H Absolute Lymphocytes 0.85 L Absolute Monocytes 0.56 Absolute Eosinophils 0.19 Absolute Basophils 0.04 ESR 35 H PT 22.3 H INR 2.3 H APTT 30.5 Sodium 135 L Potassium 4.6 Chloride 97 L Carbon Dioxide 25.6 Anion Gap 12.4 H BUN 26 H Creatinine 1.29 Estimated GFR/1.73 m2 54.44 Glucose 183 H Hemoglobin A1c Calcium 8.9 Total Bilirubin 0.8 AST 27 ALT 40 Alkaline Phosphatase 70 C-Reactive Protein 3.17 H Total Protein 7.0 Albumin 3.2 L 03/22/20 09:08 WBC RBC Hgb Hct MCV MCH MCHC RDW Plt Count MPV Immature Gran % Neutrophils % Lymphocytes % Monocytes % Eosinophils % Basophils % Nucleated RBC % Absolute Neutrophils Absolute Lymphocytes Absolute Monocytes Absolute Eosinophils Absolute Basophils ESR PT INR APTT Sodium Potassium Chloride Carbon Dioxide Anion Gap BUN Creatinine Estimated GFR/1.73 m2 Glucose Hemoglobin A1c 8.1 H Calcium Total Bilirubin AST ALT Alkaline Phosphatase C-Reactive Protein Total Protein Albumin
[2020-03-22] MEDS: Normal Saline Flush 10 ML SYR IVP ×2 (14:02→15:52)
[2020-03-22] MEDS: Gadoterate meglumine 20 ML VIAL IVP (14:04)
--- NOTE | 2020-03-22 14:20 | DI.MRI_ITS ---
EXAM: MR LOWER EXTREMITY LT WO/W CLINICAL HISTORY: left foot osteo. TECHNIQUE: Multiplanar multisequence MRI was performed. COMPARISON: No exams were available for comparison FINDINGS: MR examination foot was performed according to the usual protocol with additional pre and post contra st T1 fat sat imaging. Bony signal appears within normal limits in the visualized foot. There is no increased signal to sugg est the presence of osteomyelitis. There are no areas bony enhancement to suggest osteomyelitis. There is marked soft tissue edema over the dorsum of the foot and ankle. No focal abscess or other f luid collection identified. Bony alignment appears grossly within normal limits. Tendons and ligaments are not well visualized du e to patient motion no focal tendinous or ligamentous abnormality is seen. IMPRESSION: Marked soft tissue edema of the dorsum of the foot, no evidence of acute osteomyelitis or abscess. DATA REPOSITORY:
[2020-03-22] MEDS: Omeprazole 20 MG CAPCR PO (20:12)
[2020-03-22] MEDS: Potassium Chloride 20 MEQ TABCR PO (20:12)
[2020-03-22] MEDS: clonazePAM 0.5 MG TAB PO (20:13)
[2020-03-22] MEDS: Budesonide/Formoterol 160/4.5 6 GM 60 PUFF INH IH (20:14)
[2020-03-22] MEDS: Pramipexole 0.25 MG TAB 0.125 MG PO (21:52)
[2020-03-22 22:47] LABS: COVID-19 RT-PCR UVMMC Result Negative (Negative)
[2020-03-23] VITALS (8 sets, daily range): BP systolic 116–136; BP diastolic 65–76; PULSE 87–101; RESP 16–20; TEMP 36.1–38.4; O2SAT 95–100
[2020-03-23] MEDS: guaiFENesin/D-METHORPHAN HB 5 ML CUP 10 ML PO (01:13)
[2020-03-23] MEDS: oxyCODONE 10 MG TAB PO ×3 (02:53→20:46)
[2020-03-23] MEDS: VANCOMYCIN 1,000 MG in Normal Saline 250 ML 250 MG IVPB ×2 (02:53→16:40)
[2020-03-23] MEDS: Umeclidinium 7 CAP INHALER 1 CAP IH (07:42)
[2020-03-23] MEDS: Budesonide/Formoterol 160/4.5 6 GM 60 PUFF INH IH ×2 (07:42→19:48)
[2020-03-23 08:25] LABS: Abs Immature Grans 0.07 10^3/uL (0.0-0.06); Absolute Basophil Count 0.05 10^3/uL (0.0-0.2); Absolute Eosinophil Count 0.54 10^3/uL (0.0-0.7); Absolute Lymphocyte Count 2.34 10^3/uL (1.2-3.4); Absolute Monocyte Count 0.86 10^3/uL (0.1-0.8); Absolute Neutrophil Count 9.22 10^3/uL (1.2-6.7); Basophils % 0.4; Eosinophils % 4.1; Immature Grans % 0.5; Lymphocytes % 17.9; MCH 32.3 pg (27.0-33.0); MCHC 32.4 % (32.0-36.0); MCV 99.7 fL (80-95); MPV 9.1 fL (8.0-11.0); Monocytes % 6.6; Neutrophils % 70.5; Nucleated RBC 0 %; Platelet Count 160 10^3/uL (130-400); RBC 3.71 10^6/uL (4.36-5.78); RDW 15.3 % (11.8-14.1); RDW-SD 55.4 fL; WBC 13.08 10^3/uL (4.4-10.8)
[2020-03-23 08:38] LABS: ALT 30 U/L (16-63); AST 19 U/L (15-37); Albumin 2.5 g/dL (3.4-5.0); Alkaline Phosphatase 55 U/L (46-116); Anion Gap 7.1 mmol/L (3-11); BUN 17 mg/dL (7-18); Bilirubin, Total 0.7 mg/dL (0.2-1.0); CO2 26.9 mmol/L (21.0-32.0); CREATININE 0.98 mg/dL (0.70-1.30); Calcium 8.6 mg/dL (8.5-10.1); Chloride 102 mmol/L (98-107); Glucose 144 mg/dL (74-106); Potassium 4.4 mmol/L (3.5-5.1); Sodium 136 mmol/L (136-145); Total Protein 6.1 g/dL (6.4-8.2)
--- NOTE | 2020-03-23 08:58 | PT.INNT ---
PT Notes Visit Reasons: OSTEOMYELITIS Patient refused PT evaluation this morning. He states unable to stand on foot. Per nursing is supposed to have wound debridement today.
[2020-03-23] MEDS: clonazePAM 0.5 MG TAB PO ×2 (09:12→19:23)
[2020-03-23 09:19] LABS: INR 1.8 (0.9-1.1); Prothrombin Time 17.9 sec (9.3-11.0)
[2020-03-23] MEDS: Lactated Ringers 1,000 ML 30 ML IV (10:23)
[2020-03-23] MEDS: Bupivacaine 0.25% Pres-Free 30 ML VIAL (10:39)
[2020-03-23] MEDS: Bupivacaine LIPOSOME/PF 133 MG/10 ML VIAL IJ (10:51)
--- NOTE | 2020-03-23 11:32 | W.PM.OP ---
Date of service: 03/23/20 Time of Service: 11:32 Operative Note Operative Note DATE OF PROCEDURE: 03/23/20 PRE-OP DIAGNOSIS: infected diabetic foot ulcer POST-OP DIAGNOSIS: same PROCEDURE: I & D SURGEON: Liza Russell ANESTHESIA: MAC, regional and local ESTIMATED BLOOD LOSS: 3 PATHOLOGY: other COMPLICATIONS: None Patient was transported to: floor Patient's condition: stable Procedure Description: Patient is here today for debridement of an infected diabetic foot ulcer of the dorsum of his left foot. He is marked in preop. Block is done by anesthesia. Informed consent is obtained explaining risks and benefits of the procedure including but not limited to: Bleeding, infection, pneumonia, blood clots, scarring, complications of anesthesia, prolonged healing, and possible amputation and or loss of function of the limb. Patient is brought back to the operative suite and placed in the supine position. Anesthesia is administered per the department of anesthesia. He is already on antibiotics. His INR is 1.8 today. The foot is prepped and draped in usual sterile fashion using Betadine scrub solution. Timeout is performed. Exparel and 20 cc of quarter percent Marcaine with epi is used for local anesthetization. The he has a 2 x 2 x 1 cm black necrotic area. This is sharply excised. Tendons underneath are exposed. Cultures are taken. There is about 10 cc of purulent drainage. Is irrigated with 2 L of fluid. Electrocautery is to provide hemostasis. There is no significant bleeding. The wound edges do appear to be viable. The forefoot does appear to be viable. Wound VAC is placed. Patient had no complication and transferred to the floor in stable condition. This document was created using [employer].
[2020-03-23] MEDS: Magnesium Oxide 400 MG TAB PO (12:23)
[2020-03-23] MEDS: Lisinopril 10 MG TAB 5 MG PO (12:23)
[2020-03-23] MEDS: Aspirin E.C. 81 MG TABEC PO (12:23)
[2020-03-23] MEDS: Atorvastatin 40 MG TAB 80 MG PO (12:24)
[2020-03-23] MEDS: Multivitamin w/Minerals TAB 1 TAB PO (12:24)
[2020-03-23] MEDS: Metoprolol CR 100 MG TABCR PO (12:24)
[2020-03-23] MEDS: Spironolactone 25 MG TAB PO (12:25)
[2020-03-23] MEDS: Potassium Chloride 20 MEQ TABCR PO ×2 (12:25→19:23)
[2020-03-23] MEDS: Normal Saline Flush 10 ML SYR IVP (16:41)
[2020-03-23] MEDS: Furosemide 20 MG TAB 40 MG PO (16:41)
--- NOTE | 2020-03-23 16:53 | W.PM.PROGNOT ---
Date of Service Date of service: 03/23/20 Time of Service: 16:54 Assessment and Plan Assessment and plan (1) Wound of left foot: Status: Acute Assessment and plan: MRI did not show osteomyelitis. Debridement performed in the operating room today by Dr. Russell, wound cultures taken, wound VAC placed. He is on vancomycin day #2 Coumadin was held for surgery. Repeat labs tomorrow morning. Follow inflammatory markers weekly. (2) Atrial fibrillation with controlled ventricular response: Status: Chronic Assessment and plan: Mildly tachycardic at 101 postoperatively and in the setting of infection. Continue metoprolol. Coumadin was placed on hold for procedure. INR 1.8 today, resume Coumadin. Monitor for bleeding. (3) Poorly controlled type 2 diabetes mellitus: Status: Chronic Assessment and plan: Blood sugars have been reasonable, 137-1 66. Hemoglobin A1c 8.1. Continue diabetic diet with blood sugar checks achs with sliding scale coverage as needed. Continue to hold metformin. Continue basal insulin, adjust as needed (4) Chronic combined systolic and diastolic CHF (congestive heart failure): Status: Chronic Assessment and plan: Continue lisinopril, spironolactone, lasix and beta laxmi. (5) GERD (gastroesophageal reflux disease): Status: Chronic Assessment and plan: stable, continue PPI (6) Sleep apnea: Status: Chronic Assessment and plan: Continue CPAP. (7) Immunosuppressive disease: Status: Chronic Assessment and plan: monitor for signs of adrenal insufficiency. Treat as indicated. (8) Discharge planning issues: Status: Acute Assessment and plan: He is a DNR/DNI. This case was discussed with Dr. Rob who is in agreement. Subjective Subjective Interval history since last seen: Elio went to the OR today with Dr. Russell for debridement of his left dorsal foot wound. Cultures were taken during the procedure. Wound VAC placed by surgeon. He is seen status post procedure. He tolerated the procedure well. He feels sleepy. He has been able to eat and drink and tolerate his diet status post surgery. He denies having any feeling in his feet, thus no pain. He denies shortness of breath, coughing, wheezing, chest pain/pressure, palpitations. Exam Narrative Exam Narrative: General: Chronically ill-appearing 74-year-old man, laying in bed with eyes closed. Opens eyes to verbal stimuli. Answers questions appropriately. Alert and oriented. HEENT: Normocephalic, atraumatic, mucous membranes moist. Neck: Supple, thick. Vascular: Heart has regular rate and rhythm, no murmur appreciated. Respiratory: Respirations appear even and unlabored, lung sounds are clear bilaterally. GI: Round abdomen, soft, nondistended, nontender on palpation, bowel sounds noted throughout. Extremities: Bilateral lower extremities with venous stasis changes. Left foot with warmth and erythema to knee, wound VAC on and functioning. +1 pitting edema to bilateral lower extremities. Left smart with stasis ulcer, dressing intact. Objective Last Vital Signs Temp 37.2 C 03/23/20 15:39 Pulse 101 H 03/23/20 15:39 Resp 19 03/23/20 15:39 BP 130/66 03/23/20 15:39 Pulse Ox 97 03/23/20 15:39 Laboratory Results - last 24 hr 03/22/20 03/23/20 03/23/20 13:05 08:15 08:15 WBC 13.08 H D RBC 3.71 L Hgb 12.0 L Hct 37.0 L MCV 99.7 H MCH 32.3 MCHC 32.4 RDW 15.3 H Plt Count 160 MPV 9.1 Immature Gran % 0.5 Neutrophils % 70.5 Lymphocytes % 17.9 Monocytes % 6.6 Eosinophils % 4.1 Basophils % 0.4 Nucleated RBC % 0 Absolute Neutrophils 9.22 H Absolute Lymphocytes 2.34 Absolute Monocytes 0.86 H Absolute Eosinophils 0.54 Absolute Basophils 0.05 PT INR Sodium 136 Potassium 4.4 Chloride 102 Carbon Dioxide 26.9 Anion Gap 7.1 BUN 17 D Creatinine 0.98 Estimated GFR/1.73 m2 >= 60.00 Glucose 144 H Calcium 8.6 Total Bilirubin 0.7 AST 19 ALT 30 Alkaline Phosphatase 55 Total Protein 6.1 L Albumin 2.5 L COVID-19 PCR Negative Nasopharyn COVID-19 PCR Not Applicable Ref Test Perform Site [facility] 03/23/20 09:05 WBC RBC Hgb Hct MCV MCH MCHC RDW Plt Count MPV Immature Gran % Neutrophils % Lymphocytes % Monocytes % Eosinophils % Basophils % Nucleated RBC % Absolute Neutrophils Absolute Lymphocytes Absolute Monocytes Absolute Eosinophils Absolute Basophils PT 17.9 H INR 1.8 H Sodium Potassium Chloride Carbon Dioxide Anion Gap BUN Creatinine Estimated GFR/1.73 m2 Glucose Calcium Total Bilirubin AST ALT Alkaline Phosphatase Total Protein Albumin COVID-19 PCR Nasopharyn COVID-19 PCR Ref Test Perform Site
--- NOTE | 2020-03-23 16:57 | PDOC.CMIN ---
- If Service Date Differs Date of service: 03/23/20 Time of Service: 16:57 Care Management Initial Assess REASON FOR HOSPITALIZATION:: Osteomyelitis PAST MEDICAL HISTORY/PAST SURGICAL HISTORY:: Medical History. Anemia. Hx low Hgb, but today's lab review was unexpected. Probable anemia of chronic disease .. Non-meat diet, [ ] iron suppl (concern for constipation)? [ ] stool guaic. Aortic stenosis, moderate (07/03/16). [facility] [place] 65%; Mod , valve area 1.33 (grad 23/mean14) (06/2016). [facility] [place] shows worsening disease .. may need cardiac surgery. Depressive disorder (07/14/11). Wound of left foot. Forefoot, x 2 weeks self-care; Worse/Painful/Necrosis, 03/22/20. [ ] ED [ ] Surg? [ ] [facility]. Surgical History. Bronchoscopy (11/20/10). with BAL. echo. [place] [place] Compared to the study from 06/18/16 the severity of aortic stenosis has increased and there is pulmonary hypertension. seeing cardio again in 2 wks. Extraction of cataract (08/21/10). R eye,with IOL, Dr Gary. History of cardiac cath. 03/21/19 [facility] [place] Right heart cath-mild Pulm HTN mean PA pressure 25 and PA systolic pressure 50 normal wedge pressure 6. Right dominant circulation with mild disease in all vessels, focal anyeursm RCA 5mm. Internal fixation (08/03/10). R distal femoral fx, Dr Banda, [facility]. PFT'S: SEPTEMBER 2017. [facility] [place]. O2 sat on RA 97%. After 250 ft on RA 88% needing 2l O2. PTCA (01/27/94). rescue PTCA RCA for persistent CP with Inf AR; [facility] [place] right heart catheterization,oximetry (01/07/18). [facility] [place]Corey Griffin MD. findings: Severe pulmonary hypertension. mildly elevated pulmonary capillary wedge pressure. Status post transcatheter aortic valve replacement. [facility] [place] PREVIOUS FUNCTIONAL STATUS/SOCIAL/FAMILY SUPPORTS:: Elio lives alone in [facility], as he is currently from his girlfriend, Debra. 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 Elio uses home oxygen at 4L, but is independent with his ADLs at baseline. CURRENT FUNCTIONAL STATUS:: Elio was lying in bed when CM met with him. He reported being very tired, and having trouble sleeping because people keep coming into his room bugging him. Per provider, Elio will need a wound vac when he returns home, and possibly increased HH services. CM will continue to follow. ADVANCE DIRECTIVES:: COLST and AD on file, natasha Delgadillo is listed as healthcare agent. Has patient been provided with info about the portal/API?: No Did the patient sign up for the portal?: No CODE STATUS:: DNR/DNI INSURANCE COVERAGE / FINANCIAL ISSUES:: MCR/ Financial Assist 100% CURRENT HOME/COMMUNITY SERVICES/EQUIPMENT:: A review of his chart shows he is on 4L of O2 at home and he has a Trilogy ventilator but reports not using it as he cannot tolerate it. He also receives Remicade infusions every 6 weeks for treatment of rheumatoid arthritis. He formerly had HH nursing but unclear at this time if he is still getting HH services. PRIMARY CARE PHYSICIAN:: Ana Alatorre DO POTENTIAL DISCHARGE NEEDS:: Follow up appointment with PCP and discharge plan of care. PATIENT/FAMILY EDUCATION NEEDS:: Discharge instructions, limitations and follow up plan of care, including Ask Me Three and self management. ANTICIPATED BARRIERS TO DISCHARGE:: None identified at this time. TRANSPORTATION:: Via private vehicle with family vs [facility]. PLAN:: Anticipate Elio will return home once medically cleared. He will need a wound vac for his foot, and HH RN to manage the wound vac in the community. He will transport home via [facility] vs private vehicle by family. He will follow up with his PCP and discharge plan of care. CM will continue to follow.
[2020-03-23] MEDS: Omeprazole 20 MG CAPCR PO (19:23)
[2020-03-23] MEDS: levoFLOXacin 500 MG/100 ML BAG 100 MG IVPB (19:24)
[2020-03-23] MEDS: Insulin Aspart 300 UNITS/3 ML PEN SC ×2 (19:24→21:46)
[2020-03-23] MEDS: Acetaminophen 325 MG TAB 650 MG PO (19:47)
[2020-03-23] MEDS: Pramipexole 0.25 MG TAB 0.125 MG PO (21:45)
[2020-03-24 03:45] VITALS: BP 113/70; PULSE 82; RESP 20; TEMP 36.6; O2SAT 100
--- NOTE | 2020-03-24 05:02 | W.PM.PROGNOT ---
Date of Service Date of service: 03/24/20 Time of Service: 05:02 Assessment and Plan Assessment and plan (1) Infected wound: Status: Acute (2) Wound of left foot: Status: Acute (3) Chronic combined systolic and diastolic CHF (congestive heart failure): Status: Chronic (4) Steroid-induced hyperglycemia: Status: Acute (5) Acute exacerbation of chronic obstructive pulmonary disease (COPD): Status: Acute (6) Aortic stenosis, severe: Status: Chronic (7) Acute on chronic combined systolic and diastolic CHF (congestive heart failure): Status: Resolved (8) Anemia: Status: Chronic (9) Rheumatoid lung: Status: Chronic (10) Venous insufficiency of both lower extremities: Status: Chronic (11) Restrictive lung disease: Status: Chronic (12) Restless legs: Status: Chronic (13) Pure hypercholesterolemia: Status: Chronic (14) Pulmonary HTN: Status: Chronic (15) Other chronic pain: Status: Chronic (16) Obstructive sleep apnea syndrome: Status: Chronic (17) Infliximab (Remicade) long-term use: Status: Chronic (18) Gastroesophageal reflux disease with esophagitis: Status: Chronic (19) Essential hypertension: Status: Chronic (20) Coronary arteriosclerosis: Status: Chronic (21) Atrial fibrillation with controlled ventricular response: Status: Chronic (22) CAD (coronary artery disease): Status: Chronic (23) Atrial fibrillation: Status: Chronic (24) COPD (chronic obstructive pulmonary disease): Status: Chronic Qualifiers: COPD type: COPD with acute lower respiratory infection Qualified Code(s): J44.0 - Chronic obstructive pulmonary disease with (acute) lower respiratory infection (25) Rheumatoid arthritis: Status: Chronic (26) Immunosuppressive disease: Status: Chronic (27) GERD (gastroesophageal reflux disease): Status: Chronic (28) Sleep apnea: Status: Chronic (29) Stasis dermatitis of both legs: Status: Acute (30) Poorly controlled type 2 diabetes mellitus: Status: Chronic (31) Bilateral leg edema: Status: Chronic (32) Diabetic foot ulcer associated with type 2 diabetes mellitus, with fat layer exposed: Status: Acute Assessment and plan: -wound vac. change in am. exposed tendons. Need to do paperwork for outpt VAC -vanc and levaquin. wound cultures show rare gram neg edinson. blood cults- neg -on coumadin for A fib -will need home RN -probiotics -walk -cover to shower -supportive/medical care (33) Diabetic neuropathy associated with type 2 diabetes mellitus: Status: Acute Subjective Subjective Interval history since last seen: Pt is doing well. no headaches. No CP or SOB. no productive cough. no dysuria. Patient has chronic swelling venous stasis and venous dermatitis bilateral lower extremities. He has chronic neuropathic pain secondary to diabetes. He says the pain is always a 10. The left lower extremity looks slightly less red and slightly less swollen than it was yesterday. The wound VAC is in good position and functioning well. He has had no fevers. He has had no diarrhea. He has had no thrush. He should be up and walking Exam Narrative Exam Narrative: PHYSICAL EXAM GENERAL APPEARANCE: Alert, healthy appearance, oriented, in no acute distress SKIN: No breakdown on his backside. No rash from antibiotics. No thrush left lower extremity is slightly rest less red and slightly less swollen than yesterday. Wound VAC is in place and functional. Will evaluate the wound and change the wound VAC tomorrow HYDRATION: Well hydrated HEAD, EYES, EARS, NECK, AND THROAT: Head is normocephalic, pupils equal, round, reactive to light and accommodation, ocular movement intact, sclera clear and no jaundice. Dentition intact. LUNGS: normal respiration, clear to auscultation HEART: Regular rate and rhythm, EXTREMITY: warm and pink edema L>R chronic edema- about the same. stasis dermatitis. chronic neuropathy. wound is dressed and will eval in am ABDOMEN: , non tender to palpation, no masses or distention, Normal bowel sounds NEURO: no focal neuro deficits Objective Last Vital Signs Temp 36.6 C 03/24/20 03:45 Pulse 82 03/24/20 03:45 Resp 20 03/24/20 03:45 BP 113/70 03/24/20 03:45 Pulse Ox 100 03/24/20 03:45 Laboratory Results - last 24 hr 03/23/20 03/23/20 03/23/20 08:15 08:15 09:05 WBC 13.08 H D RBC 3.71 L Hgb 12.0 L Hct 37.0 L MCV 99.7 H MCH 32.3 MCHC 32.4 RDW 15.3 H Plt Count 160 MPV 9.1 Immature Gran % 0.5 Neutrophils % 70.5 Lymphocytes % 17.9 Monocytes % 6.6 Eosinophils % 4.1 Basophils % 0.4 Nucleated RBC % 0 Absolute Neutrophils 9.22 H Absolute Lymphocytes 2.34 Absolute Monocytes 0.86 H Absolute Eosinophils 0.54 Absolute Basophils 0.05 PT 17.9 H INR 1.8 H Sodium 136 Potassium 4.4 Chloride 102 Carbon Dioxide 26.9 Anion Gap 7.1 BUN 17 D Creatinine 0.98 Estimated GFR/1.73 m2 >= 60.00 Glucose 144 H Calcium 8.6 Total Bilirubin 0.7 AST 19 ALT 30 Alkaline Phosphatase 55 Total Protein 6.1 L Albumin 2.5 L
[2020-03-24] MEDS: VANCOMYCIN 1,000 MG in Normal Saline 250 ML 250 MG IVPB ×2 (06:20→21:50)
[2020-03-24] MEDS: Normal Saline Flush 10 ML SYR IVP (06:21)
[2020-03-24 07:51] LABS: INR 1.3 (0.9-1.1); Prothrombin Time 13.3 sec (9.3-11.0)
[2020-03-24 07:54] LABS: Anion Gap 8.3 mmol/L (3-11); BUN 20 mg/dL (7-18); CO2 26.7 mmol/L (21.0-32.0); CREATININE 1.14 mg/dL (0.70-1.30); Calcium 8.6 mg/dL (8.5-10.1); Chloride 99 mmol/L (98-107); Glucose 132 mg/dL (74-106); Potassium 4.9 mmol/L (3.5-5.1); Sodium 134 mmol/L (136-145)
[2020-03-24 07:55] LABS: Absolute Basophil Count 0.06 10^3/uL (0.0-0.2); Absolute Eosinophil Count 0.77 10^3/uL (0.0-0.7); Absolute Lymphocyte Count 2.79 10^3/uL (1.2-3.4); Absolute Neutrophil Count 9.63 10^3/uL (1.2-6.7); Basophils % 0.4; Eosinophils % 5.4; HCT 38.9 % (40.0-50.0); HGB 12.5 g/dL (13.5-17.5); Immature Grans % 0.7; Lymphocytes % 19.6; MCH 32.3 pg (27.0-33.0); MCHC 32.1 % (32.0-36.0); MCV 100.5 fL (80-95); MPV 9.5 fL (8.0-11.0); Monocytes % 6.3; Neutrophils % 67.6; Nucleated RBC 0 %; Platelet Count 162 10^3/uL (130-400); RBC 3.87 10^6/uL (4.36-5.78); RDW 14.8 % (11.8-14.1); RDW-SD 55.1 fL; WBC 14.25 10^3/uL (4.4-10.8)
[2020-03-24 07:56] VITALS: BP 112/65; PULSE 85; RESP 18; TEMP 36.5; O2SAT 97
[2020-03-24 07:57] LABS: C-Reactive Protein 14.53 mg/dL (0.0-0.3)
[2020-03-24] MEDS: Umeclidinium 7 CAP INHALER 1 CAP IH (08:13)
[2020-03-24] MEDS: Insulin Aspart 300 UNITS/3 ML PEN SC ×4 (09:56→21:50)
[2020-03-24] MEDS: Insulin Glargine 300 UNITS/3 ML PEN 15 UNITS SC (09:57)
[2020-03-24] MEDS: Atorvastatin 40 MG TAB 80 MG PO (09:58)
[2020-03-24] MEDS: clonazePAM 0.5 MG TAB PO ×2 (09:58→21:47)
[2020-03-24] MEDS: Furosemide 20 MG TAB 40 MG PO (09:59)
[2020-03-24] MEDS: Metoprolol CR 100 MG TABCR PO (09:59)
[2020-03-24] MEDS: Magnesium Oxide 400 MG TAB PO (09:59)
[2020-03-24] MEDS: Multivitamin w/Minerals TAB 1 TAB PO (09:59)
[2020-03-24] MEDS: Aspirin E.C. 81 MG TABEC PO (09:59)
[2020-03-24] MEDS: Omeprazole 20 MG CAPCR PO ×2 (09:59→19:46)
[2020-03-24] MEDS: Potassium Chloride 20 MEQ TABCR PO ×2 (09:59→19:46)
[2020-03-24] MEDS: Lisinopril 10 MG TAB 5 MG PO (09:59)
[2020-03-24] MEDS: Spironolactone 25 MG TAB PO (10:00)
[2020-03-24] MEDS: CEFEPIME 2 GM in Normal Saline 100 ML IVPB ×2 (10:46→17:39)
--- NOTE | 2020-03-24 10:46 | W.PM.PROGNOT ---
Date of Service Date of service: 03/24/20 Time of Service: 10:46 Assessment and Plan Assessment and plan (1) Wound of left foot: Start date: 03/24/20 Start time: 10:48 Status: Acute Assessment and plan: MRI did not show osteomyelitis. Debridement performed in the operating room yesterday by Dr. Russell, wound cultures taken, wound VAC placed. He is on vancomycin day #3, added coverage for pseudomonas growing in wound culture. Cefepime added. Will await sensitivites. Afebrile overnight, will continue to montior. CRP 14 with elevated WBC. Coumadin will be restarted today Repeat labs tomorrow morning. Follow inflammatory markers weekly. (2) Atrial fibrillation with controlled ventricular response: Start date: 03/24/20 Start time: 10:49 Status: Chronic Assessment and plan: HR in 80's. Continue metoprolol. Coumadin was placed on hold for procedure will be restarted tonight. INR 1.3 today, resume Coumadin. Monitor for bleeding. (3) Poorly controlled type 2 diabetes mellitus: Start date: 03/24/20 Start time: 10:50 Status: Chronic Assessment and plan: Blood sugars have been reasonable, 137-166. Hemoglobin A1c 8.1. Continue diabetic diet with blood sugar checks achs with sliding scale coverage as needed. Continue to hold metformin. Continue basal insulin, adjust as needed (4) Chronic combined systolic and diastolic CHF (congestive heart failure): Start date: 03/24/20 Start time: 10:51 Status: Chronic Assessment and plan: Continue lisinopril, spironolactone, lasix and beta laxmi. (5) GERD (gastroesophageal reflux disease): Start date: 03/24/20 Start time: 10:51 Status: Chronic Assessment and plan: stable, continue PPI Qualifiers: Esophagitis presence: esophagitis presence not specified Qualified Code(s): K21.9 - Gastro-esophageal reflux disease without esophagitis (6) Sleep apnea: Start date: 03/24/20 Start time: 10:51 Status: Chronic Assessment and plan: Continue CPAP. Qualifiers: Sleep apnea type: idiopathic sleep related nonobstructive alveolar hypoventilation Qualified Code(s): G47.34 - Idiopathic sleep related nonobstructive alveolar hypoventilation (7) Immunosuppressive disease: Start date: 03/24/20 Start time: 10:51 Status: Chronic Assessment and plan: monitor for signs of adrenal insufficiency. Has not received prednisone since admission. Potassium is rising, sodium depleteting will give PO stress dose prednisone and restart 20 daily (8) Discharge planning issues: Start date: 03/24/20 Start time: 10:54 Status: Acute Assessment and plan: He is a DNR/DNI. This case was discussed with Dr. Rob who is in agreement. Subjective Subjective Patient reports: no new complaints Interval history since last seen: Wound vac intact. Lying in bed. No complaints at this time. Exam Narrative Exam Narrative: General: Chronically ill-appearing 74-year-old man, laying in bed watching tv Opens eyes to verbal stimuli. Answers questions appropriately. Alert and oriented. HEENT: Normocephalic, atraumatic, mucous membranes moist. Neck: Supple, thick. Vascular: Heart has regular rate and rhythm, no murmur appreciated. Respiratory: Respirations appear even and unlabored, lung sounds are clear bilaterally. GI: Round abdomen, soft, nondistended, nontender on palpation, bowel sounds noted throughout. Extremities: Bilateral lower extremities with venous stasis changes. Left foot with warmth and erythema to knee, wound VAC on and functioning. +1 pitting edema to bilateral lower extremities. Left smart with stasis ulcer, dressing intact. Objective Last Vital Signs Temp 36.5 C 03/24/20 07:56 Pulse 85 03/24/20 07:56 Resp 18 03/24/20 07:56 BP 112/65 03/24/20 07:56 Pulse Ox 97 03/24/20 07:56 Laboratory Results - last 24 hr 03/24/20 03/24/20 03/24/20 07:05 07:05 07:05 WBC 14.25 H RBC 3.87 L Hgb 12.5 L Hct 38.9 L MCV 100.5 H MCH 32.3 MCHC 32.1 RDW 14.8 H Plt Count 162 MPV 9.5 Immature Gran % 0.7 Neutrophils % 67.6 Lymphocytes % 19.6 Monocytes % 6.3 Eosinophils % 5.4 Basophils % 0.4 Nucleated RBC % 0 Absolute Neutrophils 9.63 H Absolute Lymphocytes 2.79 Absolute Monocytes 0.90 H Absolute Eosinophils 0.77 H Absolute Basophils 0.06 PT 13.3 H INR 1.3 H Sodium Potassium Chloride Carbon Dioxide Anion Gap BUN Creatinine Estimated GFR/1.73 m2 Glucose Calcium C-Reactive Protein 14.53 H 03/24/20 07:05 WBC RBC Hgb Hct MCV MCH MCHC RDW Plt Count MPV Immature Gran % Neutrophils % Lymphocytes % Monocytes % Eosinophils % Basophils % Nucleated RBC % Absolute Neutrophils Absolute Lymphocytes Absolute Monocytes Absolute Eosinophils Absolute Basophils PT INR Sodium 134 L Potassium 4.9 Chloride 99 Carbon Dioxide 26.7 Anion Gap 8.3 BUN 20 H Creatinine 1.14 Estimated GFR/1.73 m2 >= 60.00 Glucose 132 H Calcium 8.6 C-Reactive Protein
--- NOTE | 2020-03-24 11:56 | PT.INNT ---
Date of service: 03/24/20 Time of Service: 11:55 PT Notes Visit Reasons: OSTEOMYELITIS Patient is post op left foot wound debridement with wound VAC in place. He declines PT in presence of his nurse Anderson stating nothing personal to this PT, but does not like PT in general and will not participate.
[2020-03-24] MEDS: predniSONE 20 MG TAB 60 MG PO (11:58)
--- NOTE | 2020-03-24 12:52 | PDOC.ANES ---
Date of service: 03/24/20 Time of Service: 12:52 Anesthesia Note Report Anesthesia Note: Went to check on Elio who is doing well from an anesthetic perspective. He said he has refused PT for the last few days. He states he doesn't need it and he has had bad experiences in the past with PT trying to get people out of bed and moving too fast after an injury, specifically when his had an MD in the past. We had a good conversation and I reinforced that times have changed and now people are encouraged to get up and out of bed in order to facilitate healing, even when they are ill. I told him that medicine and PT has changed over the years and the goal is to maximize his function while also keeping his toes and foot. I asked him to think about it today and encouraged him, even though he hates the thought of PT, to work with PT in order to maximize function that will get him closer to discharge with a better outcome. He said he would do this.
--- NOTE | 2020-03-24 13:51 | PHA.REVIEW ---
Pharmacy Admission Review - Admission Clinical Review (Last Updated 03/24/20 @ 08:45 by Liza Russell DO) Diabetic neuropathy associated with type 2 diabetes mellitus (Acute) Diabetic foot ulcer associated with type 2 diabetes mellitus, with fat layer exposed (Acute) Infected wound (Acute) Wound of left foot (Acute) Ambulatory dysfunction (Acute) Steroid-induced hyperglycemia (Acute) Acute exacerbation of chronic obstructive pulmonary disease (COPD) (Acute) Discharge planning issues (Acute) Stasis dermatitis of both legs (Acute) adalimumab Allergy (Severe, Verified 03/22/20 09:28) unknown Penicillins Allergy (Severe, Verified 03/22/20 09:28) Anaphylaxsis Height 5 ft 2 in Weight 109.9 kg - Comments Comments/Follow Ups: Vancomycin 1000mg q14h+ Cefepime 2g q8h - Renal Dosing Renal Dosing: BUN 20 mg/dL (7-18) H 03/24/20 07:05 Creatinine 1.14 mg/dL (0.70-1.30) 03/24/20 07:05 Medications needing adjustments: Reviewed (CrCl is 62.6ml/min based on adjusted body weight) List of meds needing interventions: *If serum creatinine worsens then his adj CrCl will fall below 60 ml/min and cefepime dose will need to be adjusted to q12h -- MONITOR - Anticoagulation Anticoagulation: Hgb 12.5 g/dL (13.5-17.5) L 03/24/20 07:05 Hct 38.9 % (40.0-50.0) L 03/24/20 07:05 Plt Count 162 10^3/uL (130-400) 03/24/20 07:05 INR 1.3 (0.9-1.1) H 03/24/20 07:05 Creatinine 1.14 mg/dL (0.70-1.30) 03/24/20 07:05 DVT Prohphylaxis: Reviewed Medications: Aspirin Therapeutic Anticoagulation: Reviewed Medications: Warfarin (INR 1.3 today) - Opiate Usage Evaluate Pain Scale/Pains Meds: Reviewed Scheduled Bowel Reg ordered if on Opiates?: No (Monitor for BMs) - Relevant Labs ESR 35 mm/hr (1-20) H 03/22/20 09:08 Sodium 134 mmol/L (136-145) L 03/24/20 07:05 Potassium 4.9 mmol/L (3.5-5.1) 03/24/20 07:05 Chloride 99 mmol/L (98-107) 03/24/20 07:05 C-Reactive Protein 14.53 mg/dL (0.0-0.3) H 03/24/20 07:05 Electrolytes, C-Reactive P, ESR: Reviewed - DM Control DM Control: Glucose 132 mg/dL (74-106) H 03/24/20 07:05 Hemoglobin A1c 8.1 % (<5.7) H 03/22/20 09:08 Finger Stick Blood Glucose 204 Finger Stick Blood Glucose 204 Finger Stick Blood Glucose 152 Finger Stick Blood Glucose 152 Insulin Dosing: Reviewed (Aspart SS + glargine in the AM) - Heart Failure/MT EF%, PATT's, B-Blockers, Diuretics: Reviewed (lasix, lisinopril, metoprolol, sprinolactone) - BP Control BP Control: Blood Pressure 112/65 Blood Pressure 113/70 If elevated: Reviewed - Qtc Review If Elevated: N/A - IV to PO Switch IV Medications: Reviewed - Home Meds Home Med List reviewed: Intervened (Warfarin dose adjusted (2mg per protocol attached and rx filled), prednisode updated, furosemide adjusted) Relevent Home Meds Not ordered & why?: albuterol, metformin - Current meds Current Medication Order Review: Reviewed - Comments Comments/Follow Ups: titus porter due tomorrow @ 11
--- NOTE | 2020-03-24 15:21 | CMPROGNOTE_ITS ---
- If Service Date Differs Date of service: 03/24/20 Time of Service: 15:21 Care Management Progress Note S/O: Elio was sleeping when CM met with her. Per provider, he will need a wound vac going home, as well as increased HH services. CM will support patient and staff with discharge planning considerations. CM will continue to follow. A: Elio is a 74 year old male admitted to [facility] on 03/22/20 for Osteomylitis. P: Anticipate Elio will return home when medically cleared with increased HH ser vices. He will also need a wound vac upon discharge. He will be transported home by family vs [facility]. He will follow up with his PCP and discharge plan of care. CM will continue to follow.
[2020-03-24] MEDS: Furosemide 20 MG TAB PO (15:34)
[2020-03-24 15:59] VITALS: BP 109/68; PULSE 87; RESP 18; TEMP 36.7; O2SAT 97
[2020-03-24 19:05] VITALS: BP 123/76; PULSE 75; RESP 18; TEMP 36.5; O2SAT 96
[2020-03-24] MEDS: Warfarin 1 MG TAB 2 MG PO (19:45)
[2020-03-24] MEDS: Budesonide/Formoterol 160/4.5 6 GM 60 PUFF INH IH (19:47)
[2020-03-24] MEDS: Pramipexole 0.25 MG TAB 0.125 MG PO (21:47)
[2020-03-25] MEDS: CEFEPIME 2 GM in Normal Saline 100 ML IVPB ×2 (01:36→10:10)
[2020-03-25] MEDS: Omeprazole 20 MG CAPCR PO ×2 (06:16→20:16)
[2020-03-25 07:31] VITALS: BP 131/77; PULSE 81; RESP 18; TEMP 36.9; O2SAT 99
[2020-03-25 07:33] LABS: INR 1.1 (0.9-1.1); Prothrombin Time 11.3 sec (9.3-11.0)
[2020-03-25] MEDS: Atorvastatin 40 MG TAB 80 MG PO (07:42)
[2020-03-25] MEDS: Furosemide 20 MG TAB PO ×2 (07:43→17:01)
[2020-03-25] MEDS: Metoprolol CR 100 MG TABCR PO (07:43)
[2020-03-25] MEDS: Magnesium Oxide 400 MG TAB PO (07:43)
[2020-03-25] MEDS: Aspirin E.C. 81 MG TABEC PO (07:43)
[2020-03-25] MEDS: Spironolactone 25 MG TAB PO (07:43)
[2020-03-25] MEDS: Potassium Chloride 20 MEQ TABCR PO ×2 (07:43→20:16)
[2020-03-25] MEDS: Lisinopril 10 MG TAB 5 MG PO (07:44)
[2020-03-25] MEDS: Insulin Aspart 300 UNITS/3 ML PEN SC ×4 (07:44→21:36)
[2020-03-25] MEDS: predniSONE 20 MG TAB PO (07:44)
[2020-03-25] MEDS: Multivitamin w/Minerals TAB 1 TAB PO (07:44)
[2020-03-25] MEDS: Insulin Glargine 300 UNITS/3 ML PEN 15 UNITS SC (07:45)
[2020-03-25] MEDS: Umeclidinium 7 CAP INHALER 1 CAP IH (08:16)
[2020-03-25] MEDS: Budesonide/Formoterol 160/4.5 6 GM 60 PUFF INH IH ×2 (08:16→20:16)
[2020-03-25 08:24] LABS: Absolute Basophil Count 0.03 10^3/uL (0.0-0.2); Absolute Eosinophil Count 0.28 10^3/uL (0.0-0.7); Absolute Lymphocyte Count 1.46 10^3/uL (1.2-3.4); Absolute Monocyte Count 0.73 10^3/uL (0.1-0.8); Absolute Neutrophil Count 11.98 10^3/uL (1.2-6.7); BUN 25 mg/dL (7-18); Basophils % 0.2; CREATININE 1.19 mg/dL (0.70-1.30); Calcium 8.5 mg/dL (8.5-10.1); Chloride 99 mmol/L (98-107); Eosinophils % 1.9; Estimated GFR 59.76 (mL/min/1.73m2); Glucose 165 mg/dL (74-106); HCT 38.5 % (40.0-50.0); HGB 12.6 g/dL (13.5-17.5); Immature Grans % 0.7; MCH 32.1 pg (27.0-33.0); MCHC 32.7 % (32.0-36.0); MPV 9.6 fL (8.0-11.0); Neutrophils % 82.2; Nucleated RBC 0 %; Platelet Count 197 10^3/uL (130-400); RBC 3.93 10^6/uL (4.36-5.78); RDW 14.3 % (11.8-14.1); RDW-SD 51.9 fL; Sodium 132 mmol/L (136-145); WBC 14.58 10^3/uL (4.4-10.8)
--- NOTE | 2020-03-25 08:57 | OTIE_ITS ---
Occupational Therapy Notes Inpatient Occupational Therapy Evaluation Date: 03/25/20 Referring Doctor:Agueda Cunningham NP OT Orders: Non-Urgent Precautions: Fall, Standard, DNR/DNI PATIENT PROFILE/ADMITTING DIAGNOSIS: Pt is a 74 year old male who was admitted to Med surg with dx of diabetic neuropathy, diabetic foot ulcer, infected wound, wound (L) foot, diastolic CHF, ambulatory dysfunction, hyperglycemia, COPD, aortic stenosis, depression and anemia. He reports that he went to see his PCP on Wednesday who expressed concern to pt's (L) foot wound and encouraged pt to report to the ED for further follow up. Past Medical History- Medical History (Updated 03/22/20 @ 08:58 by Ana Alatorre DO) Anemia Hx low Hgb, but today's lab review was unexpected. Probable anemia of chronic disease .. Non-meat diet, [ ] iron suppl (concern for constipation)? [ ] stool guaic Aortic stenosis, moderate (07/03/16) [facility] [place] ECHO EF 65%; Mod , valve area 1.33 (grad 23/mean14) (06/2016) [facility] [place] eval 09/2017 shows worsening disease .. may need cardiac surgery. Depressive disorder (07/14/11) Wound of left foot Forefoot, x 2 weeks self-care; Worse/Painful/Necrosis, 03/22/20. [ ] ED [ ] Surg? [ ] [facility] Surgical History Bronchoscopy (11/20/10) with BAL echo ([facility] [place] pulmonolgy note 09/21/17.) Compared to the study from 06/18/16 the severity of aortic stenosis has increased and there is pulmonary hypertension. seeing cardio again in 2 wks. Extraction of cataract (08/21/10) R eye,with IOL, Dr Gary History of cardiac cath 03/21/19 [facility] [place] heart cath-mild Pulm HTN mean PA pressure 25 and PA systolic pressure 50 normal wedge pressure 6. Right dominant circulation with mild disease in all vessels, focal anyeursm RCA 5mm Internal fixation (08/03/10) R distal femoral fx, Dr Banda, [facility] PFT'S: SEPTEMBER 2017 [facility] [place] pulm note 09/21/17. O2 sat on RA 97% After 250 ft on RA 88% needing 2l O2. PTCA (01/27/94) rescue PTCA RCA for persistent CP with Inf [facility]; [facility] [place] right heart catheterization,oximetry (01/07/18) [facility] [place].Corey Griffin MD findings: Severe pulmonary hypertension mildly elevated pulmonary capillary wedge pressure Status post transcatheter aortic valve replacement [facility] [place] 03/29/19 History/Home Situation: Pt reports that he lives on a 3rd floor apartment with 30 steps to enter with his significant other. He states that she is an RN And (A) him as needed including cooking, cleaning, laundry, grocery shopping and (A) with dressing and bathing at times. He states that he does not need an assistive device for walking and is not interested in assistive devices for his home because he is not old and he is healthy. He reports that he has a son and daughter in law who are taking care of his vehicles. Equipment owned/DME: none SUBJECTIVE: Pt was lying in bed when OT arrived. He starts getting upset when OT arrives reporting that he does not like therapy services and would like to hold. He is agreeable to speak with OT about baseline and assessment of ROM/strength of UE. Post assessment he denies further need indicating that he is a healthy 74 year old male. OBJECTIVE: General Observation: wound on (L) foot which is infected, poor skin hygiene and (B) LE care, IV in (R) UE Mental Status: A&Ox3 Pain: 10/10 pain throughout body ROM: RUE AROM WFL L UE AROM WFL STRENGTH: RUE 5/5 throughout globally LUE 5/5 throughout globally SENSATION: intact (B) UE FUNCTIONAL MOBILITY/ADLS: OT was unable to assess pts current level of function for ADL/IADL routines as pt denies at this time. He reports that he is not interested in skilled OT services at this time. BALANCE: Static sitting Normal Dynamic Sitting Normal SPECIAL TESTS: Daily Activity Limitations Standardized Measure [facility] AM -PAC ?6 clicks? Daily Activity Inpatient Short Form: Raw score: 22 Standardized score: 47.10 CMS score: 25.80% INFORMED CONSENT/EDUCATION: Pt instructed in purpose of OT Consult and plan of care. ASSESSMENT: Patient is a 74-year-old male referred to occupational therapy services with diagnosis of diabetic neuropathy, diabetic foot ulcer, infected wound, wound (L) foot, diastolic CHF, ambulatory dysfunction, hyperglycemia, COPD, aortic stenosis, depression and anemia. Patient presents with clinical signs and symptoms consistent with dx. OT attempted to assess pt for skilled Occupational Therapy services which pt adamantly denies at this time. He reports that he is a healthy 74 year old male and is (I) at his baseline with ADL/IADL routines and would like to hold at this time. AMPAC score 22 Patient is assessed as a Moderate 73160 complexity based on the following: History: see above Examination: see functional limitations as noted above Presentation: evolving Decision Making: AMPAC score 22 GOALS N/A PLAN OF CARE/TREATMENT PLAN: Discharge from skilled OT services. DISCHARGE RECOMMENDATIONS Based on pts current level of function OT recommends that pt return home with services. TREATMENT TIME/MINUTES/CODES 02135, 20 minutes (07:20) Sharmaine Zee OTR/[facility]
--- NOTE | 2020-03-25 09:06 | PT.INIE ---
Date of service: 03/25/20 Time of Service: 09:06 PT Notes Visit Reasons: OSTEOMYELITIS Physical Therapy Inpatient Initial Evaluation Date: 03/25/2020 Referring Doctor: Agueda Cunningham NP PT Orders: PT CONSULT: Limited ability Precautions: Fall. Standard. WBAT L. Postop shoe on the left foot when out of bed. On 4 L of oxygen per minute at rest. Patient Profile/Admitting Diagnosis: Elio has finally agreed to doing a PT evaluation today. He is a 74-year-old male with past medical history significant for atrial fibrillation with controlled ventricular response, chronic obstructive pulmonary disease, type 2 diabetes mellitus, rheumatoid lung, and rheumatoid arthritis who was admitted to the ED via EMS on 03/22/2020 with chief presentation of 2 days of worsening L dorsal foot pain with associated eschar and surrounding weeping lesion status post I&D on 03/13/2020 and new wound vacuum placement. PMHX: Medical History Anemia (Chronic) Hx low Hgb, but today's lab review was unexpected. Probable anemia of chronic disease .. Non-meat diet, [ ] iron suppl (concern for constipation)? [ ] stool guaic Aortic stenosis, moderate (Chronic 07/03/16) [facility] [place] EF 65%; Mod , valve area 1.33 (grad 23/mean14) (06/2016) [facility] [place] 09/2017 shows worsening disease .. may need cardiac surgery. Depressive disorder (Chronic 07/14/11) Surgical History Bronchoscopy (11/20/10) with BAL echo ([facility] [place] pulmon[place]gy note 09/21/17.) Compared to the study from 06/18/16 the severity of aortic stenosis has increased and there is pulmonary hypertension. seeing cardio again in 2 wks. Extraction of cataract (08/21/10) R eye,with IOL, Dr Gary History of cardiac cath (Resolved) 03/21/19 [facility] [place] Right heart cath-mild Pulm HTN mean PA pressure 25 and PA systolic pressure 50 normal wedge pressure 6. Right dominant circulation with mild disease in all vessels, focal anyeursm RCA 5mm Internal fixation (08/03/10) R distal femoral fx, Dr Banda, [facility] PFT'S: SEPTEMBER 2017 [facility] [place] pulm note 09/21/17. O2 sat on RA 97% After 250 ft on RA 88% needing 2l O2. PTCA (01/27/94) rescue PTCA RCA for persistent CP with Inf [place]; [facility] [place]07[place]18[place] [facility] [place] findings: Severe pulmonary hypertension mildly elevated pulmonary capillary wedge pressure Status post transcatheter aortic valve replacement (Acute) [facility] [place] 03/29/19 Social History/Home Situation: Patient lives with significant other Debra on the third floor of an apartment building with 17 steps to enter and a rail on the left side going up. Significant other has been a very good support for patient for the past few years. Patient is independent without an assistive device inside the apartment but requires the use of a cane to negotiate steps as his heavy concentrator affects his balance. Significant other takes care of meals, laundry, grocery shopping, and transportation. They both have a system that has been effective with stair negotiation as Elio takes about half an hour to an hour to complete ascent/descent of stairs one way due to decreased activity tolerance-- and this has been like that for the past 10 years. They are on a wait list for a [facility] property that is handicap-accessible. Equipment Owned/DME: Motorized wheelchairs. Regular wheelchair. 4 wheeled walkers. Front wheeled walkers. Single-point cane. Portable oxygen concentrator. Subjective: Elio understands that one of the best ways to increase circulation to the L foot is to move it and ensure that weight bearing through the L foot to his tolerance will allow for maximizing his chances to wound healing. He finally agreed to skilled PT services with a goal of short distance ambulation and stair negotiation training once pain control is much improved. Objective: General Observation: Wound VAC to left foot. Oxygen supplementation at 4 L/min via NC. IV access in right UE. Mild to moderate shortness of breath after ambulation activity and stair negotiation activity. Mental Status: Alert and oriented x4 Pain: None reported ROM: Right Upper Extremity: Shoulder Flexion allows up to 80 degrees. Shoulder abduction allows up to 80 degrees. Elbow flexion WFL. Wrist flexion WFL. Opening and closing of hand WFL. Left Upper Extremity: Shoulder Flexion allows up to 80 degrees. Shoulder abduction allows up to 80 degrees. Elbow flexion WFL. Wrist flexion WFL. Opening and closing of hand WFL. Right Lower Extremity: Hip flexion allows up to 20 degrees beyond 90 while seated on edge of chair. Hip abduction WFL. Knee flexion WFL. Knee extension -30 degrees. Ankle dorsiflexion about 5 degrees from neutral. Ankle plantarflexion WFL. Left Lower Extremity: Hip flexion allows up to 20 degrees beyond 90 while seated on edge of chair. Hip abduction WFL. Knee flexion WFL. Knee extension -30 degrees. Ankle dorsiflexion about 5 degrees from neutral. Ankle plantarflexion limited to 10 degrees due to pain. Strength: Right Upper Extremity: Shoulder flexors 3-/5. Shoulder abductors 3-/5. Elbow flexors 4/5. Elbow extensors 4/5. Line Maintenance Technician strong. Left Upper Extremity: Shoulder flexors 3-/5. Shoulder abductors 3-/5. Elbow flexors 4/5. Elbow extensors 4/5. Line Maintenance Technician strong. Right Lower Extremity: Hip flexors 3-/5. Hip abductors 4-/5. Knee flexors 4-/5. Knee extensors 5/5. Ankle dorsiflexors 2--/5. Ankle plantarflexors 3-/5. Left Lower Extremity:Hip flexors 3-/5. Hip abductors 4-/5. Knee flexors 4-/5. Knee extensors 5/5. Ankle dorsiflexors 2--/5. Ankle plantarflexors 3-/5. Sensation: Intact as to pain and pressure on bilateral lower extremities. Bed Mobility/Transfers: Supine to sit SBA with HOB at 45 degrees Sit to stand CGA Stand to sit CGA Bed to chair CGA Chair to bed CGA GAIT: 15 feet using 18 on the left requiring contact-guard assist from PT with decreased edouard and 3 step height step-to gait pattern. Static Sitting: Normal Dynamic Sitting: Normal Static Standing: Fair Dynamic Standing: Fair Special Tests: Mobility Limitations Standardized Measure [facility] 6 clicks Basic Mobility Inpatient Short Form: Raw Score: 19 CMS Score: 42% deficit Informed Consent/Education: Patient instructed in purpose of PT consult and plan of care. Assessment: Elio demonstrates decreased activity tolerance, need for an assistive device for all level surface and stair negotiation activities, difficulty with walking, impairment of balance and generalized weakness resolved from admitting diagnoses. To ensure adequate padding on left foot, Kerlix gauze was wound in a [id number] manner on the foot and the ankle and secured with tape as well as elastic netting gauze. The throat of post-op she was repositioned to maximize padding over wound vac site. He is a 74-year-old male with past medical history significant for atrial fibrillation with controlled ventricular response, chronic obstructive pulmonary disease, type 2 diabetes mellitus, rheumatoid lung, and rheumatoid arthritis who was admitted to the ED via EMS on 03/22/2020 with chief presentation of 2 days of worsening L dorsal foot pain with associated eschar and surrounding weeping lesion status post I&D on 03/13/2020 and new wound vacuum placement. Patient presents with clinical signs and symptoms consistent with current/admitting diagnoses that have resulted to mobility limitations, gait instability, generalized weakness, and impairment of motor control as demonstrated by the following impairment level findings: 1. Decreased strength to B shoulder and LE major muscle groups 2. Impaired activity tolerance 3. Limitation of joint range of motion in the shoulders (chronic) Impairments are contributing to the following functional limitations: 1. Inability to safely ambulate without assistive device and physical assistance 2. Increase completion time for mobility ADL performance 3. Increased fall risk 4. Inability to negotiate steps alone safely Patient is assessed as a 01591 moderate complexity based on the following: History: 74-year-old male with impairment level findings, functional imitations, and past medical history as listed above Examination: Demonstrable impairment in strength, balance, and range of motion with underlying impairments and functional limitations as documented above Presentation: Stable Decision Makin moderate complexity Goals: Goals X 3 days 1. Supine-Sit independent 2. Sit-Supine independent 3. Sit-Stand supervision 4. Stand-Sit supervision 5. Bed-Chair supervision 6. Chair-Bed supervision 7. supervision gait on level surface with use of least restrictive device for at least 300 feet without report of pain nor dyspnea 8. supervision stair negotiation while holding onto bilateral rails for at least 12 steps without report of pain nor dyspnea 9. supervisionwith home exercise program 10. Good static and dynamic standing balance/tolerance Plan of Care/Treatment Plan: 1-2x/day, 7 days/week x 1 week. Plan of care has been reviewed with the COMPRESSOR STATION ENGINEER CHIEF providing the service under Physical Therapy direction. Initiate Physical Therapy intervention for strengthening, bed mobility, transfers, gait, stairs, balance training, use of assistive device. DISCHARGE RECOMMENDATIONS: Patient will benefit from home health PT services in order to progress mobility level using least restrictive assistive ambulatory device, assess home safety, identify additional equipment needs, and establish a functional maintenance program that will increase ability of patient to remain at home. TREATMENT CODE/TIME: 99852 x 25 minutes, 19269 x 13 minutes beginning at 9:06 AM. Thank you very much for this referral. Shayy Montoya PT, DPT, CLT [facility] [place], [place]
--- NOTE | 2020-03-25 10:05 | PGE_ITS ---
Date of Service Date of service: 03/25/20 Time of Service: 10:05 Assessment and Plan Assessment and plan (1) Diabetic neuropathy associated with type 2 diabetes mellitus: Status: Acute (2) Diabetic foot ulcer associated with type 2 diabetes mellitus, with fat layer exposed: Status: Acute (3) Infected wound: Status: Acute (4) Wound of left foot: Status: Acute Assessment and plan: vac ordered from [facility] will need home health for changes abx per hosp -OK to resume anticoags needs b/l LE compression garments and wear continuously walk (5) Venous insufficiency of both lower extremities: Status: Chronic (6) Type 2 diabetes mellitus with hyperglycemia: Status: Chronic Qualifiers: Diabetes mellitus intermediate insulin use: with marine oil terminal superintendent use Qualified Code(s): E11.65 - Type 2 diabetes mellitus with hyperglycemia; Z79.4 - intermediate card tender (current) use of insulin (7) Infliximab (Remicade) long-term use: Status: Chronic (8) custodial (current) use of anticoagulants: Status: Chronic (9) Venous insufficiency of both lower extremities: Status: Acute (10) Venous stasis ulcer: Status: Acute Subjective Subjective Interval history since last seen: tolerating po's. no headaches. No CP or SOB. no productive cough. no dysuria. swelling has gone done in LLE. Still has severe chronic edema of b/l LE. Needs to be wearing support hose. + BM today. no thrush or diarrhea. Exam Resp Effort & Inspection: normal respiratory effort and able to speak in complete sentences Auscultation: clear to auscultation bilaterally Skin Other: wound: dorsum left foot 5x4x.25cm base is clean. no necrotic tissue. exposed tendons. no granulation yet. serous drainage- moderate. VAC changed. no bleeding Objective Last Vital Signs Temp 36.9 C 03/25/20 07:31 Pulse 81 03/25/20 07:31 Resp 18 03/25/20 07:31 BP 131/77 03/25/20 07:31 Pulse Ox 99 03/25/20 07:31 Laboratory Results - last 24 hr 03/25/20 03/25/20 03/25/20 06:50 08:10 08:10 WBC 14.58 H RBC 3.93 L Hgb 12.6 L Hct 38.5 L MCV 98.0 H MCH 32.1 MCHC 32.7 RDW 14.3 H Plt Count 197 MPV 9.6 Immature Gran % 0.7 Neutrophils % 82.2 Lymphocytes % 10.0 Monocytes % 5.0 Eosinophils % 1.9 Basophils % 0.2 Nucleated RBC % 0 Absolute Neutrophils 11.98 H Absolute Lymphocytes 1.46 Absolute Monocytes 0.73 Absolute Eosinophils 0.28 Absolute Basophils 0.03 PT 11.3 H INR 1.1 Sodium 132 L Potassium 5.0 Chloride 99 Carbon Dioxide 24.0 Anion Gap 9.0 BUN 25 H Creatinine 1.19 Estimated GFR/1.73 m2 59.76 Glucose 165 H Calcium 8.5
[2020-03-25 10:10] LABS: Vancomycin, Trough 16.1 ug/mL (10.0-20.0)
--- NOTE | 2020-03-25 10:24 | PDOC.CMPRO ---
- If Service Date Differs Date of service: 03/25/20 Time of Service: 10:24 Care Management Progress Note S/O: Elio was sitting up in a chair when CM met with him. He was in good spirits and was visiting with Debra, his female garbage pick up man. Elio shared how his foot infection progressed and the fact that he had just had a wound vac applied by Dr. Russell. He has been told that the infection did not get into the bone, for which he states he is grateful. He shared that he has also been told that he will likely go home in a couple of days on oral antibiotics. A: Elio is a 74 year old male admitted to [facility] on 03/22/20 for Osteomylitis. P: Anticipate Elio will return home when medically cleared with increased HH services. He will also need a wound vac upon discharge. He will be transported home by family vs [facility]. He will follow up with his PCP and discharge plan of care. CM will continue to follow.
[2020-03-25] MEDS: VANCOMYCIN 1,000 MG in Normal Saline 250 ML 250 MG IVPB (11:30)
--- NOTE | 2020-03-25 13:19 | PGE_ITS ---
Date of Service Date of service: 03/25/20 Time of Service: 13:19 Assessment and Plan Assessment and plan (1) Wound of left foot: Start date: 03/25/20 Start time: 13:39 Status: Acute Assessment and plan: MRI negative for osteo. Wound culture sensitive to cipro. Will d/c vanco and transition to Cipro, monitor BC negative Wound vac in place (2) Atrial fibrillation with controlled ventricular response: Start date: 03/25/20 Start time: 13:43 Status: Chronic Assessment and plan: HR in 80's. Continue metoprolol. Coumadin restarted last night. INR 1.1 will give an extra dose. (3) Poorly controlled type 2 diabetes mellitus: Start date: 03/25/20 Start time: 13:44 Status: Chronic Assessment and plan: Blood sugars have been reasonable, 137-166. Hemoglobin A1c 8.1. Continue diabetic diet with blood sugar checks achs with sliding scale coverage as needed. Continue to hold metformin. Continue basal insulin, adjust as needed (4) Chronic combined systolic and diastolic CHF (congestive heart failure): Start date: 03/25/20 Start time: 13:44 Status: Chronic Assessment and plan: Continue lisinopril, spironolactone, lasix and beta laxmi. (5) GERD (gastroesophageal reflux disease): Start date: 03/25/20 Start time: 13:44 Status: Chronic Assessment and plan: stable, continue PPI Qualifiers: Esophagitis presence: esophagitis presence not specified Qualified Code(s): K21.9 - Gastro-esophageal reflux disease without esophagitis (6) Sleep apnea: Start date: 03/25/20 Start time: 13:44 Status: Chronic Assessment and plan: Continue CPAP. Qualifiers: Sleep apnea type: idiopathic sleep related nonobstructive alveolar hypoventilation Qualified Code(s): G47.34 - Idiopathic sleep related non obstructive alveolar hypoventilation (7) Immunosuppressive disease: Start date: 03/25/20 Start time: 13:44 Status: Chronic Assessment and plan: monitor for signs of adrenal insufficiency. Has not received prednisone since admission. Potassium is rising, sodium depleteting will give PO stress dose prednisone and restart 20 daily wean down (8) Discharge planning issues: Start date: 03/25/20 Start time: 13:45 Status: Acute Assessment and plan: He is a DNR/DNI. This case was discussed with Dr. Rob who is in agreement. Subjective Subjective Patient reports: no new complaints Interval history since last seen: He states feeling better, also long conversation regarding breathing. He weaned himself off of steroids months ago but since has had worsening breathing and apparent adrenal insufficiency. He was given steroid stress dose and placed back on 20 daily which he states has contributed to better breathing for him. Will defer to PCP for further treatment on COPD, not exacerbated at this time. Exam Narrative Exam Narrative: General: Chronically ill-appearing 74-year-old man, sitting up in chair. Answers questions appropriately. Alert and oriented. HEENT: Normocephalic, atraumatic, mucous membranes moist. Neck: Supple, thick. Vascular: Heart has regular rate and rhythm, no murmur appreciated. Respiratory: Respirations appear even and unlabored, lung sounds are clear bilaterally. GI: Round abdomen, soft, nondistended, nontender on palpation, bowel sounds noted throughout. Extremities: Bilateral lower extremities with venous stasis changes. Left foot with warmth and erythema to knee, wound VAC on and functioning. +1 pitting edema to bilateral lower extremities. Left smart with stasis ulcer, dressing intact. Objective Last Vital Signs Temp 36.9 C 03/25/20 07:31 Pulse 81 03/25/20 07:31 Resp 18 03/25/20 07:31 BP 131/77 03/25/20 07:31 Pulse Ox 99 03/25/20 07:31 Laboratory Results - last 24 hr 03/25/20 03/25/20 03/25/20 06:50 08:10 08:10 WBC 14.58 H RBC 3.93 L Hgb 12.6 L Hct 38.5 L MCV 98.0 H MCH 32.1 MCHC 32.7 RDW 14.3 H Plt Count 197 MPV 9.6 Immature Gran % 0.7 Neutrophils % 82.2 Lymphocytes % 10.0 Monocytes % 5.0 Eosinophils % 1.9 Basophils % 0.2 Nucleated RBC % 0 Absolute Neutrophils 11.98 H Absolute Lymphocytes 1.46 Absolute Monocytes 0.73 Absolute Eosinophils 0.28 Absolute Basophils 0.03 PT 11.3 H INR 1.1 Sodium 132 L Potassium 5.0 Chloride 99 Carbon Dioxide 24.0 Anion Gap 9.0 BUN 25 H Creatinine 1.19 Estimated GFR/1.73 m2 59.76 Glucose 165 H Calcium 8.5 Vancomycin Trough 03/25/20 03/25/20 08:10 11:00 WBC RBC Hgb Hct MCV MCH MCHC RDW Plt Count MPV Immature Gran % Neutrophils % Lymphocytes % Monocytes % Eosinophils % Basophils % Nucleated RBC % Absolute Neutrophils Absolute Lymphocytes Absolute Monocytes Absolute Eosinophils Absolute Basophils PT INR Sodium Potassium Chloride Carbon Dioxide Anion Gap BUN Creatinine Estimated GFR/1.73 m2 Glucose Calcium Vancomycin Trough 16.1 Cancelled
[2020-03-25] MEDS: Warfarin 1 MG TAB 2 MG PO ×2 (13:33→20:16)
--- NOTE | 2020-03-25 13:42 | W.INDIABCONS ---
Date of service: 03/25/20 Time of Service: 13:42 Diabetes Inpatient Consult DESCRIPTION/ASSESSMENT: 74 year old male readmitted with wound on left foot, s/p debridement, now with wound vac. Osteomylitis ruled out. PMH: morbid obesity, DM, CHF, HTN, COPD. Met with Elio and his . Reviewed recent A1C: 8.1% and discussed ideal levels for optimal wound healing. Encouraged daily yogurt to resupply gut damian with frequent Abx treatment. Followed by Terry Saleem for optimal blood sugar control. Following Diabetic Diet with excellent intake. INTERVENTION: Provided education on DM including Hyper/hypoglycemia s/s with action plan for each scenario. Definition and types of CHO with examples, CHO counting, DASH diet materials, DM meal planning and label reading literature. Provided a blood sugar and food record chart and materials to reiterate CHO counting techniques. Reviewed desirable BG levels with patient with food choices and portions for optimal outcomes. Provided contact information for this RD and encouraged to call with any f/u questions r/t to DM self management. CDM from kitchen has been helping to count CHO's and achieve intake of ~65g/CHO per meal period. PLAN: continue diabetic diet, maintain blood sugars in ideal ranges, increase intake of water and HBV protein. Will continue to follow/monitor. Time Spent in Nutritional Counseling and Treatment: 30 min spent face to face
--- NOTE | 2020-03-25 15:20 | CHAPLAIN ---
Elio was up in his chair when I visited. He said he's waiting to hear if the bone in his foot is infected. He told me that two doctors told him it wasn't infected, but then his nurse said it was. He's wanting to confirm with the doctor that it isn't. Elio said he believes in God and has a relationship with God, but doesn't attend synagogue. He attended synagogue with his mom when he was a kid, but then I became a teenager. We talked about how people don't need to be in synagogue buildings to relate to God. Elio introduced me to his friend (SO?), who is from [facility] and is [employer]. Elio said she prays all the time and I don't disturb her. She explained how she prays five times a day. The closest adventism is near [place], she she doesn't get over there. Elio said he is Very good to her and they each know each other's life stories and their former spouses.
[2020-03-25 15:35] VITALS: BP 127/68; PULSE 84; RESP 19; TEMP 36.4; O2SAT 98
--- NOTE | 2020-03-25 15:50 | PTTR_ITS ---
Date of service: 03/25/20 Time of Service: 15:50 PT Notes Visit Reasons: OSTEOMYELITIS Physical Therapy Inpatient Treatment Note Date: 03/25/2020 Precautions: Fall. Standard. WBAT L. Postop shoe on the left foot when out of bed. On 4 L of oxygen per minute at rest. Subjective: Elio feels that he may have stayed long on the chair and this may be contributing to why he feels numb in the feet. He states that his wound dressing got changed and the wound vacuum reapplied earlier today. He complained of dizziness at end of ambulation activity this afternoon. Sensation: Reports new numbness on his feet that he did not have on admission Bed Mobility/Transfers: Sit to supine SBA Sit to stand from bedside chair minimal assist Sit to stand from bedside commode minimal assist Bedside commode to bed minimal assist GAIT: 25 feet using the FWW with wheelchair follow and CGA. Made sure to wrap L foot adequately with Kerlix gauze and elastic netting and repositioned throat of post op shoe in order to minimize pain on L foot. Complained of being dizzy which shortened his ambulation distance. He states that he is on diuretic pill which may be contributing to his dizziness. Static Sitting: Normal Dynamic Sitting: Normal Static Standing: Fair Dynamic Standing: Fair Assessment: Elio continues to demonstrate decreased activity tolerance, need for an assistive device for all level surface and stair negotiation activities, difficulty with walking, impairment of balance and generalized weakness resolved from admitting diagnoses. To ensure adequate padding on left foot, Kerlix gauze was wound in a [id number] manner on the foot and the ankle and secured with tape a s well as elastic netting gauze. The throat of post-op she was repositioned to maximize padding over wound vac site. He is a 74-year-old male with past medical history significant for atrial fibrillation with controlled ventricular response, chronic obstructive pulmonary disease, type 2 diabetes mellitus, rheumatoid lung, and rheumatoid arthritis who was admitted to the ED via EMS on 03/22/2020 with chief presentation of 2 days of worsening L dorsal foot pain with associated eschar and surrounding weeping lesion status post I&D on 03/13/2020 and new wound vacuum placement. DISCHARGE RECOMMENDATIONS: Patient will benefit from home health PT services in order to progress mobility level using least restrictive assistive ambulatory device, assess home safety, identify additional equipment needs, and establish a functional maintenance program that will increase ability of patient to remain at home. TREATMENT CODE/TIME: 11304 x 31 minutes beginning at 15:50 PM.
[2020-03-25 19:25] VITALS: BP 115/63; PULSE 88; RESP 18; TEMP 36; O2SAT 100
[2020-03-25] MEDS: Ciprofloxacin 500 MG TAB PO (20:16)
[2020-03-25] MEDS: guaiFENesin/D-METHORPHAN HB 5 ML CUP 10 ML PO (21:34)
[2020-03-25] MEDS: Pramipexole 0.25 MG TAB 0.125 MG PO (21:35)
[2020-03-25] MEDS: clonazePAM 0.5 MG TAB PO (21:35)
[2020-03-25 23:35] VITALS: BP 114/77; PULSE 73; RESP 18; TEMP 36; O2SAT 100
[2020-03-26] MEDS: oxyCODONE 10 MG TAB PO (04:17)
[2020-03-26] MEDS: Acetaminophen 325 MG TAB 650 MG PO ×2 (06:36→21:42)
[2020-03-26] MEDS: Omeprazole 20 MG CAPCR PO ×2 (06:36→20:25)
[2020-03-26 07:21] LABS: Absolute Eosinophil Count 0.65 10^3/uL (0.0-0.7); Absolute Lymphocyte Count 2.26 10^3/uL (1.2-3.4); Absolute Monocyte Count 0.99 10^3/uL (0.1-0.8); Absolute Neutrophil Count 9.83 10^3/uL (1.2-6.7); Basophils % 0.4; Eosinophils % 4.7; HCT 37.7 % (40.0-50.0); HGB 12.1 g/dL (13.5-17.5); Immature Grans % 0.7; Lymphocytes % 16.3; MCHC 32.1 % (32.0-36.0); MCV 99.7 fL (80-95); Monocytes % 7.1; Neutrophils % 70.8; Nucleated RBC 0 %; Platelet Count 212 10^3/uL (130-400); RBC 3.78 10^6/uL (4.36-5.78); RDW 14.3 % (11.8-14.1); RDW-SD 52.2 fL; WBC 13.88 10^3/uL (4.4-10.8)
[2020-03-26 07:28] LABS: Absolute Basophil Count 0.06 10^3/uL (0.0-0.2)
[2020-03-26 07:44] LABS: INR 1.2 (0.9-1.1); Prothrombin Time 11.7 sec (9.3-11.0)
[2020-03-26 08:00] VITALS: BP 126/74; PULSE 82; RESP 19; TEMP 36.8; O2SAT 100
[2020-03-26] MEDS: Budesonide/Formoterol 160/4.5 6 GM 60 PUFF INH IH ×2 (08:03→20:28)
[2020-03-26] MEDS: Umeclidinium 7 CAP INHALER 1 CAP IH (08:04)
[2020-03-26] MEDS: Insulin Glargine 300 UNITS/3 ML PEN 15 UNITS SC (08:08)
[2020-03-26] MEDS: Insulin Aspart 300 UNITS/3 ML PEN SC ×4 (08:08→21:43)
[2020-03-26] MEDS: Potassium Chloride 20 MEQ TABCR PO (08:09)
[2020-03-26] MEDS: Atorvastatin 40 MG TAB 80 MG PO (08:09)
[2020-03-26] MEDS: Metoprolol CR 100 MG TABCR PO (08:09)
[2020-03-26] MEDS: predniSONE 20 MG TAB PO (08:09)
[2020-03-26] MEDS: Normal Saline Flush 10 ML SYR IVP ×2 (08:09→10:18)
[2020-03-26] MEDS: Spironolactone 25 MG TAB PO (08:10)
[2020-03-26] MEDS: Magnesium Oxide 400 MG TAB PO (08:10)
[2020-03-26] MEDS: Lisinopril 10 MG TAB 5 MG PO (08:10)
[2020-03-26] MEDS: Multivitamin w/Minerals TAB 1 TAB PO (08:10)
[2020-03-26] MEDS: Ciprofloxacin 500 MG TAB PO ×2 (08:10→20:25)
[2020-03-26] MEDS: Furosemide 20 MG TAB PO ×2 (08:10→16:51)
[2020-03-26] MEDS: Aspirin E.C. 81 MG TABEC PO (08:10)
[2020-03-26] MEDS: guaiFENesin/D-METHORPHAN HB 5 ML CUP 10 ML PO ×2 (08:28→21:41)
[2020-03-26 08:48] LABS: Anion Gap 9.8 mmol/L (3-11); BUN 24 mg/dL (7-18); CO2 25.2 mmol/L (21.0-32.0); CREATININE 1.01 mg/dL (0.70-1.30); Calcium 8.5 mg/dL (8.5-10.1); Chloride 101 mmol/L (98-107); Glucose 173 mg/dL (74-106); Sodium 136 mmol/L (136-145)
--- NOTE | 2020-03-26 09:10 | W.PM.PROGNOT ---
Date of Service Date of service: 03/26/20 Time of Service: 09:11 Assessment and Plan Assessment and plan (1) Wound of left foot: Start date: 03/26/20 Start time: 09:14 Status: Acute Assessment and plan: MRI negative for osteo. Wound Cultures sensitive to cipro, will give 2 week po cipro BC no growth to date Wound vac in place, awaiting home wound vac, then can be discharged home (2) COPD (chronic obstructive pulmonary disease): Start date: 03/26/20 Start time: 09:19 Status: Chronic Assessment and plan: Requires oxygen. Wheezing today, will give po steroid burst. Not requiring anymore oxygen Duonebs IS Qualifiers: COPD type: COPD with acute lower respiratory infection Qualified Code(s): J44.0 - Chronic obstructive pulmonary disease with (acute) lower respiratory infection (3) Atrial fibrillation with controlled ventricular response: Start date: 03/26/20 Start time: 09:15 Status: Chronic Assessment and plan: HR in 80's. Continue metoprolol. INR 1.2, Will give additional 2 mg for INR goal 2.5-3. (4) Poorly controlled type 2 diabetes mellitus: Start date: 03/26/20 Start time: 09:17 Status: Chronic Assessment and plan: Blood sugars have been reasonable, 137-166. Hemoglobin A1c 8.1. Continue diabetic diet with blood sugar checks achs with sliding scale coverage as needed. Continue to hold metformin. Continue basal insulin, adjust as needed (5) Chronic combined systolic and diastolic CHF (congestive heart failure): Start date: 03/26/20 Start time: 09:18 Status: Chronic Assessment and plan: Continue lisinopril, spironolactone, lasix and beta laxmi. (6) GERD (gastroesophageal reflux disease): Start date: 03/26/20 Start time: 09:18 Status: Chronic Assessment and plan: stable, continue PPI Qualifiers: Esophagitis presence: esophagitis presence not specified Qualified Code(s): K21.9 - Gastro-esophageal reflux disease without esophagitis (7) Sleep apnea: Start date: 03/26/20 Start time: 09:18 Status: Chronic Assessment and plan: Continue CPAP. Qualifiers: Sleep apnea type: idiopathic sleep related nonobstructive alveolar hypoventilation Qualified Code(s): G47.34 - Idiopathic sleep related nonobstructive alveolar hypoventilation (8) Immunosuppressive disease: Start date: 03/26/20 Start time: 09:18 Status: Chronic Assessment and plan: On steroids, continue to monitor. (9) Discharge planning issues: Start date: 03/26/20 Start time: 09:21 Status: Acute Assessment and plan: He is a DNR/DNI. He can be discharged home when wound vac for home set up This case was discussed with Dr. Rob who is in agreement. Subjective Subjective Patient reports: still having pain Interval history since last seen: C/o pain to foot. He stated he suffered and waited to ask for pain medications. Discussed with patient about pain management. Eating and drinking with out difficulty Exam Narrative Exam Narrative: General: Chronically ill-appearing 74-year-old man, laying in bed. Answers questions appropriately. Alert and oriented. HEENT: Normocephalic, atraumatic, mucous membranes moist. Neck: Supple, thick. Vascular: Heart has irregularly irregular, no murmur appreciated. Respiratory: Respirations appear even and unlabored, lung sounds with wheezing bilaterally GI: Round abdomen, soft, nondistended, nontender on palpation, bowel sounds noted throughout. Extremities: Bilateral lower extremities with venous stasis changes. Left foot with warmth and erythema to foot and toes, wound VAC on and functioning. +1 pitting edema to bilateral lower extremities. Left smart with stasis ulcer, dressing intact. Objective Last Vital Signs Temp 36.8 C 03/26/20 08:00 Pulse 82 03/26/20 08:00 Resp 19 03/26/20 08:00 BP 126/74 03/26/20 08:00 Pulse Ox 100 03/26/20 08:00 Laboratory Results - last 24 hr 03/25/20 03/25/20 03/26/20 08:10 11:00 07:04 WBC RBC Hgb Hct MCV MCH MCHC RDW Plt Count MPV Immature Gran % Neutrophils % Lymphocytes % Monocytes % Eosinophils % Basophils % Nucleated RBC % Absolute Neutrophils Absolute Lymphocytes Absolute Monocytes Absolute Eosinophils Absolute Basophils PT INR Sodium 136 Potassium 5.0 Chloride 101 Carbon Dioxide 25.2 Anion Gap 9.8 BUN 24 H Creatinine 1.01 Estimated GFR/1.73 m2 >= 60.00 Glucose 173 H Calcium 8.5 Vancomycin Trough 16.1 Cancelled 09/22/20 09/22/20 07:04 07:04 WBC 13.88 H RBC 3.78 L Hgb 12.1 L Hct 37.7 L MCV 99.7 H MCH 32.0 MCHC 32.1 RDW 14.3 H Plt Count 212 MPV 10.0 Immature Gran % 0.7 Neutrophils % 70.8 Lymphocytes % 16.3 Monocytes % 7.1 Eosinophils % 4.7 Basophils % 0.4 Nucleated RBC % 0 Absolute Neutrophils 9.83 H Absolute Lymphocytes 2.26 Absolute Monocytes 0.99 H Absolute Eosinophils 0.65 Absolute Basophils 0.06 PT 11.7 H INR 1.2 H Sodium Potassium Chloride Carbon Dioxide Anion Gap BUN Creatinine Estimated GFR/1.73 m2 Glucose Calcium Vancomycin Trough
--- NOTE | 2020-03-26 09:29 | W.PM.PROGNOT ---
Date of Service Date of service: 03/26/20 Time of Service: 09:30 Assessment and Plan Assessment and plan (1) Diabetic neuropathy associated with type 2 diabetes mellitus: Status: Acute (2) Diabetic foot ulcer associated with type 2 diabetes mellitus, with fat layer exposed: Status: Acute (3) Infected wound: Status: Acute (4) Wound of left foot: Status: Acute Assessment and plan: Awaiting for home wound vac. Discussed wearing compression stockings during the day Participating in PT. D/C home once we receive wound vac. Will need home health for dressing changes. (5) Venous insufficiency of both lower extremities: Status: Chronic (6) Type 2 diabetes mellitus with hyperglycemia: Status: Chronic Qualifiers: Diabetes mellitus skilled nursing insulin use: with skilled nursing use Qualified Code(s): E11.65 - Type 2 diabetes mellitus with hyperglycemia; Z79.4 - assisted (current) use of insulin (7) Infliximab (Remicade) long-term use: Status: Chronic (8) emt intermediate (current) use of anticoagulants: Status: Chronic (9) Venous insufficiency of both lower extremities: Status: Acute (10) Venous stasis ulcer: Status: Acute Subjective Subjective Interval history since last seen: Doing well Participated in PT yesterday. Expressing tingling and numbness within his foot for a period of time yesterday which spontaneously resovled. Exam Const General: cooperative, healthy appearing and comfortable Orientation: alert and oriented x3 Resp Effort & Inspection: normal respiratory effort, no audible wheezes and no cough Extrem Other: Wound vac in place on left foot. Objective Last Vital Signs Temp 36.8 C 03/26/20 08:00 Pulse 82 03/26/20 08:00 Resp 19 03/26/20 08:00 BP 126/74 03/26/20 08:00 Pulse Ox 100 03/26/20 08:00 Laboratory Results - last 24 hr 03/25/20 03/25/20 03/26/20 08:10 11:00 07:04 WBC RBC Hgb Hct MCV MCH MCHC RDW Plt Count MPV Immature Gran % Neutrophils % Lymphocytes % Monocytes % Eosinophils % Basophils % Nucleated RBC % Absolute Neutrophils Absolute Lymphocytes Absolute Monocytes Absolute Eosinophils Absolute Basophils PT INR Sodium 136 Potassium 5.0 Chloride 101 Carbon Dioxide 25.2 Anion Gap 9.8 BUN 24 H Creatinine 1.01 Estimated GFR/1.73 m2 >= 60.00 Glucose 173 H Calcium 8.5 Vancomycin Trough 16.1 Cancelled 03/26/20 03/26/20 07:04 07:04 WBC 13.88 H RBC 3.78 L Hgb 12.1 L Hct 37.7 L MCV 99.7 H MCH 32.0 MCHC 32.1 RDW 14.3 H Plt Count 212 MPV 10.0 Immature Gran % 0.7 Neutrophils % 70.8 Lymphocytes % 16.3 Monocytes % 7.1 Eosinophils % 4.7 Basophils % 0.4 Nucleated RBC % 0 Absolute Neutrophils 9.83 H Absolute Lymphocytes 2.26 Absolute Monocytes 0.99 H Absolute Eosinophils 0.65 Absolute Basophils 0.06 PT 11.7 H INR 1.2 H Sodium Potassium Chloride Carbon Dioxide Anion Gap BUN Creatinine Estimated GFR/1.73 m2 Glucose Calcium Vancomycin Trough
[2020-03-26] MEDS: predniSONE 20 MG TAB 60 MG PO (10:17)
[2020-03-26] MEDS: MORPHine 2 MG/ML SYR IVP (10:17)
--- NOTE | 2020-03-26 13:34 | PT.INTREAT ---
Date of service: 03/26/20 PT Notes Visit Reasons: OSTEOMYELITIS Physical Therapy Inpatient Treatment Note Date: 03/26/2020 Precautions: Fall. Standard. WBAT L. Postop shoe on the left foot when out of bed. On 4 L of oxygen per minute at rest. Subjective: Elio denies dizziness but continues to report pain in L foot with weight bearing and SOB with ambulation. He again emphasizes how good of a system he and his significant other have in managing the stairs 4 steps at a time and that he turns around and sits on the step until he is able to catch his breath before he moves up the next four steps as they have 17 steps to enter their apartment with rails far apart he needs to use a cane on one hand and his significant other stays behind to support his bottom area. Sensation: No numbness Bed Mobility/Transfers: Sit to supine SBA Sit to stand from wheelchair minimal assist Sit to stand onto wheelchair CGA GAIT: 30 feet x 4 with FWW and wheelchair follow by Debra with 4L O2/min and wound vac to L foot using post op shoe on padded L foot. Static Sitting: Normal Dynamic Sitting: Normal Static Standing: Fair Dynamic Standing: Fair Assessment: Elio continues to demonstrate decreased activity tolerance, need for an assistive device for all level surface and stair negotiation activities, difficulty with walking, impairment of balance and generalized weakness resolved from admitting diagnoses. To ensure adequate padding on left foot, Kerlix gauze was wound in a [id number] manner on the foot and the ankle and secured with tape as well as elastic netting gauze. The throat of post-op she was repositioned to maximize padding over wound vac site. He is discharging today as soon as a wound vacuum is available from DME provider DISCHARGE RECOMMENDATIONS: Patient will benefit from home health PT services in order to progress mobility level using least restrictive assistive ambulatory device, assess home safety, identify additional equipment needs, and establish a functional maintenance program that will increase ability of patient to remain at home. TREATMENT CODE/TIME: 34422 x 41 minutes.
--- NOTE | 2020-03-26 15:40 | PDOC.CMPRO ---
- If Service Date Differs Date of service: 03/26/20 Time of Service: 15:40 Care Management Progress Note S/O: Elio was sitting up in a chair when CM met with him. He was in good spirits and was visiting with Debra, his female steam shovel runner. He continues to feel well and is awaiting the arrival of his home wound vac so that he can be discharged home. He will require a lift assist as he can not climb 3 flights of stairs with a wound vac. A: Elio is a 74 year old male admitted to [facility] on 03/22/20 for Osteomylitis. P: Anticipate Elio will return home when medically cleared with increased HH services. He will also need a wound vac upon discharge. He will be transported home by family vs [facility]. He will follow up with his PCP and discharge plan of care. CM will continue to follow.
[2020-03-26 16:05] VITALS: BP 117/69; PULSE 66; RESP 18; TEMP 36.1; O2SAT 98
[2020-03-26] MEDS: Warfarin 1 MG TAB 2 MG PO ×2 (20:25→20:28)
[2020-03-26 20:49] LABS: CRP, High Sensitivity >15.00 mg/L (See Note)
[2020-03-26] MEDS: Pramipexole 0.25 MG TAB 0.125 MG PO (21:42)
[2020-03-26] MEDS: clonazePAM 0.5 MG TAB PO (21:42)
[2020-03-26 23:46] VITALS: BP 126/77; PULSE 83; RESP 16; TEMP 36.5; O2SAT 100
[2020-03-27] MEDS: Omeprazole 20 MG CAPCR PO (06:36)
[2020-03-27 07:31] VITALS: BP 144/76; PULSE 80; RESP 18; TEMP 36.2; O2SAT 100
[2020-03-27] MEDS: Insulin Glargine 300 UNITS/3 ML PEN 15 UNITS SC (07:56)
[2020-03-27] MEDS: Insulin Aspart 300 UNITS/3 ML PEN SC ×2 (07:56→12:10)
[2020-03-27] MEDS: Atorvastatin 40 MG TAB 80 MG PO (07:57)
[2020-03-27] MEDS: Multivitamin w/Minerals TAB 1 TAB PO (07:58)
[2020-03-27] MEDS: Metoprolol CR 100 MG TABCR PO (07:58)
[2020-03-27] MEDS: Furosemide 20 MG TAB PO (07:58)
[2020-03-27] MEDS: predniSONE 20 MG TAB 60 MG PO (07:58)
[2020-03-27] MEDS: oxyCODONE 10 MG TAB PO ×2 (07:58→12:11)
[2020-03-27] MEDS: Ciprofloxacin 500 MG TAB PO (07:58)
[2020-03-27] MEDS: Aspirin E.C. 81 MG TABEC PO (07:59)
[2020-03-27] MEDS: Lisinopril 10 MG TAB 5 MG PO (07:59)
[2020-03-27] MEDS: Spironolactone 25 MG TAB PO (08:00)
[2020-03-27] MEDS: Magnesium Oxide 400 MG TAB PO (08:00)
[2020-03-27] MEDS: Umeclidinium 7 CAP INHALER 1 CAP IH (09:08)
[2020-03-27 10:32] LABS: Abs Immature Grans 0.09 10^3/uL (0.0-0.06); Absolute Eosinophil Count 0.17 10^3/uL (0.0-0.7); Absolute Lymphocyte Count 1.07 10^3/uL (1.2-3.4); Absolute Monocyte Count 0.67 10^3/uL (0.1-0.8); Basophils % 0.2; Eosinophils % 1.4; HCT 37.9 % (40.0-50.0); HGB 12.4 g/dL (13.5-17.5); Immature Grans % 0.7; Lymphocytes % 8.8; MCH 32.2 pg (27.0-33.0); MCHC 32.7 % (32.0-36.0); MCV 98.4 fL (80-95); MPV 9.2 fL (8.0-11.0); Monocytes % 5.5; Neutrophils % 83.4; Nucleated RBC 0 %; Platelet Count 235 10^3/uL (130-400); RBC 3.85 10^6/uL (4.36-5.78); RDW 14.2 % (11.8-14.1); WBC 12.13 10^3/uL (4.4-10.8)
[2020-03-27 10:33] LABS: Absolute Basophil Count 0.02 10^3/uL (0.0-0.2); Absolute Neutrophil Count 10.12 10^3/uL (1.2-6.7)
--- NOTE | 2020-03-27 10:35 | W.PM.PROGNOT ---
Documented by User: REYNOLD Sarmiento 03/27/20 10:40 Date of Service Date of service: 03/27/20 Time of Service: 10:35 Assessment and Plan Assessment and plan (1) Wound of left foot: Status: Acute Assessment and plan: Patient is doing well. He is tolerating the wound vac. Home Wound vac arrived late last night. He is working with PT Tolerating PO antibiotics. P// D/C home later today with home health services Subjective Subjective Interval history since last seen: Patient reports he is feeling good today. Exam Const General: cooperative, healthy appearing and comfortable Orientation: alert and oriented x3 Resp Effort & Inspection: normal respiratory effort, no audible wheezes and no cough Objective Last Vital Signs Temp 36.2 C L 03/27/20 07:31 Pulse 80 03/27/20 07:31 Resp 18 03/27/20 07:31 BP 144/76 H 03/27/20 07:31 Pulse Ox 100 03/27/20 07:31 Laboratory Results - last 24 hr 03/26/20 03/27/20 07:04 10:23 WBC 12.13 H RBC 3.85 L Hgb 12.4 L Hct 37.9 L MCV 98.4 H MCH 32.2 MCHC 32.7 RDW 14.2 H Plt Count 235 MPV 9.2 Immature Gran % 0.7 Neutrophils % 83.4 Lymphocytes % 8.8 Monocytes % 5.5 Eosinophils % 1.4 Basophils % 0.2 Nucleated RBC % 0 Absolute Neutrophils 10.12 H Absolute Lymphocytes 1.07 L Absolute Monocytes 0.67 Absolute Eosinophils 0.17 Absolute Basophils 0.02 C-React Prot High Sens >15.00 Documented by User: Liza Russell DO 03/27/20 12:12 Assessment and Plan Assessment and plan (1) Venous stasis ulcer: Status: Acute Assessment and plan: agree w/ above F/u in clinic as outpt
--- NOTE | 2020-03-27 10:36 | W.PM.DS.N ---
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: Status: Chronic (9) Venous insufficiency of both lower extremities: Status: Acute (10) Venous stasis ulcer: Status: Acute Discharge Plan Disposition Patient Disposition: HOME W/HOME HEALTH SERVICE Condition: Stable Discharge Details Reason For Visit: OSTEOMYELITIS Admit Date/Time: 03/22/20 11:23 Admit Provider: Enrique Sorenson Attending Provider: Enrique Sorenson Primary Care Provider: Ana Alatorre Hospital Course Hospital Course: This is a 74-year-old male diabetic, with a complex past medical history including oxygen and steroid-dependent COPD, pulmonary hypertension, CHF, rheumatoid arthritis on Remicade, Afib on warfarin. Currently taking prednisone 20 mg daily. He was recently admitted for pneumonia and treated with doxycycline and cefuroxime. Recent azithromycin for bronchitis. He reports 2 days of worsening left dorsal foot pain with associated eschar type changes to the skin surrounding a weeping lesion that he has had for weeks. He has chronic lower extremity edema with venous stasis changes, chronic shortness of breath. He has chronic pain for which he takes both morphine and as needed Percocet. He was seen by Dr. Alatorre's office today with concern for developing black eschar referred to the ER. Work up in ED included an xray suspicious for osteomyelitis, this was followed with an MRI that did not support osteomyelitis. He was admitted to med/surg on IV vancomycin. surgical consult placed for debridement. His blood cultures remained negative. surgical would culture grew enterococcus faecalis sensitive to vanco and ampicillin, also pseudomonas aeruginosa and serratia marcescens, both sensitive to cipro which he has been downstepped to. he will be discharged on cipro and keflex (based on pcn allergy) to complete 14 more days. His coumadin placed on hold for anticipated surgical debridement, this was resumed for INR goal of 2-3, INR today at 1.2, will continue home coumadin dosing with recheck on mar 29, further adjustments by outpatient team. Home wound VAC unit has been applied and he will have home health services for routine management with changes Wednesdays and Fridays. case discussed with Dr Rob who is in agreement. Home Meds and New Rx's Prescriptions: New ciprofloxacin HCl 500 mg Tablet 500 mg PO BID Qty: 15 RF: 0 Bio-K plus 50 billion cell Capsule,Delayed Release(Dr/Ec) 1 cap PO DAILY Qty: 30 RF: 0 cephalexin [Keflex] 500 mg capsule 500 mg PO QID Qty: 58 RF: 0 Continued (DME) POrtable Oxygen Compressor Qty: 1 RF: 0 spironolactone 25 mg tablet 25 mg PO DAILY Qty: 90 RF: 0 morphine 15 mg tablet extended release 15 mg PO Q12H MDD 30 Qty: 56 RF: 0 atorvastatin 80 mg tablet 80 mg PO DAILY Qty: 90 RF: 3 lisinopril 10 mg tablet 5 mg PO DAILY Qty: 90 RF: 3 Humulin N NPH Insulin KwikPen 100 unit/mL (3 mL) insulin pen 5 unit SC QAM PRN (Reason: steroid use) Qty: 6 RF: 1 Hold Instructions: Formulary/Insurance (DME) lancets [FreeStyle Lancets] 28 gauge misc See Rx Instructions .ROUTE .MEDSUPPLY Qty: 200 RF: 6 fluticasone propion-salmeterol [Advair Diskus] 250-50 mcg/dose blister with device 1 inh IH BID RF: 0 ProAir RespiClick 90 mcg/actuation aerosol powdr breath activated 2 inh IH Q6H PRN (Reason: shortness of breath or wheezing) Qty: 1 RF: 1 (DME) Blood Glucose Test Strip See Rx Instructions .ROUTE .MEDSUPPLY Qty: 400 RF: 6 magnesium oxide 400 mg magnesium capsule 400 mg PO DAILY Qty: 90 RF: 3 oxycodone-acetaminophen 5-325 mg tablet 1 tab PO Q4H MDD 6 PRN (Reason: pain) Qty: 140 RF: 0 Jardiance 25 mg tablet 12.5 mg PO DAILY Qty: 30 RF: 0 Oxygen EACH RF: 0 Remicade 100 mg recon soln 800 mg IV q5w RF: 0 Narcan 4 mg/actuation spray,non-aerosol 4 mg NS PRN PRN (Reason: opioid overdose) Qty: 1 RF: 0 Incruse Ellipta 62.5 mcg/actuation blister with device 1 inh IH DAILY RF: 0 pramipexole 0.125 mg tablet 0.125 mg PO HS Qty: 90 RF: 3 aspirin [Aspir-81] 81 mg tablet,delayed release (DR/EC) 81 mg PO DAILY Qty: 100 RF: 3 Daily Vitamin Formula-Iron 18-400 mg-mcg tablet 1 tab PO DAILY Qty: 90 RF: 0 (DME) pen needle, diabetic [BD Ultra-Fine Mini Pen Needle] 31 gauge x 3/16 needle See Rx Instructions .ROUTE .MEDSUPPLY Qty: 90 RF: 3 metformin 500 mg tablet 1,000 mg PO BID Qty: 360 RF: 3 Tresiba FlexTouch U-100 100 unit/mL (3 mL) insulin pen 15 unit SC DAILY MDD 50 Qty: 60 RF: 1 metoprolol succinate 100 mg tablet extended release 24 hr 100 mg PO DAILY Qty: 90 RF: 3 Novolin N Flexpen 100 unit/mL (3 mL) insulin pen 25 unit subcut DAILY PRN (Reason: steroid use) Qty: 15 RF: 1 omeprazole 20 mg capsule,delayed release(DR/EC) 20 mg PO BID Qty: 60 RF: 3 potassium chloride [Klor-Con M20] 20 mEq Tablet,Er Particles/Crystals 20 meq PO BID Qty: 60 RF: 0 Hold Instructions: K WNL today 11/08/19 vs d/c from hosp 11/04. nitroglycerin [Nitrostat] 0.4 mg Tablet, Sublingual 0.4 mg sublingual Q5 MIN PRN X3 PRNQty: 90 RF: 0 warfarin 2 mg tablet 1 mg PO HS Qty: 90 RF: 2 prednisone 10 mg tablet 20 mg PO DAILY RF: 0 furosemide 20 mg tablet 20 mg PO BID RF: 0 clonazepam 1 mg tablet 0.5 mg PO HS RF: 0 guaifenesin 100 mg/5 mL Liquid 200 mg PO Q6H PRN PRNQty: 0 RF: 0 cyanocobalamin (vitamin B-12) 1,000 mcg tablet 1,000 mcg PO DAILY Qty: 30 RF: 0 Discharge Instructions Instructions: Cellulitis (DC) Additional Instructions: Continue Cipro for 2 more weeks for treatment of your cellulitis. Continue to elevate your left lower extremity above the level of your heart frequently throughout the day. Wound VAC management and changes per home health which should occur on Fridays and as needed.. You should continue your Coumadin for INR goal of 2-3. Will check labs on Sunday, March 29, 2020 with Coumadin dosing per your outpatient primary care provider. Resume the rest of your previously scheduled medications as directed Stand Alone Forms: Nursing Discharge Form Referrals: Dino Morgan DO [OSTEOPATHIC DOCTOR] - 04/01/20 9:30 am Activity:: Elevate left lower extrem Equipment/Supplies:: Wound VAC home unit Diet:: Carb Counting Discharge Orders Discharge Orders: Discharge Order (Routine); Ordered 03/27/20 Ordered By: Agueda Cunningham Other Ambulatory Orders: Basic Metabolic Panel (Routine) Timeframe: 20200329 Location: None Selected Ordered By: Agueda Cunningham Complete Blood Count w/Diff (Routine) Timeframe: 20200329 Location: None Selected Ordered By: Agueda Cunningham Prothrombin Time (Routine) Timeframe: 20200329 Location: None Selected Ordered By: Agueda Cunningham DS: Summary Status at Discharge Functional status at discharge: uses cane/walker Overall status at discharge: patient is progressing back to baseline Mental Status: mental status grossly normal Speech and Movement: speech and movement normal Mood: congruent mood Affect: normal affect Exam Const General: cooperative, comfortable and ill appearing chronically Nutritional Appearance: obese Orientation: alert, awake and oriented x3 HENMT Head: normal to inspection, normocephalic and atraumatic Mouth: moist mucous membranes abnormal (slightly dry) Resp Effort & Inspection: normal respiratory effort Cardio Rate: regular rate GI Inspection: normal to inspection and obesity Palpation: soft Auscultation: normal bowel sounds Skin General skin exam: no rashes or lesions noted (chronic discoloration bilateral LE consistent with venous stasis), dry skin, ecchymosis (scattered areas) and other (thin skin consistent with chronic steroid use) Neuro General: patient alert, patient awake and patient oriented x3 Extrem General: normal to inspection, full ROM and pedal edema bilaterally pitting and 2+ Left lower extremity: foot (wound vac intact.) Psych Mental Status: mental status grossly normal Speech and Movement: speech and movement normal Mood: congruent mood Affect: normal affect DS: Data Vitals/I&O Vitals and I&O: Vital Signs Temperature 36.2 C L 03/27/20 07:31 Temperature Source Tympanic 03/27/20 07:31 Pulse 80 03/27/20 07:31 Pulse Rhythm Regular 03/27/20 09:04 Respiratory Rate 18 03/27/20 07:31 Respiratory Effort 03/27/20 09:04 Respiratory Depth Deep 03/27/20 09:04 Respiratory Pattern Normal 03/27/20 09:04 Blood Pressure 144/76 H 03/27/20 07:31 Blood Pressure Mean 77 03/22/20 13:00 Blood Pressure Position Supine 03/22/20 08:44 Pulse Oximetry 100 03/27/20 07:31 Oxygen Delivery Method Nasal Cannula 03/27/20 07:31 Oxygen Flow Rate 4 03/27/20 07:31 Pain Level 10 03/27/20 07:58 Comment 03/26/20 16:05 Intake & Output 03/26/20 03/26/20 03/27/20 11:59 23:59 11:59 Intake Total 480 / 1930 1450 / 1930 Output Total 400 / 400 1200 / 1200 Balance 480 / 1530 1050 / 1530 -1200 / -1200 Weight 109.1 kg 109 kg Intake: IV 10 Oral 480 / 1920 1440 / 1920 Output: Urine 400 / 400 1200 / 1200 Other: Urine Color Yellow Yellow Urine Appearance Clear Clear Clear Comment p.t girlfriend has been empting urnal. Amount unknown Stool Size Moderate Stool Characteristics Formed Hard Voiding Methods Urinal Data Completed and Pending Labs on day of discharge: Labs from last 24 hours 03/27/20 03/27/20 03/26/20 10:23 10:23 07:04 WBC 12.13 H RBC 3.85 L Hgb 12.4 L Hct 37.9 L MCV 98.4 H MCH 32.2 MCHC 32.7 RDW 14.2 H Plt Count 235 MPV 9.2 Immature Gran % 0.7 Neutrophils % 83.4 Lymphocytes % 8.8 Monocytes % 5.5 Eosinophils % 1.4 Basophils % 0.2 Nucleated RBC % 0 Absolute Neutrophils 10.12 H Absolute Lymphocytes 1.07 L Absolute Monocytes 0.67 Absolute Eosinophils 0.17 Absolute Basophils 0.02 PT Pending INR Pending C-React Prot High Sens >15.00 Preliminary micro results at discharge 03/23/20 20:30 Blood Culture - Preliminary Blood NO GROWTH 72 HOURS 03/23/20 20:13 Blood Culture - Preliminary Blood NO GROWTH 72 HOURS 03/22/20 09:45 Blood Culture - Preliminary Blood NO GROWTH 96 HOURS 03/22/20 09:08 Blood Culture - Preliminary Blood NO GROWTH 96 HOURS [facility] Medical History (Updated 03/25/20 @ 15:47 by Liza Russell DO) Anemia Hx low Hgb, but today's lab review was unexpected. Probable anemia of chronic disease .. Non-meat diet, [ ] iron suppl (concern for constipation)? [ ] stool guaic Aortic stenosis, moderate (07/03/16) [facility] ECHO EF 65%; Mod , valve area 1.33 (grad 23/mean14) (06/2016) [facility] eval 09/2017 shows worsening disease .. may need cardiac surgery. Depressive disorder (07/14/11) Diabetic foot ulcer associated with type 2 diabetes mellitus, with fat layer exposed Diabetic neuropathy associated with type 2 diabetes mellitus Infected wound Venous insufficiency of both lower extremities Venous stasis ulcer Wound of left foot Forefoot, x 2 weeks self-care; Worse/Painful/Necrosis, 03/22/20. [ ] ED [ ] Surg? [ ] [facility] Surgical History Bronchoscopy (11/20/10) with BAL echo ([facility] pulmonolgy note 09/21/17.) Compared to the study from 06/18/16 the severity of aortic stenosis has increased and there is pulmonary hypertension. seeing cardio again in 2 wks. Extraction of cataract (08/21/10) R eye,with IOL, Dr Gary History of cardiac cath 03/21/19 [facility] [place] Right heart cath-mild Pulm HTN mean PA pressure 25 and PA systolic pressure 50 normal wedge pressure 6. Right dominant circulation with mild disease in all vessels, focal anyeursm RCA 5mm Internal fixation (08/03/10) R distal femoral fx, Dr Banda, [facility] PFT'S: SEPTEMBER 2017 [facility] pulm note 09/21/17. O2 sat on RA 97% After 250 ft on RA 88% needing 2l O2. PTCA (01/27/94) rescue PTCA RCA for persistent CP with Inf ME; [facility] right heart catheterization,oximetry (01/07/18) [facility] [place].Corey Griffin MD findings: Severe pulmonary hypertension mildly elevated pulmonary capillary wedge pressure Status post transcatheter aortic valve replacement [facility] 03/29/19 Family History Mother , Lung Cancer at age 74. Personal history of malignant neoplasm at 74 of lung CA Father , CHF at age 86. 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 Retired. 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
[2020-03-27 10:46] LABS: INR 1.2 (0.9-1.1); Prothrombin Time 12.1 sec (9.3-11.0)
--- NOTE | 2020-03-27 11:13 | PDOC.CMDIS ---
- If Service Date Differs Date of service: 03/27/20 Time of Service: 11:13 LACE Index Scoring Tool - Questions: Length of Stay (in days): 4 - 6 Acuity (Admit via E.D.?): Yes Comorbidities: PVD, Diabetes w/o Complication E.D. Visits: 3 - Answers: Total Score: 12 Risk of Readmission: High Risk Care Management Discharge Reason for Hospitalization: Osteomyelitis Discharge Plan: Elio will be discharged home with a resumption of nursing for wound care. He will transport with his brother but will need a lift assist upon arrival. He will follow up with surgery, his PCP and discharge plan of care. Patient/Family Education Needs: Discharge plan, limitations, folllow up plan. Ask Me Three Services Needed at Discharge: Home Health Care Services
--- NOTE | 2020-03-27 11:22 | PDOC.HHF2F_ITS ---
Home Health Certification Home Health Certification: 1. Encounter Date and Reason I certify that SACHA JESUS was seen by Agueda Cunningham on 03/27/20 and that I had a [id number] encounter with this patient that meets the physician face to face encounter requirements. 2. Clinical Findings Supporting Skilled Need and Homebound Status I certify that home health services are medically necessary, include either intermittent detention and/or physical/speech therapy, and that this patient is homebound in that absences from the home require considerable and taxing effort and are infrequent or of short duration, or are attributable to the need to receive medical care. [X] (a) Attached documentation from encounter provides clinical findings supporting skilled need and homebound status (including what assistance patient requires to leave the home). The encounter with the patient was in whole, or in part, for the following medical condition, which is the primary reason for home health care: cellulitis, s/p wound debridement [facility]: routine nursing evaluation, medication oversight, wound care, wound vac changes wednesday and prn Physical Therapy: routine evaluation and treatment Homebound: patient is unable to safely leave the house unattended d/t impaired transfers from wound vac on left foot, physical deconditioning/ambulatory dysfunction from decreased strength and endurance, inability to negotiate stairs safely. 3. Certification and Authentication I certify that I composed the above information based on my clinical judgement relating to this patient's medical condition and, if applicable, clinical findings communicated to me by the NPP or inpatient physician who performed the Home Health Referral. All further orders will be obtained through (Community Based Physician - PCP)
--- NOTE | 2020-03-27 18:00 | INDS_ITS ---
Date of service: 03/27/20 PT Notes Visit Reasons: OSTEOMYELITIS Physical Therapy Inpatient Discharge Summary Date: 03/26/2020 This is a clinical summary of care provided on the duration of dates listed above. No charge was made in the completion of this documentation. Precautions: Fall. Standard. WBAT L. Postop shoe on the left foot when out of bed. On 4 L of oxygen per minute at rest. Subjective: Elio denies dizziness but continues to report pain in L foot with we ight bearing and SOB with ambulation. He again emphasizes how good of a system he and his significant other have in managing the stairs 4 steps at a time and that he turns around and sits on the step until he is able to catch his breath before he moves up the next four steps as they have 17 steps to enter their apartment with rails far apart he needs to use a cane on one hand and his significant other stays behind to support his bottom area. Sensation: No numbness Bed Mobility/Transfers: Sit to supine SBA Sit to stand from wheelchair minimal assist Sit to stand onto wheelchair CGA GAIT: 30 feet x 4 with FWW and wheelchair follow by Debra with 4L O2/min and wound vac to L foot using post op shoe on padded L foot. Static Sitting: Normal Dynamic Sitting: Normal Static Standing: Fair Dynamic Standing: Fair Assessment: Elio continues to demonstrate decreased activity tolerance, need for an assistive device for all level surface and stair negotiation activities, difficulty with walking, impairment of balance and generalized weakness resolved from admitting diagnoses. To ensure adequate padding on left foot, Kerlix gauze was wound in a [id number] manner on the foot and the ankle and secured with tape as well as elastic netting gauze. The throat of post-op she was repositioned to maximize padding over wound vac site. He is discharging today as soon as a wound vacuum is available from DME provider. Patient continues to present with clinical signs and symptoms consistent with current/admitting diagnoses that have resulted to mobility limitations, gait instability, generalized weakness, and impairment of motor control as demonstrated by the following impairment level findings: 1. Decreased strength to B shoulder and LE major muscle groups 2. Impaired activity tolerance 3. Limitation of joint range of motion in the shoulders (chronic) Impairments are continuing to contribute to the following functional limitations: 1. Inability to safely ambulate without assistive device and physical assistance 2. Increase completion time for mobility ADL performance 3. Increased fall risk 4. Inability to negotiate steps alone safely Goals: Goals X 3 days 1. Supine-Sit independent NOT MET 2. Sit-Supine independent NOT MET 3. Sit-Stand supervision NOT MET 4. Stand-Sit supervision NOT MET 5. Bed-Chair supervision NOT MET 6. Chair-Bed supervision NOT MET 7. supervision gait on level surface with use of least restrictive device for at least 300 feet without report of pain nor dyspnea NOT MET 8. supervision stair negotiation while holding onto bilateral rails for at least 12 steps without report of pain nor dyspnea NOT MET 9. supervision with home exercise program NOT MET 10. Good static and dynamic standing balance/tolerance NOT MET DISCHARGE RECOMMENDATIONS: Patient will benefit from home health PT services in order to progress mobility level using least restrictive assistive ambulatory device, assess home safety, identify additional equipment needs, and establish a functional maintenance program that will increase ability of patient to remain at home. TREATMENT CODE/TIME: CO. Thank you for the opportunity to participate in the care of this patient. Shayy Montoya PT, DPT, CLT [facility] [place], [place]
== END 2020-03-27 13:36 | disposition home health service (06) | DRG 623 ==
LOC: ER 11:46 → MS 13:16
PROVIDERS: Family Medicine; Nurse Practitioner; Nurse Practitioner Acute Care; Nurse Practitioner Family; Surgery; Admitting Provider Internal Medicine; Emergency Provider Emergency Medicine; PCP Student in an Organized Health Care Education/Training Program; Visit Provider Internal Medicine
PROC: (CPT 11043; principal; 2020-03-23 09:30)
DX: E11.621 Type 2 diabetes mellitus with foot ulcer (principal); L97.402 Non-pressure chronic ulcer of unspecified heel and midfoot with fat layer exposed; Z68.41 Body mass index [BMI] 40.0-44.9, adult; I50.42 Chronic combined systolic (congestive) and diastolic (congestive) heart failure; J44.1 Chronic obstructive pulmonary disease with (acute) exacerbation; J44.0 Chronic obstructive pulmonary disease with (acute) lower respiratory infection; L97.422 Non-pressure chronic ulcer of left heel and midfoot with fat layer exposed; Z79.4 Long term (current) use of insulin; E11.40 Type 2 diabetes mellitus with diabetic neuropathy, unspecified; I87.2 Venous insufficiency (chronic) (peripheral); E66.9 Obesity, unspecified; D63.8 Anemia in other chronic diseases classified elsewhere; I35.0 Nonrheumatic aortic (valve) stenosis; F32.9 Major depressive disorder, single episode, unspecified; R26.9 Unspecified abnormalities of gait and mobility; M05.10 Rheumatoid lung disease with rheumatoid arthritis of unspecified site; E11.65 Type 2 diabetes mellitus with hyperglycemia; T38.0X5A Adverse effect of glucocorticoids and synthetic analogues, initial encounter; E78.00 Pure hypercholesterolemia, unspecified; M17.0 Bilateral primary osteoarthritis of knee; Z79.01 Long term (current) use of anticoagulants; I27.20 Pulmonary hypertension, unspecified; I48.91 Unspecified atrial fibrillation; I25.10 Atherosclerotic heart disease of native coronary artery without angina pectoris; Z87.891 Personal history of nicotine dependence; K21.9 Gastro-esophageal reflux disease without esophagitis; G47.34 Idiopathic sleep related nonobstructive alveolar hypoventilation
CPT/HCPCS: 11043; 36410; 36415; 80048; 80053; 85652; 86141; 87040; 87077; 94640; 96361; 96365; 96366; 97162; 97166; 97530; 99222; 99223; 99232; 99233; 99239; 99252; 99285; NC; U0003; 73630; 73720; 80202; 83036; 85025; 85610; 85730; 86140; 87070; 87186; 87205; J1956; J2270; J2704; J3370; J7512

== ENCOUNTER 2020-03-29 11:10 | Emergency (ER) | payer MEDICARE, SELFPAY ==
[2020-03-29 11:10] VITALS: BP 139/65; PULSE 102; RESP 22; TEMP 36; O2SAT 97
--- NOTE | 2020-03-29 12:58 | ED.GENADUL_ITS ---
Discharge Plan Disposition Patient Disposition: HOME Condition: Stable Discharge Details Clinical Impression: Constipation Primary Care Provider: Ana Alatorre ED Provider: Vladimir Tovar Home Meds and New Rx's Prescriptions: New polyethylene glycol 3350 [Miralax] 17 gram/dose powder 17 g PO BID Qty: 119 RF: 0 Continued (DME) POrtable Oxygen Compressor Qty: 1 RF: 0 spironolactone 25 mg tablet 25 mg PO DAILY Qty: 90 RF: 0 atorvastatin 80 mg tablet 80 mg PO DAILY Qty: 90 RF: 3 lisinopril 10 mg tablet 5 mg PO DAILY Qty: 90 RF: 3 Humulin N NPH Insulin KwikPen 100 unit/mL (3 mL) insulin pen 5 unit SC QAM PRN (Reason: steroid use) Qty: 6 RF: 1 Hold Instructions: Formulary/Insurance (DME) lancets [FreeStyle Lancets] 28 gauge misc See Rx Instructions .ROUTE .MEDSUPPLY Qty: 200 RF: 6 fluticasone propion-salmeterol [Advair Diskus] 250-50 mcg/dose blister with device 1 inh IH BID RF: 0 ProAir RespiClick 90 mcg/actuation aerosol powdr breath activated 2 inh IH Q6H PRN (Reason: shortness of breath or wheezing) Qty: 1 RF: 1 (DME) Blood Glucose Test Strip See Rx Instructions .ROUTE .MEDSUPPLY Qty: 400 RF: 6 magnesium oxide 400 mg magnesium capsule 400 mg PO DAILY Qty: 90 RF: 3 Jardiance 25 mg tablet 12.5 mg PO DAILY Qty: 30 RF: 0 Oxygen EACH RF: 0 Remicade 100 mg recon soln 800 mg IV q5w RF: 0 Narcan 4 mg/actuation spray,non-aerosol 4 mg NS PRN PRN (Reason: opioid overdose) Qty: 1 RF: 0 Incruse Ellipta 62.5 mcg/actuation blister with device 1 inh IH DAILY RF: 0 pramipexole 0.125 mg tablet 0.125 mg PO HS Qty: 90 RF: 3 aspirin [Aspir-81] 81 mg tablet,delayed release (DR/EC) 81 mg PO DAILY Qty: 100 RF: 3 Daily Vitamin Formula-Iron 18-400 mg-mcg tablet 1 tab PO DAILY Qty: 90 RF: 0 (DME) pen needle, diabetic [BD Ultra-Fine Mini Pen Needle] 31 gauge x 3/16 needle See Rx Instructions .ROUTE .MEDSUPPLY Qty: 90 RF: 3 metformin 500 mg tablet 1,000 mg PO BID Qty: 360 RF: 3 Tresiba FlexTouch U-100 100 unit/mL (3 mL) insulin pen 15 unit SC DAILY MDD 50 Qty: 60 RF: 1 metoprolol succinate 100 mg tablet extended release 24 hr 100 mg PO DAILY Qty: 90 RF: 3 Novolin N Flexpen 100 unit/mL (3 mL) insulin pen 25 unit subcut DAILY PRN (Reason: steroid use) Qty: 15 RF: 1 omeprazole 20 mg capsule,delayed release(DR/EC) 20 mg PO BID Qty: 60 RF: 3 morphine 15 mg tablet extended release 15 mg PO Q12H MDD 30 Qty: 56 RF: 0 oxycodone-acetaminophen 5-325 mg tablet 1 tab PO Q4H MDD 6 PRN (Reason: pain) Qty: 140 RF: 0 morphine 10 mg capsule,extend.release pellets 10 mg PO Q8H PRN MDD 30mg Qty: 30 RF: 0 oxycodone-acetaminophen 10-325 mg tablet 1 tab PO Q6H MDD 30mg PRN (Reason: pain) Qty: 30 RF: 0 potassium chloride [Klor-Con M20] 20 mEq Tablet,Er Particles/Crystals 20 meq PO BID Qty: 60 RF: 0 Hold Instructions: K WNL today 11/08/19 vs d/c from hosp 11/04. nitroglycerin [Nitrostat] 0.4 mg Tablet, Sublingual 0.4 mg sublingual Q5 MIN PRN X3 PRNQty: 90 RF: 0 warfarin 2 mg tablet 1 mg PO HS Qty: 90 RF: 2 prednisone 10 mg tablet 20 mg PO DAILY RF: 0 furosemide 20 mg tablet 20 mg PO BID RF: 0 clonazepam 1 mg tablet 0.5 mg PO HS RF: 0 ciprofloxacin HCl 500 mg Tablet 500 mg PO BID Qty: 15 RF: 0 Bio-K plus 50 billion cell Capsule,Delayed Release(Dr/Ec) 1 cap PO DAILY Qty: 30 RF: 0 cephalexin [Keflex] 500 mg capsule 500 mg PO QID Qty: 58 RF: 0 guaifenesin 100 mg/5 mL Liquid 200 mg PO Q6H PRN PRNQty: 0 RF: 0 cyanocobalamin (vitamin B-12) 1,000 mcg tablet 1,000 mcg PO DAILY Qty: 30 RF: 0 No Action docusate sodium [Dulcolax Stool Softener (dss)] 100 mg Capsule 200 PO RF: 0 Discharge Instructions Instructions: Constipation (ED) Additional Instructions: Please increase dietary fiber. Please take stool softener as prescribed. Please decrease your opioid dosing by one half. Please follow-up with your general surgeon. Return to the emergency department for any worsening or new concerning symptoms. Referrals: Ana Alatorre DO [Primary Care Provider] - Medical Decision Making 74-year-old male with multiple medical problems, on chronic opioid pain control, here after recently being discharged having been treated for diabetic foot ulcer requiring debridement, now with constipation and no bowel movement over the past 3 days. Patient has abdominal discomfort diffusely and feels as though he has a large bowel movement in his rectal vault. He has tried fleets enema and stool softeners and laxatives without relief. In for nursing to place soapsuds enema. Notified by nursing that a manual disimpaction was performed and successfully remove stool from rectal vault. Patient then had large bowel movement. HPI General Mode of arrival: EMS . Date/Time Provider Initiated Documentation: 03/29/20 11:13 . Limitations to Documentation: no limitations . Information obtained by: patient and EMS . HPI Narrative: 74-year-old male with multiple medical problems including recent diabetic foot ulcer status post debridement, on chronic opioid pain control, here with constipation. Patient notes no bowel movement for the past 3 days. He has associated abdominal fullness. Symptoms are severe. He notes that he attempted manual disimpaction and was not successful but does note that he feels like he has a large stool in his rectal vault. He has tried stool softeners and a fleets enema at home without relief. He has no associated nausea or vomiting. Related Data Home Medications Medication Instructions Recorded Confirmed Oxygen 09/23/17 03/24/20 POrtable Oxygen Compressor #1 ea 12/02/18 03/24/20 infliximab 100 mg intravenous 800 mg IV q5w vial 04/05/19 03/29/20 solution albuterol sulfate 90 mcg/actuation 2 inh IH Q6H PRN #1 each 04/06/19 03/29/20 breath activated powder inhaler fluticasone 250 mcg-salmeterol 50 1 inh IH BID 05/10/19 03/29/20 mcg/dose blistr powdr for inhalation naloxone 4 mg/actuation nasal spray 4 mg NS PRN PRN #1 unit 05/23/19 03/29/20 pramipexole 0.125 mg tablet 0.125 mg PO HS #90 tab-cap 08/02/19 03/29/20 umeclidinium 62.5 mcg/actuation 1 inh IH DAILY 08/02/19 03/29/20 blister powder for inhalation aspirin 81 mg tablet,delayed 81 mg PO DAILY #100 tab 09/18/19 03/29/20 release multivitamin-ferrous 1 tab PO DAILY #90 tab 10/17/19 03/29/20 fumarate-folic acid 18 mg-400 mcg tablet nitroglycerin [Nitrostat] 0.4 mg SUBLINGUAL Q5 MIN PRN X3 11/05/19 03/29/20 PRN #90 tab potassium chloride [Klor-Con M20] 20 meq PO BID #60 tab 11/05/19 03/29/20 warfarin 1 mg PO HS #90 tab 11/05/19 03/29/20 pen needle, diabetic 31 gauge x #90 each 11/23/19 03/24/2009/17 blood sugar diagnostic #400 each 12/29/19 03/24/20 spironolactone 25 mg tablet 25 mg PO DAILY #90 tab 01/04/20 03/29/20 magnesium oxide 400 mg PO DAILY #90 tab-cap 01/06/20 03/29/20 atorvastatin 80 mg tablet 80 mg PO DAILY #90 tab-cap 01/09/20 03/29/20 insulin degludec 100 unit/mL (3 15 unit SC DAILY #60 ml MDD 50 02/15/20 03/29/20 mL) subcutaneous pen metformin 500 mg tablet 1,000 mg PO BID #360 tab-cap 02/15/20 03/29/20 lisinopril 10 mg tablet 5 mg PO DAILY #90 tab 02/16/20 03/29/20 metoprolol succinate 100 mg 100 mg PO DAILY #90 tab 02/19/20 03/29/20 tablet,extended release 24 hr cyanocobalamin (vitamin B-12) 1,000 mcg PO DAILY #30 tab 03/04/20 03/29/20 guaifenesin 200 mg PO Q6H PRN PRN #0 ml 03/04/20 03/29/20 empagliflozin 25 mg tablet 12.5 mg PO DAILY #30 tab 03/06/20 03/29/20 insulin NPH isoph U-100 human 100 5 unit SC QAM PRN #6 ml 03/13/20 03/29/20 unit/mL (3 mL) subcutaneous pen lancets 28 gauge #200 each 03/13/20 03/24/20 insulin NPH isoph U-100 human 100 25 unit SUBCUT DAILY PRN #15 ml 03/20/20 03/29/20 unit/mL (3 mL) subcutaneous pen prednisone 20 mg PO DAILY 03/22/20 03/29/20 clonazepam 0.5 mg PO HS 03/24/20 03/29/20 furosemide 20 mg PO BID 03/24/20 03/29/20 omeprazole 20 mg capsule,delayed 20 mg PO BID #60 tab-cap 03/24/20 03/29/20 release Bio-K plus 1 cap PO DAILY #30 cap 03/27/20 cephalexin [Keflex] 500 mg PO QID #58 cap 03/27/20 03/29/20 ciprofloxacin HCl 500 mg PO BID #15 tab 03/27/20 03/29/20 morphine 10 mg capsule,extended 10 mg PO Q8H PRN #30 cap MDD 30mg 03/28/20 03/29/20 release pellets morphine 15 mg tablet,extended 15 mg PO Q12H #56 tab MDD 30 03/28/20 03/29/20 release oxycodone-acetaminophen 10 mg-325 1 tab PO Q6H PRN #30 tab MDD 30mg 03/28/20 03/29/20 mg tablet oxycodone-acetaminophen 5 mg-325 1 tab PO Q4H PRN #140 tab MDD 6 03/28/20 03/29/20 mg tablet docusate sodium [Dulcolax Stool 200 PO 03/29/20 Softener (dss)] polyethylene glycol 3350 [Miralax] 17 g PO BID #119 g 03/29/20 Previous Rx's Medication Instructions Recorded POrtable Oxygen Compressor #1 ea 12/02/18 albuterol sulfate 90 mcg/actuation 2 inh IH Q6H PRN #1 each 04/06/19 breath activated powder inhaler naloxone 4 mg/actuation nasal spray 4 mg NS PRN PRN #1 unit 05/23/19 pramipexole 0.125 mg tablet 0.125 mg PO HS #90 tab-cap 08/02/19 aspirin 81 mg tablet,delayed 81 mg PO DAILY #100 tab 09/18/19 release multivitamin-ferrous 1 tab PO DAILY #90 tab 10/17/19 fumarate-folic acid 18 mg-400 mcg tablet nitroglycerin [Nitrostat] 0.4 mg SUBLINGUAL Q5 MIN PRN X3 11/05/19 PRN #90 tab potassium chloride [Klor-Con M20] 20 meq PO BID #60 tab 11/05/19 warfarin 1 mg PO HS #90 tab 11/05/19 pen needle, diabetic 31 gauge x #90 each 11/23/1909/17 blood sugar diagnostic #400 each 12/29/19 spironolactone 25 mg tablet 25 mg PO DAILY #90 tab 01/04/20 magnesium oxide 400 mg PO DAILY #90 tab-cap 01/06/20 atorvastatin 80 mg tablet 80 mg PO DAILY #90 tab-cap 01/09/20 insulin degludec 100 unit/mL (3 15 unit SC DAILY #60 ml MDD 50 02/15/20 mL) subcutaneous pen metformin 500 mg tablet 1,000 mg PO BID #360 tab-cap 02/15/20 lisinopril 10 mg tablet 5 mg PO DAILY #90 tab 02/16/20 metoprolol succinate 100 mg 100 mg PO DAILY #90 tab 02/19/20 tablet,extended release 24 hr cyanocobalamin (vitamin B-12) 1,000 mcg PO DAILY #30 tab 03/04/20 guaifenesin 200 mg PO Q6H PRN PRN #0 ml 03/04/20 empagliflozin 25 mg tablet 12.5 mg PO DAILY #30 tab 03/06/20 insulin NPH isoph U-100 human 100 5 unit SC QAM PRN #6 ml 03/13/20 unit/mL (3 mL) subcutaneous pen lancets 28 gauge #200 each 03/13/20 insulin NPH isoph U-100 human 100 25 unit SUBCUT DAILY PRN #15 ml 03/20/20 unit/mL (3 mL) subcutaneous pen omeprazole 20 mg capsule,delayed 20 mg PO BID #60 tab-cap 03/24/20 release Bio-K plus 1 cap PO DAILY #30 cap 03/27/20 cephalexin [Keflex] 500 mg PO QID #58 cap 03/27/20 ciprofloxacin HCl 500 mg PO BID #15 tab 03/27/20 morphine 10 mg capsule,extended 10 mg PO Q8H PRN #30 cap MDD 30mg 03/28/20 release pellets morphine 15 mg tablet,extended 15 mg PO Q12H #56 tab MDD 30 03/28/20 release oxycodone-acetaminophen 10 mg-325 1 tab PO Q6H PRN #30 tab MDD 30mg 03/28/20 mg tablet oxycodone-acetaminophen 5 mg-325 1 tab PO Q4H PRN #140 tab MDD 6 03/28/20 mg tablet polyethylene glycol 3350 [Miralax] 17 g PO BID #119 g 03/29/20 Allergies Allergy/AdvReac Type Severity Reaction Status Date / Time adalimumab Allergy Severe unknown Verified 03/29/20 11:34 Penicillins Allergy Severe Anaphylaxsi Verified 03/29/20 11:34 s General Stated Complaint: Abd Prob LINDSEY: 3 Review of Systems All systems reviewed & are unremarkable except as noted in HPI and below Gastrointestinal Gastrointestinal: Reports as per HPI Integumentary/Breasts Skin/Breast: Reports other (Foot ulcer status post surgery) [facility] Medical History Anemia Hx low Hgb, but today's lab review was unexpected. Probable anemia of chronic disease .. Non-meat diet, [ ] iron suppl (concern for constipation)? [ ] stool guaic Aortic stenosis, moderate (07/03/16) [facility] [place] ECHO EF 65%; Mod , valve area 1.33 (grad 23/mean14) (06/2016) [facility] eval 09/2017 shows worsening disease .. may need cardiac surgery. Depressive disorder (07/14/11) Diabetic foot ulcer associated with type 2 diabetes mellitus, with fat layer exposed Diabetic neuropathy associated with type 2 diabetes mellitus Infected wound Venous insufficiency of both lower extremities Venous stasis ulcer Wound of left foot Forefoot, x 2 weeks self-care; Worse/Painful/Necrosis, 03/22/20. [ ] ED [ ] Surg? [ ] [facility] Surgical History Bronchoscopy (11/20/10) with BAL echo ([facility] [place] pulmonolgy note 09/21/17.) Compared to the study from 06/18/16 the severity of aortic stenosis has increased and there is pulmonary hypertension. seeing cardio again in 2 wks. Extraction of cataract (08/21/10) R eye,with IOL, Dr Gary History of cardiac cath 03/21/19 [facility] [place] heart cath-mild Pulm HTN mean PA pressure 25 and PA systolic pressure 50 normal wedge pressure 6. Right dominant circulation with mild disease in all vessels, focal anyeursm RCA 5mm Internal fixation (08/03/10) R distal femoral fx, Dr Banda, [facility] PFT'S: SEPTEMBER 2017 [facility] pulm note 09/21/17. O2 sat on RA 97% After 250 ft on RA 88% needing 2l O2. PTCA (01/27/94) rescue PTCA RCA for persistent CP with Inf UT; [facility] [place] right heart catheterization,oximetry (01/07/18[place] [facility] [place] findings: Severe pulmonary hypertension mildly elevated pulmonary capillary wedge pressure Status post transcatheter aortic valve replacement [facility] 03/29/19 Family History Mother , Lung Cancer at age 74. Personal history of malignant neoplasm at 74 of lung CA Father , CHF at age 86. 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 Retired. 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 Exam Const General: cooperative and no acute distress HENMT Mouth: moist mucous membranes Eyes Conjunctivae: normal conjunctivae Sclera: normal sclerae Neck Neck: trachea midline and supple Resp Auscultation: clear to auscultation bilaterally, no rales, no rhonchi and no wheezes Cardio Jugular venous pressure: no JVD Rate: regular rate and not tachycardic Rhythm: regular rhythm GI Palpation: soft, not firm, no guarding, no masses, not rigid and tender (Diffuse mild) Skin Other: Wound dressing intact left foot with no cellulitis extending up leg Neuro General: patient alert, patient awake, patient oriented x3 and tone normal Psych Appearance: grossly normal Mental Status: mental status grossly normal Course Vital Signs Vital signs: Vital Signs Temperature 36.0 C L 03/29/20 11:10 Pulse 102 H 03/29/20 11:10 Respiratory Rate 22 03/29/20 11:10 Blood Pressure 139/65 03/29/20 11:10 Pulse Oximetry 97 03/29/20 11:10 Temperature 36.0 C L 03/29/20 11:10 Temperature Source Skin 03/29/20 11:10 Pulse 102 H 03/29/20 11:10 Respiratory Rate 22 03/29/20 11:10 Respiratory Effort 03/29/20 11:16 Blood Pressure 139/65 03/29/20 11:10 Pulse Oximetry 97 03/29/20 11:10 Oxygen Delivery Method Nasal Cannula 03/29/20 11:10 Oxygen Flow Rate 6 03/29/20 11:10 Pain Level 10 03/29/20 11:10 Comment 03/29/20 11:10
[2020-03-29 13:53] VITALS: BP 137/61; PULSE 99; O2SAT 99
== END 2020-03-29 14:17 | disposition home or self-care (01) ==
PROVIDERS: Emergency Provider Student in an Organized Health Care Education/Training Program; PCP Student in an Organized Health Care Education/Training Program
DX: K59.03 Drug induced constipation (principal); T40.2X5A Adverse effect of other opioids, initial encounter; Y83.8 Other surgical procedures as the cause of abnormal reaction of the patient, or of later complication, without mention of misadventure at the time of the procedure; Z79.891 Long term (current) use of opiate analgesic; Z99.81 Dependence on supplemental oxygen; E11.40 Type 2 diabetes mellitus with diabetic neuropathy, unspecified; Z79.4 Long term (current) use of insulin
CPT/HCPCS: 99285; 99284

== ENCOUNTER 2020-04-12 04:09 | Outpatient (CLI) | payer MEDICARE, SELFPAY ==
[2020-04-12] MEDS: Omnipaque 350 MG/ML 50 ML BTL IJ (14:00)
[2020-04-12] MEDS: Omnipaque 350 MG/ML 100 ML BTL IJ (14:00)
--- NOTE | 2020-04-12 14:01 | DI.CT_ITS ---
EXAM: CT ABD AORTA CTA W RUNOFF CLINICAL HISTORY: poss PAD/claudication at rest/DM foot ulcer L,,G25.81,J98.4,D64.9,J96.21 TECHNIQUE: COMPARISON: CT CT CHEST PE ABD PELVIS W from 10/30/2019 FINDINGS: Abdominal and pelvic CT angiogram was performed with bilateral lower extremity runoff. 150 cc of Omn ipaque 350 was utilized. Heart is enlarged. There is proximal aortic graft. There is prominence pulmonary markings and groun d-glass opacities in the perihilar regions suggesting mild CHF and there are small bilateral pleural effusions. Liver and spleen are unremarkable appearance as is the pancreas. Gallbladder is contracted, no bilia ry dilatation. Adrenals kidneys are unremarkable in appearance.. No retroperitoneal or abdominal ad enopathy. Fat containing ventral hernia noted. No focal bowel pathology seen. Abdominal aorta is of normal diameter. Major visceral branches appear intact as visualized except pr obable greater than 50 percent luminal diameter stenosis of the origin of the right renal artery. Common iliac arteries and internal iliac arteries show moderate wall calcification no evidence of a s tenosis in excess of 50 percent. Superficial femoral arteries and profundus femoral is arteries show significant wall calcification no evidence of luminal diameter stenosis greater 50 percent. Suboptimal visualization of trifurcation vessels bilaterally. Moderate multi focal less than 50 perc ent luminal diameter stenosis of proximal portions of of anterior tibialis, posterior tibialis, and p eroneal arteries bilaterally. Poor visualization of the vessels in the region of the ankles, artifac tual versus low flow. Suspect occlusion of peroneal and anterior tibial arteries at mid calf level o n the left. Probable occlusion of right anterior tibial and peroneal arteries at mid calf level. Po sterior tibial arteries appear intact bilaterally to the level of the hindfoot. IMPRESSION: Cardiomegaly and CHF noted. No aortic aneurysm. Probable greater than 50 percent luminal diameter stenosis origin of right renal artery Intact arterial circulation with no greater than 50 percent luminal diameter stenosis to the level of the trifurcations bilaterally. Poorly visualized calf arterial circulation, suspect bilateral mid calf anterior tibial artery and pe roneal artery occlusions. Posterior tibial arteries are visualized and patent to the level of the hi ndfoot. RADIATION DOSE DELIVERED: 2,118.75mGy.cm Total DLP
== END 2020-04-12 04:29 ==
PROVIDERS: PCP Student in an Organized Health Care Education/Training Program; Visit Provider Surgery
DX: I51.7 Cardiomegaly (principal); I70.1 Atherosclerosis of renal artery; E11.51 Type 2 diabetes mellitus with diabetic peripheral angiopathy without gangrene; E11.621 Type 2 diabetes mellitus with foot ulcer
CPT/HCPCS: 75635; J3490; Q9967

== ENCOUNTER 2020-05-03 13:38 | Emergency (ER) | payer MEDICARE, SELFPAY ==
[2020-05-03 13:53] VITALS: BP 104/49; PULSE 101; RESP 22; TEMP 36.5; O2SAT 98
--- NOTE | 2020-05-03 14:01 | W.ED.GENAD ---
Discharge Plan Disposition Patient Disposition: HOME Condition: Stable Discharge Details Clinical Impression: Open wound of lower leg Primary Care Provider: Ana Alatorre ED Provider: Geovany Garcia Home Meds and New Rx's Prescriptions: Continued (DME) POrtable Oxygen Compressor Qty: 1 RF: 0 spironolactone 25 mg tablet 25 mg PO DAILY Qty: 90 RF: 0 atorvastatin 80 mg tablet 80 mg PO DAILY Qty: 90 RF: 3 lisinopril 10 mg tablet 5 mg PO DAILY Qty: 90 RF: 3 Humulin N NPH Insulin KwikPen 100 unit/mL (3 mL) insulin pen 5 unit SC QAM PRN (Reason: steroid use) Qty: 6 RF: 1 Hold Instructions: Formulary/Insurance (DME) lancets [FreeStyle Lancets] 28 gauge misc See Rx Instructions .ROUTE .MEDSUPPLY Qty: 200 RF: 6 fentanyl 25 mcg/hr patch 72 hour 1 patch transdermal Q72H MDD 37 mcg Qty: 5 RF: 0 fluticasone propion-salmeterol [Advair Diskus] 250-50 mcg/dose blister with device 1 inh IH BID RF: 0 ProAir RespiClick 90 mcg/actuation aerosol powdr breath activated 2 inh IH Q6H PRN (Reason: shortness of breath or wheezing) Qty: 1 RF: 1 (DME) Blood Glucose Test Strip See Rx Instructions .ROUTE .MEDSUPPLY Qty: 400 RF: 6 magnesium oxide 400 mg magnesium capsule 400 mg PO DAILY Qty: 90 RF: 3 Oxygen EACH RF: 0 Remicade 100 mg recon soln 800 mg IV q5w RF: 0 Narcan 4 mg/actuation spray,non-aerosol 4 mg NS PRN PRN (Reason: opioid overdose) Qty: 1 RF: 0 Incruse Ellipta 62.5 mcg/actuation blister with device 1 inh IH DAILY RF: 0 pramipexole 0.125 mg tablet 0.125 mg PO HS Qty: 90 RF: 3 aspirin [Aspir-81] 81 mg tablet,delayed release (DR/EC) 81 mg PO DAILY Qty: 100 RF: 3 Daily Vitamin Formula-Iron 18-400 mg-mcg tablet 1 tab PO DAILY Qty: 90 RF: 0 (DME) pen needle, diabetic [BD Ultra-Fine Mini Pen Needle] 31 gauge x 3/16 needle See Rx Instructions .ROUTE .MEDSUPPLY Qty: 90 RF: 3 metformin 500 mg tablet 1,000 mg PO BID Qty: 360 RF: 3 Tresiba FlexTouch U-100 100 unit/mL (3 mL) insulin pen 15 unit SC DAILY MDD 50 Qty: 60 RF: 1 metoprolol succinate 100 mg tablet extended release 24 hr 100 mg PO DAILY Qty: 90 RF: 3 Novolin N Flexpen 100 unit/mL (3 mL) insulin pen 25 unit subcut DAILY PRN (Reason: steroid use) Qty: 15 RF: 1 omeprazole 20 mg capsule,delayed release(DR/EC) 20 mg PO BID Qty: 60 RF: 3 morphine 15 mg tablet extended release 15 mg PO Q12H MDD 30 Qty: 56 RF: 0 Hold Instructions: trial fentanyl oxycodone-acetaminophen 5-325 mg tablet 1 tab PO Q4H MDD 6 PRN (Reason: pain) Qty: 140 RF: 0 cyanocobalamin (vitamin B-12) 1,000 mcg tablet 1,000 mcg PO DAILY Qty: 90 RF: 3 Jardiance 25 mg tablet 25 mg PO DAILY Qty: 90 RF: 3 polyethylene glycol 3350 [Miralax] 17 gram/dose powder 17 g PO BID Qty: 119 RF: 2 clonazepam 1 mg tablet 0.5 mg PO HS MDD 1.5 mg Qty: 33 RF: 2 fentanyl 12 mcg/hr patch 72 hour 1 patch transdermal Q72H MDD 12mcg patch Qty: 5 RF: 0 Hold Instructions: Home Medication placed on hold at Doctor's office oxycodone-acetaminophen 10-325 mg tablet 1 tab PO Q6H MDD 40mg PRN (Reason: pain) Qty: 90 RF: 0 potassium chloride [Klor-Con M20] 20 mEq Tablet,Er Particles/Crystals 20 meq PO BID Qty: 60 RF: 0 Hold Instructions: K WNL today 11/08/19 vs d/c from hosp 11/04. nitroglycerin [Nitrostat] 0.4 mg Tablet, Sublingual 0.4 mg sublingual Q5 MIN PRN X3 PRNQty: 90 RF: 0 warfarin 2 mg tablet 1 mg PO HS Qty: 90 RF: 2 prednisone 10 mg tablet 20 mg PO DAILY RF: 0 furosemide 20 mg tablet 20 mg PO BID RF: 0 ciprofloxacin HCl 500 mg Tablet 500 mg PO BID Qty: 15 RF: 0 Bio-K plus 50 billion cell Capsule,Delayed Release(Dr/Ec) 1 cap PO DAILY Qty: 30 RF: 0 cephalexin [Keflex] 500 mg capsule 500 mg PO QID Qty: 58 RF: 0 guaifenesin 100 mg/5 mL Liquid 200 mg PO Q6H PRN PRNQty: 0 RF: 0 docusate sodium [Dulcolax Stool Softener (dss)] 100 mg Capsule 200 PO RF: 0 Discharge Instructions Additional Instructions: continue the antibiotics as prescribed follow up with your primary care provider next week if you feel more ill, fevers or spreading redness return to the emergency department Medical Decision Making 74 yo male with multiple medical problems who has chronic wounds on his feet and is currently on po abx comes in with continued woud on his left dorsal surface. He denies worsening pain or fevers. He feels the wound is actually improving and notes the redness he did have is gone now. He has a 2-3cm ulcer on dorsal surface of left foot with no significant erythema around it or pain. HE was sent here because he apparently told his pcp that it was getting worse. I suspect this is a wound that is from his dm and likely vascular insufficiency. Given reported improvement he doesn't feel he needs hospitalization and declines this at this time. I spoke with his pcp Dr. Munroe and will f/u with him as an outpatient and requests a bmp. HE understands need to return if worsening Differential Diagnosis Differential Diagnosis: diabetic wound, skin infection Medical Records Medical records reviewed: Yes I reviewed the patient's medical records. Lab Data Lab results reviewed: Yes I reviewed the patient's lab results. HPI General Mode of arrival: ambulatory. Date/Time Provider Initiated Documentation: 05/03/20 13:39. Limitations to Documentation: no limitations. Information obtained by: patient. History of Present Illness 74 year old M presents to the emergency department with the chief complaint of left foot wound, described as moderate, No exacerbating factors reported . Patient notes no other symptoms.. Related Data Home Medications Medication Instructions Recorded Confirmed Oxygen 09/23/17 05/01/20 POrtable Oxygen Compressor #1 ea 12/02/18 05/01/20 infliximab 100 mg intravenous 800 mg IV q5w vial 04/05/19 05/01/20 solution albuterol sulfate 90 mcg/actuation 2 inh IH Q6H PRN #1 each 04/06/19 05/01/20 breath activated powder inhaler fluticasone 250 mcg-salmeterol 50 1 inh IH BID 05/10/19 05/01/20 mcg/dose blistr powdr for inhalation naloxone 4 mg/actuation nasal spray 4 mg NS PRN PRN #1 unit 05/23/19 05/01/20 pramipexole 0.125 mg tablet 0.125 mg PO HS #90 tab-cap 08/02/19 05/01/20 umeclidinium 62.5 mcg/actuation 1 inh IH DAILY 08/02/19 05/01/20 blister powder for inhalation aspirin 81 mg tablet,delayed 81 mg PO DAILY #100 tab 09/18/19 05/01/20 release multivitamin-ferrous 1 tab PO DAILY #90 tab 10/17/19 05/01/20 fumarate-folic acid 18 mg-400 mcg tablet nitroglycerin [Nitrostat] 0.4 mg SUBLINGUAL Q5 MIN PRN X3 11/05/19 05/01/20 PRN #90 tab potassium chloride [Klor-Con M20] 20 meq PO BID #60 tab 11/05/19 05/01/20 warfarin 1 mg PO HS #90 tab 11/05/19 05/01/20 pen needle, diabetic 31 gauge x #90 each 11/23/19 05/01/2009/17 blood sugar diagnostic #400 each 12/29/19 05/01/20 spironolactone 25 mg tablet 25 mg PO DAILY #90 tab 01/04/20 05/01/20 magnesium oxide 400 mg PO DAILY #90 tab-cap 01/06/20 05/01/20 atorvastatin 80 mg tablet 80 mg PO DAILY #90 tab-cap 01/09/20 05/01/20 insulin degludec 100 unit/mL (3 15 unit SC DAILY #60 ml MDD 50 02/15/20 05/01/20 mL) subcutaneous pen metformin 500 mg tablet 1,000 mg PO BID #360 tab-cap 02/15/20 05/01/20 lisinopril 10 mg tablet 5 mg PO DAILY #90 tab 02/16/20 05/01/20 metoprolol succinate 100 mg 100 mg PO DAILY #90 tab 02/19/20 05/01/20 tablet,extended release 24 hr guaifenesin 200 mg PO Q6H PRN PRN #0 ml 03/04/20 05/01/20 insulin NPH isoph U-100 human 100 5 unit SC QAM PRN #6 ml 03/13/20 05/01/20 unit/mL (3 mL) subcutaneous pen lancets 28 gauge #200 each 03/13/20 05/01/20 insulin NPH isoph U-100 human 100 25 unit SUBCUT DAILY PRN #15 ml 03/20/20 05/01/20 unit/mL (3 mL) subcutaneous pen prednisone 20 mg PO DAILY 03/22/20 05/01/20 furosemide 20 mg PO BID 03/24/20 05/01/20 omeprazole 20 mg capsule,delayed 20 mg PO BID #60 tab-cap 03/24/20 05/01/20 release Bio-K plus 1 cap PO DAILY #30 cap 03/27/20 05/01/20 cephalexin [Keflex] 500 mg PO QID #58 cap 03/27/20 05/01/20 ciprofloxacin HCl 500 mg PO BID #15 tab 03/27/20 05/01/20 morphine 15 mg tablet,extended 15 mg PO Q12H #56 tab MDD 30 03/28/20 05/01/20 release oxycodone-acetaminophen 5 mg-325 1 tab PO Q4H PRN #140 tab MDD 6 03/28/20 05/01/20 mg tablet docusate sodium [Dulcolax Stool 200 PO 03/29/20 05/01/20 Softener (dss)] cyanocobalamin (vitamin B-12) 1,000 mcg PO DAILY #90 tab 04/09/20 05/01/20 1,000 mcg tablet empagliflozin 25 mg tablet 25 mg PO DAILY #90 tab 04/09/20 05/01/20 polyethylene glycol 3350 17 17 g PO BID #119 g 04/09/20 05/01/20 gram/dose oral powder clonazepam 1 mg tablet 0.5 mg PO HS #33 tab MDD 1.5 mg 04/24/20 05/01/20 fentanyl 12 mcg/hr transdermal 1 patch TRANSDERMAL Q72H #5 ea MDD 04/24/20 05/01/20 patch 12mcg patch oxycodone-acetaminophen 10 mg-325 1 tab PO Q6H PRN #90 tab MDD 40mg 04/26/20 05/01/20 mg tablet fentanyl 25 mcg/hr transdermal 1 patch TRANSDERMAL Q72H #5 ea MDD 05/01/20 05/01/20 patch 37 mcg Previous Rx's Medication Instructions Recorded POrtable Oxygen Compressor #1 ea 12/02/18 albuterol sulfate 90 mcg/actuation 2 inh IH Q6H PRN #1 each 04/06/19 breath activated powder inhaler naloxone 4 mg/actuation nasal spray 4 mg NS PRN PRN #1 unit 05/23/19 pramipexole 0.125 mg tablet 0.125 mg PO HS #90 tab-cap 08/02/19 aspirin 81 mg tablet,delayed 81 mg PO DAILY #100 tab 09/18/19 release multivitamin-ferrous 1 tab PO DAILY #90 tab 10/17/19 fumarate-folic acid 18 mg-400 mcg tablet nitroglycerin [Nitrostat] 0.4 mg SUBLINGUAL Q5 MIN PRN X3 11/05/19 PRN #90 tab potassium chloride [Klor-Con M20] 20 meq PO BID #60 tab 11/05/19 warfarin 1 mg PO HS #90 tab 11/05/19 pen needle, diabetic 31 gauge x #90 each 11/23/1909/17 blood sugar diagnostic #400 each 12/29/19 spironolactone 25 mg tablet 25 mg PO DAILY #90 tab 01/04/20 magnesium oxide 400 mg PO DAILY #90 tab-cap 01/06/20 atorvastatin 80 mg tablet 80 mg PO DAILY #90 tab-cap 01/09/20 insulin degludec 100 unit/mL (3 15 unit SC DAILY #60 ml MDD 50 02/15/20 mL) subcutaneous pen metformin 500 mg tablet 1,000 mg PO BID #360 tab-cap 02/15/20 lisinopril 10 mg tablet 5 mg PO DAILY #90 tab 02/16/20 metoprolol succinate 100 mg 100 mg PO DAILY #90 tab 02/19/20 tablet,extended release 24 hr guaifenesin 200 mg PO Q6H PRN PRN #0 ml 03/04/20 insulin NPH isoph U-100 human 100 5 unit SC QAM PRN #6 ml 03/13/20 unit/mL (3 mL) subcutaneous pen lancets 28 gauge #200 each 03/13/20 insulin NPH isoph U-100 human 100 25 unit SUBCUT DAILY PRN #15 ml 03/20/20 unit/mL (3 mL) subcutaneous pen omeprazole 20 mg capsule,delayed 20 mg PO BID #60 tab-cap 03/24/20 release Bio-K plus 1 cap PO DAILY #30 cap 03/27/20 cephalexin [Keflex] 500 mg PO QID #58 cap 03/27/20 ciprofloxacin HCl 500 mg PO BID #15 tab 03/27/20 morphine 15 mg tablet,extended 15 mg PO Q12H #56 tab MDD 30 03/28/20 release oxycodone-acetaminophen 5 mg-325 1 tab PO Q4H PRN #140 tab MDD 6 03/28/20 mg tablet cyanocobalamin (vitamin B-12) 1,000 mcg PO DAILY #90 tab 04/09/20 1,000 mcg tablet empagliflozin 25 mg tablet 25 mg PO DAILY #90 tab 04/09/20 polyethylene glycol 3350 17 17 g PO BID #119 g 04/09/20 gram/dose oral powder clonazepam 1 mg tablet 0.5 mg PO HS #33 tab MDD 1.5 mg 04/24/20 fentanyl 12 mcg/hr transdermal 1 patch TRANSDERMAL Q72H #5 ea MDD 04/24/20 patch 12mcg patch oxycodone-acetaminophen 10 mg-325 1 tab PO Q6H PRN #90 tab MDD 40mg 04/26/20 mg tablet fentanyl 25 mcg/hr transdermal 1 patch TRANSDERMAL Q72H #5 ea MDD 05/01/20 patch 37 mcg Allergies Allergy/AdvReac Type Severity Reaction Status Date / Time adalimumab Allergy Severe unknown Verified 03/29/20 11:34 Penicillins Allergy Severe Anaphylaxsi Verified 03/29/20 11:34 s General Stated Complaint: Cellulitis LINDSEY: 3 Review of Systems All systems reviewed & are unremarkable except as noted in HPI and below Constitutional Constitutional: Denies chills, Denies fever(s) and Denies weakness Cardiovascular Cardiovascular: Denies chest pain and Denies dyspnea Respiratory Respiratory: Denies cough and Denies dyspnea Gastrointestinal Gastrointestinal: Denies abdominal pain, Denies nausea and Denies vomiting Musculoskeletal Musculoskeletal: Denies joint swelling Neurologic Neurologic: Denies weakness Psychiatric Psychiatric: Denies depression PFSH Medical History Anemia Hx low Hgb, but today's lab review was unexpected. Probable anemia of chronic disease .. Non-meat diet, [ ] iron suppl (concern for constipation)? [ ] stool guaic Aortic stenosis, moderate (07/03/16) S/P A[facility] [place] EF 65%; Mod , valve area 1.33 (grad 23/mean14) (06/2016) [facility] [place] 09/2017 shows worsening disease .. may need cardiac surgery. Aortic stenosis, severe (02/27/19) [facility] [place] EF 65%; Mod , valve area 1.33 (grad 23/mean14) (06/2016) [facility] [place] 09/2017 shows worsening disease .. may need cardiac surgery. Changed to severe per [facility] EF 59%, aortic valve area 0.9cm, mean gradient 23 mmHg Depressive disorder (07/14/11) Diabetic foot ulcer associated with type 2 diabetes mellitus, with fat layer exposed Diabetic neuropathy associated with type 2 diabetes mellitus Infected wound Venous insufficiency of both lower extremities Venous stasis ulcer Wound of left foot Forefoot, x 2 weeks self-care; Worse/Painful/Necrosis, 03/22/20. [ ] ED [ ] Surg? [ ] [facility] Surgical History Bronchoscopy (11/20/10) with BAL echo ([facility] [place] 09/21/17.) Compared to the study from 06/18/16 the severity of aortic stenosis has increased and there is pulmonary hypertension. seeing cardio again in 2 wks. Extraction of cataract (08/21/10) R eye,with IOL, Dr Gary History of cardiac cath 03/21/19 [facility] [place] Right heart cath-mild Pulm HTN mean PA pressure 25 and PA systolic pressure 50 normal wedge pressure 6. Right dominant circulation with mild disease in all vessels, focal anyeursm RCA 5mm Internal fixation (08/03/10) R distal femoral fx, Dr Banda, [facility] PFT'S: SEPTEMBER 2017 [facility] pulm note 09/21/17. O2 sat on RA 97% After 250 ft on RA 88% needing 2l O2. PTCA (01/27/94) rescue PTCA RCA for persistent CP with Inf [place]; [facility] [place] heart catheterization,oximetry (01/07/18) [facility] [place].Corey Griffin MD findings: Severe pulmonary hypertension mildly elevated pulmonary capillary wedge pressure Status post transcatheter aortic valve replacement [facility] 03/29/19 Family History Mother , Lung Cancer at age 74. Personal history of malignant neoplasm at 74 of lung CA Father , CHF at age 86. 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 Retired. 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 Exam Const General: no acute distress Orientation: alert HENVT Head: normal to inspection Ears: external ears normal General nose exam: external nose normal Mouth: moist mucous membranes Eyes General: appearance normal, both eyes and all related structures Neck Neck: normal visual inspection Resp Effort & Inspection: normal respiratory effort and able to speak in complete sentences Cardio Rate: regular rate Skin General skin exam: no jaundice Neuro General: patient alert and patient oriented x3 Extrem General: normal to inspection Psych Mental Status: mental status grossly normal Course Vital Signs Vital signs: Vital Signs Temperature 36.5 C 05/03/20 13:53 Pulse 101 H 05/03/20 13:53 Respiratory Rate 22 05/03/20 13:53 Blood Pressure 104/49 L 05/03/20 13:53 Pulse Oximetry 98 05/03/20 13:53 Temperature 36.5 C 05/03/20 13:53 Temperature Source Skin 05/03/20 13:53 Pulse 101 H 05/03/20 13:53 Respiratory Rate 22 05/03/20 13:53 Blood Pressure 104/49 L 05/03/20 13:53 Blood Pressure Position Sitting 05/03/20 13:53 Pulse Oximetry 98 05/03/20 13:53 Oxygen Delivery Method Nasal Cannula 05/03/20 13:53 Oxygen Flow Rate 4 05/03/20 13:53 Pain Level 10 05/03/20 13:53
[2020-05-03 14:48] LABS: BUN 25 mg/dL (7-18); CREATININE 1.41 mg/dL (0.70-1.30); Calcium 9.4 mg/dL (8.5-10.1); Chloride 94 mmol/L (98-107); Estimated GFR 49.13 (mL/min/1.73m2); Glucose 298 mg/dL (74-106); Potassium 4.7 mmol/L (3.5-5.1); Sodium 131 mmol/L (136-145)
--- NOTE | 2020-08-24 10:20 | NUR.NOTE ---
Nursing Note: At the request of the nursing felt finishing supervisor; Mari Jasso, I faxed to [facility] ED the May 03, 2020 ED visit information. To include provider note, nurse's summary, and labs. Priscilla Jasso
== END 2020-05-03 14:58 | disposition home or self-care (01) ==
PROVIDERS: Emergency Provider Emergency Medicine; PCP Student in an Organized Health Care Education/Training Program
DX: S91.302A Unspecified open wound, left foot, initial encounter (principal); X58.XXXA Exposure to other specified factors, initial encounter; E11.42 Type 2 diabetes mellitus with diabetic polyneuropathy; Z79.4 Long term (current) use of insulin
CPT/HCPCS: 80048; 99281; 99282

== ENCOUNTER 2020-05-05 12:29 | Outpatient (REF) | payer MEDICARE, SELFPAY ==
[2020-05-05 13:17] LABS: Abs Immature Grans 0.17 10^3/uL (0.0-0.06); Basophils % 0.3; Eosinophils % 1.4; HCT 39.8 % (40.0-50.0); HGB 12.9 g/dL (13.5-17.5); Immature Grans % 1.2; Lymphocytes % 6.7; MCH 31.9 pg (27.0-33.0); MCHC 32.4 % (32.0-36.0); MCV 98.3 fL (80-95); MPV 9.8 fL (8.0-11.0); Monocytes % 3.5; Neutrophils % 86.9; Nucleated RBC 0 %; Platelet Count 249 10^3/uL (130-400); RBC 4.05 10^6/uL (4.36-5.78); RDW 14.7 % (11.8-14.1); RDW-SD 53.8 fL
[2020-05-05 13:20] LABS: Absolute Basophil Count 0.04 10^3/uL (0.0-0.2); Absolute Lymphocyte Count 0.96 10^3/uL (1.2-3.4); Absolute Neutrophil Count 12.51 10^3/uL (1.2-6.7)
== END 2020-05-05 12:49 ==
LOC: LBN 12:29
PROVIDERS: PCP Student in an Organized Health Care Education/Training Program; Visit Provider Student in an Organized Health Care Education/Training Program
DX: L97.422 Non-pressure chronic ulcer of left heel and midfoot with fat layer exposed (principal); E11.621 Type 2 diabetes mellitus with foot ulcer
CPT/HCPCS: 85025

== ENCOUNTER 2020-05-09 13:34 | Outpatient (REF) | payer MEDICARE, SELFPAY ==
[2020-05-09 14:20] LABS: HCT 42.3 % (40.0-50.0); HGB 13.5 g/dL (13.5-17.5); MCH 31.7 pg (27.0-33.0); MCHC 31.9 % (32.0-36.0); MCV 99.3 fL (80-95); MPV 10.2 fL (8.0-11.0); Platelet Count 260 10^3/uL (130-400); RBC 4.26 10^6/uL (4.36-5.78); RDW 14.9 % (11.8-14.1); RDW-SD 54.5 fL; WBC 15.26 10^3/uL (4.4-10.8)
[2020-05-09 14:32] LABS: Anion Gap 11.3 mmol/L (3-11); BUN 25 mg/dL (7-18); CO2 27.7 mmol/L (21.0-32.0); CREATININE 1.15 mg/dL (0.70-1.30); Calcium 9.2 mg/dL (8.5-10.1); Chloride 96 mmol/L (98-107); Glucose 147 mg/dL (74-106); Potassium 4.4 mmol/L (3.5-5.1); Sodium 135 mmol/L (136-145)
== END 2020-05-09 13:54 ==
LOC: LBN 13:34
PROVIDERS: PCP Student in an Organized Health Care Education/Training Program; Visit Provider Student in an Organized Health Care Education/Training Program
DX: E11.621 Type 2 diabetes mellitus with foot ulcer (principal)
CPT/HCPCS: 80048; 85027

== ENCOUNTER 2020-05-23 10:26 | Outpatient (REF) | payer MEDICARE, SELFPAY ==
[2020-05-23 11:30] LABS: Abs Immature Grans 0.08 10^3/uL (0.0-0.06); Absolute Basophil Count 0.01 10^3/uL (0.0-0.2); Absolute Lymphocyte Count 0.92 10^3/uL (1.2-3.4); Absolute Monocyte Count 0.36 10^3/uL (0.1-0.8); Basophils % 0.1; Eosinophils % 0.5; HCT 40.8 % (40.0-50.0); HGB 13.3 g/dL (13.5-17.5); Immature Grans % 0.6; Lymphocytes % 7.2; MCHC 32.6 % (32.0-36.0); MCV 98.1 fL (80-95); MPV 10.1 fL (8.0-11.0); Monocytes % 2.8; Neutrophils % 88.8; Nucleated RBC 0 %; Platelet Count 235 10^3/uL (130-400); RBC 4.16 10^6/uL (4.36-5.78); RDW-SD 54.4 fL; WBC 12.78 10^3/uL (4.4-10.8)
[2020-05-23 11:35] LABS: Absolute Eosinophil Count 0.06 10^3/uL (0.0-0.7); Absolute Neutrophil Count 11.35 10^3/uL (1.2-6.7)
[2020-05-23 11:59] LABS: C-Reactive Protein 0.59 mg/dL (0.0-0.3)
[2020-05-23 12:28] LABS: ESR 18 mm/hr (1-20)
== END 2020-05-23 10:46 ==
LOC: LBN 10:26
PROVIDERS: PCP Student in an Organized Health Care Education/Training Program; Visit Provider Podiatrist Foot & Ankle Surgery
DX: E11.621 Type 2 diabetes mellitus with foot ulcer (principal); M05.10 Rheumatoid lung disease with rheumatoid arthritis of unspecified site
CPT/HCPCS: 85652; 85025; 86140

== ENCOUNTER 2020-05-31 11:13 | Outpatient (REF) | payer MEDICARE, SELFPAY ==
[2020-05-31 12:00] LABS: Absolute Basophil Count 0.03 10^3/uL (0.0-0.2); Absolute Eosinophil Count 0.33 10^3/uL (0.0-0.7); Absolute Lymphocyte Count 2.59 10^3/uL (1.2-3.4); Absolute Neutrophil Count 9.23 10^3/uL (1.2-6.7); Basophils % 0.2; Eosinophils % 2.5; HCT 36.2 % (40.0-50.0); HGB 11.9 g/dL (13.5-17.5); Immature Grans % 0.8; Lymphocytes % 19.8; MCH 31.8 pg (27.0-33.0); MCHC 32.9 % (32.0-36.0); MCV 96.8 fL (80-95); MPV 9.8 fL (8.0-11.0); Monocytes % 6.1; Neutrophils % 70.6; Nucleated RBC 0 %; Platelet Count 188 10^3/uL (130-400); RBC 3.74 10^6/uL (4.36-5.78); RDW 14.6 % (11.8-14.1); RDW-SD 52.1 fL; WBC 13.08 10^3/uL (4.4-10.8)
[2020-05-31 12:06] LABS: C-Reactive Protein 3.05 mg/dL (0.0-0.3)
[2020-05-31 13:59] LABS: ESR 25 mm/hr (1-20)
== END 2020-05-31 11:33 ==
LOC: LBN 11:13
PROVIDERS: PCP Student in an Organized Health Care Education/Training Program; Visit Provider Podiatrist Foot & Ankle Surgery
DX: E11.621 Type 2 diabetes mellitus with foot ulcer (principal); L97.909 Non-pressure chronic ulcer of unspecified part of unspecified lower leg with unspecified severity
CPT/HCPCS: 85652; 85025; 86140

== ENCOUNTER 2020-06-06 13:34 | Outpatient (REF) | payer MEDICARE, SELFPAY ==
[2020-06-06 15:28] LABS: Abs Immature Grans 0.09 10^3/uL (0.0-0.06); Absolute Eosinophil Count 0.06 10^3/uL (0.0-0.7); Absolute Lymphocyte Count 0.61 10^3/uL (1.2-3.4); Basophils % 0.3; Eosinophils % 0.5; HGB 12.4 g/dL (13.5-17.5); Immature Grans % 0.8; Lymphocytes % 5.2; MCH 31.3 pg (27.0-33.0); MCHC 31.8 % (32.0-36.0); MCV 98.5 fL (80-95); MPV 10.2 fL (8.0-11.0); Monocytes % 1.7; Neutrophils % 91.5; Nucleated RBC 0 %; Platelet Count 221 10^3/uL (130-400); RBC 3.96 10^6/uL (4.36-5.78); RDW 14.8 % (11.8-14.1); RDW-SD 53.6 fL; WBC 11.74 10^3/uL (4.4-10.8)
[2020-06-06 15:30] LABS: Absolute Basophil Count 0.04 10^3/uL (0.0-0.2); Absolute Neutrophil Count 10.74 10^3/uL (1.2-6.7)
[2020-06-06 15:39] LABS: ALT 36 U/L (16-63); AST 27 U/L (15-37); Alkaline Phosphatase 74 U/L (46-116); Anion Gap 10.6 mmol/L (3-11); BUN 18 mg/dL (7-18); Bilirubin, Total 0.5 mg/dL (0.2-1.0); C-Reactive Protein 3.42 mg/dL (0.0-0.3); CO2 25.4 mmol/L (21.0-32.0); CREATININE 1.38 mg/dL (0.70-1.30); Calcium 8.1 mg/dL (8.5-10.1); Chloride 98 mmol/L (98-107); Estimated GFR 50.37 (mL/min/1.73m2); Glucose 288 mg/dL (74-106); Potassium 4.6 mmol/L (3.5-5.1); Sodium 134 mmol/L (136-145); Total Protein 6.2 g/dL (6.4-8.2)
[2020-06-06 16:36] LABS: ESR 27 mm/hr (1-20)
== END 2020-06-06 13:54 ==
LOC: LBN 13:34
PROVIDERS: PCP Student in an Organized Health Care Education/Training Program; Visit Provider Podiatrist Foot & Ankle Surgery
DX: S91.302D Unspecified open wound, left foot, subsequent encounter (principal); L97.909 Non-pressure chronic ulcer of unspecified part of unspecified lower leg with unspecified severity; T14.8XXD Other injury of unspecified body region, subsequent encounter; I83.025 Varicose veins of left lower extremity with ulcer other part of foot; L97.428 Non-pressure chronic ulcer of left heel and midfoot with other specified severity; E11.621 Type 2 diabetes mellitus with foot ulcer
CPT/HCPCS: 80053; 85652; 85025; 86140

== ENCOUNTER 2020-06-13 11:08 | Outpatient (REF) | payer MEDICARE, SELFPAY ==
[2020-06-13 12:01] LABS: Absolute Basophil Count 0.07 10^3/uL (0.0-0.2); Absolute Eosinophil Count 0.33 10^3/uL (0.0-0.7); Absolute Lymphocyte Count 2.48 10^3/uL (1.2-3.4); Basophils % 0.6; Eosinophils % 2.9; HGB 12.2 g/dL (13.5-17.5); Immature Grans % 0.9; Lymphocytes % 21.6; MCHC 32.1 % (32.0-36.0); MCV 96.4 fL (80-95); MPV 9.8 fL (8.0-11.0); Monocytes % 5.8; Neutrophils % 68.2; Nucleated RBC 0 %; Platelet Count 227 10^3/uL (130-400); RBC 3.94 10^6/uL (4.36-5.78); RDW 14.6 % (11.8-14.1); RDW-SD 52.7 fL; WBC 11.46 10^3/uL (4.4-10.8)
[2020-06-13 12:02] LABS: Absolute Monocyte Count 0.66 10^3/uL (0.1-0.8); Absolute Neutrophil Count 7.82 10^3/uL (1.2-6.7)
[2020-06-13 12:15] LABS: ALT 30 U/L (16-63); AST 23 U/L (15-37); Albumin 3.1 g/dL (3.4-5.0); Alkaline Phosphatase 81 U/L (46-116); Anion Gap 8.7 mmol/L (3-11); BUN 19 mg/dL (7-18); Bilirubin, Total 0.4 mg/dL (0.2-1.0); C-Reactive Protein 0.23 mg/dL (0.0-0.3); CO2 29.3 mmol/L (21.0-32.0); CREATININE 1.16 mg/dL (0.70-1.30); Calcium 8.2 mg/dL (8.5-10.1); Chloride 100 mmol/L (98-107); Glucose 195 mg/dL (74-106); Potassium 3.9 mmol/L (3.5-5.1); Sodium 138 mmol/L (136-145); Total Protein 6.1 g/dL (6.4-8.2)
[2020-06-13 14:31] LABS: ESR 19 mm/hr (1-20)
== END 2020-06-13 11:28 ==
LOC: LBN 11:08
PROVIDERS: PCP Student in an Organized Health Care Education/Training Program; Visit Provider Podiatrist Foot & Ankle Surgery
DX: E11.621 Type 2 diabetes mellitus with foot ulcer (principal)
CPT/HCPCS: 80053; 85652; 85025; 86140

== ENCOUNTER 2020-06-20 20:52 | Outpatient (REF) | payer MEDICARE, SELFPAY ==
[2020-06-20 14:24] LABS: Abs Immature Grans 0.09 10^3/uL (0.0-0.06); Absolute Basophil Count 0.05 10^3/uL (0.0-0.2); Absolute Monocyte Count 0.67 10^3/uL (0.1-0.8); Absolute Neutrophil Count 10.76 10^3/uL (1.2-6.7); Basophils % 0.4; Eosinophils % 1.6; HCT 39.8 % (40.0-50.0); HGB 12.6 g/dL (13.5-17.5); Immature Grans % 0.7; Lymphocytes % 8.5; MCH 30.5 pg (27.0-33.0); MCHC 31.7 % (32.0-36.0); MCV 96.4 fL (80-95); MPV 10.2 fL (8.0-11.0); Monocytes % 5.2; Neutrophils % 83.6; Nucleated RBC 0 %; Platelet Count 236 10^3/uL (130-400); RBC 4.13 10^6/uL (4.36-5.78); RDW 15.2 % (11.8-14.1); RDW-SD 53.8 fL; WBC 12.87 10^3/uL (4.4-10.8)
[2020-06-20 14:27] LABS: Absolute Eosinophil Count 0.21 10^3/uL (0.0-0.7); Absolute Lymphocyte Count 1.09 10^3/uL (1.2-3.4)
[2020-06-20 14:33] LABS: ALT 35 U/L (16-63); AST 27 U/L (15-37); Albumin 3.3 g/dL (3.4-5.0); Alkaline Phosphatase 76 U/L (46-116); Anion Gap 10.9 mmol/L (3-11); BUN 20 mg/dL (7-18); Bilirubin, Total 0.7 mg/dL (0.2-1.0); C-Reactive Protein 0.32 mg/dL (0.0-0.3); CO2 27.1 mmol/L (21.0-32.0); CREATININE 1.22 mg/dL (0.70-1.30); Calcium 8.2 mg/dL (8.5-10.1); Chloride 101 mmol/L (98-107); Estimated GFR 58.07 (mL/min/1.73m2); Glucose 173 mg/dL (74-106); Potassium 3.9 mmol/L (3.5-5.1); Sodium 139 mmol/L (136-145); Total Protein 6.8 g/dL (6.4-8.2)
[2020-06-20 15:33] LABS: ESR 12 mm/hr (1-20)
== END 2020-06-20 21:12 ==
LOC: LBN 20:52
PROVIDERS: PCP Student in an Organized Health Care Education/Training Program; Visit Provider Podiatrist Foot & Ankle Surgery
DX: E11.621 Type 2 diabetes mellitus with foot ulcer (principal); M05.79 Rheumatoid arthritis with rheumatoid factor of multiple sites without organ or systems involvement
CPT/HCPCS: 80053; 85652; 85025; 86140

== ENCOUNTER 2020-06-27 17:59 | Outpatient (REF) | payer MEDICARE, SELFPAY ==
[2020-06-27 14:09] LABS: Abs Immature Grans 0.08 10^3/uL (0.0-0.06); Absolute Basophil Count 0.03 10^3/uL (0.0-0.2); Absolute Eosinophil Count 0.14 10^3/uL (0.0-0.7); Absolute Lymphocyte Count 1.02 10^3/uL (1.2-3.4); Basophils % 0.2; Eosinophils % 1.1; HCT 40.1 % (40.0-50.0); HGB 13.2 g/dL (13.5-17.5); Immature Grans % 0.6; Lymphocytes % 7.9; MCH 31.4 pg (27.0-33.0); MCHC 32.9 % (32.0-36.0); MCV 95.5 fL (80-95); MPV 10.6 fL (8.0-11.0); Monocytes % 3.7; Neutrophils % 86.5; Nucleated RBC 0 %; Platelet Count 210 10^3/uL (130-400); RDW 14.9 % (11.8-14.1); RDW-SD 52.2 fL; WBC 12.85 10^3/uL (4.4-10.8)
[2020-06-27 14:11] LABS: Absolute Monocyte Count 0.48 10^3/uL (0.1-0.8); Absolute Neutrophil Count 11.12 10^3/uL (1.2-6.7)
[2020-06-27 14:19] LABS: ALT 32 U/L (16-63); AST 22 U/L (15-37); Albumin 3.4 g/dL (3.4-5.0); Alkaline Phosphatase 90 U/L (46-116); BUN 26 mg/dL (7-18); Bilirubin, Total 0.6 mg/dL (0.2-1.0); C-Reactive Protein 0.61 mg/dL (0.0-0.3); CREATININE 1.27 mg/dL (0.70-1.30); Calcium 8.7 mg/dL (8.5-10.1); Chloride 97 mmol/L (98-107); Estimated GFR 55.44 (mL/min/1.73m2); Glucose 174 mg/dL (74-106); Hemoglobin A1C 7.2 % (<5.7); Potassium 3.7 mmol/L (3.5-5.1); Sodium 137 mmol/L (136-145); Total Protein 7.1 g/dL (6.4-8.2)
[2020-06-27 15:09] LABS: ESR 19 mm/hr (1-20)
== END 2020-06-27 18:19 ==
LOC: LBN 17:59
PROVIDERS: PCP Student in an Organized Health Care Education/Training Program; Visit Provider Podiatrist Foot & Ankle Surgery
DX: D64.9 Anemia, unspecified (principal); Z79.01 Long term (current) use of anticoagulants; Z79.2 Long term (current) use of antibiotics; E78.5 Hyperlipidemia, unspecified; I25.10 Atherosclerotic heart disease of native coronary artery without angina pectoris; E11.40 Type 2 diabetes mellitus with diabetic neuropathy, unspecified; E11.65 Type 2 diabetes mellitus with hyperglycemia; Z79.4 Long term (current) use of insulin
CPT/HCPCS: 80053; 85652; 83036; 85025; 86140

== ENCOUNTER 2020-07-04 14:24 | Outpatient (REF) | payer MEDICARE, SELFPAY ==
[2020-07-04 15:03] LABS: Absolute Eosinophil Count 0.24 10^3/uL (0.0-0.7); Absolute Lymphocyte Count 0.98 10^3/uL (1.2-3.4); Absolute Monocyte Count 0.57 10^3/uL (0.1-0.8); Basophils % 0.3; Eosinophils % 2.1; HCT 40.6 % (40.0-50.0); HGB 12.8 g/dL (13.5-17.5); Immature Grans % 0.9; Lymphocytes % 8.6; MCH 30.3 pg (27.0-33.0); MCHC 31.5 % (32.0-36.0); MPV 10.4 fL (8.0-11.0); Neutrophils % 83.1; Nucleated RBC 0 %; Platelet Count 202 10^3/uL (130-400); RBC 4.23 10^6/uL (4.36-5.78); RDW 14.6 % (11.8-14.1); RDW-SD 51.6 fL; WBC 11.45 10^3/uL (4.4-10.8)
[2020-07-04 15:04] LABS: Absolute Basophil Count 0.03 10^3/uL (0.0-0.2); Absolute Neutrophil Count 9.51 10^3/uL (1.2-6.7)
[2020-07-04 15:35] LABS: ALT 33 U/L (16-63); AST 23 U/L (15-37); Albumin 3.3 g/dL (3.4-5.0); Alkaline Phosphatase 95 U/L (46-116); BUN 20 mg/dL (7-18); Bilirubin, Total 0.5 mg/dL (0.2-1.0); CREATININE 1.07 mg/dL (0.70-1.30); Calcium 8.5 mg/dL (8.5-10.1); Chloride 99 mmol/L (98-107); Glucose 190 mg/dL (74-106); Potassium 3.9 mmol/L (3.5-5.1); Sodium 138 mmol/L (136-145); Total Protein 6.8 g/dL (6.4-8.2)
[2020-07-04 15:53] LABS: ESR 10 mm/hr (1-20)
[2020-07-04 16:45] LABS: C-Reactive Protein 0.24 mg/dL (0.0-0.3)
== END 2020-07-04 14:44 ==
LOC: LBN 14:24
PROVIDERS: PCP Student in an Organized Health Care Education/Training Program; Visit Provider Podiatrist Foot & Ankle Surgery
DX: E11.621 Type 2 diabetes mellitus with foot ulcer (principal); M05.79 Rheumatoid arthritis with rheumatoid factor of multiple sites without organ or systems involvement
CPT/HCPCS: 80053; 85652; 85025; 86140

== ENCOUNTER 2020-07-11 13:39 | Outpatient (REF) | payer MEDICARE, SELFPAY ==
[2020-07-11 14:13] LABS: Absolute Basophil Count 0.03 10^3/uL (0.0-0.2); Absolute Eosinophil Count 0.26 10^3/uL (0.0-0.7); Absolute Lymphocyte Count 1.31 10^3/uL (1.2-3.4); Absolute Monocyte Count 0.64 10^3/uL (0.1-0.8); Absolute Neutrophil Count 8.13 10^3/uL (1.2-6.7); Basophils % 0.3; Eosinophils % 2.5; HCT 38.4 % (40.0-50.0); HGB 12.4 g/dL (13.5-17.5); Lymphocytes % 12.5; MCH 30.9 pg (27.0-33.0); MCHC 32.3 % (32.0-36.0); MCV 95.8 fL (80-95); MPV 9.9 fL (8.0-11.0); Monocytes % 6.1; Neutrophils % 77.6; Nucleated RBC 0 %; Platelet Count 183 10^3/uL (130-400); RBC 4.01 10^6/uL (4.36-5.78); RDW 14.7 % (11.8-14.1); RDW-SD 51.2 fL; WBC 10.47 10^3/uL (4.4-10.8)
[2020-07-11 14:25] LABS: ALT 34 U/L (16-63); AST 26 U/L (15-37); Albumin 3.2 g/dL (3.4-5.0); Alkaline Phosphatase 78 U/L (46-116); BUN 19 mg/dL (7-18); Bilirubin, Total 0.6 mg/dL (0.2-1.0); CREATININE 1.19 mg/dL (0.70-1.30); Calcium 8.6 mg/dL (8.5-10.1); Chloride 100 mmol/L (98-107); Estimated GFR 59.76 (mL/min/1.73m2); Glucose 206 mg/dL (74-106); Potassium 3.9 mmol/L (3.5-5.1); Sodium 138 mmol/L (136-145); Total Protein 6.5 g/dL (6.4-8.2)
[2020-07-11 15:39] LABS: ESR 22 mm/hr (1-20)
[2020-07-11 15:56] LABS: C-Reactive Protein 0.54 mg/dL (0.0-0.3)
== END 2020-07-11 13:59 ==
LOC: LBN 13:39
PROVIDERS: PCP Student in an Organized Health Care Education/Training Program; Visit Provider Podiatrist Foot & Ankle Surgery
DX: E11.621 Type 2 diabetes mellitus with foot ulcer (principal); I50.42 Chronic combined systolic (congestive) and diastolic (congestive) heart failure; M05.79 Rheumatoid arthritis with rheumatoid factor of multiple sites without organ or systems involvement
CPT/HCPCS: 80053; 85652; 85025; 86140

== ENCOUNTER 2020-07-18 13:32 | Outpatient (REF) | payer MEDICARE, SELFPAY ==
[2020-07-18 10:14] LABS: ALT 31 U/L (16-63); AST 30 U/L (15-37); Albumin 3.1 g/dL (3.4-5.0); Alkaline Phosphatase 66 U/L (46-116); Anion Gap 13.4 mmol/L (3-11); BUN 22 mg/dL (7-18); Bilirubin, Total 0.7 mg/dL (0.2-1.0); C-Reactive Protein 9.34 mg/dL (0.0-0.3); CO2 25.6 mmol/L (21.0-32.0); CREATININE 1.23 mg/dL (0.70-1.30); Calcium 8.6 mg/dL (8.5-10.1); Chloride 96 mmol/L (98-107); Estimated GFR 57.52 (mL/min/1.73m2); Glucose 163 mg/dL (74-106); Potassium 3.5 mmol/L (3.5-5.1); Sodium 135 mmol/L (136-145); Total Protein 6.5 g/dL (6.4-8.2)
[2020-07-18 10:17] LABS: Abs Immature Grans 0.07 10^3/uL (0.0-0.06); Absolute Basophil Count 0.05 10^3/uL (0.0-0.2); Absolute Eosinophil Count 0.18 10^3/uL (0.0-0.7); Absolute Lymphocyte Count 1.32 10^3/uL (1.2-3.4); Absolute Monocyte Count 0.79 10^3/uL (0.1-0.8); Absolute Neutrophil Count 7.48 10^3/uL (1.2-6.7); Basophils % 0.5; Eosinophils % 1.8; HCT 38.4 % (40.0-50.0); HGB 12.7 g/dL (13.5-17.5); Immature Grans % 0.7; Lymphocytes % 13.3; MCH 30.8 pg (27.0-33.0); MCHC 33.1 % (32.0-36.0); MCV 93.2 fL (80-95); MPV 10.3 fL (8.0-11.0); Neutrophils % 75.7; Nucleated RBC 0 %; Platelet Count 176 10^3/uL (130-400); RBC 4.12 10^6/uL (4.36-5.78); RDW 14.8 % (11.8-14.1); RDW-SD 51.1 fL; WBC 9.89 10^3/uL (4.4-10.8)
[2020-07-18 11:18] LABS: ESR 33 mm/hr (1-20)
== END 2020-07-18 13:52 ==
LOC: LBN 13:32
PROVIDERS: PCP Student in an Organized Health Care Education/Training Program; Visit Provider Podiatrist Foot & Ankle Surgery
DX: E11.621 Type 2 diabetes mellitus with foot ulcer (principal)
CPT/HCPCS: 80053; 85652; 85025; 86140

== ENCOUNTER 2020-07-25 13:25 | Outpatient (REF) | payer MEDICARE, SELFPAY ==
[2020-07-25 10:24] LABS: Absolute Basophil Count 0.04 10^3/uL (0.0-0.2); Absolute Eosinophil Count 0.06 10^3/uL (0.0-0.7); Absolute Monocyte Count 0.18 10^3/uL (0.1-0.8); Absolute Neutrophil Count 8.59 10^3/uL (1.2-6.7); Basophils % 0.4; Eosinophils % 0.6; HCT 37.1 % (40.0-50.0); Lymphocytes % 8.2; MCH 30.1 pg (27.0-33.0); MCHC 32.3 % (32.0-36.0); MPV 9.6 fL (8.0-11.0); Monocytes % 1.8; Nucleated RBC 0 %; Platelet Count 266 10^3/uL (130-400); RBC 3.99 10^6/uL (4.36-5.78); RDW 14.8 % (11.8-14.1); RDW-SD 50.8 fL; WBC 9.77 10^3/uL (4.4-10.8)
[2020-07-25 10:44] LABS: CREATININE 1.29 mg/dL (0.70-1.30); Estimated GFR 54.44 (mL/min/1.73m2); TSH 1.04 uIU/mL (0.36-3.74)
[2020-07-25 11:23] LABS: ESR 13 mm/hr (1-20)
== END 2020-07-25 13:45 ==
LOC: LBN 13:25
PROVIDERS: PCP Student in an Organized Health Care Education/Training Program; Visit Provider Podiatrist Foot & Ankle Surgery
DX: E11.621 Type 2 diabetes mellitus with foot ulcer (principal)
CPT/HCPCS: 85652; 82565; 84443; 85025

== ENCOUNTER 2020-09-29 11:44 | Inpatient (IN) | payer MEDICARE, SELFPAY ==
[2020-09-29] VITALS (152 sets, daily range): BP systolic 66–118; BP diastolic 29–66; PULSE 72–172; RESP 9–36; TEMP 36–36.2; O2SAT 82–100
--- NOTE | 2020-09-29 11:30 | RT.EKG_ITS ---
APPROVED REPORT Exam: Resting ECG Patient Location: E HR:93 bpm ECG Measurements Heart Rate 93 AXIS FL [id number] P [id number] QRSd 134 QRS 1 QT 397 T 207 QTc 495 Conclusion Atrial fibrillation...V-rate 87-110, irreg A-activity Nonspecific intraventricular conduction delay...QRSd >115mS, not LBBB/RBBB Repol abnrm suggests ischemia, lateral leads...ST dep, T neg, I aVL V5 V6. No STEMI. No significant change from previous. I have reviewed and interpreted ECG and agree with software generated interpretation.
--- NOTE | 2020-09-29 11:46 | ED.GENADUL_ITS ---
Discharge Plan Disposition Patient Disposition: [facility] INPATIENT Condition: Serious Discharge Details Clinical Impression: Sepsis, Hypotension, Pneumonia, Elevated troponin Admit Date/Time: 09/29/20 16:01 Admit Provider: Enrique Sorenson Attending Provider: Enrique Sorenson Primary Care Provider: Ana Alatorre ED Provider: Karina Oseguera Discharge Data Discharge Date/Time-TO BE ENTERED AT DEPARTURE: 09/29/20 17:04 Medical Decision Making 1150 -- 75-year-old male with multiple comorbidities including morbid obesity, diabetes, COPD chronically on 5 L of nasal cannula oxygen, coronary artery disease, rheumatoid arthritis, atrial fibrillation on Coumadin, aortic stenosis with history of aortic valve replacement presents from [facility] for hypotension with blood pressure of 60s/30s. Patient had a recent hospital admission to [facility] for pneumonia followed by a [facility] ED visit for inability to ambulate and was subsequently placed at the [facility] rehab 2 days ago. Blood pressure on arrival 71/52. He is afebrile. He has no complaints of chest pain, cough or worsening shortness of breath. Differential diagnosis includes worsening pneumonia, UTI, ACS, electrolyte abnormality, arrhythmia, PE, etc. Will place an IV, bolus IV fluids, screening labs, urinalysis, CT chest abdomen pelvis. Patient moaning in pain throughout evaluation and requesting narcotic pain medication for his chronic diffuse body pain, specifically his legs from his rheumatoid arthritis. Discussed with patient that with his hypotension, will hold on IV narcotics at this time until his blood pressure improves. BP 66/41. Patient given a dose of IV Tylenol. 1230 -- Labs reviewed. White blood cell count 17. Hemoglobin 9.8. INR subtherapeutic at 1.5. Creatinine 1.7. GFR 39. Troponin 0.16. As patient has no complaints of chest pain, shortness of breath with no evidence of acute EKG changes, this may be demand ischemia. Considering patient's comorbidities, DNR/DNI status, patient would benefit from palliative care evaluation potentially hospice. BP improving 96/55. CT chest reviewed and notes patchy bilateral groundglass attenuation which could be infiltrate versus edema. CT abdomen noted thickening of the wall of the urinary bladder which could be due to chronic cystitis. No other acute findings noted. No PE noted. 1300 -- BP improving with fluids. Blood pressure slightly downtrending to systolic of 70s now back to 85/50. We will continue to monitor. Low threshold for central line placement and pressors. CRP 7.27. Suspect most likely presentation consistent with sepsis and pneumonia rather than CHF. BNP elevated to 2973. Will continue IV fluids for hypotension. Will start broad-spectrum antibiotics considering recent hospitalization. Discussed with patient in room regarding his advanced directives. The chart notes that he is DNR/DNI. Patient states he decided a few months ago that he would like to be a full code. It was discussed at length with patient regarding his multiple comorbidities and potential for prognosis if needing intubation at some point and potential for a difficult extubation. Patient still stating that he would like everything done if needed. 1500 -- Patient given a total of 2 L normal saline and BP remaining 70s/40s. A right femoral central line placed and nor epi started. BP improving prior to transfer to the ICU. Blood pressure 103/49. 1730 -- repeat troponin unchanged at 0.16. Medical Records Medical records reviewed: Yes I reviewed the patient's medical records. Imaging Data Radiologic Study: Radiologist's impression: CT Angiography Chest With Contrast Exam date and time: 09/29/2020 12:19 PM Age: 75 years old Clinical indication: Other: Hypotension, recent multifocal pneumonia; Additional info: PT unable to hold still TECHNIQUE: Imaging protocol: Computed tomographic angiography of the chest with contrast. 3D rendering (Not supervised by radiologist): MIP and/or 3D reconstructed images were created by the technologist. Radiation optimization: All CT scans at this facility use at least one of these dose optimization techniques: automated exposure control; mA and/or kV adjustment per patient size (includes targeted exams where dose is matched to clinical indication); or iterative reconstruction. Contrast material: OMNI 350; Contrast volume: 100 ml; Contrast route: INTRAVENOUS (IV); COMPARISON: CT CHEST PE ABD PELVIS W 10/30/2019 12:37 AM FINDINGS: Pulmonary arteries: Normal. No pulmonary emboli. Aorta: Unremarkable. No aortic aneurysm. No aortic dissection. Lungs: Patchy areas of diffuse bilateral ground-glass attenuation could be due to infiltrate or edema. Mild bronchiectasis in lower lungs. Pleural spaces: Unremarkable. No pneumothorax. No pleural effusion. Heart: Cardiomegaly. Lymph nodes: Unremarkable. No enlarged lymph nodes. Bones/joints: Degenerative arthritis in the spine and shoulders. Soft tissues: Unremarkable. Other findings: AVR. Images are degraded by motion. IMPRESSION: 1. Exam limited by motion 2. Patchy bilateral ground-glass attenuation could be due to infiltrate or edema. 3. Mild bronchiectasis in lower lungs. Imaging features can be seen with COVID-19 pneumonia, though are nonspecific and can occur with a variety of infectious and noninfectious processes. (Reference: [place]) CT Abdomen And Pelvis With Contrast Exam date and time: 09/29/2020 12:19 PM Age: 75 years old Clinical indication: Other: Hypotension, recent multifocal pneumonia; Additional info: PT unable to hold still TECHNIQUE: Imaging protocol: Computed tomography of the abdomen and pelvis with contrast. Radiation optimization: All CT scans at this facility use at least one of these dose optimization techniques: automated exposure control; mA and/or kV adjustment per patient size (includes targeted exams where dose is matched to clinical indication); or iterative reconstruction. Contrast material: OMNI 350; Contrast volume: 100 ml; Contrast route: INTRAVENOUS (IV); COMPARISON: CT CHEST PE ABD PELVIS W 10/30/2019 12:37 AM FINDINGS: Liver: Normal. No mass. Gallbladder and bile ducts: Normal. No calcified stones. No ductal dilation. Pancreas: Fatty infiltration of the pancreatic parenchyma. Spleen: Normal. No splenomegaly. Adrenal glands: Normal. No mass. Kidneys and ureters: Normal. No hydronephrosis. Stomach and bowel: Unremarkable. No obstruction. No mucosal thickening. Appendix: No evidence of appendicitis. Intraperitoneal space: Unremarkable. No free air. No significant fluid collection. Vasculature: Vascular calcifications. No aneurysm identified. Lymph nodes: Unremarkable. No enlarged lymph nodes. Urinary bladder: Mild thickening of the wall of the urinary bladder could be due to chronic cystitis. Reproductive: Unremarkable as visualized. Bones/joints: Degenerative arthritis in the spine and pelvis. Soft tissues: Fat containing midline paraumbilical abdominal wall hernia with an opening measuring approximately 2.2 by 1.8 cm in transverse and craniocaudad dimension. Diffuse subcutaneous edema. Other findings: Images are degraded motion. IMPRESSION: 1. Images are degraded by motion. 2. No acute findings in the abdomen and pelvis. 3 thickening of the wall of the urinary bladder be due to chronic cystitis. 4. Containing paraumbilical abdominal wall hernia Lab Data Lab results reviewed: Yes I reviewed the patient's lab results. Labs: 09/29/20 14:28 Urine - Reflex from Ua Urine Culture - Pending 09/29/20 14:28 Nose MRSA Screen - Pending 09/29/20 11:55 Blood Blood Culture - Pending 09/29/20 11:41 Blood Blood Culture - Pending Laboratory Tests Range/Units 09/29/20 09/29/20 09/29/20 11:55 11:55 11:55 WBC (4.4-10.8) 10^3/uL 17.67 H RBC (4.36-5.78) 10^6/uL 3.33 L Hgb (13.5-17.5) g/dL 9.8 L Hct (40.0-50.0) % 31.0 L MCV (80-95) fL 93.1 MCH (27.0-33.0) pg 29.4 MCHC (32.0-36.0) % 31.6 L RDW (11.8-14.1) % 18.0 H Plt Count (130-400) 10^3/uL 166 MPV (8.0-11.0) fL 10.2 Immature Gran % 0.6 Neutrophils % 89.3 Lymphocytes % 5.3 Monocytes % 4.0 Eosinophils % 0.7 Basophils % 0.1 Nucleated RBC % % 0 Absolute Neutrophils (1.2-6.7) 10^3/uL 15.78 H Absolute Lymphocytes (1.2-3.4) 10^3/uL 0.94 L Absolute Monocytes (0.1-0.8) 10^3/uL 0.71 Absolute Eosinophils (0.0-0.7) 10^3/uL 0.12 Absolute Basophils (0.0-0.2) 10^3/uL 0.02 PT (9.3-11.0) sec 15.0 H INR (0.9-1.1) 1.5 H APTT (21.0-27.5) sec 29.7 H VBG Lactate (0.6-1.4) mmol/L Sodium (136-145) mmol/L 134 L Potassium (3.5-5.1) mmol/L 4.0 Chloride (98-107) mmol/L 95 L Carbon Dioxide (21.0-32.0) mmol/L 34.1 H Anion Gap (3-11) mmol/L 4.9 BUN (7-18) mg/dL 31 H Creatinine (0.70-1.30) mg/dL 1.7 H Estimated GFR/1.73 m2 (mL/min/1.73m2) 39.49 Glucose (74-106) mg/dL 135 H Calcium (8.5-10.1) mg/dL 8.2 L Magnesium (1.8-2.4) mg/dL 2.4 Total Bilirubin (0.2-1.0) mg/dL 1.2 H AST (15-37) U/L 81 H ALT (16-63) U/L 163 H Alkaline Phosphatase (46-116) U/L 163 H Troponin I (<0.06) ng/mL 0.16 H* C-Reactive Protein (0.0-0.3) mg/dL NT-Pro-B Natriuret Pep (<300) pg/mL Total Protein (6.4-8.2) g/dL 5.4 L Albumin (3.4-5.0) g/dL 1.8 L Procalcitonin ng/mL Urine Color (Yellow) Urine Clarity (Clear) Urine pH (5-8) Ur Specific [place] (1.005-1.025) Urine Protein (Negative) mg/dL Urine Ketones (Negative) mg/dL Urine Blood (Negative) Urine Nitrite (Negative) Urine Bilirubin (Negative) Urine Urobilinogen (Up TO 0.2) EU/dL Ur Leukocyte Esterase (Negative) Urine RBC (0-2) HPF Urine WBC (0-5) HPF Ur Epithelial Cells (Negative) HPF Urine Crystals (Negative) HPF Urine Bacteria (Negative) HPF Urine Casts (Negative) LPF Urine Mucus (Negative) Urine Other (Negative) Ur Culture Indicated? Urine Glucose (Negative) mg/dL COVID-19 Source SARS-CoV-2 (PCR) Range/Units 09/29/20 09/29/20 09/29/20 11:55 11:55 11:55 WBC (4.4-10.8) 10^3/uL RBC (4.36-5.78) 10^6/uL Hgb (13.5-17.5) g/dL Hct (40.0-50.0) % MCV (80-95) fL MCH (27.0-33.0) pg MCHC (32.0-36.0) % RDW (11.8-14.1) % Plt Count (130-400) 10^3/uL MPV (8.0-11.0) fL Immature Gran % Neutrophils % Lymphocytes % Monocytes % Eosinophils % Basophils % Nucleated RBC % % Absolute Neutrophils (1.2-6.7) 10^3/uL Absolute Lymphocytes (1.2-3.4) 10^3/uL Absolute Monocytes (0.1-0.8) 10^3/uL Absolute Eosinophils (0.0-0.7) 10^3/uL Absolute Basophils (0.0-0.2) 10^3/uL PT (9.3-11.0) sec INR (0.9-1.1) APTT (21.0-27.5) sec VBG Lactate (0.6-1.4) mmol/L Sodium (136-145) mmol/L Potassium (3.5-5.1) mmol/L Chloride (98-107) mmol/L Carbon Dioxide (21.0-32.0) mmol/L Anion Gap (3-11) mmol/L BUN (7-18) mg/dL Creatinine (0.70-1.30) mg/dL Estimated GFR/1.73 m2 (mL/min/1.73m2) Glucose (74-106) mg/dL Calcium (8.5-10.1) mg/dL Magnesium (1.8-2.4) mg/dL Total Bilirubin (0.2-1.0) mg/dL AST (15-37) U/L ALT (16-63) U/L Alkaline Phosphatase (46-116) U/L Troponin I (<0.06) ng/mL C-Reactive Protein (0.0-0.3) mg/dL 7.27 H NT-Pro-B Natriuret Pep (<300) pg/mL 2973 H Total Protein (6.4-8.2) g/dL Albumin (3.4-5.0) g/dL Procalcitonin ng/mL 0.2 Urine Color (Yellow) Urine Clarity (Clear) Urine pH (5-8) Ur Specific [place] (1.005-1.025) Urine Protein (Negative) mg/dL Urine Ketones (Negative) mg/dL Urine Blood (Negative) Urine Nitrite (Negative) Urine Bilirubin (Negative) Urine Urobilinogen (Up TO 0.2) EU/dL Ur Leukocyte Esterase (Negative) Urine RBC (0-2) HPF Urine WBC (0-5) HPF Ur Epithelial Cells (Negative) HPF Urine Crystals (Negative) HPF Urine Bacteria (Negative) HPF Urine Casts (Negative) LPF Urine Mucus (Negative) Urine Other (Negative) Ur Culture Indicated? Urine Glucose (Negative) mg/dL COVID-19 Source SARS-CoV-2 (PCR) Range/Units 09/29/20 09/29/20 09/29/20 12:39 13:00 13:32 WBC (4.4-10.8) 10^3/uL RBC (4.36-5.78) 10^6/uL Hgb (13.5-17.5) g/dL Hct (40.0-50.0) % MCV (80-95) fL MCH (27.0-33.0) pg MCHC (32.0-36.0) % RDW (11.8-14.1) % Plt Count (130-400) 10^3/uL MPV (8.0-11.0) fL Immature Gran % Neutrophils % Lymphocytes % Monocytes % Eosinophils % Basophils % Nucleated RBC % % Absolute Neutrophils (1.2-6.7) 10^3/uL Absolute Lymphocytes (1.2-3.4) 10^3/uL Absolute Monocytes (0.1-0.8) 10^3/uL Absolute Eosinophils (0.0-0.7) 10^3/uL Absolute Basophils (0.0-0.2) 10^3/uL PT (9.3-11.0) sec INR (0.9-1.1) APTT (21.0-27.5) sec VBG Lactate (0.6-1.4) mmol/L 3.0 H* Sodium (136-145) mmol/L Potassium (3.5-5.1) mmol/L Chloride (98-107) mmol/L Carbon Dioxide (21.0-32.0) mmol/L Anion Gap (3-11) mmol/L BUN (7-18) mg/dL Creatinine (0.70-1.30) mg/dL Estimated GFR/1.73 m2 (mL/min/1.73m2) Glucose (74-106) mg/dL Calcium (8.5-10.1) mg/dL Magnesium (1.8-2.4) mg/dL Total Bilirubin (0.2-1.0) mg/dL AST (15-37) U/L ALT (16-63) U/L Alkaline Phosphatase (46-116) U/L Troponin I (<0.06) ng/mL C-Reactive Protein (0.0-0.3) mg/dL NT-Pro-B Natriuret Pep (<300) pg/mL Total Protein (6.4-8.2) g/dL Albumin (3.4-5.0) g/dL Procalcitonin ng/mL Urine Color (Yellow) Urine Clarity (Clear) Urine pH (5-8) Ur Specific [place] (1.005-1.025) Urine Protein (Negative) mg/dL Urine Ketones (Negative) mg/dL Urine Blood (Negative) Urine Nitrite (Negative) Urine Bilirubin (Negative) Urine Urobilinogen (Up TO 0.2) EU/dL Ur Leukocyte Esterase (Negative) Urine RBC (0-2) HPF Urine WBC (0-5) HPF Ur Epithelial Cells (Negative) HPF Urine Crystals (Negative) HPF Urine Bacteria (Negative) HPF Urine Casts (Negative) LPF Urine Mucus (Negative) Urine Other (Negative) Ur Culture Indicated? Urine Glucose (Negative) mg/dL COVID-19 Source Cancelled Nasopharyx SARS-CoV-2 (PCR) Cancelled Negative Range/Units 09/29/ 14:28 WBC (4.4-10.8) 10^3/uL RBC (4.36-5.78) 10^6/uL Hgb (13.5-17.5) g/dL Hct (40.0-50.0) % MCV (80-95) fL MCH (27.0-33.0) pg MCHC (32.0-36.0) % RDW (11.8-14.1) % Plt Count (130-400) 10^3/uL MPV (8.0-11.0) fL Immature Gran % Neutrophils % Lymphocytes % Monocytes % Eosinophils % Basophils % Nucleated RBC % % Absolute Neutrophils (1.2-6.7) 10^3/uL Absolute Lymphocytes (1.2-3.4) 10^3/uL Absolute Monocytes (0.1-0.8) 10^3/uL Absolute Eosinophils (0.0-0.7) 10^3/uL Absolute Basophils (0.0-0.2) 10^3/uL PT (9.3-11.0) sec INR (0.9-1.1) APTT (21.0-27.5) sec VBG Lactate (0.6-1.4) mmol/L Sodium (136-145) mmol/L Potassium (3.5-5.1) mmol/L Chloride (98-107) mmol/L Carbon Dioxide (21.0-32.0) mmol/L Anion Gap (3-11) mmol/L BUN (7-18) mg/dL Creatinine (0.70-1.30) mg/dL Estimated GFR/1.73 m2 (mL/min/1.73m2) Glucose (74-106) mg/dL Calcium (8.5-10.1) mg/dL Magnesium (1.8-2.4) mg/dL Total Bilirubin (0.2-1.0) mg/dL AST (15-37) U/L ALT (16-63) U/L Alkaline Phosphatase (46-116) U/L Troponin I (<0.06) ng/mL C-Reactive Protein (0.0-0.3) mg/dL NT-Pro-B Natriuret Pep (<300) pg/mL Total Protein (6.4-8.2) g/dL Albumin (3.4-5.0) g/dL Procalcitonin ng/mL Urine Color (Yellow) Yellow Urine Clarity (Clear) Cloudy Urine pH (5-8) 5.0 Ur Specific [place] (1.005-1.025) <= 1.005 Urine Protein (Negative) mg/dL 100 H Urine Ketones (Negative) mg/dL Negative Urine Blood (Negative) Large H Urine Nitrite (Negative) Negative Urine Bilirubin (Negative) Negative Urine Urobilinogen (Up TO 0.2) EU/dL 1.0 H Ur Leukocyte Esterase (Negative) Small H Urine RBC (0-2) HPF 10-20 H Urine WBC (0-5) HPF 10-20 H Ur Epithelial Cells (Negative) HPF Few Urine Crystals (Negative) HPF Negative Urine Bacteria (Negative) HPF Moderate Urine Casts (Negative) LPF 0-2 hyaline Urine Mucus (Negative) Trace Urine Other (Negative) Many yeast Ur Culture Indicated? Yes Urine Glucose (Negative) mg/dL >=1000 H COVID-19 Source SARS-CoV-2 (PCR) ECG Data Attestation: I personally reviewed and interpreted this ECG (s) as follows: Interpretation: Rate of 93, A. fib, T wave inversion in 1, aVL, V6 seen in previous EKG. New T wave inversion in V5. No STEMI. No significant change from previous EKG. HPI General Mode of arrival: EMS . Date/Time Provider Initiated Documentation: 09/29/20 11:52 . Limitations to Documentation: physical limitation . Information obtained by: patient and EMS . HPI Narrative: Patient is a 75-year-old male with a history of morbid obesity, diabetes, atrial fibrillation, chronic venous insufficiency lower extremities, chronic leg wounds and pressure ulcers, aortic stenosis with aortic valve replacement, atrial fibrillation on Coumadin presents from health and rehab for hypotension. Patient's baseline blood pressure usually 90s/60s but multiple readings today noted 60s/30s. Patient was placed at the health and rehab 2 days ago for inability to care for himself at home or get up from the recliner. Patient was recently discharged from [facility] for pneumonia and also a recent [facility] ED visit for inability to get out of his recliner and a buttock pressure ulcer. Patient was subsequently transferred to health and rehab for inability to get out of his recliner and weakness. Patient is complaining of pain all over . He states he has rheumatoid arthritis and has chronic leg pain. He also states he has chronic pain at the site of his buttock ulcer. He denies any chest pain, shortness of breath worse than usual, new cough, nausea, vomiting, diarrhea or abdominal pain. Related Data Home Medications Medication Instructions Recorded Confirmed Oxygen 09/23/17 09/05/20 albuterol sulfate 90 mcg/actuation 2 inh IH Q6H PRN #1 each 04/06/19 09/29/20 breath activated powder inhaler fluticasone 250 mcg-salmeterol 50 1 inh IH BID 05/10/19 09/29/20 mcg/dose blistr powdr for inhalation naloxone 4 mg/actuation nasal spray 4 mg NS PRN PRN #1 unit 05/23/19 09/29/20 umeclidinium 62.5 mcg/actuation 1 inh IH DAILY 08/02/19 09/29/20 blister powder for inhalation aspirin 81 mg tablet,delayed 81 mg PO DAILY #100 tab 09/18/19 09/29/20 release pen needle, diabetic 31 gauge x #90 each 11/23/19 09/05/2009/17 atorvastatin 80 mg tablet 80 mg PO DAILY #90 tab-cap 01/09/20 09/29/20 insulin degludec 100 unit/mL (3 15 unit SC DAILY #60 ml MDD 50 02/15/20 09/29/20 mL) subcutaneous pen empagliflozin 25 mg tablet 25 mg PO DAILY #90 tab 04/09/20 09/29/20 lidocaine HCl 4 % topical cream 1 applic TOPICAL BID PRN #120 g 05/17/20 09/29/20 lidocaine 4 % topical gel 1 applic TOPICAL QD-BID PRN #113 g 05/18/20 09/29/20 lidocaine HCl 2 % mucosal jelly 1 applic TOPICAL DAILY PRN #30 ml 05/18/20 09/29/20 acetaminophen 650 mg 650 mg PO Q12H #60 tab 06/02/20 09/29/20 tablet,extended release Portable Oxygen Compressor #1 ea 06/19/20 09/05/20 prednisone 10 mg tablet 20 mg PO DAILY #60 tab 06/19/20 09/29/20 polyethylene glycol 3350 17 17 g PO BID #119 g 07/03/20 09/29/20 gram/dose oral powder furosemide 20 mg tablet 20 mg PO BID #180 tab 07/08/20 09/29/20 lancets 28 gauge #200 each 07/11/20 09/05/20 magnesium oxide 400 mg PO DAILY #90 tab-cap 07/19/20 09/29/20 metoprolol succinate 100 mg 100 mg PO DAILY #90 tab 07/19/20 09/29/20 tablet,extended release 24 hr warfarin 2 mg tablet 1 mg PO HS #90 tab 07/19/20 09/29/20 blood sugar diagnostic #400 each 07/27/20 09/05/20 nitroglycerin 0.4 mg sublingual 0.4 mg SUBLINGUAL Q5 MIN PRN X3 07/27/20 09/29/20 tablet PRN #90 tab pramipexole 0.125 mg tablet 0.125 mg PO HS #90 tab-cap 08/02/20 09/29/20 levofloxacin 750 mg tablet 750 mg PO DAILY 08/26/20 09/29/20 oxycodone 10 mg tablet 10 mg PO Q6H PRN #112 tab MDD 40 09/04/20 09/29/20 fentanyl 12 mcg/hr transdermal 1 patch TRANSDERMAL Q72H #2 ea MDD 09/13/20 09/29/20 patch 87 fentanyl 75 mcg/hr transdermal 1 patch TRANSDERMAL Q72H #2 ea MDD 09/13/20 09/29/20 patch 87 bisacodyl 10 mg WI DAILY 09/29/20 09/29/20 calcium carbonate [Tums 500] 500 mg PO Q4H 09/29/20 09/29/20 clonazepam 0.5 mg PO DAILY 09/29/20 09/29/20 dextrose [Glucose Gel] 15 g PO Q15M PRN 09/29/20 09/29/20 glucagon 1 mg DIRECTED PRN 09/29/20 09/29/20 lisinopril 10 mg PO DAILY 09/29/20 09/29/20 magnesium hydroxide 400 mg PO DAILY PRN 09/29/20 09/29/20 metformin 500 mg PO BID 09/29/20 09/29/20 omeprazole 20 mg PO DAILY 09/29/20 09/29/20 sodium phosphates [Fleet Enema] 118 ml WI DIRECTED PRN 09/29/20 09/29/20 Previous Rx's Medication Instructions Recorded albuterol sulfate 90 mcg/actuation 2 inh IH Q6H PRN #1 each 04/06/19 breath activated powder inhaler naloxone 4 mg/actuation nasal spray 4 mg NS PRN PRN #1 unit 05/23/19 aspirin 81 mg tablet,delayed 81 mg PO DAILY #100 tab 09/18/19 release pen needle, diabetic 31 gauge x #90 each 11/23/1909/17 atorvastatin 80 mg tablet 80 mg PO DAILY #90 tab-cap 01/09/20 insulin degludec 100 unit/mL (3 15 unit SC DAILY #60 ml MDD 50 02/15/20 mL) subcutaneous pen empagliflozin 25 mg tablet 25 mg PO DAILY #90 tab 04/09/20 lidocaine HCl 4 % topical cream 1 applic TOPICAL BID PRN #120 g 05/17/20 lidocaine 4 % topical gel 1 applic TOPICAL QD-BID PRN #113 g 05/18/20 lidocaine HCl 2 % mucosal jelly 1 applic TOPICAL DAILY PRN #30 ml 05/18/20 acetaminophen 650 mg 650 mg PO Q12H #60 tab 06/02/20 tablet,extended release Portable Oxygen Compressor #1 ea 06/19/20 prednisone 10 mg tablet 20 mg PO DAILY #60 tab 06/19/20 polyethylene glycol 3350 17 17 g PO BID #119 g 07/03/20 gram/dose oral powder furosemide 20 mg tablet 20 mg PO BID #180 tab 07/08/20 lancets 28 gauge #200 each 07/11/20 magnesium oxide 400 mg PO DAILY #90 tab-cap 07/19/20 metoprolol succinate 100 mg 100 mg PO DAILY #90 tab 07/19/20 tablet,extended release 24 hr warfarin 2 mg tablet 1 mg PO HS #90 tab 07/19/20 blood sugar diagnostic #400 each 07/27/20 nitroglycerin 0.4 mg sublingual 0.4 mg SUBLINGUAL Q5 MIN PRN X3 07/27/20 tablet PRN #90 tab pramipexole 0.125 mg tablet 0.125 mg PO HS #90 tab-cap 08/02/20 oxycodone 10 mg tablet 10 mg PO Q6H PRN #112 tab MDD 40 09/04/20 fentanyl 12 mcg/hr transdermal 1 patch TRANSDERMAL Q72H #2 ea MDD 09/13/20 patch 87 fentanyl 75 mcg/hr transdermal 1 patch TRANSDERMAL Q72H #2 ea MDD 09/13/20 patch 87 Allergies Allergy/AdvReac Type Severity Reaction Status Date / Time adalimumab Allergy Severe unknown Verified 09/29/20 11:54 Penicillins Allergy Severe Anaphylaxsi Verified 09/29/20 11:54 s General LINDSEY: 3 Review of Systems All systems reviewed & are unremarkable except as noted in HPI and below Constitutional Constitutional: Reports as per HPI, Denies chills and Denies fever(s) Eyes Eyes: Denies blurry vision ENT Ears, Nose, Mouth, and Throat: Denies dizziness, Denies sore throat and Denies throat swelling Cardiovascular Cardiovascular: Denies chest pain and Denies dyspnea Respiratory Respiratory: Denies cough and Denies dyspnea Gastrointestinal Gastrointestinal: Denies abdominal pain, Denies diarrhea and Denies vomiting Genitourinary Genitourinary: Denies hematuria and Denies dysuria Musculoskeletal Musculoskeletal: Denies back pain, Denies numbness and Reports other (Diffuse body pain, bilateral leg pain) Integumentary/Breasts Skin/Breast: Denies lesions and Denies rash Neurologic Neurologic: Denies dizziness, Denies localized weakness and Denies numbness Allergic/Immunologic Allergic/Immunologic: Denies throat swelling [facility] Medical History Anemia Hx low Hgb, but today's lab review was unexpected. Probable anemia of chronic disease .. Non-meat diet, [ ] iron suppl (concern for constipation)? [ ] stool guaic Aortic stenosis, moderate (07/03/16) S/P A[facility] [place] EF 65%; Mod , valve area 1.33 (grad 23/mean14) (06/2016) [facility] [place]2017 shows worsening disease .. may need cardiac surgery. Aortic stenosis, severe (02/27/19) [facility] [place] EF 65%; Mod , valve area 1.33 (grad 23/mean14) (06/2016) [facility] [place] 09/2017 shows worsening disease .. may need cardiac surgery. Changed to severe per [facility] EF 59%, aortic valve area 0.9cm, mean gradient 23 mmHg Depressive disorder (07/14/11) Diabetic foot ulcer associated with type 2 diabetes mellitus, with fat layer exposed Diabetic neuropathy associated with type 2 diabetes mellitus Infected wound No active infection, -06/2020 Uncontrolled pain Left foot s/p debridement [ ] Rheum Arthritis [ ] Venous insufficiency of both lower extremities Venous stasis ulcer Wound of left foot Forefoot, x 2 weeks self-care; Worse/Painful/Necrosis, 03/22/20. [ ] ED [ ] Surg? [ ] [facility] Wound of right foot Due to walker 2' fall.. Surgical History Bronchoscopy (11/20/10) with BAL echo ([facility] [place] 09/21/17.) Compared to the study from 06/18/16 the severity of aortic stenosis has increased and there is pulmonary hypertension. seeing cardio again in 2 wks. Extraction of cataract (08/21/10) R eye,with IOL, Dr Gary History of cardiac cath 03/21/19 [facility] Right heart cath-mild Pulm HTN mean PA pressure 25 and PA systolic pressure 50 normal wedge pressure 6. Right dominant circulation with mild disease in all vessels, focal anyeursm RCA 5mm Internal fixation (08/03/10) R distal femoral fx, Dr Banda, [facility] PFT'S: SEPTEMBER 2017 [facility] [place] 09/21/17. O2 sat on RA 97% After 250 ft on RA 88% needing 2l O2. PTCA (01/27/94) rescue PTCA RCA for persistent CP with Inf [place]; [facility] [place],oximetry (01/07/18) [facility] [place].Corey Griffin MD findings: Severe pulmonary hypertension mildly elevated pulmonary capillary wedge pressure Status post transcatheter aortic valve replacement [facility] [place]29[place] Family History Mother , Lung Cancer at age 74. Personal history of malignant neoplasm at 74 of lung CA Father , CHF at age 86. 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 Retired. 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 Exam Const General: cooperative and other (moaning in pain since arrival to the ED) Nutritional Appearance: obese morbidly obese Orientation: alert, awake and oriented x3 HENMT Head: normal to inspection Face and sinus: normal facial exam Mouth: mucous membranes dry Eyes General: appearance normal, both eyes and all related structures Pupils: PERRL EOM: EOM intact bilaterally Neck Neck: normal visual inspection and No submandibular swelling Lymphatic: no lymphadenopathy noted Chest Chest: normal inspection of the chest and no tenderness Resp Effort & Inspection: normal respiratory effort and able to speak in complete sentences Auscultation: clear to auscultation bilaterally Cardio Rate: regular rate Rhythm: regular rhythm GI Inspection: normal to inspection and obesity Palpation: soft, not firm, not rigid and nontender Auscultation: normal bowel sounds Skin Other: 3 less than 1 cm stage II ulcer wounds noted to his sacrum. Surrounding tissue appears raw but no evidence of necrotizing fasciitis. Multiple stage I and stage II ulcers noted to bilateral lower extremities. Chronic venous insufficiency skin changes. There is surrounding erythema around wound but no obvious abscess or severe cellulitis. Right proximal forearm stage II ulcer wound approximately 5 x 5 cm. There is a Mepilex dressing half in place on this wound. No surrounding cellulitis. Neuro General: patient alert, patient awake and patient oriented x3 Cognition: normal cognition Speech: speech normal Motor: muscle tone normal throughout Sensory Exam: no sensory deficits noted Extrem General: normal to inspection, full ROM, capillary refill normal, no calf tenderness bilaterally and edema Laterality: bilateral (Nonpitting b/l lower extremities) Psych Appearance: grossly normal Mental Status: mental status grossly normal Speech and Movement: speech and movement normal Affect: normal affect Course Lab/Test Results Lab/Test Results: 09/29/20 11:41 Blood Blood Culture - Pending 09/29/20 11:41 Blood Blood Culture - Pending Procedures Central Line Placement Right Femoral: Time Out Performed: Yes Patient Placed on Monitor/Pulse Ox: Yes MD Prep: mask, gown and gloves Central Line Prep: Chlorhexidine scrub Local Anesthetic: Lidocaine 1% Amount of anesthesia used (mL): 10 Ultrasound Used for Placement: No Central Line Lumen Inserted: triple Post Procedure: good blood return, all ports aspirated, flushed, capped and sutured in place with 2-0 silk Patient Tolerated Procedure: well Complications: none Critical Care Time Critical Care Time Critical Care Time: Yes Total Critical Care Time: 45 Attestation: I spent 45 minutes of critical care time with this patient. This does not include time spent on separately reported billable procedures.
[2020-09-29 12:14] LABS: Absolute Lymphocyte Count 0.94 10^3/uL (1.2-3.4); Basophils % 0.1; Eosinophils % 0.7; HGB 9.8 g/dL (13.5-17.5); Immature Grans % 0.6; Lymphocytes % 5.3; MCH 29.4 pg (27.0-33.0); MCHC 31.6 % (32.0-36.0); MCV 93.1 fL (80-95); MPV 10.2 fL (8.0-11.0); Neutrophils % 89.3; Nucleated RBC 0 %; Platelet Count 166 10^3/uL (130-400); RBC 3.33 10^6/uL (4.36-5.78); RDW-SD 61.2 fL; WBC 17.67 10^3/uL (4.4-10.8)
[2020-09-29] MEDS: Normal Saline 500 ML IV ×2 (12:15→12:16)
[2020-09-29 12:24] LABS: Absolute Basophil Count 0.02 10^3/uL (0.0-0.2); Absolute Eosinophil Count 0.12 10^3/uL (0.0-0.7); Absolute Monocyte Count 0.71 10^3/uL (0.1-0.8); Absolute Neutrophil Count 15.78 10^3/uL (1.2-6.7)
[2020-09-29 12:26] LABS: INR 1.5 (0.9-1.1); PTT Activated 29.7 sec (21.0-27.5)
[2020-09-29 12:33] LABS: ALT 163 U/L (16-63); AST 81 U/L (15-37); Albumin 1.8 g/dL (3.4-5.0); Alkaline Phosphatase 163 U/L (46-116); Anion Gap 4.9 mmol/L (3-11); BUN 31 mg/dL (7-18); Bilirubin, Total 1.2 mg/dL (0.2-1.0); CO2 34.1 mmol/L (21.0-32.0); CREATININE 1.7 mg/dL (0.70-1.30); Calcium 8.2 mg/dL (8.5-10.1); Chloride 95 mmol/L (98-107); Estimated GFR 39.49 (mL/min/1.73m2); Glucose 135 mg/dL (74-106); Magnesium 2.4 mg/dL (1.8-2.4); Sodium 134 mmol/L (136-145); Total Protein 5.4 g/dL (6.4-8.2)
[2020-09-29 12:35] LABS: Troponin I 0.16 ng/mL (<0.06)
[2020-09-29] MEDS: ACETAMINOPHEN 1,000 MG/100 ML BTL 400 MG IVPB (12:41)
[2020-09-29] MEDS: Normal Saline - Diluent 50 ML VIAL IV (12:59)
[2020-09-29] MEDS: Omnipaque 350 MG/ML 100 ML BTL IJ (13:29)
--- NOTE | 2020-09-29 13:30 | DI.CT_ITS ---
EXAM: CT CHEST PE ABD PELVIS W CLINICAL HISTORY: hypotension, recent multifocal pneumonia. TECHNIQUE: Imaging Protocol: Axial CT angiography was performed with multi-slice acquisition and m ulti-planar and/or 3D reconstructions. CONTRAST MATERIAL: Intravenous: Omnipaque 350 Contrast volume:100 ml Oral: None COMPARISON: CT CT ABD AORTA CTA W RUNOFF from 04/12/2020 FINDINGS: CHEST: PULMONARY ARTERIES: There are no obvious intra-arterial filling defects to suggest the presence of [place] pulmonary emboli. LUNGS: Patchy and ground-glass infiltrates bilaterally. This involves all lobes bilaterally. Covid- 19 testing recommended. There are no pleural effusions.Some mucus is seen on the left wall of the t rachea. No mucus in the mainstem bronchi. MEDIASTINUM: There is no hilar nor mediastinal adenopathy. Thyroid is partially obscured from detail by beam hardening artifact from contrast bolus in the left innominate vein. CARDIAC: There is cardiomegaly. There is a prosthetic aortic valve.Caliber of the thoracic aorta is within normal limits. Left vertebral artery originates as an independent vessel off the aortic arch instead of off of the left subclavian artery. No evidence of aortic dissection. Aortic size is uppe r normal in the chest. OSSEOUS: No significant osseous lesions.. ABDOMEN: There is no ascites. LIVER: There are no focal hepatic lesions nor dilatation of intrahepatic ducts. GALLBLADDER/BILIARY: No obvious gallbladder pathology. CBD is not dilated. PANCREAS: No evidence of pancreatic mass nor dilatation of the pancreatic duct. SPLEEN: Spleen is not enlarged. There are no intrasplenic lesions. Splenic and portal veins are ruiz nt. ADRENALS: There are no significant adrenal masses. KIDNEYS:No cysts evident. No calculi nor hydronephrosis. No solid renal masses. ABDOMINAL AORTA: Abdominal aorta is not enlarged. LYMPH NODES: There is no retroperitoneal or para-aortic adenopathy. ABDOMINAL WALL/GI: There is anterior abdominal wall umbilical hernia which contains fat and no bowel loops. This hernia sac measures 5 cm wide by 3.5 cm AP. No bowel obstruction. PELVIS: LYMPH NODES: There is no intrapelvic nor inguinal adenopathy. GI: No evidence of appendicitis.No evidence of sigmoid diverticulitis. URINARY BLADDER: No calculi nor masses evident REPRODUCTIVE: Prostate gland is not enlarged. OSSEOUS: No significant osseous lesions. IMPRESSION: 1. No evidence of acute pulmonary emboli nor pulmonary infarction. However, there are patchy infiltr ates throughout both lungs. Testing for Covid-19 is recommended. Other etiology is also possible. There are no pleural effusions. 2. No evidence of aortic dissection.There is cardiomegaly and a prosthetic aortic valve. No pericard ial effusion. 3. Anterior abdominal wall umbilical hernia which contains fat and no bowel loops. There is no bowel obstruction. RADIATION DOSE DELIVERED: 2,089.28mGy.cm Total DLP DATA REPOSITORY: All CT scans at this facility are submitted to the National Radiology Data Registry (NRDR) Dose Index Registry (DIR) with the [employer] (ACR). RADIATION OPTIMIZATION: All CT scans at this facility use at least one of these dose optimization te chniques: automated exposure control; mA and/or kV adjustment per patient size (includes targeted exa ms where dose is matched to clinical indication); or iterative reconstruction.
[2020-09-29 13:33] LABS: C-Reactive Protein 7.27 mg/dL (0.0-0.3); NT-proBNP 2973 pg/mL (<300)
[2020-09-29] MEDS: Normal Saline 1,000 ML 1000 ML IV (13:51)
--- NOTE | 2020-09-29 14:07 | DI.VRAD_ITS ---
PROCEDURE INFORMATION: Exam: CT Angiography Chest With Contrast Exam date and time: 09/29/2020 12:19 PM Age: 75 years old Clinical indication: Other: Hypotension, recent multifocal pneumonia; Additional info: PT unable to hold still TECHNIQUE: Imaging protocol: Computed tomographic angiography of the chest with contrast. 3D rendering (Not supervised by radiologist): MIP and/or 3D reconstructed images were created by the technologist. Radiation optimization: All CT scans at this facility use at least one of these dose optimization techniques: automated exposure control; mA and/or kV adjustment per patient size (includes targeted exams where dose is matched to clinical indication); or iterative reconstruction. Contrast material: OMNI 350; Contrast volume: 100 ml; Contrast route: INTRAVENOUS (IV); COMPARISON: CT CHEST PE ABD PELVIS W 10/30/2019 12:37 AM FINDINGS: Pulmonary arteries: Normal. No pulmonary emboli. Aorta: Unremarkable. No aortic aneurysm. No aortic dissection. Lungs: Patchy areas of diffuse bilateral ground-glass attenuation could be due to infiltrate or edema. Mild bronchiectasis in lower lungs. Pleural spaces: Unremarkable. No pneumothorax. No pleural effusion. Heart: Cardiomegaly. Lymph nodes: Unremarkable. No enlarged lymph nodes. Bones/joints: Degenerative arthritis in the spine and shoulders. Soft tissues: Unremarkable. Other findings: AVR. Images are degraded by motion. IMPRESSION: 1. Exam limited by motion 2. Patchy bilateral ground-glass attenuation could be due to infiltrate or edema. 3. Mild bronchiectasis in lower lungs. Imaging features can be seen with COVID-19 pneumonia, though are nonspecific and can occur with a variety of infectious and noninfectious processes. (Reference: Eloy) References: Eloy Casas, et al., Radiological Society of [place] Expert Consensus Statement on Reporting Chest CT Findings Related to COVID-19. Endorsed by the Society of Thoracic Radiology, the [employer], and RSNA. Published September 27, 2019. PROCEDURE INFORMATION: Exam: CT Abdomen And Pelvis With Contrast Exam date and time: 09/29/2020 12:19 PM Age: 75 years old Clinical indication: Other: Hypotension, recent multifocal pneumonia; Additional info: PT unable to hold still TECHNIQUE: Imaging protocol: Computed tomography of the abdomen and pelvis with contrast. Radiation optimization: All CT scans at this facility use at least one of these dose optimization techniques: automated exposure control; mA and/or kV adjustment per patient size (includes targeted exams where dose is matched to clinical indication); or iterative reconstruction. Contrast material: OMNI 350; Contrast volume: 100 ml; Contrast route: INTRAVENOUS (IV); COMPARISON: CT CHEST PE ABD PELVIS W 10/30/2019 12:37 AM FINDINGS: Liver: Normal. No mass. Gallbladder and bile ducts: Normal. No calcified stones. No ductal dilation. Pancreas: Fatty infiltration of the pancreatic parenchyma. Spleen: Normal. No splenomegaly. Adrenal glands: Normal. No mass. Kidneys and ureters: Normal. No hydronephrosis. Stomach and bowel: Unremarkable. No obstruction. No mucosal thickening. Appendix: No evidence of appendicitis. Intraperitoneal space: Unremarkable. No free air. No significant fluid collection. Vasculature: Vascular calcifications. No aneurysm identified. Lymph nodes: Unremarkable. No enlarged lymph nodes. Urinary bladder: Mild thickening of the wall of the urinary bladder could be due to chronic cystitis. Reproductive: Unremarkable as visualized. Bones/joints: Degenerative arthritis in the spine and pelvis. Soft tissues: Fat containing midline paraumbilical abdominal wall hernia with an opening measuring approximately 2.2 by 1.8 cm in transverse and craniocaudad dimension. Diffuse subcutaneous edema. Other findings: Images are degraded motion. IMPRESSION: 1. Images are degraded by motion. 2. No acute findings in the abdomen and pelvis. 3 thickening of the wall of the urinary bladder be due to chronic cystitis. 4. Containing paraumbilical abdominal wall hernia Dictated and Authenticated by: Mya Nuno MD. Ordering:SANFORD Collins MD
[2020-09-29 14:14] LABS: Procalcitonin 0.2 ng/mL
[2020-09-29 14:20] LABS: COVID-19 PCR Negative (Negative)
[2020-09-29 14:42] LABS: Bilirubin Negative (Negative); Blood Large (Negative); Clarity Cloudy (Clear); Glucose >=1000 mg/dL (Negative); Ketones Negative (Negative); Leukocyte Esterase Small (Negative); Nitrite Negative (Negative); Specific Gravity <= 1.005 (1.005-1.025)
[2020-09-29 14:53] LABS: Bacteria Moderate HPF (Negative); C & S Indicated? Yes; Casts 0-2 Hyaline LPF (Negative); Crystals Negative HPF (Negative); Epithelial Cells Few HPF (Negative); Mucus Trace (Negative)
[2020-09-29] MEDS: AZTREONAM 2,000 MG in Normal Saline 100 ML 200 MG IVPB (14:53)
[2020-09-29] MEDS: VANCOMYCIN/WATER (PEG) 1.25 GM/250 ML BAG IV (15:40)
--- NOTE | 2020-09-29 16:21 | HPE_ITS ---
Date of service: 09/29/20 Time of Service: 16:21 Assessment and Plan Assessment and plan (1) Septic shock: Status: Acute Assessment and plan: broad spectrum antibiotics (Levaquin, Vancomcyin, Aztreonam), IV fluids and vasopressors (norepinephrine), maintain MAP >=65 mm. Begin stress dose hydrocortisone 50 mg IVPB q6h (patient was on maintenance prednisone 20 mg daily for his RA. Most likely source is urinary tract however his chroic leg and foot wounds are also a possible source. I doubt pneumonia as a cause for reasons as outlined below under the dx of pneumonia. (2) Urinary tract infection in male: Status: Acute Assessment and plan: as above. ayers to monitor urine output. renal US in a.m. (3) Transaminitis: Status: Acute (4) Acute kidney injury (nontraumatic): Status: Acute (5) Elevated troponin: Status: Acute Assessment and plan: suspect demand ischemia, not an acute coronary throm bosis. monitor serial troponin levels, check echo in the a.m. POCUS echo shows no LV dysfunction. However he has enlarged LVH and enlarged RV. Patient denies any CP. (6) Pneumonia: Status: Suspected Assessment and plan: although his CT demonstrates bilateral interstitial markings, patient has hx of rheumatoid lung and ILD and with no evidence of hypoxemia, cough or dyspnea, I doubt that pneumonia is the source of his hypotension. Similarly I doubted any PE however , the CTA ordered by the ER has proven no evidence for P.E. Qualifiers: Pneumonia type: due to unspecified organism Laterality: bilateral Lung location: lower lobe of lung Qualified Code(s): J18.9 - Pneumonia, unspecified organism (7) Wound of right foot: Status: Acute Assessment and plan: chronic wounds which are in various stages of healing. cont. wound care as per [facility]. I have consulted our wound care nurses who evaluated him this evening and have re-dressed his wounds. See their note for details (8) Wound of left foot: Status: Acute Assessment and plan: as above (9) Venous stasis ulcer: Status: Acute Assessment and plan: as above Qualifiers: Venous stasis ulcer site: calf Varicose vein presence: with varicose veins Laterality: unspecified laterality Non-pressure ulcer stage: limited to breakdown of skin Qualified Code(s): I83.002 - Varicose veins of unspecified lower extremity with ulcer of calf; L97.201 - Non-pressure chronic ulcer of unspecified calf limited to breakdown of skin (10) Anemia: Status: Chronic Assessment and plan: unclear as source of anemia. chronic GI bleeding has not been ruled out. However, his stool is negative for occult blood this evening. I have put him on protonix. I will check iron studies in the a.m. He has been typed and screened. Repeat hemoglobin and hematocrit show his anemia has been stable over the course of today (Hb of 10 gm on repeat testing). Howeveer his Hb has dropped 1.5 gm over the past month. This also could be anemia of chronic disease. Qualifiers: Anemia type: unspecified type Qualified Code(s): D64.9 - Anemia, unspecified (11) Venous insufficiency of both lower extremities: Status: Acute Assessment and plan: chronic venous insufficiency. Once his wounds are healed up he should be evaluated for Unaboot or for lymphedema pneumatic devices. For now will continue w/ wound care and consider PATT wraps. 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 His lung exam of rales are probably d/t fibrosis. Consider high resolution CT of his lungs once he is stable. (14) Pulmonary HTN: Status: Chronic Assessment and plan: His pro-BNP is elevated at 2900 which is much higher than in February 2000. While this could represent CHF, clinicially he is dry as demonstrated by elevated BUN and creatinine, hypotension. His BNP could be elevated d/t his PHTN. I will get formal echo in the a.m. to evaluate his LV and RV function as well as his PHTN. (15) Obstructive sleep apnea syndrome: Status: Chronic Assessment and plan: supportive care w/ oxygen. He will need his CPAP/B IPAP brought in and applied at night. (16) Essential hypertension: Status: Chronic Assessment and plan: BP meds on hold while he is hypotensive and needing vasopressor support. (17) Atrial fibrillation with controlled ventricular response: Status: Chronic Assessment and plan: In spite of his sepsis, he is not very tachycardic but this is probaly d/t chronic lopressor use. For now will hold his lopressor while he is hypotensive and on vasopressor agents. In light of his negative stool for occult blood, I will resume his warfarin and increase his dose d/t his subtherapeutic INR (18) COPD (chronic obstructive pulmonary disease): Status: Chronic Assessment and plan: continue his maintenance bronchodilators (he is chronically on Advair (we will substitute Symbicort) and he also uses Incruse Ellipta. We will also provide prn albuterol Qualifiers: COPD type: COPD with acute lower respiratory infection Qualified Code(s): J44.0 - Chronic obstructive pulmonary disease with (acute) lower respiratory infection History of Present Illness History of Present Illness Chief Complaint: Hypotension Narrative: 75-year-old male with multiple comorbidities including morbid obesity, diabetes, COPD chronically on 5 L of nasal cannula oxygen, coronary artery disease, rheumatoid arthritis (on chronic prednisone and Remicade), atrial fibrillation on Coumadin, aortic stenosis with history of aortic valve replacement presents from [facility] for hypotension with blood pressure of 60s/30s. Patient had a recent hospital admission to [facility] for pneumonia followed by a [facility] ED visit for inability to ambulate and was subsequently placed at the [facility] 2 days ago. Patient was transferred from [facility] because of acute hypotension. On arrival to the emergency department his blood pressure is 171/52. He was afebrile. He was not hypoxemic. He denied any chest pain or pressure cough or shortness of breath. Evaluation in the ER included routine labs occluding CBC CMP troponin level proBNP and INR and EKG and subsequently underwent CT scan of his chest abdomen and pelvis. Patient was found to be anemic with a hemoglobin 9.8 g. Last documented CBC from July his hemoglobin was 12 g. Lcrsp-tb-obsy hemoglobin from 720-second 2020 was 11.4 g. An elevated white count of 17,000 along with an elevated procalcitonin level of 0.2 and a blood lactate of 3.0. CMP demonstrated acute kidney injury with elevated BUN of 31 and a creatinine of 1.7 as well as elevated LFTs including a total bilirubin 1.2, AST 81, ALT 163, alkaline phosphatase 163. Patient was given an initial bolus of normal saline 500 mL which was then repeated x1. Despite this he had persistent hypotension with systolic pressures in the 70s and required another liter of IV fluids before he finally received norepinephrine drip. He was given Tylenol for his leg pain. Blood cultures and urine cultures were obtained patient was started on vancomycin and aztreonam. Patient reportedly has an anaphylactic reaction to penicillin. I have subsequently added Levaquin to his regimen although patient recently had been on Levaquin for a community-acquired pneumonia. Patient is now admitted to the intensive care unit for treatment of septic shock. Blood pressures have stabilized with a blood pressure 114/61 and a mean arterial pressure of 69. Dr. Ana Alatorre his primary care attending came to see the patient in the ER and follow him up to the ICU. Because he reportedly had a DNR/DNI status but is now resending that status we asked Dr. Alatorre to help the patient work through his decision making process regarding his CODE STATUS. After lengthy discussion he is indicated that he does indeed want to be intubated in the event of respiratory failure and he does want aggressive hemodynamic support as well as defibrillation and CPR in the event of cardiac arrest. CT of his chest showed no acute pulmonary emboli or infarction. He has patchy infiltrates throughout both lungs. Radiologist suggested evaluation for COVID- 19. However review from his previous chest x-ray shows that he has had pulmonary fibrotic changes. Furthermore his nasopharyngeal swab was negative for SARS-CoV-2. There were no pleural effusions and no aortic dissection he does have cardiomegaly and a prosthetic aortic valve but no pericardial effusion. He has anterior abdominal wall umbilical hernia contains fat but no bowel loops and no bowel obstruction. Kidney showed no hydronephrosis and no renal masses and no pyelonephritis. No gallbladder pathology was identified and common bile duct was not dilated. Urinalysis is suspicious for UTI and that there has a small amount leukocyte esterase as well as 10-20 white cells and 10- 20 red cells as well as moderate amount of bacteria in the urine is cloudy. Patient will continue to receive aztreonam and vancomycin in addition to Levaquin pending the results of blood and urine cultures. Other sources of infection include chronic leg wounds. Patient has chronic venous stasis of his legs and has had previous abrasions from his motorized wheelchair. He has a healing wound over the dorsum of his left foot as well as skin wounds over the pretibial surfaces of both legs as well as an abrasion over his left forearm. Patient has been followed at the wound clinic at [facility] in [facility]. However he has not been seen there for about 3 weeks because of his recent hospitalization up at [facility] in [facility] and his recent stay at the [facility] facility in [facility]. Review of Systems All systems reviewed & are unremarkable except as noted in HPI and below PFSH Medical History Anemia Hx low Hgb, but today's lab review was unexpected. Probable anemia of chronic disease .. Non-meat diet, [ ] iron suppl (concern for constipation)? [ ] stool guaic Aortic stenosis, moderate (07/03/16) S/P AoVR;[facility] [place] ECHO EF 65%; Mod , valve area 1.33 (grad 23/mean14) (06/2016) [facility] [place] eval 09/2017 shows worsening disease .. may need cardiac surgery. Aortic stenosis, severe (02/27/19) [facility] [place] ECHO EF 65%; Mod , valve area 1.33 (grad 23/mean14) (06/2016) [facility] [place] eval 09/2017 shows worsening disease .. may need cardiac surgery. Changed to severe per [facility] [place] [place] EF 59%, aortic valve area 0.9cm, mean gradient 23 mmHg Depressive disorder (07/14/11) Diabetic foot ulcer associated with type 2 diabetes mellitus, with fat layer exposed Diabetic neuropathy associated with type 2 diabetes mellitus Infected wound No active infection, -06/2020 Uncontrolled pain Left foot s/p debridement [ ] Rheum Arthritis [ ] Venous insufficiency of both lower extremities Venous stasis ulcer Wound of left foot Forefoot, x 2 weeks self-care; Worse/Painful/Necrosis, 03/22/20. [ ] ED [ ] Surg? [ ] [facility] Wound of right foot Due to walker 2' fall.. Surgical History Bronchoscopy (11/20/10) with BAL echo ([facility] [place] pulmonolgy note 09/21/17.) Compared to the study from 12/15/16 the severity of aortic stenosis has increased and there is pulmonary hypertension. seeing cardio again in 2 wks. Extraction of cataract (08/21/10) R eye,with IOL, Dr Gary History of cardiac cath 03/21/19 [facility] Right heart cath-mild Pulm HTN mean PA pressure 25 and PA systolic pressure 50 normal wedge pressure 6. Right dominant circulation with mild disease in all vessels, focal anyeursm RCA 5mm Internal fixation (08/03/10) R distal femoral fx, Dr Banda, [facility] PFT'S: SEPTEMBER 2017 [facility] [place] pulm note 09/21/17. O2 sat on RA 97% After 250 ft on RA 88% needing 2l O2. PTCA (01/27/94) rescue PTCA RCA for persistent CP with Inf SD; [facility] [place] right heart catheterization,oximetry (01/07/18) [facility] [place].Corey Griffin MD findings: Severe pulmonary hypertension mildly elevated pulmonary capillary wedge pressure Status post transcatheter aortic valve replacement [facility] [place] [place] 03/29/19 Family History Mother , Lung Cancer at age 74. Personal history of malignant neoplasm at 74 of lung CA Father , CHF at age 86. 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 Retired. 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 Meds Home Medications and Allergies Allergies Allergy/AdvReac Type Severity Reaction Status Date / Time adalimumab Allergy Severe unknown Verified 09/29/20 11:54 Penicillins Allergy Severe Anaphylaxsi Verified 09/29/20 11:54 s Home Medications Medication Instructions Recorded Confirmed Type Oxygen 09/23/17 09/05/20 History albuterol sulfate 90 mcg/actuation 2 inh IH Q6H PRN #1 each 04/06/19 09/29/20 Rx breath activated powder inhaler fluticasone 250 mcg-salmeterol 50 1 inh IH BID 05/10/19 09/29/20 History mcg/dose blistr powdr for inhalation naloxone 4 mg/actuation nasal spray 4 mg NS PRN PRN #1 unit 05/23/19 09/29/20 Rx umeclidinium 62.5 mcg/actuation 1 inh IH DAILY 08/02/19 09/29/20 History blister powder for inhalation aspirin 81 mg tablet,delayed 81 mg PO DAILY #100 tab 09/18/19 09/29/20 Rx release pen needle, diabetic 31 gauge x #90 each 11/23/19 09/05/20 Rx 3/ atorvastatin 80 mg tablet 80 mg PO DAILY #90 tab-cap 01/09/20 09/29/20 Rx insulin degludec 100 unit/mL (3 15 unit SC DAILY #60 ml MDD 50 02/15/20 09/29/20 Rx mL) subcutaneous pen empagliflozin 25 mg tablet 25 mg PO DAILY #90 tab 04/09/20 09/29/20 Rx lidocaine HCl 4 % topical cream 1 applic TOPICAL BID PRN #120 g 05/17/20 09/29/20 Rx lidocaine 4 % topical gel 1 applic TOPICAL QD-BID PRN #113 g 05/18/20 09/29/20 Rx lidocaine HCl 2 % mucosal jelly 1 applic TOPICAL DAILY PRN #30 ml 05/18/20 09/29/20 Rx acetaminophen 650 mg 650 mg PO Q12H #60 tab 06/02/20 09/29/20 Rx tablet,extended release Portable Oxygen Compressor #1 ea 06/19/20 09/05/20 Rx prednisone 10 mg tablet 20 mg PO DAILY #60 tab 06/19/20 09/29/20 Rx polyethylene glycol 3350 17 17 g PO BID #119 g 07/03/20 09/29/20 Rx gram/dose oral powder furosemide 20 mg tablet 20 mg PO BID #180 tab 07/08/20 09/29/20 Rx lancets 28 gauge #200 each 07/11/20 09/05/20 Rx magnesium oxide 400 mg PO DAILY #90 tab-cap 07/19/20 09/29/20 Rx metoprolol succinate 100 mg 100 mg PO DAILY #90 tab 07/19/20 09/29/20 Rx tablet,extended release 24 hr warfarin 2 mg tablet 1 mg PO HS #90 tab 07/19/20 09/29/20 Rx blood sugar diagnostic #400 each 07/27/20 09/05/20 Rx nitroglycerin 0.4 mg sublingual 0.4 mg SUBLINGUAL Q5 MIN PRN X3 07/27/20 09/29/20 Rx tablet PRN #90 tab pramipexole 0.125 mg tablet 0.125 mg PO HS #90 tab-cap 08/02/20 09/29/20 Rx levofloxacin 750 mg tablet 750 mg PO DAILY 08/26/20 09/29/20 History oxycodone 10 mg tablet 10 mg PO Q6H PRN #112 tab MDD 40 09/04/20 09/29/20 Rx fentanyl 12 mcg/hr transdermal 1 patch TRANSDERMAL Q72H #2 ea MDD 09/13/20 0 09/29/20 Rx patch 87 fentanyl 75 mcg/hr transdermal 1 patch TRANSDERMAL Q72H #2 ea MDD 09/13/20 09/29/20 Rx patch 87 bisacodyl 10 mg NM DAILY 09/29/20 09/29/20 History calcium carbonate [Tums 500] 500 mg PO Q4H 09/29/20 09/29/20 History clonazepam 0.5 mg PO DAILY 09/29/20 09/29/20 History dextrose [Glucose Gel] 15 g PO Q15M PRN 09/29/20 09/29/20 History glucagon 1 mg DIRECTED PRN 09/29/20 09/29/20 History lisinopril 10 mg PO DAILY 09/29/20 09/29/20 History magnesium hydroxide 400 mg PO DAILY PRN 09/29/20 09/29/20 History metformin 500 mg PO BID 09/29/20 09/29/20 History omeprazole 20 mg PO DAILY 09/29/20 09/29/20 History sodium phosphates [Fleet Enema] 118 ml NM DIRECTED PRN 09/29/20 09/29/20 History Exam Narrative Exam Narrative: Obese male who is alert oriented x3 and appropriate. HEENT is remarkable for absence of upper teeth, he has lower dentures. Oropharynx noninjected no exudate Neck is obese soft nontender normal range of motion no adenopathy normal carotid pulses Lungs with fine rales bilaterally in the lower lung lee no rhonchi no w heezing Abdomen is obese soft nontender nondistended with normal active bowel sounds. Extremities she has some skin tears on his left forearm both legs have venous stasis ulcerations in the left foot on the dorsum has a healing ulcer with closed base to it. See the wound care nurses description and measurement for details. Right femoral area w/ CVP catheter in place. No hematoma. Rectal exam reveals normal sphincter tone with light brown stool in the rectal vault that was negative for occult blood. Prostate is moderately enlarged and firm and nontender. Results Labs Result diagrams: 09/29/20 17:47 09/29/20 11:55 Labs: Laboratory Results - last 24 hr 09/29/20 09/29/20 09/29/20 11:55 11:55 11:55 WBC 17.67 H RBC 3.33 L Hgb 9.8 L Hct 31.0 L MCV 93.1 MCH 29.4 MCHC 31.6 L RDW 18.0 H Plt Count 166 MPV 10.2 Immature Gran % 0.6 Neutrophils % 89.3 Lymphocytes % 5.3 Monocytes % 4.0 Eosinophils % 0.7 Basophils % 0.1 Nucleated RBC % 0 Absolute Neutrophils 15.78 H Absolute Lymphocytes 0.94 L Absolute Monocytes 0.71 Absolute Eosinophils 0.12 Absolute Basophils 0.02 PT 15.0 H INR 1.5 H APTT 29.7 H VBG Lactate Sodium 134 L Potassium 4.0 Chloride 95 L Carbon Dioxide 34.1 H Anion Gap 4.9 BUN 31 H Creatinine 1.7 H Estimated GFR/1.73 m2 39.49 Glucose 135 H Calcium 8.2 L Magnesium 2.4 Total Bilirubin 1.2 H AST 81 H ALT 163 H Alkaline Phosphatase 163 H Troponin I 0.16 H* C-Reactive Protein NT-Pro-B Natriuret Pep Total Protein 5.4 L Albumin 1.8 L Procalcitonin Urine Color Urine Clarity Urine pH Ur Specific Parker Urine Protein Urine Ketones Urine Blood Urine Nitrite Urine Bilirubin Urine Urobilinogen Ur Leukocyte Esterase Urine RBC Urine WBC Ur Epithelial Cells Urine Crystals Urine Bacteria Urine Casts Urine Mucus Urine Other Ur Culture Indicated? Urine Glucose COVID-19 Source SARS-CoV-2 (PCR) 09/29/20 09/29/20 09/29/20 11:55 11:55 11:55 WBC RBC Hgb Hct MCV MCH MCHC RDW Plt Count MPV Immature Gran % Neutrophils % Lymphocytes % Monocytes % Eosinophils % Basophils % Nucleated RBC % Absolute Neutrophils Absolute Lymphocytes Absolute Monocytes Absolute Eosinophils Absolute Basophils PT INR APTT VBG Lactate Sodium Potassium Chloride Carbon Dioxide Anion Gap BUN Creatinine Estimated GFR/1.73 m2 Glucose Calcium Magnesium Total Bilirubin AST ALT Alkaline Phosphatase Troponin I C-Reactive Protein 7.27 H NT-Pro-B Natriuret Pep 2973 H Total Protein Albumin Procalcitonin 0.2 Urine Color Urine Clarity Urine pH Ur Specific Parker Urine Protein Urine Ketones Urine Blood Urine Nitrite Urine Bilirubin Urine Urobilinogen Ur Leukocyte Esterase Urine RBC Urine WBC Ur Epithelial Cells Urine Crystals Urine Bacteria Urine Casts Urine Mucus Urine Other Ur Culture Indicated? Urine Glucose COVID-19 Source SARS-CoV-2 (PCR) 09/29/20 09/29/20 09/29/20 12:39 13:00 13:32 WBC RBC Hgb Hct MCV MCH MCHC RDW Plt Count MPV Immature Gran % Neutrophils % Lymphocytes % Monocytes % Eosinophils % Basophils % Nucleated RBC % Absolute Neutrophils Absolute Lymphocytes Absolute Monocytes Absolute Eosinophils Absolute Basophils PT INR APTT VBG Lactate 3.0 H* Sodium Potassium Chloride Carbon Dioxide Anion Gap BUN Creatinine Estimated GFR/1.73 m2 Glucose Calcium Magnesium Total Bilirubin AST ALT Alkaline Phosphatase Troponin I C-Reactive Protein NT-Pro-B Natriuret Pep Total Protein Albumin Procalcitonin Urine Color Urine Clarity Urine pH Ur Specific Parker Urine Protein Urine Ketones Urine Blood Urine Nitrite Urine Bilirubin Urine Urobilinogen Ur Leukocyte Esterase Urine RBC Urine WBC Ur Epithelial Cells Urine Crystals Urine Bacteria Urine Casts Urine Mucus Urine Other Ur Culture Indicated? Urine Glucose COVID-19 Source Cancelled Nasopharyx SARS-CoV-2 (PCR) Cancelled Negative 09/29/20 14:28 WBC RBC Hgb Hct MCV MCH MCHC RDW Plt Count MPV Immature Gran % Neutrophils % Lymphocytes % Monocytes % Eosinophils % Basophils % Nucleated RBC % Absolute Neutrophils Absolute Lymphocytes Absolute Monocytes Absolute Eosinophils Absolute Basophils PT INR APTT VBG Lactate Sodium Potassium Chloride Carbon Dioxide Anion Gap BUN Creatinine Estimated GFR/1.73 m2 Glucose Calcium Magnesium Total Bilirubin AST ALT Alkaline Phosphatase Troponin I C-Reactive Protein NT-Pro-B Natriuret Pep Total Protein Albumin Procalcitonin Urine Color Yellow Urine Clarity Cloudy Urine pH 5.0 Ur Specific Parker <= 1.005 Urine Protein 100 H Urine Ketones Negative Urine Blood Large H Urine Nitrite Negative Urine Bilirubin Negative Urine Urobilinogen 1.0 H Ur Leukocyte Esterase Small H Urine RBC 10-20 H Urine WBC 10-20 H Ur Epithelial Cells Few Urine Crystals Negative Urine Bacteria Moderate Urine Casts 0-2 hyaline Urine Mucus Trace Urine Other Many yeast Ur Culture Indicated? Yes Urine Glucose >=1000 H COVID-19 Source SARS-CoV-2 (PCR) Last Vital Signs Temp 36.2 C L 09/29/20 11:42 Pulse 87 09/29/20 15:30 Resp 12 09/29/20 15:31 BP 75/29 L 09/29/20 15:30 Pulse Ox 100 09/29/20 15:31 COVID-19 Screening Have you, or household traveled for leisure in last 14 days?: No Had IN PERSON contact w/suspected or confirmed C-19 person: No
[2020-09-29 17:20] LABS: Troponin I 0.16 ng/mL (<0.06)
[2020-09-29 18:01] LABS: HCT 31.7 % (40.0-50.0); HGB 10.1 g/dL (13.5-17.5)
[2020-09-29 18:20] LABS: Lactate 3.3 mmol/L (0.6-1.4)
[2020-09-29] MEDS: Hydrocortisone SOD SUC. 100 MG VIAL IVP (18:22)
[2020-09-29] MEDS: Pantoprazole 40 MG VIAL IVP (18:23)
[2020-09-29] MEDS: Normal Saline Flush 10 ML SYR IVP (18:24)
[2020-09-29] MEDS: levoFLOXacin 750 MG/150 ML BAG 100 MG IVPB (18:42)
--- NOTE | 2020-09-29 19:09 | RESPIRATORY ---
Pt states he he uses 5 LPM NC at home 25/01. While here Pt is on 2 LPM NC @ 97%.Pt states his home DME is [facility]. [facility] should be contacted on Wednesday to confirm Pt's current prescription.
--- NOTE | 2020-09-29 20:00 | WOUNDCONS ---
- If Service Date Differs Date of service: 09/29/20 Time of Service: 20:00 Wound Initial Evaluation Narrative: Pt admited for sepsis and has multiple wounds of varying etiologies. Spoke with patient about wounds, he stated some of the wounds on bilat legs and arms were from a fall about 2 weeks ago. Bilat foot wounds pt stated are from about four months ago[address] Dr. Munroe, his clinic doctor was here and was able to check in, stated he has been going to [facility] wound center, but has not been there in about 3 weeks, but her preference would be to stay with their recommendations. Will follow up on orders from [facility]. Pt also has wounds on back and sacrum which appear to be from friction and moisture. Pt has positive pedal pulses, sensation, has pain 10/10 generalized. Fentanyl patches in place and MD ordered PRN pain medication for dressing change as well as topical lidocaine. - Wound Left Buttocks Three open areas Wound Type: Partial Thickness Wound General Appearance: Unapproximated Wound Bed Greatest Portion: Red (Granulation) Wound Bed Lesser Portion: Yellow (Slough) Wound Length: 0.2 cm (each area approx) Wound Width: 0.2 cm (each area approx) Wound Depth: 0.1 cm (each area approx) Wound Drainage Amount: Minimal Wound Drainage Odor: None/Absent Wound Drainage Description: Serous Wound Topical Solution/Irrigant: Saline Irrigant Wound Debridement Result: Healthy Tissue Revealed Right Dorsal foot Wound Type: Full Thickness Wound General Appearance: Unapproximated Wound Bed Greatest Portion: Pale Golinda Wound Bed Lesser Portion: Pale Golinda, Yellow (Slough) Wound Surrounding Tissue Appearance: Golinda Wound Length: 2.5 cm Wound Width: 2 cm Wound Depth: 0.2 cm Wound Drainage Amount: Minimal Wound Drainage Odor: None/Absent Wound Drainage Description: Serous Wound Debridement Method: Gauze Wound Debridement Result: Pt Unable to Tolerate Wound Debridement Amount of Tissue Removed: Minimal Right lower extremity circumferential Wound Type: Partial Thickness Wound General Appearance: Unapproximated Wound Bed Greatest Portion: Red (Granulation) Wound Bed Lesser Portion: Yellow (Slough) Wound Surrounding Tissue Appearance: Purple Percent of Wound Bed Granulated/Red: 90 Percent of Wound Bed Slough/Yellow: 10 Wound Length: 14 cm (general area, multiple wounds) Wound Depth: 0.1 cm (approximately) Wound Drainage Amount: Minimal Wound Drainage Description: Sero Sanguineous Wound Debridement Method: Gauze Wound Debridement Result: Pt Unable to Tolerate Wound Debridement Amount of Tissue Removed: Minimal Right medial knee Wound Type: Partial Thickness Wound General Appearance: Unapproximated Wound Bed Greatest Portion: Pale Golinda Wound Surrounding Tissue Appearance: Golinda Percent of Wound Bed Granulated/Red: 100 Wound Length: 2 cm Wound Width: 6.5 cm Wound Depth: 0.1 cm (less than 0.1) Wound Drainage Amount: Minimal Wound Drainage Odor: None/Absent Wound Drainage Description: Serous Wound Topical Solution/Irrigant: Saline Irrigant Wound Debridement Method: Gauze Wound Debridement Result: Healthy Tissue Revealed Wound Debridement Amount of Tissue Removed: Minimal Left arm distal Wound Type: Skin Tear Wound General Appearance: Unapproximated Wound Bed Greatest Portion: Red (Granulation) Wound Length: 2 cm Wound Width: 0.6 cm Wound Depth: 0.1 cm Wound Drainage Amount: Minimal Wound Drainage Odor: None/Absent Wound Drainage Description: Sero Sanguineous Wound Topical Solution/Irrigant: Saline Irrigant Wound Debridement Method: Gauze Wound Debridement Result: Healthy Tissue Revealed Wound Debridement Amount of Tissue Removed: None Left arm mid Wound Type: Skin Tear Wound General Appearance: Unapproximated Wound Bed Greatest Portion: Red (Granulation) Percent of Wound Bed Granulated/Red: 100 Wound Length: 2.6 cm Wound Width: 1 cm Wound Depth: 0.1 cm Wound Drainage Amount: Minimal Wound Drainage Odor: None/Absent Wound Drainage Description: Sero Sanguineous Wound Topical Solution/Irrigant: Saline Irrigant Wound Debridement Method: Gauze Wound Debridement Result: Healthy Tissue Revealed Wound Debridement Amount of Tissue Removed: Minimal Left arm proximal Wound Type: Skin Tear Wound Bed Greatest Portion: Red (Granulation) Wound Surrounding Tissue Appearance: Golinda Percent of Wound Bed Granulated/Red: 100 Wound Length: 3 cm (nearly approximated linear skin tear) Wound Width: 3.5 cm Wound Depth: 0.1 cm Wound Drainage Amount: Minimal Wound Drainage Odor: None/Absent Wound Drainage Description: Sero Sanguineous Wound Topical Solution/Irrigant: Saline Irrigant Wound Debridement Method: Gauze Wound Debridement Result: Healthy Tissue Revealed Wound Debridement Amount of Tissue Removed: Minimal Right forearm Wound Type: Skin Tear Wound General Appearance: Unapproximated Wound Bed Greatest Portion: Pale Golinda Percent of Wound Bed Granulated/Red: 100 Wound Length: 10.5 cm Wound Width: 5 cm Wound Depth: 0.1 cm (less than 0.1) Wound Drainage Amount: Minimal Wound Drainage Description: Serous Wound Debridement Method: Gauze Wound Debridement Result: Healthy Tissue Revealed Wound Debridement Amount of Tissue Removed: Minimal Left dorsal foot Wound Type: Full Thickness Wound General Appearance: Unapproximated Wound Bed Greatest Portion: Dusky Red Wound Bed Lesser Portion: Yellow (Slough) Wound Surrounding Tissue Appearance: Golinda Percent of Wound Bed Granulated/Red: 90 Percent of Wound Bed Slough/Yellow: 10 Wound Length: 3 cm Wound Width: 2.5 cm Wound Depth: 0.2 cm Wound Drainage Amount: Minimal Wound Drainage Odor: None/Absent Wound Drainage Description: Serous Wound Topical Solution/Irrigant: Saline Irrigant Wound Debridement Method: Gauze Wound Debridement Result: Pt Unable to Tolerate Wound Debridement Amount of Tissue Removed: Minimal Left smart Wound General Appearance: Unapproximated Wound Bed Greatest Portion: Red (Granulation) Percent of Wound Bed Granulated/Red: 95 Percent of Wound Bed Slough/Yellow: 5 Wound Length: 4.5 cm Wound Width: 2 cm Wound Depth: 0.2 cm Wound Drainage Amount: Minimal Wound Drainage Odor: None/Absent Wound Drainage Description: Sero Sanguineous Wound Topical Solution/Irrigant: Saline Irrigant Wound Debridement Method: Gauze Wound Debridement Result: Pt Unable to Tolerate Wound Debridement Amount of Tissue Removed: Minimal Left lateral leg Wound Type: Partial Thickness Wound General Appearance: Unapproximated Wound Bed Greatest Portion: Dusky Red Percent of Wound Bed Granulated/Red: 90 Percent of Wound Bed Slough/Yellow: 10 Wound Length: 8 cm Wound Width: 6.5 cm Wound Depth: 0.1 cm Wound Drainage Amount: Minimal Wound Drainage Odor: None/Absent Wound Drainage Description: Sero Sanguineous Wound Debridement Result: Pt Unable to Tolerate Wound Debridement Amount of Tissue Removed: Minimal Right upper back Wound Type: Skin Tear Wound Bed Greatest Portion: Red (Granulation) Percent of Wound Bed Granulated/Red: 100 Wound Length: 0.4 cm (linear skin tear) Wound Width: 4 cm Wound Drainage Amount: Minimal Wound Drainage Description: Sero Sanguineous - Circulation, Sensation, Motion Edema Degree: 4+ Peripheral Pulse Strength: Normal Capillary Refill: Greater than 3 seconds Sensation Description: Pain Skin Temperature: Cool Skin Color: Pale - RIDDHI Comment:: deferred d/t pain - Pain Pain Level: 10 Pain Scale Used: Adult Pain Description: Acute Pain Duration/Frequency: Constant Due to patient's medical needs and medications on board, photographs deferred at this time. - Treatment/Dressing Change Topicals/Ointments: None - Recomendation Recomendation:: Recommend wash all wounds with normal saline and gauze prior to dressing changes, may use 2% lidocaine for pain control during dressing changes. Dressing changes as follows: 1. Bilateral dorsal feet- apply saline moistened promogran kristen to wound bed. Skin prep to remi- wound. COver with mepilex w/ border. Change q 3 days and PRN. 2. Bilateral lower extremities- Apply xeroform to open areas between knees and ankles. Apply optilock over drainaing wounds. Secure with kerlix wraps. Cover with flexnet. Change q 3 days and PRN. 3. Multiple skin tears bilateral arms- Apply mepilex w/ border. Change q 7 days and PRN 4. L buttocks- Cover 3 small open areas w/ mepilex w/ border. Change q 7 days and PRN. 5. Skin tear right upper back- Apply mepilex w/ border. Change q 7 days and PRN. Referrals: Dietary
[2020-09-29] MEDS: Insulin NPH-Human 300 UNITS/3 ML PEN 25 UNIT SC (21:07)
[2020-09-29 21:32] LABS: Lactate 2.6 mmol/L (0.6-1.4)
[2020-09-29 21:48] LABS: Troponin I 0.12 ng/mL (<0.06)
[2020-09-29] MEDS: Budesonide/Formoterol 160/4.5 6 GM 60 PUFF INH IH (22:18)
[2020-09-29] MEDS: Calcium Carbonate *TUMS* 500 MG CHEW PO (22:18)
[2020-09-29] MEDS: Atorvastatin 40 MG TAB 80 MG PO (22:19)
[2020-09-29] MEDS: Acetaminophen 325 MG TAB 650 MG PO (22:19)
[2020-09-29] MEDS: Pramipexole 0.25 MG TAB 0.125 MG PO (22:20)
[2020-09-29] MEDS: Normal Saline 1,000 ML 150 ML IV (22:38)
[2020-09-30] VITALS (173 sets, daily range): BP systolic 63–143; BP diastolic 28–97; PULSE 51–183; RESP 10–24; TEMP 34–36.8; O2SAT 77–100
--- NOTE | 2020-09-30 | DI.US_ITS ---
EXAM: US ABDOMEN RENAL CLINICAL HISTORY: sepsis, elevated liver enzymes TECHNIQUE: Ultrasound of complete upper abdomen performed using standard protocol. COMPARISON: US US ECHOCARDIOGRAM from 09/30/2020 FINDINGS: There is no ascites evident. Bowel gas prevents visualization of the mid-distal abdominal aorta. LIVER: There are no hepatic lesions evident nor obvious dilatation of intrahepatic ducts. GALLBLADDER/BILIARY: There are no gallstones. No gallbladder wall edema nor pericholecystic fluid. The common hepatic duct isnot dilated, measuring 4-5mm at the level of lula hepatis. PANCREAS: Obscured by overlying bowel gas. SPLEEN: The spleen is not enlarged and there are no intrasplenic lesions evident. KIDNEYS:Kidneys exhibit normal size with no evidence of solid mass, calculus, nor hydronephrosis. No cortical cysts evident. ABDOMINAL AORTA: Proximal abdominal aorta was able to be seen and appears normal size. IVC: Normal diameter where visualized. IMPRESSION: 1. No evidence of cholelithiasis nor dilatation of the biliary tree. 2. Pancreas not seen due to overlying bowel gas. Mid and distal abdominal aorta on also not well se en due to bowel gas. No aneurysmal dilatation of the visualized proximal abdominal aorta. 3. There is no ascites. DATA REPOSITORY:
--- NOTE | 2020-09-30 | DI.US_ITS ---
APPROVED REPORT EXAM: Comprehensive 2D, Doppler, and color-flow Echocardiogram Patient Location: In-Patient Room/Bed: BQX078 [employer] Inspector: Argelia Stiles RDCS (AE) Indications: CHF, Elevated troponin, Bio AVR Other Information Study Quality: Fair. Technically limited study due to body habitus, inability to position patient. Conclusion This is a technically difficult study. Left Ventricle : The left ventricle is normal size. Left ventricular systolic function is mildly decr eased. There is normal left ventricular wall thickness. There is global hypokinesis of the left ventr icle. The left ventricular diastolic function is abnormal. LVEF is 45%. Right Ventricle : Right ventricle is not well visualized. Right ventricular systolic function could n ot be assessed. The RVSP is 81.3mmHg. Atria : Left atrium is moderate to severely dilated. The right atrium size is normal. Aortic Valve : Bioprosthetic aortic valve is present. It appears well-seated without any significant regurgitation. Peak aortic valve gradient is 15.9_mmHg. Highest mean aortic valve gradient is 11.0mm Hg. Calculated ALETHA by the continuity equation is 2.16cm2. Trace aortic regurgitation. Mitral Valve : Mild mitral annular calcification. Mild mitral regurgitation. No evidence of mitral va lve stenosis. Great Vessels : The aortic root is normal in size. The ascending aorta is normal in size. Aortic arch is not well visualized. IVC is normal in size and collapses >50% with inspiration. Compared to study from 11/01/2019, there is no significant change. Wall motion Left Ventricle The left ventricle is normal size. Left ventricular systolic function is mildly decreased. There is n ormal left ventricular wall thickness. There is global hypokinesis of the left ventricle. The left ve ntricular diastolic function is abnormal. There is no ventricular septal defect visualized. LVEF is 4 5%. Right Ventricle Right ventricle is not well visualized. Right ventricular systolic function could not be assessed. Th e RVSP is 81.3mmHg. Atria Left atrium is moderate to severely dilated. The right atrium size is normal. The interatrial septum is intact with no evidence for an atrial septal defect. Aortic Valve Bioprosthetic aortic valve is present. It appears well-seated without any significant regurgitation. Peak aortic valve gradient is 15.9_mmHg. Highest mean aortic valve gradient is 11.0mmHg. Calculated A VA by the continuity equation is 2.16cm2. Trace aortic regurgitation. Mitral Valve Mild mitral annular calcification. No evidence of mitral valve stenosis. Mild mitral regurgitation. Tricuspid Valve The tricuspid valve is normal in structure. There is no tricuspid valve stenosis. Moderate tricuspid regurgitation. Pulmonic Valve The pulmonary valve is normal in structure. There is no pulmonic valvular stenosis. Trace pulmonic re gurgitation. Great Vessels The aortic root is normal in size. The ascending aorta is normal in size. Aortic arch is not well vis ualized. IVC is normal in size and collapses >50% with inspiration. Pericardium There is no pericardial effusion. 2D Dimensions IVSD d PLAX 1.05 cm M: 0.6-1.2 LV Vol A2C d MOD 88.0 mL LVPW d PLAX 1.01 cm M: 0.6 - 1.2 LV Vol A4C d MOD 103.5 mL LVID d PLAX 4.57 cm M: 4.2 - 5.8 LA vol/ BSA A2C s A-L 43.7 mL/m2 LVDs 3.60 cm M: 2.5 - 4.0 LA vol/ BSA A4C s A-L 59.7 mL/m2 Ao Root d 2.50 cm M: 3.1 - 3.7 LA Vol/ BSA Biplane s A-L 55.4 mL/m2 RA Area A4C 23.38 cm2 LA Area A4C s MOD 34.31 cm2 RA Vol/ BSA A4C s A-L 37.4 mL/m2 LA Area A2C s MOD 27.05 cm2 Ao Asc Diam d 3.49 cm M: 2.6 - 3.4 LV EF A4C MOD 45.4 % LV EF Teichholz 42.5 % LV EF A2C MOD 44.5 % LVEF (Lyons's) 39.17 % M: 52 - 72 LV EF Biplane MOD 39.2 % LV Volume 71.36 mL M: 62 - 150 SV 37.75 mL LV Volume Index 34.30 mL/m2 M: 34 - 74 SV Index 18.15 mL/m2 LV Vol Biplane MOD 96.4 mL FS 20.75 % M-Mode TAPSE 1.11 cm (M/F) >1.7 LV Diastology MV E' medial 0.034 (>0.07 m/s) MV E Vmax 1.30 (0.4-1.3 m/s) LV E/e MED 37.85 (<14) MV E' lateral 0.050 (>0.1 m/s) LV E/e LAT 25.95 (<14) MV E/E' medial 37.86 MV E/E' lateral 25.98 Aortic Valve LVOT Area 2.82 cm2 AoV Area Vmax 2.16 cm2 LVOT Vmax 1.53 m/s AoV Area/ BSA (Vmax) 1.04 cm2/m2 LVOT Mean Stoney. 0.85 m/s ALETHA Mean Stoney. 1.50 cm2 LVOT Peak Grad 9.4 mmHg ALETHA Mean Stoney. Index 0.72 cm2/m2 LVOT Mean Grad 3.9 mmHg LVOT VTI 0.216 m LVOT Diam s 1.85 cm AoV Vmax 1.99 m/s Velocity Ratio 0.76 AoV Mean Stoney. 1.60 m/s AoV Peak Grad 15.9 mmHg LVOT SV 60.75 mL AoV Mean Grad 11.0 mmHg AoV VTI 0.351 m AoV Area VTI 1.73 cm2 AoV Area/ BSA (VTI) 0.83 cm/m2 Mitral Valve MV DT 128 (160-240 msec) MR Vmax 4.67 m/s MV PHT 37 msec MR VTI 0.999 m MV Area PHT 5.93 cm2 MR Peak Grad 87.2 mmHg MV VTI 0.207 m MR Mean Grad 60.6 mmHg MV VTI Annulus 0.203 m MR PISA Radius 0.38 cm MV Area VTI 2.89 (4.0-6.0 cm2) MR EROA 0.07 cm2 MR Aliasing Velocity 0.35 m/s MR PISA 0.90 cm2 Pulmonary Valve PV Vmax 1.61 (0.5-1.5 m/s) RVOT Peak Gr. 2.15 mmHg PV Peak Grad 10.4 mmHg RVOT Mean Gr. 1.05 mmHg PV Mean Grad 4.2 mmHg RVOT VTI 0.127 m PV VTI 0.234 m RVOT Vmax 0.73 m/s Tricuspid Valve TR Peak Grad 78.3 mmHg TR Vmax 4.42 m/s RA Pressure 3.00 mmHg RVSP (TR) 81.3 mmHg
[2020-09-30] MEDS: Hydrocortisone SOD SUC. 100 MG VIAL 50 MG IVP ×5 (00:05→23:33)
[2020-09-30] MEDS: Calcium Carbonate *TUMS* 500 MG CHEW PO ×5 (00:06→23:34)
[2020-09-30] MEDS: Insulin NPH-Human 300 UNITS/3 ML PEN 25 UNIT SC (06:09)
[2020-09-30] MEDS: Normal Saline 1,000 ML 150 ML IV (06:12)
[2020-09-30] MEDS: Normal Saline Flush 10 ML SYR IVP ×4 (06:12→22:53)
[2020-09-30 06:39] LABS: Abs Immature Grans 0.12 10^3/uL (0.0-0.06); Absolute Basophil Count 0.02 10^3/uL (0.0-0.2); Absolute Lymphocyte Count 0.35 10^3/uL (1.2-3.4); Absolute Neutrophil Count 17.44 10^3/uL (1.2-6.7); Basophils % 0.1; HCT 29.7 % (40.0-50.0); HGB 9.5 g/dL (13.5-17.5); Immature Grans % 0.7; Lymphocytes % 1.9; MCH 29.6 pg (27.0-33.0); MCV 92.5 fL (80-95); MPV 9.8 fL (8.0-11.0); Monocytes % 2.3; Nucleated RBC 0 %; Platelet Count 156 10^3/uL (130-400); RBC 3.21 10^6/uL (4.36-5.78); RDW 17.8 % (11.8-14.1); RDW-SD 59.8 fL; WBC 18.36 10^3/uL (4.4-10.8)
[2020-09-30 06:40] LABS: Lactate 1.6 mmol/L (0.9-1.7)
[2020-09-30] MEDS: Normal Saline Flush 10 ML SYR (06:45)
[2020-09-30 06:48] LABS: Reticulocyte 3.7 % (0.5-2.4)
[2020-09-30 06:51] LABS: Iron 32 ug/dL (65-175); Total Iron Binding Capacity 133 ug/dL (250-450); Transferrin Sat 24 % (20-55)
[2020-09-30 06:53] LABS: ALT 137 U/L (16-63); AST 67 U/L (15-37); Absolute Monocyte Count 0.42 10^3/uL (0.1-0.8); Albumin 1.6 g/dL (3.4-5.0); Alkaline Phosphatase 151 U/L (46-116); Anion Gap 6.3 mmol/L (3-11); BUN 27 mg/dL (7-18); Bilirubin, Total 1.1 mg/dL (0.2-1.0); CO2 28.7 mmol/L (21.0-32.0); CREATININE 1.2 mg/dL (0.70-1.30); Calcium 7.2 mg/dL (8.5-10.1); Chloride 99 mmol/L (98-107); Estimated GFR 59.02 (mL/min/1.73m2); Glucose 185 mg/dL (74-106); Sodium 134 mmol/L (136-145); Total Protein 5.2 g/dL (6.4-8.2)
--- NOTE | 2020-09-30 06:54 | NUR.NOTE ---
pt has a fentanyl patch on L chest [facility] Nursing Note:
[2020-09-30 06:56] LABS: INR 2.2 (0.9-1.1); Prothrombin Time 21.3 sec (9.3-11.0)
[2020-09-30 07:01] LABS: LDH 477 U/L (85-227)
[2020-09-30 07:04] LABS: Troponin I 0.12 ng/mL (<0.06)
[2020-09-30 07:45] LABS: Ferritin 487 ng/mL (26-388); Vitamin B12 1546 pg/mL (193-986)
--- NOTE | 2020-09-30 08:25 | INITIAL_ITS ---
- If Service Date Differs Date of service: 09/30/20 Time of Service: 08:25 Care Management Initial Assess REASON FOR HOSPITALIZATION:: Septic Shock PAST MEDICAL HISTORY/PAST SURGICAL HISTORY:: Medical History . Anemia. Hx low Hgb, but today's lab review was unexpected. Probable anemia of chronic disease .. Non-meat diet, [ ] iron suppl (concern for constipation)? [ ] stool guaic. Aortic stenosis, moderate (07/03/16). S/P AoVR;[facility] ECHO EF 65%; Mod , valve area 1.33 (grad 23/mean14) (06/2016). [facility] eval 09/2017 shows worsening disease .. may need cardiac surgery. Aortic stenosis, severe (02/27/19). [facility] ECHO EF 65%; Mod , valve area 1.33 (grad 23/mean14) (06/2016). [facility] eval 09/2017 shows worsening disease .. may need cardiac surgery. Changed to severe per [facility] EF 59%, aortic valve area 0.9cm, mean gradient 23 mmHg. Depressive disorder (07/14/11). Diabetic foot ulcer associated with type 2 diabetes mellitus, with fat layer exposed. Diabetic neuropathy associated with type 2 diabetes mellitus. Infected wound. No active infection, -06/2020. Uncontrolled pain. Left foot s/p debridement [ ]. Rheum Arthritis [ ]. Venous insufficiency of both lower extremities. Venous stasis ulcer. Wound of left foot. Forefoot, x 2 weeks self-care; Worse/Painful/Necrosis, 03/22/20. [ ] ED [ ] Surg? [ ] [facility]. Wound of right foot. Due to walker 2' fall.. Surgical History . Bronchoscopy (11/20/10). with BAL. echo. ([facility] pulmonolgy note 09/21/17.) Compared to the study from 06/18/16 the severity of aortic stenosis has increased and there is pulmonary hypertension. seeing cardio again in 2 wks. Extraction of cataract (08/21/10). R eye,with IOL, Dr Gary. History of cardiac cath. 03/21/19 [facility] Right heart cath-mild Pulm HTN mean PA pressure 25 and PA systolic pressure 50 normal wedge pressure 6. Right dominant circulation with mild disease in all vessels, focal anyeursm RCA 5mm. Internal fixation (08/03/10). R distal femoral fx, Dr Banda, [facility]. PFT'S: SEPTEMBER 2017. [facility] pulm note 09/21/17. O2 sat on RA 97%. After 250 ft on RA 88% needing 2l O2. PTCA (01/27/94). rescue PTCA RCA for persistent CP with Inf ME; [facility]. right heart catheterization,oximetry (01/07/18[place] [facility] Griffin MD. findings: Severe pulmonary hypertension. mildly elevated pulmonary capillary wedge pressure. Status post transcatheter aortic valve replacement. [facility] 03/29/19 PREVIOUS FUNCTIONAL STATUS/SOCIAL/FAMILY SUPPORTS:: Elio lives in an apartment in [place], [place] with his long time girlfriend Debra. He did state that he plans to move to the [facility] in November. 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 Elio uses home oxygen at 4L, but manages his ADLs with Debra's help. CURRENT FUNCTIONAL STATUS:: Elio was lying in bed when CM met with him. He stated that he got sick and went to [facility] last week and then went to [facility]. He stated that he was only there one day. Elio shared that he is now residing in [place] with Debra but they plan to move to the [facility] on November 02 as he has secured a first floor apartment which is wheelchair acessible. elio informed CM that he could not understand how he could be so sick when he feels well. ADVANCE DIRECTIVES:: On file. Burt Blanco ERINN Has patient been provided with info about the portal/API?: Yes Did the patient sign up for the portal?: No CODE STATUS:: Full Code INSURANCE COVERAGE / FINANCIAL ISSUES:: Medicare. Financial Assist 100 CURRENT HOME/COMMUNITY SERVICES/EQUIPMENT:: wheelchair, commode, electric recliner PRIMARY CARE PHYSICIAN:: Ana Alatorre POTENTIAL DISCHARGE NEEDS:: Follow up with PCP and discharge plan of care PATIENT/FAMILY EDUCATION NEEDS:: Review of discharge instructions, limitations, folow up plan, Ask Me Three TRANSPORTATION:: facility wheelchair van PLAN:: Elio will likely return to [facility] when medically ready. He will follow up with their plan of care and facility provider and transport via facility W/C van. CM will continue to support patient and asssess for discharge planning needs.
[2020-09-30] MEDS: Umeclidinium 7 CAP INHALER 1 CAP IH (08:59)
[2020-09-30] MEDS: Budesonide/Formoterol 160/4.5 6 GM 60 PUFF INH IH ×2 (09:00→21:22)
[2020-09-30] MEDS: Insulin Aspart 300 UNITS/3 ML PEN SC ×3 (09:03→13:50)
[2020-09-30] MEDS: clonazePAM 1 MG TAB 0.5 MG PO (09:04)
[2020-09-30] MEDS: Acetaminophen 325 MG TAB 650 MG PO (09:08)
--- NOTE | 2020-09-30 09:11 | RESPIRATORY ---
RT spoke with [facility] today concerning patient's liter flow of Oxygen. Patient has stated his baseline oxygen at home is 5L. With speaking with [facility], his prescribed baseline is 4L [place], Nursing was informed.
--- NOTE | 2020-09-30 09:37 | PGE_ITS ---
Date of Service Date of service: 09/30/20 Time of Service: 09:37 Assessment and Plan Assessment and plan (1) Septic shock: Status: Acute Assessment and plan: Patient has met criteria for septic shock and that he had significant hypotension that was unresponsive to IV fluids required vasopressors and he had endorgan injury including acute kidney injury and shock liver. Kidney function is recuperating. His BUN is down to 27 g 1.2 and liver transaminases are improving although not back to normal. Nevertheless he is still requiring vasopressors to maintain his mean arterial pressure greater than 65 mm. And he still has a significant leukocytosis of 18,000. Suspected sources of infection include urinary tract as well as skin sores due to his chronic leg wounds. He remains on vancomycin, Levaquin, aztreonam. I asked him about his penicillin allergy and he says it is just a skin rash with itching and hives but no angioedema. Of asked pharmacy to remove the statement from his allergy list is showing penicillin causing anaphylaxis. I have ordered meropenem to cover for anaerobes as well as gram negatives including probable UTI. While he still may have an underlying pneumonia I think the confounding problem is he has rheumatoid lung causing interstitial changes leading to dry rales and when he presented he had no shortness of breath no hypoxemia and he has minimal to no cough. We will continue with Levaquin and vancomycin and add meropenem and discontinue the aztreonam. Once we get results of his blood and urine cultures we can then narrow his antibiotic focus. I decrease his IV fluid rate down to a maintenance rate of 75 mL an hour because of his underlying pulmonary hypertension and a history of diastolic heart failure. His troponins are declining at 0.12 and I suspect this is due to demand ischemia as he has had no chest pain or dyspnea. Echocardiogram is pending at this time. Continue stress dose hydrocortisone. (2) Urinary tract infection in male: Status: Acute Assessment and plan: as above. ayers to monitor urine output. renal US was ordered and is pending. (3) Transaminitis: Status: Acute Assessment and plan: I suspect his transaminitis is secondary to shock liver. Transaminases are declining but remain mildly elevated. In addition to the renal ultrasound I will get an abdominal ultrasound to rule out any biliary source of infection. (4) Acute kidney injury (nontraumatic): Status: Acute Assessment and plan: Acute kidney injury secondary to severe hypotension and sepsis. BUN and creatinine are improving and he is making good urine output. Continue gentle IV fluid hydration and hemodynamic support. (5) Elevated troponin: Status: Acute Assessment and plan: suspect demand ischemia, not an acute coronary thrombosis. monitor serial troponin levels, check echo in the a.m. POCUS echo shows no LV dysfunction. However he has enlarged LVH and enlarged RV. Patient denies any CP. (6) Pneumonia: Status: Suspected Assessment and plan: although his CT demonstrates bilateral interstitial markings, patient has hx of rheumatoid lung and ILD and with no evidence of hypoxemia, cough or dyspnea, I doubt that pneumonia is the source of his hypotension. Similarly I doubted any PE however , the CTA ordered by the ER has proven no evidence for P.E. Qualifiers: Pneumonia type: due to unspecified organism Laterality: bilateral Lung location: lower lobe of lung Qualified Code(s): J18.9 - Pneumonia, unspecified organism (7) Wound of right foot: Status: Acute Assessment and plan: chronic wounds which are in various stages of healing. cont. wound care as per [facility]. I have consulted our wound care nurses who evaluated him this evening and have re-dressed his wounds. See their note for details (8) Wound of left foot: Status: Acute Assessment and plan: as above (9) Venous stasis ulcer: Status: Acute Assessment and plan: as above Qualifiers: Venous stasis ulcer site: calf Varicose vein presence: with varicose veins Laterality: unspecified laterality Non-pressure ulcer stage: limited to breakdown of skin Qualified Code(s): I83.002 - Varicose veins of unspecified lower extremity with ulcer of calf; L97.201 - Non-pressure chronic ulcer of unspecified calf limited to breakdown of skin (10) Anemia: Status: Chronic Assessment and plan: Appears to be a chronic iron deficiency anemia probably due to chronic GI bleeding. Nevertheless he had negative stools for occult blood last night. I put him on IV Protonix for GI protection. I will add iron supplementation to his regimen. Hemoglobin has remained relatively stable at 9.5 g. Qualifiers: Anemia type: unspecified type Qualified Code(s): D64.9 - Anemia, unspecified (11) Venous insufficiency of both lower extremities: Status: Acute Assessment and plan: chronic venous insufficiency. Once his wounds are healed up he should be evaluated for Unaboot or for lymphedema pneumatic devices. For now will continue w/ wound care and consider PATT wraps. 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 His lung exam of rales are probably d/t fibrosis. Consider high resolution CT of his lungs once he is stable. (14) Pulmonary HTN: Status: Chronic Assessment and plan: His pro-BNP is elevated at 2900 which is much higher than in February 2000. While this could represent CHF, clinicially he is dry as demonstrated by elevated BUN and creatinine, hypotension. His BNP could be elevated d/t his PHTN. Check echocardiogram today. Once he is hemodynamically stable off norepinephrine we will need to reinstitute diuretics to control his right-sided heart failure. (15) Obstructive sleep apnea syndrome: Status: Chronic Assessment and plan: supportive care w/ oxygen. He will need his CPAP/BIPAP brought in and applied at night. (16) Essential hypertension: Status: Chronic Assessment and plan: BP meds on hold while he is hypotensive and needing vasopressor support. (17) Atrial fibrillation with controlled ventricular response: Status: Chronic Assessment and plan: As the patient showing no signs of active bleeding I have resumed his warfarin with daily INR monitoring. With respect to his atrial fibrillation rate we need to reinstitute his metoprolol which is been on hold because of his hypotension requiring norepinephrine. Patient had a nonsustained run of ventricular tachycardia this morning. If he has recurrent ventricular tachycardia he may need antiarrhythmic medications otherwise we will try to reinstitute his beta-blockers. I may try him on low-dose IV Lopressor 2.5 mg IV every 6 as long as his blood pressure will tolerate this. (18) COPD (chronic obstructive pulmonary disease): Status: Chronic Assessment and plan: continue his maintenance bronchodilators (he is chronically on Advair (we will substitute Symbicort) and he also uses Incruse Ellipta. We will also provide prn albuterol Qualifiers: COPD type: COPD with acute lower respiratory infection Qualified Code(s): J44.0 - Chronic obstructive pulmonary disease with (acute) lower respiratory infection Subjective Subjective Interval history since last seen: Patient denies any shortness of breath and he has minimal cough and white little production which is clear mucus. He denies any chest pain or nausea or vomiting or abdominal pain. He remains on norepinephrine drip for hypotension secondary to sepsis. Norepinephrine to 18 mcg/min in order to maintain his map over 65 mm. He is alert and oriented and in denial of any discomfort. Wound care nurses saw him yesterday and dressed his skin ulcers on his legs and feet and skin tears on his arms. Blood and urine cultures are pending at this time. Exam Narrative Exam Narrative: Obese elderly male lying in bed watching TV in no acute distress. He is alert and oriented person place time circumstance. Lungs with fine bilateral basilar rales without wheezing or rhonchi Heart is tachycardic and regular with no murmur Abdomen is obese soft nondistended nontender. Lower extremities with 2+ edema wounds over his legs have been dressed and bandaged which I did not take down today. Feet are warm and without cyanosis with normal pedal pulses. Objective Last Vital Signs Temp 36.8 C 09/30/20 07:30 Pulse 107 H 09/30/20 07:30 Resp 16 09/30/20 07:30 BP 127/45 L 09/30/20 05:01 Pulse Ox 93 09/30/20 09:11 Laboratory Results - last 24 hr 09/29/20 09/29/20 09/29/20 11:55 11:55 11:55 WBC 17.67 H RBC 3.33 L Hgb 9.8 L Hct 31.0 L MCV 93.1 MCH 29.4 MCHC 31.6 L RDW 18.0 H Plt Count 166 MPV 10.2 Reticulocyte % (Auto) Immature Gran % 0.6 Neutrophils % 89.3 Lymphocytes % 5.3 Monocytes % 4.0 Eosinophils % 0.7 Basophils % 0.1 Nucleated RBC % 0 Absolute Neutrophils 15.78 H Absolute Lymphocytes 0.94 L Absolute Monocytes 0.71 Absolute Eosinophils 0.12 Absolute Basophils 0.02 PT 15.0 H INR 1.5 H APTT 29.7 H VBG Lactate Sodium 134 L Potassium 4.0 Chloride 95 L Carbon Dioxide 34.1 H Anion Gap 4.9 BUN 31 H Creatinine 1.7 H Estimated GFR/1.73 m2 39.49 Glucose 135 H Calcium 8.2 L Magnesium 2.4 Iron TIBC Transferrin % Sat Ferritin Total Bilirubin 1.2 H AST 81 H ALT 163 H Alkaline Phosphatase 163 H Lactate Dehydrogenase Troponin I 0.16 H* C-Reactive Protein NT-Pro-B Natriuret Pep Total Protein 5.4 L Albumin 1.8 L Vitamin B12 Folate Procalcitonin Urine Color Urine Clarity Urine pH Ur Specific [place] Urine Protein Urine Ketones Urine Blood Urine Nitrite Urine Bilirubin Urine Urobilinogen Ur Leukocyte Esterase Urine RBC Urine WBC Ur Epithelial Cells Urine Crystals Urine Bacteria Urine Casts Urine Mucus Urine Other Ur Culture Indicated? Urine Glucose COVID-19 Source SARS-CoV-2 (PCR) Patient ABO/Rh Antibody Screen 09/29/20 09/29/20 09/29/20 11:55 11:55 11:55 WBC RBC Hgb Hct MCV MCH MCHC RDW Plt Count MPV Reticulocyte % (Auto) Immature Gran % Neutrophils % Lymphocytes % Monocytes % Eosinophils % Basophils % Nucleated RBC % Absolute Neutrophils Absolute Lymphocytes Absolute Monocytes Absolute Eosinophils Absolute Basophils PT INR APTT VBG Lactate Sodium Potassium Chloride Carbon Dioxide Anion Gap BUN Creatinine Estimated GFR/1.73 m2 Glucose Calcium Magnesium Iron TIBC Transferrin % Sat Ferritin Total Bilirubin AST ALT Alkaline Phosphatase Lactate Dehydrogenase Troponin I C-Reactive Protein 7.27 H NT-Pro-B Natriuret Pep 2973 H Total Protein Albumin Vitamin B12 Folate Procalcitonin 0.2 Urine Color Urine Clarity Urine pH Ur Specific [place] Urine Protein Urine Ketones Urine Blood Urine Nitrite Urine Bilirubin Urine Urobilinogen Ur Leukocyte Esterase Urine RBC Urine WBC Ur Epithelial Cells Urine Crystals Urine Bacteria Urine Casts Urine Mucus Urine Other Ur Culture Indicated? Urine Glucose COVID-19 Source SARS-CoV-2 (PCR) Patient ABO/Rh Antibody Screen 09/29/20 09/29/20 09/29/20 12:39 13:00 13:32 WBC RBC Hgb Hct MCV MCH MCHC RDW Plt Count MPV Reticulocyte % (Auto) Immature Gran % Neutrophils % Lymphocytes % Monocytes % Eosinophils % Basophils % Nucleated RBC % Absolute Neutrophils Absolute Lymphocytes Absolute Monocytes Absolute Eosinophils Absolute Basophils PT INR APTT VBG Lactate 3.0 H* Sodium Potassium Chloride Carbon Dioxide Anion Gap BUN Creatinine Estimated GFR/1.73 m2 Glucose Calcium Magnesium Iron TIBC Transferrin % Sat Ferritin Total Bilirubin AST ALT Alkaline Phosphatase Lactate Dehydrogenase Troponin I C-Reactive Protein NT-Pro-B Natriuret Pep Total Protein Albumin Vitamin B12 Folate Procalcitonin Urine Color Urine Clarity Urine pH Ur Specific [place] Urine Protein Urine Ketones Urine Blood Urine Nitrite Urine Bilirubin Urine Urobilinogen Ur Leukocyte Esterase Urine RBC Urine WBC Ur Epithelial Cells Urine Crystals Urine Bacteria Urine Casts Urine Mucus Urine Other Ur Culture Indicated? Urine Glucose COVID-19 Source Cancelled Nasopharyx SARS-CoV-2 (PCR) Cancelled Negative Patient ABO/Rh Antibody Screen 09/29/20 09/29/20 09/29/20 14:28 16:55 17:47 WBC RBC Hgb Hct MCV MCH MCHC RDW Plt Count MPV Reticulocyte % (Auto) Immature Gran % Neutrophils % Lymphocytes % Monocytes % Eosinophils % Basophils % Nucleated RBC % Absolute Neutrophils Absolute Lymphocytes Absolute Monocytes Absolute Eosinophils Absolute Basophils PT INR APTT VBG Lactate 3.3 H* Sodium Potassium Chloride Carbon Dioxide Anion Gap BUN Creatinine Estimated GFR/1.73 m2 Glucose Calcium Magnesium Iron TIBC Transferrin % Sat Ferritin Total Bilirubin AST ALT Alkaline Phosphatase Lactate Dehydrogenase Troponin I 0.16 H* C-Reactive Protein NT-Pro-B Natriuret Pep Total Protein Albumin Vitamin B12 Folate Procalcitonin Urine Color Yellow Urine Clarity Cloudy Urine pH 5.0 Ur Specific [place] <= 1.005 Urine Protein 100 H Urine Ketones Negative Urine Blood Large H Urine Nitrite Negative Urine Bilirubin Negative Urine Urobilinogen 1.0 H Ur Leukocyte Esterase Small H Urine RBC 10-20 H Urine WBC 10-20 H Ur Epithelial Cells Few Urine Crystals Negative Urine Bacteria Moderate Urine Casts 0-2 hyaline Urine Mucus Trace Urine Other Many yeast Ur Culture Indicated? Yes Urine Glucose >=1000 H COVID-19 Source SARS-CoV-2 (PCR) Patient ABO/Rh Antibody Screen 09/29/20 09/29/20 09/29/20 17:47 17:47 21:17 WBC RBC Hgb 10.1 L Hct 31.7 L MCV MCH MCHC RDW Plt Count MPV Reticulocyte % (Auto) Immature Gran % Neutrophils % Lymphocytes % Monocytes % Eosinophils % Basophils % Nucleated RBC % Absolute Neutrophils Absolute Lymphocytes Absolute Monocytes Absolute Eosinophils Absolute Basophils PT INR APTT VBG Lactate 2.6 H* Sodium Potassium Chloride Carbon Dioxide Anion Gap BUN Creatinine Estimated GFR/1.73 m2 Glucose Calcium Magnesium Iron TIBC Transferrin % Sat Ferritin Total Bilirubin AST ALT Alkaline Phosphatase Lactate Dehydrogenase Troponin I C-Reactive Protein NT-Pro-B Natriuret Pep Total Protein Albumin Vitamin B12 Folate Procalcitonin Urine Color Urine Clarity Urine pH Ur Specific [place] Urine Protein Urine Ketones Urine Blood Urine Nitrite Urine Bilirubin Urine Urobilinogen Ur Leukocyte Esterase Urine RBC Urine WBC Ur Epithelial Cells Urine Crystals Urine Bacteria Urine Casts Urine Mucus Urine Other Ur Culture Indicated? Urine Glucose COVID-19 Source SARS-CoV-2 (PCR) Patient ABO/Rh O Positive Antibody Screen Negative 09/29/20 09/30/20 09/30/20 21:17 06:20 06:20 WBC 18.36 H RBC 3.21 L Hgb 9.5 L Hct 29.7 L MCV 92.5 MCH 29.6 MCHC 32.0 RDW 17.8 H Plt Count 156 MPV 9.8 Reticulocyte % (Auto) Immature Gran % 0.7 Neutrophils % 95.0 Lymphocytes % 1.9 Monocytes % 2.3 Eosinophils % 0.0 Basophils % 0.1 Nucleated RBC % 0 Absolute Neutrophils 17.44 H Absolute Lymphocytes 0.35 L Absolute Monocytes 0.42 Absolute Eosinophils 0.00 Absolute Basophils 0.02 PT INR APTT VBG Lactate Sodium 134 L Potassium 4.0 Chloride 99 Carbon Dioxide 28.7 Anion Gap 6.3 BUN 27 H Creatinine 1.2 D Estimated GFR/1.73 m2 59.02 Glucose 185 H Calcium 7.2 L Magnesium Iron TIBC Transferrin % Sat Ferritin Total Bilirubin 1.1 H AST 67 H ALT 137 H Alkaline Phosphatase 151 H Lactate Dehydrogenase Troponin I 0.12 H* C-Reactive Protein NT-Pro-B Natriuret Pep Total Protein 5.2 L Albumin 1.6 L Vitamin B12 Folate Procalcitonin Urine Color Urine Clarity Urine pH Ur Specific [place] Urine Protein Urine Ketones Urine Blood Urine Nitrite Urine Bilirubin Urine Urobilinogen Ur Leukocyte Esterase Urine RBC Urine WBC Ur Epithelial Cells Urine Crystals Urine Bacteria Urine Casts Urine Mucus Urine Other Ur Culture Indicated? Urine Glucose COVID-19 Source SARS-CoV-2 (PCR) Patient ABO/Rh Antibody Screen 09/30/20 09/30/20 09/30/20 06:20 06:20 06:20 WBC RBC Hgb Hct MCV MCH MCHC RDW Plt Count MPV Reticulocyte % (Auto) Immature Gran % Neutrophils % Lymphocytes % Monocytes % Eosinophils % Basophils % Nucleated RBC % Absolute Neutrophils Absolute Lymphocytes Absolute Monocytes Absolute Eosinophils Absolute Basophils PT 21.3 H D INR 2.2 H D APTT VBG Lactate 1.6 Sodium Potassium Chloride Carbon Dioxide Anion Gap BUN Creatinine Estimated GFR/1.73 m2 Glucose Calcium Magnesium Iron 32 L TIBC 133 L Transferrin % Sat 24 Ferritin Total Bilirubin AST ALT Alkaline Phosphatase Lactate Dehydrogenase Troponin I C-Reactive Protein NT-Pro-B Natriuret Pep Total Protein Albumin Vitamin B12 Folate Procalcitonin Urine Color Urine Clarity Urine pH Ur Specific [place] Urine Protein Urine Ketones Urine Blood Urine Nitrite Urine Bilirubin Urine Urobilinogen Ur Leukocyte Esterase Urine RBC Urine WBC Ur Epithelial Cells Urine Crystals Urine Bacteria Urine Casts Urine Mucus Urine Other Ur Culture Indicated? Urine Glucose COVID-19 Source SARS-CoV-2 (PCR) Patient ABO/Rh Antibody Screen 09/30/20 09/30/20 06:20 06:20 WBC RBC Hgb Hct MCV MCH MCHC RDW Plt Count MPV Reticulocyte % (Auto) 3.7 H Immature Gran % Neutrophils % Lymphocytes % Monocytes % Eosinophils % Basophils % Nucleated RBC % Absolute Neutrophils Absolute Lymphocytes Absolute Monocytes Absolute Eosinophils Absolute Basophils PT INR APTT VBG Lactate Sodium Potassium Chloride Carbon Dioxide Anion Gap BUN Creatinine Estimated GFR/1.73 m2 Glucose Calcium Magnesium Iron TIBC Transferrin % Sat Ferritin 487 H Total Bilirubin AST ALT Alkaline Phosphatase Lactate Dehydrogenase 477 H Troponin I 0.12 H* C-Reactive Protein NT-Pro-B Natriuret Pep Total Protein Albumin Vitamin B12 1546 H Folate 9.0 Procalcitonin Urine Color Urine Clarity Urine pH Ur Specific [place] Urine Protein Urine Ketones Urine Blood Urine Nitrite Urine Bilirubin Urine Urobilinogen Ur Leukocyte Esterase Urine RBC Urine WBC Ur Epithelial Cells Urine Crystals Urine Bacteria Urine Casts Urine Mucus Urine Other Ur Culture Indicated? Urine Glucose COVID-19 Source SARS-CoV-2 (PCR) Patient ABO/Rh Antibody Screen
[2020-09-30] MEDS: MEROPENEM 1 GM in Normal Saline 100 ML IVPB ×2 (10:07→19:03)
[2020-09-30] MEDS: VANCOMYCIN/WATER (PEG) 1.25 GM/250 ML BAG IV (10:41)
[2020-09-30 11:45] LABS: Troponin I 0.16 ng/mL (<0.06)
[2020-09-30 13:28] LABS: HCT 29.2 % (40.0-50.0); HGB 9.5 g/dL (13.5-17.5)
[2020-09-30] MEDS: Metoprolol 5 MG/5 ML VIAL IVP (14:25)
--- NOTE | 2020-09-30 14:30 | RT.EKG_ITS ---
APPROVED REPORT Exam: Resting ECG Patient Location: I HR:104 bpm ECG Measurements Heart Rate 104 AXIS ID [id number] P [id number] QRSd 132 QRS 54 QT 364 T 188 QTc 480 Conclusion Atrial fibrillation...? atrial activity Ventricular premature complex...V complex w/ short R-R interval IVCD, consider LBBB...QRSd>120, notch/slur R I aVL V5-6
--- NOTE | 2020-09-30 14:30 | RT.EKG_ITS ---
APPROVED REPORT Exam: Resting ECG Patient Location: I HR:171 bpm ECG Measurements Heart Rate 171 AXIS HI [id number] P [id number] QRSd 127 QRS 71 QT 290 T 269 QTc 489 Conclusion Atrial fibrillation Paired ventricular premature complexes...sequence of 2 V complexes Nonspecific intraventricular conduction delay...QRSd >115mS, not LBBB/RBBB
[2020-09-30] MEDS: dilTIAZem 25 MG/5 ML VIAL 10 MG IVP (14:43)
[2020-09-30 15:05] LABS: Abs Immature Grans 0.21 10^3/uL (0.0-0.06); Absolute Basophil Count 0.03 10^3/uL (0.0-0.2); Basophils % 0.1; HCT 31.9 % (40.0-50.0); HGB 10.2 g/dL (13.5-17.5); Immature Grans % 0.8; Lymphocytes % 2.8; MCH 29.5 pg (27.0-33.0); MCV 92.2 fL (80-95); MPV 9.9 fL (8.0-11.0); Monocytes % 3.2; Neutrophils % 93.1; Nucleated RBC 0 %; Platelet Count 198 10^3/uL (130-400); RBC 3.46 10^6/uL (4.36-5.78); RDW 17.7 % (11.8-14.1); RDW-SD 59.9 fL
[2020-09-30] MEDS: dilTIAZem 125 MG in Normal Saline 100 ML IV (15:13)
[2020-09-30 15:22] LABS: Absolute Lymphocyte Count 0.74 10^3/uL (1.2-3.4); Absolute Monocyte Count 0.85 10^3/uL (0.1-0.8); Absolute Neutrophil Count 24.73 10^3/uL (1.2-6.7)
[2020-09-30 15:23] LABS: WBC 26.56 10^3/uL (4.4-10.8)
--- NOTE | 2020-09-30 15:23 | W.INDIABCONS ---
Date of service: 09/30/20 Time of Service: 15:23 Diabetes Inpatient Consult DESCRIPTION/ASSESSMENT: 75 year old male admitted to ICU with transaminitis, CLAY, UTI with septic shock. PMH: Morbid obesity, DM2, Dm neuropathy with wound of right foot- with venous stasis ulcer. Home DM meds include SGLP2, lantus 15 u hs and 500 mg metformin BID. Most recent A1c: 7.2% (06/27/20) indicates well controlled DM. Blood sugar while hospitalized only mildly elevated. Have met Mr. Delgadillo at previous admissions for Dm education. He has not been receptive to education. Attempted to meet today, however, Mr. Delgadillo was sleeping. INTERVENTION: Continue Dm diet for wound healing recommend 1 oz liquid protein TID MVI, 500 mg Vitamin C and 220 mg zinc sulfate. PLAN: will monitor po intake, labs, weight. Time Spent in Nutritional Counseling and Treatment: 0
[2020-09-30 15:24] LABS: Diff Comment Agrees w/ Instrument; RBC Morphology Normal
[2020-09-30 15:29] LABS: Anion Gap 7.2 mmol/L (3-11); BUN 23 mg/dL (7-18); CO2 27.8 mmol/L (21.0-32.0); CREATININE 1.2 mg/dL (0.70-1.30); Calcium 7.7 mg/dL (8.5-10.1); Chloride 99 mmol/L (98-107); Estimated GFR 59.02 (mL/min/1.73m2); Glucose 188 mg/dL (74-106); Potassium 3.4 mmol/L (3.5-5.1); Sodium 134 mmol/L (136-145)
[2020-09-30 15:32] LABS: Troponin I 0.22 ng/mL (<0.06)
[2020-09-30 15:33] LABS: NT-proBNP 2604 pg/mL (<300)
[2020-09-30] MEDS: VASOPRESSIN 50 UNITS in Normal Saline 497.5 ML 18 UNITS IV (15:57)
[2020-09-30 18:41] LABS: Legionella Ag Detection Urine Negative (Negative)
[2020-09-30] MEDS: Aspirin 81 MG CHEW 324 MG CH (19:00)
[2020-09-30] MEDS: ALPRAZolam 0.25 MG TAB PO (19:00)
[2020-09-30] MEDS: Acetaminophen 325 MG TAB PO (19:01)
[2020-09-30] MEDS: Metoprolol 5 MG/5 ML VIAL 2.5 MG IVP ×2 (19:01→23:32)
[2020-09-30] MEDS: Pantoprazole 40 MG VIAL IVP (19:03)
[2020-09-30] MEDS: POTASSIUM CHLORIDE 20 MEQ/100 ML BAG 50 MEQ IVPB (19:04)
[2020-09-30 20:32] LABS: Troponin I 0.62 ng/mL (<0.06)
[2020-09-30] MEDS: Warfarin 1 MG TAB 2 MG PO (21:07)
[2020-09-30] MEDS: Pramipexole 0.25 MG TAB 0.125 MG PO (21:07)
[2020-09-30] MEDS: MORPHine 2 MG/ML SYR IVP ×2 (21:08→22:52)
[2020-09-30] MEDS: Atorvastatin 40 MG TAB 80 MG PO (21:25)
[2020-09-30] MEDS: dilTIAZem 125 MG in Normal Saline 100 ML 20 MG IV (22:59)
[2020-09-30] MEDS: Albuterol 2.5 MG/3 ML INH SOLN VIAL UPD (22:59)
[2020-09-30] MEDS: Furosemide 40 MG/4 ML VIAL (23:00)
[2020-09-30] MEDS: oxyCODONE 10 MG TAB PO (23:01)
[2020-10-01] VITALS (106 sets, daily range): BP systolic 79–131; BP diastolic 39–103; PULSE 69–115; RESP 12–23; TEMP 36–37.7; O2SAT 78–100
[2020-10-01] MEDS: MEROPENEM 1 GM in Normal Saline 100 ML IVPB ×3 (01:11→11:04)
[2020-10-01] MEDS: VANCOMYCIN/WATER (PEG) 1.25 GM/250 ML BAG IV (01:11)
[2020-10-01] MEDS: POTASSIUM CHLORIDE 20 MEQ/100 ML BAG 25 MEQ IVPB (01:12)
[2020-10-01] MEDS: Furosemide 100 MG/10 ML VIAL 80 MG IVP (01:20)
[2020-10-01] MEDS: dilTIAZem 125 MG in Normal Saline 100 ML 20 MG IV (04:10)
[2020-10-01] MEDS: Calcium Carbonate *TUMS* 500 MG CHEW PO ×3 (04:11→12:06)
[2020-10-01] MEDS: Metoprolol 5 MG/5 ML VIAL 2.5 MG IVP ×2 (05:29→12:05)
[2020-10-01] MEDS: Hydrocortisone SOD SUC. 100 MG VIAL 50 MG IVP ×2 (05:30→12:05)
[2020-10-01] MEDS: Normal Saline Flush 10 ML SYR IVP (05:31)
[2020-10-01 06:50] LABS: Absolute Basophil Count 0.06 10^3/uL (0.0-0.2); Basophils % 0.2; HCT 32.5 % (40.0-50.0); HGB 10.3 g/dL (13.5-17.5); Immature Grans % 0.7; Lymphocytes % 2.2; MCH 29.3 pg (27.0-33.0); MCHC 31.7 % (32.0-36.0); MCV 92.6 fL (80-95); MPV 11.3 fL (8.0-11.0); Monocytes % 3.1; Neutrophils % 93.8; Nucleated RBC 0 %; Platelet Count 194 10^3/uL (130-400); RBC 3.51 10^6/uL (4.36-5.78); RDW-SD 60.7 fL
[2020-10-01 06:58] LABS: Absolute Lymphocyte Count 0.66 10^3/uL (1.2-3.4); Absolute Monocyte Count 0.92 10^3/uL (0.1-0.8); Absolute Neutrophil Count 27.93 10^3/uL (1.2-6.7)
[2020-10-01 07:00] LABS: WBC 29.78 10^3/uL (4.4-10.8)
[2020-10-01 07:05] LABS: Prothrombin Time 46.3 sec (9.3-11.0)
[2020-10-01 07:08] LABS: Diff Comment Agrees w/ Instrument; RBC Morphology Normal
[2020-10-01 07:11] LABS: ALT 117 U/L (16-63); AST 66 U/L (15-37); Albumin 1.7 g/dL (3.4-5.0); Alkaline Phosphatase 149 U/L (46-116); Anion Gap 8.7 mmol/L (3-11); BUN 23 mg/dL (7-18); C-Reactive Protein 6.82 mg/dL (0.0-0.3); CO2 28.3 mmol/L (21.0-32.0); CREATININE 1.2 mg/dL (0.70-1.30); Calcium 7.5 mg/dL (8.5-10.1); Chloride 100 mmol/L (98-107); Estimated GFR 59.02 (mL/min/1.73m2); Glucose 177 mg/dL (74-106); Potassium 3.5 mmol/L (3.5-5.1); Sodium 137 mmol/L (136-145); Total Protein 5.6 g/dL (6.4-8.2)
[2020-10-01 07:30] LABS: INR 4.8 (0.9-1.1)
--- NOTE | 2020-10-01 07:40 | DI.RAD_ITS ---
EXAM: XR PORTABLE CHEST AP INDICATION: CHF. COMPARISON: CR XR CHEST 1 VW from 08/24/2020 TECHNIQUE: 2D digital imaging was performed. FINDINGS: Exam is severely limited by underpenetration, patient body habitus and overlying leads. There are in creased pulmonary densities seen in the right upper and lower lobes when compared with the previous e xam. The majority of the left mid and lower lung lee or are obscured. Cardiomegaly and aortic va lve prosthesis are again noted. No gross evidence of effusions are seen. IMPRESSION: Worsening bilateral infiltrates could represent worsening of CHF versus pneumonia. DATA REPOSITORY: RADIATION DOSE DELIVERED:
[2020-10-01] MEDS: Umeclidinium 7 CAP INHALER 1 CAP IH (07:52)
[2020-10-01] MEDS: Budesonide/Formoterol 160/4.5 6 GM 60 PUFF INH IH (07:52)
--- NOTE | 2020-10-01 08:33 | CMPROGNOTE_ITS ---
- If Service Date Differs Date of service: 10/01/20 Time of Service: 08:33 Care Management Progress Note S/O: Elio was lying in bed wearing Bipap when CM met with him. He has been having trouble breathing and continues to require pressors to maintain his blood pressure. In addition, last night Elio had an episode of rapid afib followed by chest pain and elevated troponins. He was also in pulmonary edema. Elio will likely be discharged to a tertiary care facility later today. A: Elio is a 75 year old man admitted on 09/29/20 with sepsis P:Elio will likely be transferred to a tertiary care facility later today as his critical care needs are increasing following an NSTEMI and an episode of pulmonary edema last night. This afternoon he was accepted for transfer to [facility] in [facility]. CM will continue to support patient and family. cc:
[2020-10-01 08:34] LABS: Procalcitonin 0.3 ng/mL
[2020-10-01] MEDS: clonazePAM 1 MG TAB 0.5 MG PO (08:39)
[2020-10-01] MEDS: Aspirin E.C. 81 MG TABEC PO (08:39)
[2020-10-01] MEDS: Potassium Chloride 10 MEQ CAPCR 30 MEQ PO ×2 (08:40→12:05)
[2020-10-01] MEDS: Insulin Aspart 300 UNITS/3 ML PEN SC ×2 (08:41→12:04)
--- NOTE | 2020-10-01 08:45 | RT.EKG_ITS ---
APPROVED REPORT Exam: Resting ECG Patient Location: I HR:93 bpm ECG Measurements Heart Rate 93 AXIS IA [id number] P [id number] QRSd 131 QRS 32 QT 428 T 195 QTc 532 Conclusion Atrial fibrillation...V-rate 61-117, irreg A-activity IVCD, consider LBBB...QRSd>120, notch/slur R I aVL V5-6
[2020-10-01 08:51] LABS: BE 3 mmol/L (-2-3); HCO3 27 mmol/L (22-26); pCO2 40 mmHg (35-45); pH 7.44 (7.35-7.45); pO2 72 mmHg (80-105); sO2 94 % (95-98); tCO2 25 mmol/L (23-27)
[2020-10-01 08:53] LABS: Site Left Radial
[2020-10-01 08:54] LABS: FIO2 65 %; FIO2L Bipap 18/8 L
--- NOTE | 2020-10-01 09:11 | W.PM.PROGNOT ---
Date of Service Date of service: 10/01/20 Time of Service: 09:11 Assessment and Plan Assessment and plan (1) Septic shock: Status: Acute Assessment and plan: Renal function has recovered from the acute septic shock. Liver enzymes are lagging at this time. Ultrasound the abdomen showed no hydronephrosis and no nephrolithiasis and no structural abnormalities of the liver including no evidence for biliary tract disease. He remains on meropenem and vancomycin. I have ordered repeat blood cultures and a repeat procalcitonin level. 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 Urine culture has only shown mixed gram-positive damian probable contaminant. We will continue hemodynamic support with vasopressin and norepinephrine and try to wean down the norepinephrine as tolerated. Oxygenation is being supported with BiPAP with repeat blood gas taken on BiPAP of 60% FiO2 and pressure settings of 18/8 pH of 7.44, PCO2 of 39, PCO2 of 72 with an oxygen saturation of 94% We will continue to control his atrial fibrillation rate with a combination of diltiazem and Lopressor. 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 I think a referral to cardiology at [facility] would be appropriate as he is a complex case including his underlying cardiomyopathy and severe pulmonary hypertension along with his atrial fibrillation. He has not been on heparin as he has been chronically maintained on warfarin and his INR is supratherapeutic this morning at 4.8. I put his warfarin on hold for today. Aspirin was added to his regimen yesterday when his troponins maxi. (2) Non-STEMI (non-ST elevated myocardial infarction): Status: Acute Assessment and plan: NSTEMI secondary to sepsis and rapid atrial fibrillation. Patient was begun on aspirin therapy in addition to his warfarin. Continue IV Lopressor and IV diltiazem for atrial fibrillation rate control. Patient now on a furosemide drip to control his congestive heart failure. (3) Elevated troponin: Status: Acute Assessment and plan: suspect demand ischemia, not an acute coronary thrombosis. monitor serial troponin levels, check echo in the a.m. echocardiogram was done yesterday and demonstrated some mild global LV dysfunction with an ejection fraction 45%. Bioprosthetic aortic valve appears to be functional with no sign of vegetation or regurgitation. RV function could not be assessed but he has significant pulmonary hypertension. (4) Atrial fibrillation with controlled ventricular response: Status: Chronic Assessment and plan: Continue rate control with IV diltiazem and IV Lopressor. Currently supratherapeutic INR on his current dose of warfarin. Warfarin on hold today. (5) Transaminitis: Status: Acute Assessment and plan: I suspect his transaminitis is secondary to shock liver. Transaminases are declining but remain mildly elevated. Ultrasound the abdomen is negative for structural abnormalities of the liver or the biliary tract. (6) Acute kidney injury (nontraumatic): Status: Acute Assessment and plan: Acute kidney injury secondary to severe hypotension and sepsis. BUN and creatinine are improving and he is making good urine output. Continue gentle IV fluid hydration and hemodynamic support. (7) Pneumonia: Status: Suspected Assessment and plan: CT of the chest on admission was not consistent with pneumonia but more consistent with pulmonary fibrosis. No PE was found. Qualifiers: Laterality: bilateral Lung location: lower lobe of lung Pneumonia type: due to unspecified organism Qualified Code(s): J18.9 - Pneumonia, unspecified organism (8) Wound of right foot: Status: Acute Assessment and plan: chronic wounds which are in various stages of healing. cont. wound care as per [facility]. I have consulted our wound care nurses who evaluated him this evening and have re-dressed his wounds. See their note for details (9) Wound of left foot: Status: Acute Assessment and plan: as above (10) Venous stasis ulcer: Status: Acute Assessment and plan: as above Qualifiers: Laterality: unspecified laterality Non-pressure ulcer stage: limited to breakdown of skin Varicose vein presence: with varicose veins Venous stasis ulcer site: calf Qualified Code(s): I83.002 - Varicose veins of unspecified lower extremity with ulcer of calf; L97.201 - Non-pressure chronic ulcer of unspecified calf limited to breakdown of skin (11) Anemia: Status: Chronic Assessment and plan: Anemia is chronic appears to be stable hemoglobin is 10.3 g today. Patient remains on Protonix IV for GI protection. Qualifiers: Anemia type: unspecified type Qualified Code(s): D64.9 - Anemia, unspecified (12) Venous insufficiency of both lower extremities: Status: Acute Assessment and plan: chronic venous insufficiency. Once his wounds are healed up he should be evaluated for Unaboot or for lymphedema pneumatic devices. For now will continue w/ wound care and consider PATT wraps. 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 His lung exam of rales are probably d/t fibrosis. Consider high resolution CT of his lungs once he is stable. (15) Pulmonary HTN: Status: Chronic Assessment and plan: His pro-BNP is elevated at 2900 which is much higher than in February 2000. While this could represent CHF, clinicially he is dry as demonstrated by elevated BUN and creatinine, hypotension. His BNP could be elevated d/t his PHTN. Check echocardiogram today. Once he is hemodynamically stable off norepinephrine we will need to reinstitute diuretics to control his right-sided heart failure. (16) COPD (chronic obstructive pulmonary disease): Status: Chronic Assessment and plan: continue his maintenance bronchodilators (he is chronically on Advair (we will substitute Symbicort) and he also uses Incruse Ellipta. We will also provide prn albuterol Qualifiers: COPD type: COPD with acute lower respiratory infection Qualified Code(s): J44.0 - Chronic obstructive pulmonary disease with (acute) lower respiratory infection (17) Obstructive sleep apnea syndrome: Status: Chronic Assessment and plan: supportive care w/ oxygen. He will need his CPAP/BIPAP brought in and applied at night. (18) Essential hypertension: Status: Chronic Assessment and plan: BP meds on hold while he is hypotensive and needing vasopressor support. Subjective Subjective Interval history since last seen: Patient developed acute respiratory failure last night secondary to CHF. He required nonrebreather mask and was unable to be weaned to high flow nasal cannula. He received 80 mg of Lasix last night with a good diuretic response. This morning I put him on a Lasix drip and start him on BiPAP. He is feeling much better this morning. He still short of breath with any kind of activity. He denies any chest pain or nausea or vomiting or abdominal complaints. Patient remains on vasopressor support with vasopressin 0.07 units/min and norepinephrine at 0.44 mcg/kg/min. He is on a diltiazem drip at 20 mg/h to control his atrial fibrillation rate. He is receiving Lopressor 2.5 mg IV every 6 hours as well to help control his atrial fibrillation. His troponins are still climbing at 0.70. Yesterday his troponin levels have been plateaued at 0.12 and 0.16 but maxi throughout the day after his episode of rapid atrial fibrillation. His repeat EKG is unchanged and shows atrial fibrillation at a rate of 93 bpm with a left bundle branch block pattern with concordant T wave inversions in the inferolateral leads. Patient remains on broad-spectrum antibiotics with vancomycin, meropenem although I did discontinue his Levaquin yesterday out of concern for potential interaction if I had to start him on amiodarone and also because he had been on Levaquin as an outpatient and had had no response. Source of his sepsis still is unclear. He was recently treated up at [facility] for reported pneumonia. However on presentation to the hospital he had no cough or sputum production and no shortness of breath. Shortness of breath is developed since he was admitted and related to his fluid resuscitation for sepsis. Urinary tract source was suspected but the urine culture is showing mixed gram-positive damian probably contaminant. Only 1 blood culture was obtained on admission and is showing no growth. Other potential sources include his chronic leg ulcers. He is afebrile and his blood lactate level has resolved. Nevertheless he does have a leukocytosis of 29,000 partially accounted for by the stress dose hydrocortisone he is receiving. At this point I spoke with Elio about transfer to tertiary care center for evaluation by multiple disciplines including pulmonary/critical care as well as cardiology given his complex problems including his severe pulmonary hypertension and cardiomyopathy as well as his rheumatoid lung and his what appears to be sepsis. He is agreeable to transfer. I told him I would make the call to [facility] this morning. Exam Narrative Exam Narrative: Obese male who appears comfortable wearing BiPAP not having any respiratory distress at this time. Lungs with diffuse rales and expiratory wheezes Heart is irregularly irregular but at a controlled rate I cannot hear a murmur due to the adventitious lung sounds. Abdomen is obese soft and nontender nondistended Lower legs have 3+ pitting edema from the knees down to the ankles. Lower leg wounds have dressing on them. I did not take the dressing down as I had seen these wounds on admission and will await wound care nurses dressing changes to look at them again. Feet are cool but he has normal pedal pulses Objective Last Vital Signs Temp 36 C L 10/01/20 07:57 Pulse 93 H 10/01/20 08:05 Resp 17 10/01/20 08:05 BP 112/57 L 10/01/20 07:57 Pulse Ox 93 10/01/20 08:05 Laboratory Results - last 24 hr 09/30/20 09/30/20 09/30/20 06:20 11:15 13:22 WBC RBC Hgb 9.5 L Hct 29.2 L MCV MCH MCHC RDW Plt Count MPV Immature Gran % Neutrophils % Lymphocytes % Monocytes % Eosinophils % Basophils % Nucleated RBC % Absolute Neutrophils Absolute Lymphocytes Absolute Monocytes Absolute Eosinophils Absolute Basophils RBC Morphology PT INR ABG Sample Site ABG pH ABG pCO2 ABG pO2 ABG HCO3 ABG Total CO2 ABG O2 Saturation ABG Base Excess Oxygen Liter Flow FiO2 Sodium Potassium Chloride Carbon Dioxide Anion Gap BUN Creatinine Estimated GFR/1.73 m2 Glucose Calcium Magnesium Total Bilirubin AST ALT Alkaline Phosphatase Troponin I 0.16 H* C-Reactive Protein NT-Pro-B Natriuret Pep Total Protein Albumin Procalcitonin Urine Legionella Ag Negative 09/30/20 09/30/20 09/30/20 14:52 14:52 14:52 WBC 26.56 H* D RBC 3.46 L Hgb 10.2 L Hct 31.9 L MCV 92.2 MCH 29.5 MCHC 32.0 RDW 17.7 H Plt Count 198 MPV 9.9 Immature Gran % 0.8 Neutrophils % 93.1 Lymphocytes % 2.8 Monocytes % 3.2 Eosinophils % 0.0 Basophils % 0.1 Nucleated RBC % 0 Absolute Neutrophils 24.73 H Absolute Lymphocytes 0.74 L Absolute Monocytes 0.85 H Absolute Eosinophils 0.00 Absolute Basophils 0.03 RBC Morphology Normal PT INR ABG Sample Site ABG pH ABG pCO2 ABG pO2 ABG HCO3 ABG Total CO2 ABG O2 Saturation ABG Base Excess Oxygen Liter Flow FiO2 Sodium 134 L Potassium 3.4 L Chloride 99 Carbon Dioxide 27.8 Anion Gap 7.2 BUN 23 H Creatinine 1.2 Estimated GFR/1.73 m2 59.02 Glucose 188 H Calcium 7.7 L Magnesium 2.0 Total Bilirubin AST ALT Alkaline Phosphatase Troponin I 0.22 H* C-Reactive Protein NT-Pro-B Natriuret Pep 2604 H Total Protein Albumin Procalcitonin Urine Legionella Ag 09/30/20 10/01/20 10/01/20 20:05 06:00 06:00 WBC 29.78 H* RBC 3.51 L Hgb 10.3 L Hct 32.5 L MCV 92.6 MCH 29.3 MCHC 31.7 L RDW 18.0 H Plt Count 194 MPV 11.3 H Immature Gran % 0.7 Neutrophils % 93.8 Lymphocytes % 2.2 Monocytes % 3.1 Eosinophils % 0.0 Basophils % 0.2 Nucleated RBC % 0 Absolute Neutrophils 27.93 H Absolute Lymphocytes 0.66 L Absolute Monocytes 0.92 H Absolute Eosinophils 0.00 Absolute Basophils 0.06 RBC Morphology Normal PT INR ABG Sample Site ABG pH ABG pCO2 ABG pO2 ABG HCO3 ABG Total CO2 ABG O2 Saturation ABG Base Excess Oxygen Liter Flow FiO2 Sodium 137 Potassium 3.5 Chloride 100 Carbon Dioxide 28.3 Anion Gap 8.7 BUN 23 H Creatinine 1.2 Estimated GFR/1.73 m2 59.02 Glucose 177 H Calcium 7.5 L Magnesium Total Bilirubin 1.0 AST 66 H ALT 117 H Alkaline Phosphatase 149 H Troponin I 0.62 H* 0.70 H* C-Reactive Protein 6.82 H NT-Pro-B Natriuret Pep Total Protein 5.6 L Albumin 1.7 L Procalcitonin Urine Legionella Ag 10/01/20 10/01/20 10/01/20 06:00 06:46 08:45 WBC RBC Hgb Hct MCV MCH MCHC RDW Plt Count MPV Immature Gran % Neutrophils % Lymphocytes % Monocytes % Eosinophils % Basophils % Nucleated RBC % Absolute Neutrophils Absolute Lymphocytes Absolute Monocytes Absolute Eosinophils Absolute Basophils RBC Morphology PT 46.3 H D INR 4.8 H* D ABG Sample Site Left radial ABG pH 7.44 ABG pCO2 40 ABG pO2 72 L ABG HCO3 27 H ABG Total CO2 25 ABG O2 Saturation 94 L ABG Base Excess 3 Oxygen Liter Flow Bipap 18/8 FiO2 65 Sodium Potassium Chloride Carbon Dioxide Anion Gap BUN Creatinine Estimated GFR/1.73 m2 Glucose Calcium Magnesium Total Bilirubin AST ALT Alkaline Phosphatase Troponin I C-Reactive Protein NT-Pro-B Natriuret Pep Total Protein Albumin Procalcitonin 0.3 Urine Legionella Ag
[2020-10-01] MEDS: VASOPRESSIN 50 UNITS in Normal Saline 497.5 ML 42 UNITS IV (09:45)
[2020-10-01 10:28] LABS: Troponin I 0.59 ng/mL (<0.06)
--- NOTE | 2020-10-01 11:23 | PHA.REVIEW ---
Pharmacy Admission Review - Admission Clinical Review (Last Reviewed 09/29/20 @ 19:37 by Enrique Sorenson) Non-STEMI (non-ST elevated myocardial infarction) (Acute) Transaminitis (Acute) Acute kidney injury (nontraumatic) (Acute) Urinary tract infection in male (Acute) Septic shock (Acute) Hypotension (Acute) Elevated troponin (Acute) Sepsis (Acute) Wound of right foot (Acute) Venous stasis ulcer (Acute) Venous insufficiency of both lower extremities (Acute) Diabetic neuropathy associated with type 2 diabetes mellitus (Acute) Wound of left foot (Acute) adalimumab Allergy (Severe, Verified 09/29/20 11:54) unknown Penicillins Allergy (Severe, Unverified 09/30/20 10:48) Skin Rash Height 5 ft 2 in Weight 112.2 kg Septic Shock-source unknown at this time - Comments Comments/Follow Ups: On Vasopressin, Norepi infusions to keep BP steady. Diltiazem infusion and Metoprolol for Afib control, Lasix infusion. CLAY improved. No BM recorded since admission, not using much for pain control, bowel meds are ordered prn. Watch WBC, weight, I/O, Lytes (getting good amount of potassium both orally and IV) Repeat Blood cultures pending, since lab was only able to collect one tube initially on 09/29/20. Urine 50-100K mixed gram positive. Currently on Vanco/Meropenem. Levaquin was discontinued due to potential QTC factors and possible start of Amiodarone (not at this time). on Bipap. consulting with [facility] for potential transfer due to complexity of case. May need to address pain control - Renal Dosing Renal Dosing: BUN 23 mg/dL (7-18) H 10/01/20 06:00 Creatinine 1.2 mg/dL (0.70-1.30) 10/01/20 06:00 Medications needing adjustments: Reviewed (SCr ~41ml/min (Watch Meropenem, Vanco-today's SCr pending)) List of meds needing interventions: Possibly Meropenem from Q8h to Q12h and Vanco dosing-pending SCr - Anticoagulation Anticoagulation: Hgb 10.3 g/dL (13.5-17.5) L 10/01/20 06:00 Hct 32.5 % (40.0-50.0) L 10/01/20 06:00 Plt Count 194 10^3/uL (130-400) 10/01/20 06:00 INR 4.8 (0.9-1.1) H* D 10/01/20 06:00 Creatinine 1.2 mg/dL (0.70-1.30) 10/01/20 06:00 Therapeutic Anticoagulation: Reviewed Medications: Warfarin (INR 4.8 (Warfarin on hold;was on Levaquin in addition to current Anbx)) - Opiate Usage Evaluate Pain Scale/Pains Meds: Reviewed (Pain steady 10, not sure if this is realistic (Morphine IVP and oral OxyIR-not given any this morning)) Scheduled Bowel Reg ordered if on Opiates?: No (Prn only, no BM-follow) - Relevant Labs Sodium 137 mmol/L (136-145) 10/01/20 06:00 Potassium 3.5 mmol/L (3.5-5.1) 10/01/20 06:00 Chloride 100 mmol/L (98-107) 10/01/20 06:00 Magnesium 2.0 mg/dL (1.8-2.4) 09/30/20 14:52 C-Reactive Protein 6.82 mg/dL (0.0-0.3) H 10/01/20 06:00 Electrolytes, C-Reactive P, ESR: Reviewed ((morning labs pending/late) Procalcitonin 0.3, C-reactive Protein elevated, Probnp elevated, WBC up 29.78, LFT's elevated but coming down, KCL in IVF in addition to oral Potassium) - DM Control DM Control: Glucose 177 mg/dL (74-106) H 10/01/20 06:00 Finger Stick Blood Glucose 214 Finger Stick Blood Glucose 214 Insulin Dosing: Reviewed (Novolog scale in addition to carb counting scale, NPH insulin on HOLD) - Heart Failure/SC Heart Failure/SC: Troponin I 0.59 ng/mL (<0.06) H* 10/01/20 09:50 NT-Pro-B Natriuret Pep 2604 pg/mL (<300) H 09/30/20 14:52 EF%, PATT's, B-Blockers, Diuretics: Reviewed (NSTEMI due to Sepsis, continue to trend troponin's EF 45% (Metoprolol, Norepi, Vasopressin, Lasix, Diltiazem)) - BP Control BP Control: Blood Pressure [Right Arm] 112/57 Blood Pressure 116/45 Blood Pressure 107/51 Blood Pressure 123/46 Blood Pressure 112/78 Blood Pressure 101/60 Blood Pressure 107/45 Blood Pressure 119/51 Blood Pressure 104/62 Blood Pressure 117/52 Blood Pressure 122/63 Blood Pressure 104/47 Blood Pressure 108/53 Blood Pressure 100/65 Blood Pressure 109/57 Blood Pressure 102/56 Blood Pressure 107/66 Blood Pressure 131/55 Blood Pressure 114/50 Blood Pressure 118/53 Blood Pressure 118/56 Blood Pressure 103/61 Blood Pressure 105/54 Blood Pressure 110/47 Blood Pressure 110/55 - Qtc Review If Elevated: Reviewed (QTC 532 (Levaquin dc'd)-Afib and LBBB, irregular (previous levels were 480,495)) - IV to PO Switch IV Medications: Reviewed (IV steroids, IV Pantoprazole, IV Antibiotics) - Home Meds Home Med List reviewed: Reviewed (Fentanyl patches not ordered, Toprol (on IVP), Mag Ox, Prednison (on IVP), Jardiance,Tresiba) - Current meds Current Medication Order Review: Reviewed (on hold meds: Warfarin (elevated INR) and NPH insulin. Refused Protein supplement, Advair substituted with Symbicort) - Comments Comments/Follow Ups: Chronic wounds on feet, venous stasis ulcers being followed by [facility]. Repeat Chest xray today shows worsening bilateral infiltrates vs CHF Antibiotic Activity - Pharmacy Antibiotic Review Pharmacy Antibiotic Activity: C/S review - Antibiotic Information Antibiotic Review Info: Empiric treatment Septic shock/Bilateral Pneumonia w/Meropenem and Vanco
[2020-10-01] MEDS: ALPRAZolam 0.25 MG TAB PO (12:22)
[2020-10-01] MEDS: dilTIAZem 125 MG in Normal Saline 100 ML 15 MG IV (13:39)
[2020-10-01 14:25] LABS: Anion Gap 6.5 mmol/L (3-11); BUN 23 mg/dL (7-18); CO2 29.5 mmol/L (21.0-32.0); CREATININE 1.1 mg/dL (0.70-1.30); Calcium 7.7 mg/dL (8.5-10.1); Chloride 101 mmol/L (98-107); Glucose 166 mg/dL (74-106); Potassium 3.6 mmol/L (3.5-5.1); Sodium 137 mmol/L (136-145)
[2020-10-01 14:27] LABS: Troponin I 0.51 ng/mL (<0.06)
--- NOTE | 2020-10-01 15:31 | DSE_ITS ---
DS: Diagnosis Discharge Diagnosis (1) Septic shock: Status: Acute (2) Non-STEMI (non-ST elevated myocardial infarction): Status: Acute (3) Elevated troponin: Status: Acute (4) Atrial fibrillation with controlled ventricular response: Status: Chronic (5) Transaminitis: Status: Acute (6) Acute kidney injury (nontraumatic): Status: Acute (7) Pneumonia: Status: Suspected (8) Wound of right foot: Status: Acute (9) Wound of left foot: Status: Acute (10) Venous stasis ulcer: Status: Acute (11) Anemia: Status: Chronic (12) Venous insufficiency of both lower extremities: Status: Acute (13) Diabetic neuropathy associated with type 2 diabetes mellitus: Status: Acute (14) Rheumatoid lung: Status: Chronic (15) Pulmonary HTN: Status: Chronic (16) COPD (chronic obstructive pulmonary disease): Status: Chronic (17) Obstructive sleep apnea syndrome: Status: Chronic (18) Essential hypertension: Status: Chronic Discharge Plan Disposition Patient Disposition: OTHER Condition: Critical Discharge Details Reason For Visit: SEPSIS Admit Date/Time: 09/29/20 16:01 Admit Provider: Enrique Sorenson Attending Provider: Enrique Sorenson Primary Care Provider: Ana Alatorre Hospital Course Hospital Course: 75-year-old male with multiple comorbidities including morbid obesity, obstructive sleep apnea, COPD chronically requiring 5 L of oxygen per nasal cannula, coronary artery disease, severe rheumatoid arthritis (on chronic prednisone and Remicade), chronic atrial fibrillation on Coumadin, aortic stenosis with a history of bioprosthetic aortic valve replacement, recently hospitalized at [facility] for pneumonia. He was subsequently discharged and admitted to [facility] [place] in [facility]. He was transferred September 29, 2020 to [facility] because of severe hypotension with systolic blood pressure in the 50s. On arrival to the emergency department his blood pressure was 71/52. Patient was resuscitated with 3 L IV fluids but required vasopressors including a norepinephrine drip which was started after the ER doctor inserted a central venous triple-lumen catheter in his right femoral vein. Upon arrival to the emergency department routine evaluation includes CBC, CMP, troponin level, proBNP, INR, EKG as well as subsequent CT scan of his chest abdomen pelvis. He was found to be anemic with hemoglobin 9.8 g where his previous hemoglobin had been 11.4 g a month ago. He had a white count of 17,000 along with an elevated procalcitonin level of 0.2 and a blood lactate of 3. CMP showed acute kidney and liver injury with a BUN of 31 creatinine 1.7 and elevated transaminases. Patient was denying any shortness of breath or chest pain or cough and he was not hypoxemic on arrival. Patient initially had a DNR/DNI status but the patient rescinded this and therefore we asked Dr. Alatorre his primary care provider who is on-call for palliative care over the weekend to meet with the patient to help him work through his decision making process regarding his CODE STATUS. After lengthy discussion he indicated that he indeed would want to be intubated in the event of respiratory failure and he also wanted aggressive hemodynamic support including defibrillation and CPR in the event of cardiac arrest. CT scan of the chest showed no acute pulmonary emboli or infarction. He has some patchy infiltrates throughout both lungs however the patient has underlying rheumatoid lung with interstitial lung disease. Radiologist suggested evaluation for COVID-19 and the patient did have nasopharyngeal swab for SARS-CoV-[address] did not show any aortic dissection and no pleural effusions. He does have cardiomegaly and a bioprosthetic aortic valve. Abdominal CT showed an umbilical hernia but no incarceration and no bowel obstruction. There is no hydronephrosis no renal masses and no pyelonephritis. No gallbladder pathology was identified on CT scan. Blood and urine cultures were obtained and he was started on broad-spectrum antibiotics including vancomycin, aztreonam, Levaquin. He was admitted to the ICU where he was continued to be resuscitated with IV fluids and vasopressors including norepinephrine. The next day the patient developed atrial fibrillation with rapid ventricular response while he was on high-dose norepinephrine and therefore the norepinephrine dose was reduced and vasopressin was added for hemodynamic support because of the rapid atrial fibrillation he required IV diltiazem. Atrial fibrillation rate was controlled with combination of diltiazem drip and IV Lopressor. Patient went into acute congestive heart failure and sustained a non-ST elevation myocardial infarction. EKG showed a left bundle branch block with atrial fibrillation with concordant T wave changes in the inferolateral leads which are unchanged from his prior EKGs. Troponin levels peaked at 0.7 on the morning of October 01, 2020 and by the afternoon at the time of discharge his troponins were declining down to 0.51. Patient did experience some chest pain when he was in rapid atrial fibrillation at a rate of 170 on September 30, 2020 and was about to be cardioverted when his heart rate came down with a Valsalva maneuver and subsequent IV diltiazem. On September 30 he developed dyspnea and required couple of iv doses of lasix. On the morning of October 01, 2020 he was no longer having any chest pain although he still had dyspnea and was requiring a Lasix drip for his acute pulmonary edema. He was placed on BiPAP. He was started on aspirin for his NSTEMI. Heparin was not started because the patient had been on warfarin and was supratherapeutic on his INR elevated at 4.8. Because the patient was requiring escalating critical care needs it was felt that the patient needs cardiology as well as critical care medicine services call was placed to [facility] to their transfer center. No beds were available at the [facility] therefore he was referred to [facility] in [facility]. I discussed his case with Dr.Halal Grossman, manager transition. His EKG's and radiology images had been sent for her review. After review of his case she accepted the patient for transfer. In addition to his admission CT scans he had additional CXR's showing pulmonary edema superimposed on his chronic interstitial abnormalities. US of his abdomen was also performed which showed no biliary or renal source for sepsis (i.e. normal liver and no gall stones or biliary dilatation; renals w/ no stones or hydronephrosis or pyelonephritis). Only 1 blood culture was obtained on admission and showed no growth. Urine culture only grew mixed gram positive organisms, 50,000 to 100,000 colonies. His initial antibiotics of Vancomycin, Levaquin, and Aztreonam were switched to Meropenem, Vanocmycin and the levaquin was discontinued. Echo was done during his admission (on 09/30) and demonstrated mild LV dysfunction w/ LVEF 45%, diffuse hypokinesis, and stable bioprosthetic AVR, severe PHTN (RVSP 81 mm). Although his PCP, Dr. Alatorre saw the patient on admission and discussed his code status, the patient elected for full code even though he previously had been DNR/DNI status. Please have Palliative medicine to continue this discussion w/ the patient as hie quality of life has deteriorated recently d/t his chronic pain from RA and his respiratory complications d/t his ILD, KYLE and PHTN. Home Meds and New Rx's Prescriptions: No Action atorvastatin 80 mg tablet 80 mg PO DAILY Qty: 90 RF: 3 lidocaine HCl 4 % cream 1 applic topical BID PRN (Reason: dressing changes) Qty: 120 RF: 1 oxycodone 10 mg tablet 10 mg PO Q6H MDD 40 PRN (Reason: pain) Qty: 112 RF: 0 fluticasone propion-salmeterol [Advair Diskus] 250-50 mcg/dose blister with device 1 inh IH BID RF: 0 ProAir RespiClick 90 mcg/actuation aerosol powdr breath activated 2 inh IH Q6H PRN (Reason: shortness of breath or wheezing) Qty: 1 RF: 1 prednisone 10 mg tablet 20 mg PO DAILY Qty: 60 RF: 3 Hold Instructions: Home Medication placed on hold at Doctor's office (DME) Portable Oxygen Compressor Qty: 1 RF: 0 polyethylene glycol 3350 [Miralax] 17 gram/dose powder 17 g PO BID Qty: 119 RF: 2 fentanyl 12 mcg/hr patch 72 hour 1 patch transdermal Q72H MDD 87 Qty: 2 RF: 0 fentanyl 75 mcg/hr patch 72 hour 1 patch transdermal Q72H MDD 87 Qty: 2 RF: 0 Oxygen EACH RF: 0 Narcan 4 mg/actuation spray,non-aerosol 4 mg NS PRN PRN (Reason: opioid overdose) Qty: 1 RF: 0 Incruse Ellipta 62.5 mcg/actuation blister with device 1 inh IH DAILY RF: 0 aspirin [Aspir-81] 81 mg tablet,delayed release (DR/EC) 81 mg PO DAILY Qty: 100 RF: 3 (DME) pen needle, diabetic [BD Ultra-Fine Mini Pen Needle] 31 gauge x 3/16 needle See Rx Instructions .ROUTE .MEDSUPPLY Qty: 90 RF: 3 Tresiba FlexTouch U-100 100 unit/mL (3 mL) insulin pen 15 unit SC DAILY MDD 50 Qty: 60 RF: 1 Jardiance 25 mg tablet 25 mg PO DAILY Qty: 90 RF: 3 lidocaine 4 % gel 1 applic topical QD-BID PRN (Reason: anesthetic for dressing changes) Qty: 113 RF: 1 lidocaine HCl 2 % jelly 1 applic topical DAILY PRN (Reason: anesthetic for dressing changes) Qty: 30 RF: 3 acetaminophen [Tylenol Arthritis Pain] 650 mg tablet extended release 650 mg PO Q12H Qty: 60 RF: 2 furosemide 20 mg tablet 20 mg PO BID Qty: 180 RF: 3 (DME) lancets [FreeStyle Lancets] 28 gauge misc See Rx Instructions .ROUTE .MEDSUPPLY Qty: 200 RF: 6 magnesium oxide 400 mg magnesium capsule 400 mg PO DAILY Qty: 90 RF: 3 metoprolol succinate 100 mg tablet extended release 24 hr 100 mg PO DAILY Qty: 90 RF: 3 warfarin 2 mg tablet 1 mg PO HS Qty: 90 RF: 2 nitroglycerin [Nitrostat] 0.4 mg tablet, sublingual 0.4 mg sublingual Q5 MIN PRN X3 PRN (Reason: chest pain) Qty: 90 RF: 3 (DME) Blood Glucose Test Strip See Rx Instructions .ROUTE .MEDSUPPLY Qty: 400 RF: 6 pramipexole 0.125 mg tablet 0.125 mg PO HS Qty: 90 RF: 3 levofloxacin 750 mg tablet 750 mg PO DAILY RF: 0 glucagon 1 mg Kit 1 mg DIRECTED PRNRF: 0 dextrose [Glucose Gel] 40 % Gel 15 g PO Q15M PRNRF: 0 magnesium hydroxide 400 mg/5 mL Suspension 400 mg PO DAILY PRNRF: 0 bisacodyl 10 mg Suppository 10 mg ID DAILY RF: 0 Fleet Enema 19-7 gram/118 mL Enema 118 ml ID DIRECTED PRNRF: 0 calcium carbonate [Tums 500] 500 mg calcium (1,250 mg) Tablet,Chewable 500 mg PO Q4H RF: 0 metformin 500 mg tablet 500 mg PO BID RF: 0 clonazepam 1 mg tablet 0.5 mg PO DAILY RF: 0 lisinopril 10 mg tablet 10 mg PO DAILY RF: 0 omeprazole 20 mg capsule,delayed release(DR/EC) 20 mg PO DAILY RF: 0 Discharge Instructions Instructions: Sepsis (DC), Hypotension (DC) Activity:: bedrest Equipment/Supplies:: No Equipment Needed Diet:: Carb Counting DS: Summary Time Spent with Patient providing and/or coordinating discharge services: Greater than 30 minutes Status at Discharge Functional status at discharge: bed bound Overall status at discharge: patient is not back to baseline Mental Status: mental status grossly normal Speech and Movement: speech and movement normal and other Mood: congruent mood Affect: normal affect Exam Narrative Exam Narrative: Obese male who appears comfortable wearing BiPAP not having any respiratory distress at this time. Lungs with diffuse rales and expiratory wheezes Heart is irregularly irregular but at a controlled rate I cannot hear a murmur due to the adventitious lung sounds. Abdomen is obese soft and nontender nondistended Lower legs have 3+ pitting edema from the knees down to the ankles. Lower leg wounds have dressing on them. I did not take the dressing down as I had seen these wounds on admission and will await wound care nurses dressing changes to look at them again. Feet are cool but he has normal pedal pulses Psych Mental Status: mental status grossly normal Speech and Movement: speech and movement normal and other Mood: congruent mood Affect: normal affect DS: Data Vitals/I&O Vitals and I&O: Vital Signs Temperature 36 C L 10/01/20 13:23 Temperature Source Temporal Artery Scan 10/01/20 13:23 Pulse 89 10/01/20 13:23 Pulse 98 H 10/01/20 13:16 Respiratory Rate 19 10/01/20 13:23 Respiratory Effort Labored 10/01/20 13:23 Respiratory Depth Deep 10/01/20 13:23 Respiratory Pattern Tachypnea 10/01/20 13:23 Blood Pressure 112/57 L 10/01/20 13:23 Blood Pressure Mean 75 10/01/20 13:23 Blood Pressure Position Left Lateral 10/01/20 13:23 Pulse Oximetry 92 10/01/20 13:23 Respiratory End-tidal CO2 14 09/30/20 15:19 Oxygen Delivery Method Non-Rebreather 10/01/20 13:23 Oxygen Flow Rate 15 10/01/20 05:45 Fraction of Inspired Oxygen (FIO2) 55 10/01/20 11:42 Pain Level 10 10/01/20 13:23 Intake & Output 09/30/20 10/01/20 10/01/20 23:59 11:59 23:59 Intake Total 2904.499 / 5065.115 976.000 / 1101.000 125 / 1101.000 Output Total 1350 / 2350 2625 / 3350 725 / 3350 Balance 1554.499 / 2715.115 -1649.000 / -2249.000 -600 / -2249.000 Weight 112.2 kg Intake: IV 2504.499 / 4415.115 976.000 / 1101.000 125 / 1101.000 Oral 400 / 650 Output: Urine 1350 / 2350 2625 / 3350 725 / 3350 Other: Urine Color Yellow Pale Yellow Yellow Urine Appearance Cloudy Clear Clear Comment ayers in place. ayers in place; patent ayers in place; patent Data Completed and Pending Labs on day of discharge: Labs from last 24 hours 10/01/20 10/01/20 10/01/20 13:55 09:50 08:45 WBC RBC Hgb Hct MCV MCH MCHC RDW Plt Count MPV Immature Gran % Neutrophils % Lymphocytes % Monocytes % Eosinophils % Basophils % Nucleated RBC % Absolute Neutrophils Absolute Lymphocytes Absolute Monocytes Absolute Eosinophils Absolute Basophils RBC Morphology PT INR ABG Sample Site Left radial ABG pH 7.44 ABG pCO2 40 ABG pO2 72 L ABG HCO3 27 H ABG Total CO2 25 ABG O2 Saturation 94 L ABG Base Excess 3 Oxygen Liter Flow Bipap 18/8 FiO2 65 Sodium 137 Potassium 3.6 Chloride 101 Carbon Dioxide 29.5 Anion Gap 6.5 BUN 23 H Creatinine 1.1 Estimated GFR/1.73 m2 >= 60.00 Glucose 166 H Calcium 7.7 L Magnesium Total Bilirubin AST ALT Alkaline Phosphatase Troponin I 0.51 H* 0.59 H* C-Reactive Protein NT-Pro-B Natriuret Pep Total Protein Albumin Procalcitonin Urine Legionella Ag 10/01/20 10/01/20 10/01/20 06:46 06:00 06:00 WBC 29.78 H* RBC 3.51 L Hgb 10.3 L Hct 32.5 L MCV 92.6 MCH 29.3 MCHC 31.7 L RDW 18.0 H Plt Count 194 MPV 11.3 H Immature Gran % 0.7 Neutrophils % 93.8 Lymphocytes % 2.2 Monocytes % 3.1 Eosinophils % 0.0 Basophils % 0.2 Nucleated RBC % 0 Absolute Neutrophils 27.93 H Absolute Lymphocytes 0.66 L Absolute Monocytes 0.92 H Absolute Eosinophils 0.00 Absolute Basophils 0.06 RBC Morphology Normal PT 46.3 H D INR 4.8 H* D ABG Sample Site ABG pH ABG pCO2 ABG pO2 ABG HCO3 ABG Total CO2 ABG O2 Saturation ABG Base Excess Oxygen Liter Flow FiO2 Sodium Potassium Chloride Carbon Dioxide Anion Gap BUN Creatinine Estimated GFR/1.73 m2 Glucose Calcium Magnesium Total Bilirubin AST ALT Alkaline Phosphatase Troponin I C-Reactive Protein NT-Pro-B Natriuret Pep Total Protein Albumin Procalcitonin 0.3 Urine Legionella Ag 10/01/20 09/30/20 09/30/20 06:00 20:05 14:52 WBC RBC Hgb Hct MCV MCH MCHC RDW Plt Count MPV Immature Gran % Neutrophils % Lymphocytes % Monocytes % Eosinophils % Basophils % Nucleated RBC % Absolute Neutrophils Absolute Lymphocytes Absolute Monocytes Absolute Eosinophils Absolute Basophils RBC Morphology PT INR ABG Sample Site ABG pH ABG pCO2 ABG pO2 ABG HCO3 ABG Total CO2 ABG O2 Saturation ABG Base Excess Oxygen Liter Flow FiO2 Sodium 137 Potassium 3.5 Chloride 100 Carbon Dioxide 28.3 Anion Gap 8.7 BUN 23 H Creatinine 1.2 Estimated GFR/1.73 m2 59.02 Glucose 177 H Calcium 7.5 L Magnesium Total Bilirubin 1.0 AST 66 H ALT 117 H Alkaline Phosphatase 149 H Troponin I 0.70 H* 0.62 H* C-Reactive Protein 6.82 H NT-Pro-B Natriuret Pep 2604 H Total Protein 5.6 L Albumin 1.7 L Procalcitonin Urine Legionella Ag 09/30/20 09/30/20 14:52 06:20 WBC RBC Hgb Hct MCV MCH MCHC RDW Plt Count MPV Immature Gran % Neutrophils % Lymphocytes % Monocytes % Eosinophils % Basophils % Nucleated RBC % Absolute Neutrophils Absolute Lymphocytes Absolute Monocytes Absolute Eosinophils Absolute Basophils RBC Morphology PT INR ABG Sample Site ABG pH ABG pCO2 ABG pO2 ABG HCO3 ABG Total CO2 ABG O2 Saturation ABG Base Excess Oxygen Liter Flow FiO2 Sodium 134 L Potassium 3.4 L Chloride 99 Carbon Dioxide 27.8 Anion Gap 7.2 BUN 23 H Creatinine 1.2 Estimated GFR/1.73 m2 59.02 Glucose 188 H Calcium 7.7 L Magnesium 2.0 Total Bilirubin AST ALT Alkaline Phosphatase Troponin I 0.22 H* C-Reactive Protein NT-Pro-B Natriuret Pep Total Protein Albumin Procalcitonin Urine Legionella Ag Negative 10/01/20 08:18 Blood Blood Culture - Pending 10/01/20 08:24 Blood Blood Culture - Pending Preliminary micro results at discharge 09/29/20 11:55 Blood Culture - Preliminary Blood NO GROWTH 48 HOURS 10/01/20 08:18 Blood Culture - Pending Blood 10/01/20 08:24 Blood Culture - Pending Blood [facility] Medical History Anemia Hx low Hgb, but today's lab review was unexpected. Probable anemia of chronic disease .. Non-meat diet, [ ] iron suppl (concern for constipation)? [ ] stool guaic Aortic stenosis, moderate (07/03/16) S[place] [place] 65%; Mod , valve area 1.33 (grad 23/mean14) (06/2016) [facility] [place] shows worsening disease .. may need cardiac surgery. Aortic stenosis, severe (02/27/19) [facility] [place] 65%; Mod , valve area 1.33 (grad 23/mean14) (06/2016) [facility] [place] shows worsening disease .. may need cardiac surgery. Changed to severe per [facility] EF 59%, aortic valve area 0.9cm, mean gradient 23 mmHg Depressive disorder (07/14/11) Diabetic foot ulcer associated with type 2 diabetes mellitus, with fat layer e xposed Diabetic neuropathy associated with type 2 diabetes mellitus Infected wound No active infection, -06/2020 Uncontrolled pain Left foot s/p debridement [ ] Rheum Arthritis [ ] Venous insufficiency of both lower extremities Venous stasis ulcer Wound of left foot Forefoot, x 2 weeks self-care; Worse/Painful/Necrosis, 03/22/20. [ ] ED [ ] Surg? [ ] [facility] Wound of right foot Due to walker 2' fall.. Surgical History Bronchoscopy (11/20/10) with BAL echo [place].) Compared to the study from 06/18/16 the severity of aortic stenosis has increased and there is pulmonary hypertension. seeing cardio again in 2 wks. Extraction of cataract (08/21/10) R eye,with IOL, Dr Gary History of cardiac [place] [facility] [place]-mild Pulm HTN mean PA pressure 25 and PA systolic pressure 50 normal wedge pressure 6. Right dominant circulation with mild disease in all vessels, focal anyeursm RCA 5mm Internal fixation (08/03/10) R distal femoral fx, Dr Banda, [facility] PFT'S: SEPTEMBER 2017 [facility] [place]. O2 sat on RA 97% After 250 ft on RA 88% needing 2l O2. PTCA (01/27/94) rescue PTCA RCA for persistent CP with Inf GA; [facility] [place]18[place] [facility] [place] findings: Severe pulmonary hypertension mildly elevated pulmonary capillary wedge pressure Status post transcatheter aortic valve replacement [facility] Family History Mother , Lung Cancer at age 74. Personal history of malignant neoplasm at 74 of lung CA Father , CHF at age 86. 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 Retired. 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
--- NOTE | 2020-10-01 17:13 | PDOC.CMDIS ---
- If Service Date Differs Date of service: 10/01/20 Time of Service: 17:13 Care Management Discharge Reason for Hospitalization: Septic Shock
--- NOTE | 2020-10-01 20:18 | W.PALLCONSUL ---
Date of service: 10/01/20 Time of Service: 16:18 History of Present Illness History of Present Illness Chief Complaint: code status review Narrative: I reviewed Elio's chart, spoke to Dr Sorenson, hospitalist, and care managers Lay Dobson and Yumi Francisco, about Elio and his preferences. I reviewed the notes of both Dr Bond (palliative care) and Dr Alatorre, (PCP). Elio had signed a DNR/DNI COLST form with Dr Bond almost one year ago, in October 2019. Since that time, he has reconsidered and indicated that he would want a full resuscitation attempt if he were to . Dr Sorenson consulted with Dr Alatorre this weekend re: Elio's wishes. She again approached Elio, per Dr Sorenson, and tried to convey to him his very slim chances of surviving a code. She, it was reported, supported his returning to his stated goals as delineated in his October 2019 COLST form. When I was about to see Elio, Dr Sorenson indicated that he would soon be transferred by helicopter to [facility] in [place], [place]. Therefore, I just ensured that a copy of his COLST from October 2019 went with him, and asked Dr Sorenson to indicate in his discharge summary that Elio would benefit from a Palliative Care consult once he landed in [place], [place]. Consults Consult date: 10/01/20 Requesting physician: Enrique Sorenson Assessment and Plan Assessment and plan (1) POLST (Physician Orders for Life-Sustaining Treatment): Status: Acute Assessment and plan: Enclosed his October 2019 COLST form in his transfer packet. Pall Care at his tertiary the [facility] might be able to have further discussion with Elio once he is more medically stable. I could not talk to him today as he was BiPAP dependent and about to be transferred. Over the weekend, his PCP, Dr Alatorre talked to him and he stated, by report, that he had changed his mind to FULL CODE status. We do not have supporting documentation to support this at this time. Recommend that his COLST be revisited and signed again when/if he returns to our area. (2) Septic shock: Status: Acute Assessment and plan: on 2 pressors, antibiotics and BIPAP for support at this time (3) Palliative care patient: Status: Chronic Assessment and plan: Has seen Dr Bond in the past. Once he returns, needs to be seen regularly again by PC team--if he is willing. We are available if he desires. (4) DNR no code (do not resuscitate): Status: Acute (5) Transition of patient between care settings: Status: Acute Assessment and plan: Dr Sorenson was planning imminent transfer to [facility]; therefore, I did not pursue exam, etc. He was wearing BiPAP and could not converse due to this device. Review of Systems All systems reviewed & are unremarkable except as noted in HPI and below [facility] Medical History (Updated 10/01/20 @ 20:33 by Niyah Parker MD) Anemia Hx low Hgb, but today's lab review was unexpected. Probable anemia of chronic disease .. Non-meat diet, [ ] iron suppl (concern for constipation)? [ ] stool guaic Aortic stenosis, moderate (07/03/16) S/P AoVR;[facility] ECHO EF 65%; Mod , valve area 1.33 (grad 23/mean14) (06/2016) [facility] eval 09/2017 shows worsening disease .. may need cardiac surgery. Aortic stenosis, severe (02/27/19) [facility] ECHO EF 65%; Mod , valve area 1.33 (grad 23/mean14) (06/2016) [facility] eval 09/2017 shows worsening disease .. may need cardiac surgery. Changed to severe per [facility] EF 59%, aortic valve area 0.9cm, mean gradient 23 mmHg Depressive disorder (07/14/11) Diabetic foot ulcer associated with type 2 diabetes mellitus, with fat layer exposed Diabetic neuropathy associated with type 2 diabetes mellitus Infected wound No active infection, -06/2020 POLST (Physician Orders for Life-Sustaining Treatment) Transition of patient between care settings transfer planned for 10/01/20 from [facility] to [facility] Uncontrolled pain Left foot s/p debridement [ ] Rheum Arthritis [ ] Venous insufficiency of both lower extremities Venous stasis ulcer Wound of left foot Forefoot, x 2 weeks self-care; Worse/Painful/Necrosis, 03/22/20. [ ] ED [ ] Surg? [ ] [facility] Wound of right foot Due to walker 2' fall.. Surgical History Bronchoscopy (11/20/10) with BAL echo ([facility] pulmonolgy note 09/21/17.) Compared to the study from 06/18/16 the severity of aortic stenosis has increased and there is pulmonary hypertension. seeing cardio again in 2 wks. Extraction of cataract (08/21/10) R eye,with IOL, Dr Gary History of cardiac cath 03/21/19 [facility] Right heart cath-mild Pulm HTN mean PA pressure 25 and PA systolic pressure 50 normal wedge pressure 6. Right dominant circulation with mild disease in all vessels, focal anyeursm RCA 5mm Internal fixation (08/03/10) R distal femoral fx, Dr Banda, [facility] PFT'S: SEPTEMBER 2017 [facility] pulm note 09/21/17. O2 sat on RA 97% After 250 ft on RA 88% needing 2l O2. PTCA (01/27/94) rescue PTCA RCA for persistent CP with Inf IL; [facility] right heart catheterization,oximetry (01/07/18) [facility] [place].Corey Griffin MD findings: Severe pulmonary hypertension mildly elevated pulmonary capillary wedge pressure Status post transcatheter aortic valve replacement [facility] 03/29/19 Family History Mother , Lung Cancer at age 74. Personal history of malignant neoplasm at 74 of lung CA Father , CHF at age 86. 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 Retired. 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 Exam Narrative Exam Narrative: No exam done as Elio was being prepared for transfer. Results Last Vital Signs Temp 96.8 F L 10/01/20 13:23 Pulse 98 H 10/01/20 15:45 Resp 18 10/01/20 15:45 BP 127/66 10/01/20 15:45 Pulse Ox 100 10/01/20 16:15 Labs Result diagrams: 10/01/20 06:00 10/01/20 13:55 Labs: Laboratory Results - last 24 hr 09/30/20 09/30/20 10/01/20 06:20 20:05 06:00 WBC RBC Hgb Hct MCV MCH MCHC RDW Plt Count MPV Immature Gran % Neutrophils % Lymphocytes % Monocytes % Eosinophils % Basophils % Nucleated RBC % Absolute Neutrophils Absolute Lymphocytes Absolute Monocytes Absolute Eosinophils Absolute Basophils RBC Morphology PT INR ABG Sample Site ABG pH ABG pCO2 ABG pO2 ABG HCO3 ABG Total CO2 ABG O2 Saturation ABG Base Excess Oxygen Liter Flow FiO2 Sodium 137 Potassium 3.5 Chloride 100 Carbon Dioxide 28.3 Anion Gap 8.7 BUN 23 H Creatinine 1.2 Estimated GFR/1.73 m2 59.02 Glucose 177 H Calcium 7.5 L Total Bilirubin 1.0 AST 66 H ALT 117 H Alkaline Phosphatase 149 H Troponin I 0.62 H* 0.70 H* C-Reactive Protein 6.82 H Total Protein 5.6 L Albumin 1.7 L Procalcitonin Urine Legionella Ag Negative 10/01/20 10/01/20 10/01/20 06:00 06:00 06:46 WBC 29.78 H* RBC 3.51 L Hgb 10.3 L Hct 32.5 L MCV 92.6 MCH 29.3 MCHC 31.7 L RDW 18.0 H Plt Count 194 MPV 11.3 H Immature Gran % 0.7 Neutrophils % 93.8 Lymphocytes % 2.2 Monocytes % 3.1 Eosinophils % 0.0 Basophils % 0.2 Nucleated RBC % 0 Absolute Neutrophils 27.93 H Absolute Lymphocytes 0.66 L Absolute Monocytes 0.92 H Absolute Eosinophils 0.00 Absolute Basophils 0.06 RBC Morphology Normal PT 46.3 H D INR 4.8 H* D ABG Sample Site ABG pH ABG pCO2 ABG pO2 ABG HCO3 ABG Total CO2 ABG O2 Saturation ABG Base Excess Oxygen Liter Flow FiO2 Sodium Potassium Chloride Carbon Dioxide Anion Gap BUN Creatinine Estimated GFR/1.73 m2 Glucose Calcium Total Bilirubin AST ALT Alkaline Phosphatase Troponin I C-Reactive Protein Total Protein Albumin Procalcitonin 0.3 Urine Legionella Ag 10/01/20 10/01/20 10/01/20 08:45 09:50 13:55 WBC RBC Hgb Hct MCV MCH MCHC RDW Plt Count MPV Immature Gran % Neutrophils % Lymphocytes % Monocytes % Eosinophils % Basophils % Nucleated RBC % Absolute Neutrophils Absolute Lymphocytes Absolute Monocytes Absolute Eosinophils Absolute Basophils RBC Morphology PT INR ABG Sample Site Left radial ABG pH 7.44 ABG pCO2 40 ABG pO2 72 L ABG HCO3 27 H ABG Total CO2 25 ABG O2 Saturation 94 L ABG Base Excess 3 Oxygen Liter Flow Bipap 18/8 FiO2 65 Sodium 137 Potassium 3.6 Chloride 101 Carbon Dioxide 29.5 Anion Gap 6.5 BUN 23 H Creatinine 1.1 Estimated GFR/1.73 m2 >= 60.00 Glucose 166 H Calcium 7.7 L Total Bilirubin AST ALT Alkaline Phosphatase Troponin I 0.59 H* 0.51 H* C-Reactive Protein Total Protein Albumin Procalcitonin Urine Legionella Ag
[2020-10-01 23:00] LABS: Streptococcus Pneumoniae Ag, U Negative (Negative)
== END 2020-10-01 16:40 | disposition other institution (70) | DRG 871 ==
LOC: ER 16:03 → ICU 16:52
PROVIDERS: Admitting Provider Internal Medicine; Emergency Provider Physician Assistant; PCP Student in an Organized Health Care Education/Training Program; Visit Provider Internal Medicine
DX: A41.9 Sepsis, unspecified organism (principal); R65.21 Severe sepsis with septic shock; I21.4 Non-ST elevation (NSTEMI) myocardial infarction; J96.00 Acute respiratory failure, unspecified whether with hypoxia or hypercapnia; Z68.42 Body mass index [BMI] 45.0-49.9, adult; N17.9 Acute kidney failure, unspecified; I48.20 Chronic atrial fibrillation, unspecified; J84.9 Interstitial pulmonary disease, unspecified; L97.811 Non-pressure chronic ulcer of other part of right lower leg limited to breakdown of skin; L97.821 Non-pressure chronic ulcer of other part of left lower leg limited to breakdown of skin; J44.0 Chronic obstructive pulmonary disease with (acute) lower respiratory infection; G47.33 Obstructive sleep apnea (adult) (pediatric); E66.01 Morbid (severe) obesity due to excess calories; Z99.81 Dependence on supplemental oxygen; R74.01 Elevation of levels of liver transaminase levels; D64.9 Anemia, unspecified; M05.10 Rheumatoid lung disease with rheumatoid arthritis of unspecified site; I25.10 Atherosclerotic heart disease of native coronary artery without angina pectoris; Z79.01 Long term (current) use of anticoagulants; Z95.4 Presence of other heart-valve replacement; Z20.822 Contact with and (suspected) exposure to COVID-19; I44.7 Left bundle-branch block, unspecified; I50.9 Heart failure, unspecified; I27.20 Pulmonary hypertension, unspecified; I83.018 Varicose veins of right lower extremity with ulcer other part of lower leg; I83.028 Varicose veins of left lower extremity with ulcer other part of lower leg; E11.42 Type 2 diabetes mellitus with diabetic polyneuropathy; F32.9 Major depressive disorder, single episode, unspecified; L98.411 Non-pressure chronic ulcer of buttock limited to breakdown of skin
CPT/HCPCS: 36415; 36556; 36592; 71275; 74177; 76770; 80048; 80053; 82805; 84145; 86850; 86900; 86901; 87040; 87081; 87449; 87635; 93005; 93306; 94640; 96361; 96365; 96367; 96375; 96376; 99239; 99252; 99291; 36600; 71045; 76700; 81003; 81015; 82607; 82728; 82746; 83540; 83550; 83605; 83615; 83735; 83880; 84484; 85014; 85018; 85025; 85045; 85610; 85730; 86140; 87086; 87899; 93010; 94660; 94667; J0131; J1720; J1940; J1956; J2270; J2704; J3480; J3490; J7613